=== PATIENT | female | born 1935 | race Caucasian/White ===

== ENCOUNTER 2025-01-25 14:18 | Emergency (ER) | payer MEDICARE, SELFPAY ==
--- NOTE | 2025-01-25 14:21 | XRR_ITS ---
PROCEDURE INFORMATION: Exam: XR Chest Exam date and time: 01/25/2025 2:54 PM Age: 89 years old Clinical indication: Dyspnea; Additional info: Weakness TECHNIQUE: Imaging protocol: Radiologic exam of the chest. Views: 1 view. COMPARISON: No relevant prior studies available. FINDINGS: Lungs: No focal consolidation. Streaky opacities in the lower lungs, likely atelectasis. Mildly elevated left hemidiaphragm. Pleural spaces: No pleural effusion. No pneumothorax. Heart/Mediastinum: Mild cardiomegaly. Severe atherosclerotic calcification of the aortic arch. Mediastinal clips, compatible with post CABG changes. Bones/joints: Median sternotomy wires. XR/XR chest 1V portable [id number] IMPRESSION: No focal consolidation. Streaky opacities in the lower lungs, likely atelectasis. Mild superimposed pneumonia is possible.
--- NOTE | 2025-01-25 14:21 | CTR_ITS ---
PROCEDURE INFORMATION: Exam: CT Head Without Contrast Exam date and time: 01/25/2025 2:40 PM Age: 89 years old Clinical indication: Dizziness; Additional info: Dizzy TECHNIQUE: Imaging protocol: Computed tomography of the head without contrast. Radiation optimization: All CT scans at this facility use at least one of these dose optimization techniques: automated exposure control; mA and/or kV adjustment per patient size (includes targeted exams where dose is matched to clinical indication); or iterative reconstruction. COMPARISON: No relevant prior studies available. RADIATION DOSE METRICS: Total DLP (mGy-cm): 1016.68 FINDINGS: Brain: No hemorrhage. Patchy areas of hypoattenuation within the periventricular white matter are nonspecific but likely reflect a background of microvascular ischemic changes. No mass effect. Cerebral ventricles: The ventricles and sulci are proportionately enlarged, compatible with parenchymal atrophy. Paranasal sinuses: Visualized sinuses are predominantly clear. No fluid levels. Mastoid air cells: Visualized mastoid air cells are well aerated. Bones: Unremarkable. No acute fracture. Soft tissues: Unremarkable. CT/CT head wo con* [id number] IMPRESSION: No acute intracranial finding.
--- OUTSIDE RECORDS SUMMARY | 2025-01-25 14:24 | XMS_ITS | Encounter Summary ---
Author Organization [facility] Address [address] [place] [address] Care Team Providers Care Warble Saw Operator Name Role Phone Liam Houston MD Primary Care Provider [phone] Reason for Referral * Radiology - Closed Specialty Diagnoses / Procedures Referred By Contac t Referred To Contact Radiology Diagnoses Thoracic compression fracture, closed, initial encounter case#: [id number] Procedures CT T Spine w/o Con [id number] Lupe Saravia APRN [facility] Radiology CT Clinical [place] [id number] Phone: tel: fax: Referral ID Status Reason Start Date Expiration Date Visits Re quested Visits Authorized [id number] Closed 11/02/2015 11/01/2016 1 1 * Radiology - Closed Specialty Diagnoses / Procedures Referred By Contac t Referred To Contact Radiology Diagnoses Compression fracture of lumbar spine, non-traumatic, sequela case#: [id number] Procedures CT L Spine w/o Con [id number] Lupe Saravia APRN [facility] Radiology CT Clinical [address] [address] Phone: tel: fax: Referral ID Status Reason Start Date Expiration Date Visits Re quested Visits Authorized [id number] Closed 11/02/2015 11/01/2016 1 1 Encounter Details Date Type Department Care Team (Late Contact Info) Description 11/02/2015 Orders Only [facility] Neurosurgery - [place] [address], [place] [address] [place] [address] Lupe Saravia APRN Thoracic compression fracture, closed, initial encounter; Compression fracture of lumbar spine, non-traumatic, sequela Social History Tobacco Use Types Packs/Day Years Used Date Smoking Tobacco: Never Smokeless Tobacco: Never Alcohol Use Standard Drinks/Week Comments No 0 (1 standard drink = 0.6 oz pur e alcohol) Comments No Sex and Gender Information Value Date Recorded Sex Assigned at Not on file Legal Sex Female 8:25 PM EST Gender Identity Not on file Sexual Orientation Not on file documented as of this encounter Plan of Treatment Upcoming Encounters Date Type Department Care Team (Late st Contact Info) Description 02/18/2025 3:30 PM EDT Office Visit [facility] [address], [facility] [address] [place] [address] 03/13/2025 12:30 PM EDT Office Visit [facility] Family Medicine [facility] [id number] [place] [address] Liam Houston MD [address] [place] [address] [address] [place] [address] Scheduled Procedures Name Priority Associated Diagnoses Date/Ti me WATCHMAN INSERTION Atrial fibrillation, unspecified type documented as of this encounter Results * CT L Spine w/o Con (11/29/2015 10:41 AM EDT) Anatomical Region Laterality Modality L-spine Computed Tomogra phy 11/30/2015 11:0 9 AM EDT Narrative 11/30/2015 11:39 AM EDT Clinical indication: Thoracic compression fracture, closed, initial encounter CT T SPINE W/O CON, CT L SPINE W/O CON Comparison.MRI thoracic and lumbar spine dated October 27, 2015. 3-mm axial images of the thoracic spine were obtained without contrastwith multiplanar reconstructions Findings. There is diffuse osteopenia with accentuation of the vertical trabecula related to diffuse osteoporosis. There is vertebral plana at T10 with retropulsion of bone fragment into the spinal canal configuration and position of fracture vertebral body remains unchanged. There is severe spinal canal stenosis with cord compression and AP diameter of the spinal canal measuring approximately 5.6 mm. Additional compression fracture of L3 incompletely visualized which remain grossly unchanged from previous examination.. There is no disk herniations noted. Impression. Stable CT findings from previous examination.. Persistent vertebral plana at T10 with retropulsion of bone fragment into the spinal canal and severe canal compromise with associated cord compression and edema better seen on prior MRI examination. CT lumbar spine without contrast. Comparison.October 29, 2015 3-mm axial images of the lumbar spine were obtained without contrastwith multiplanar reconstructions Findings. Again noted a transitional lumbosacral junction with a lumbarized sacrum and intervertebral disc at S1-S2. There is diffuse osteopenia. Again noted near collapse of L3 vertebral body with retropulsed superior posterior corner with 30% narrowing of the spinal canal. There is superimposed ligamentum flavum redundancy and facet arthropathy narrowing the dorsal spinal canal by approximately 20%. The AP diameter of the spinal canal is approximately 7.4 mm. There is no large disk herniations noted. Symmetric disc bulges are seen at L3-4, L4-5 and L5-S1 which along with ligamentum flavum redundancy and facet arthropathy result in mild concentric spinal canal narrowing. The SI joints are normal. There is no abnormal enhancement present. There is a stable cysts in the right kidney with linear calcification. There is atherosclerotic disease in the abdominal aorta and iliac vessels. Postsurgical changes related to previous hysterectomy seen. The left adnexa remains normal in appearance.. Impression. Transitional lumbosacral junction as above. Stable appearing of compression deformity at L3 with retropulsed fragment with superimposed ligamentum flavum redundancy and facet arthropathy causing moderate to severe concentric spinal canal narrowing. Please see above. Diffuse osteopenia. Read By Jas Swift M.D. Electronically Verified By Jas Swift M.D. Released Date Time - 11/30/2015 11:39 AM Resident - Procedure Note Katiuska Dotson MD - 11/30/2015 Clinical indication: Thoracic compression fracture, closed, initialencounter CT T SPINE W/O CON, CT L SPINE W/O CON Comparison.MRI thoracic and lumbar spine dated October 27, 2015. 3-mm axial images of the thoracic spine were obtained withoutcontrastwith multiplanar reconstructions Findings. There is diffuse osteopenia with accentuation of the verticaltrabecula related to diffuse osteoporosis. There is vertebral plana at T10 with retropulsion ofbone fragment into the spinal canal configuration and position of fracture vertebral bodyremains unchanged. There is severe spinal canal stenosis with cord compression and AP diameter ofthe spinal canal measuring approximately 5.6 mm. Additional compression fracture of [id number] visualized which remain grossly unchanged from previous examination.. There is nodisk herniations noted. Impression. Stable CT findings from previous examination.. Persistent vertebralplana at T10 with retropulsion of bone fragment into the spinal canal and severe canalcompromise with associated cord compression and edema better seen on prior MRI examination. CT lumbar spine without contrast. Comparison.October 29, 2015 3-mm axial images of the lumbar spine were obtained without contrastwithmultiplanar reconstructions Findings. Again noted a transitional lumbosacral junction with alumbarized sacrum and intervertebral disc at S1-S2. There is diffuse osteopenia. Again notednear collapse of L3 vertebral body with retropulsed superior posterior corner with 30%narrowing of the spinal canal. There is superimposed ligamentum flavum redundancy and facetarthropathy narrowing the dorsal spinal canal by approximately 20%. The AP diameter of the spinalcanal is approximately 7.4 mm. There is no large disk herniations noted. Symmetric disc bulgesare seen at L3-4, L4-5 and L5-S1 which along with ligamentum flavum redundancy and facetarthropathy result in mild concentric spinal canal narrowing. The SI joints are normal. There is noabnormal enhancement present. There is a stable cysts in the right kidney with linearcalcification. There is atherosclerotic disease in the abdominal aorta and iliac vessels.Postsurgical changes related to previous hysterectomy seen. The left adnexa remains normal inappearance.. Impression. Transitional lumbosacral junction as above. Stable appearing ofcompression deformity at L3 with retropulsed fragment with superimposed ligamentum flavum redundancyand facet arthropathy causing moderate to severe concentric spinal canal narrowing. Please seeabove. Diffuse osteopenia. Read By - Katiuska Swift M.D. Electronically Verified By - Katiuska Swift M.D. Released Date Time - 11/30/2015 11:39 AM Resident - us Lupe Saravia RADIO REPAIR TEACHER RAD JX CT ORDERABLES Final Result * CT T Spine w/o Con (11/29/2015 10:40 AM EDT) Anatomical Region Laterality Modality T-spine Computed Tomogra phy 11/30/2015 11:0 9 AM EDT Narrative 11/30/2015 11:39 AM EDT Clinical indication: Thoracic compression fracture, closed, initial encounter CT T SPINE W/O CON, CT L SPINE W/O CON Comparison.MRI thoracic and lumbar spine dated October 27, 2015. 3-mm axial images of the thoracic spine were obtained without contrastwith multiplanar reconstructions Findings. There is diffuse osteopenia with accentuation of the vertical trabecula related to diffuse osteoporosis. There is vertebral plana at T10 with retropulsion of bone fragment into the spinal canal configuration and position of fracture vertebral body remains unchanged. There is severe spinal canal stenosis with cord compression and AP diameter of the spinal canal measuring approximately 5.6 mm. Additional compression fracture of L3 incompletely visualized which remain grossly unchanged from previous examination.. There is no disk herniations noted. Impression. Stable CT findings from previous examination.. Persistent vertebral plana at T10 with retropulsion of bone fragment into the spinal canal and severe canal compromise with associated cord compression and edema better seen on prior MRI examination. CT lumbar spine without contrast. Comparison.October 29, 2015 3-mm axial images of the lumbar spine were obtained without contrastwith multiplanar reconstructions Findings. Again noted a transitional lumbosacral junction with a lumbarized sacrum and intervertebral disc at S1-S2. There is diffuse osteopenia. Again noted near collapse of L3 vertebral body with retropulsed superior posterior corner with 30% narrowing of the spinal canal. There is superimposed ligamentum flavum redundancy and facet arthropathy narrowing the dorsal spinal canal by approximately 20%. The AP diameter of the spinal canal is approximately 7.4 mm. There is no large disk herniations noted. Symmetric disc bulges are seen at L3-4, L4-5 and L5-S1 which along with ligamentum flavum redundancy and facet arthropathy result in mild concentric spinal canal narrowing. The SI joints are normal. There is no abnormal enhancement present. There is a stable cysts in the right kidney with linear calcification. There is atherosclerotic disease in the abdominal aorta and iliac vessels. Postsurgical changes related to previous hysterectomy seen. The left adnexa remains normal in appearance.. Impression. Transitional lumbosacral junction as above. Stable appearing of compression deformity at L3 with retropulsed fragment with superimposed ligamentum flavum redundancy and facet arthropathy causing moderate to severe concentric spinal canal narrowing. Please see above. Diffuse osteopenia. Read By - Katiuska Swift M.D. Electronically Verified By - Katiuska Swift M.D. Released Date Time - 11/30/2015 11:39 AM Resident - Procedure Note Katiuska Dotson MD - 11/30/2015 Clinical indication: Thoracic compression fracture, closed, initialencounter CT T SPINE W/O CON, CT L SPINE W/O CON Comparison.MRI thoracic and lumbar spine dated October 27, 2015. 3-mm axial images of the thoracic spine were obtained withoutcontrastwith multiplanar reconstructions Findings. There is diffuse osteopenia with accentuation of the verticaltrabecula related to diffuse osteoporosis. There is vertebral plana at T10 with retropulsion ofbone fragment into the spinal canal configuration and position of fracture vertebral bodyremains unchanged. There is severe spinal canal stenosis with cord compression and AP diameter ofthe spinal canal measuring approximately 5.6 mm. Additional compression fracture of [id number] visualized which remain grossly unchanged from previous examination.. There is nodisk herniations noted. Impression. Stable CT findings from previous examination.. Persistent vertebralplana at T10 with retropulsion of bone fragment into the spinal canal and severe canalcompromise with associated cord compression and edema better seen on prior MRI examination. CT lumbar spine without contrast. Comparison.October 29, 2015 3-mm axial images of the lumbar spine were obtained without contrastwithmultiplanar reconstructions Findings. Again noted a transitional lumbosacral junction with alumbarized sacrum and intervertebral disc at S1-S2. There is diffuse osteopenia. Again notednear collapse of L3 vertebral body with retropulsed superior posterior corner with 30%narrowing of the spinal canal. There is superimposed ligamentum flavum redundancy and facetarthropathy narrowing the dorsal spinal canal by approximately 20%. The AP diameter of the spinalcanal is approximately 7.4 mm. There is no large disk herniations noted. Symmetric disc bulgesare seen at L3-4, L4-5 and L5-S1 which along with ligamentum flavum redundancy and facetarthropathy result in mild concentric spinal canal narrowing. The SI joints are normal. There is noabnormal enhancement present. There is a stable cysts in the right kidney with linearcalcification. There is atherosclerotic disease in the abdominal aorta and iliac vessels.Postsurgical changes related to previous hysterectomy seen. The left adnexa remains normal inappearance.. Impression. Transitional lumbosacral junction as above. Stable appearing ofcompression deformity at L3 with retropulsed fragment with superimposed ligamentum flavum redundancyand facet arthropathy causing moderate to severe concentric spinal canal narrowing. Please seeabove. Diffuse osteopenia. Read By - Katiuska Swift M.D. Electronically Verified By Jas Swift M.D. Released Date Time - 11/30/2015 11:39 AM Resident - Lupe Saravia RADIO REPAIR TEACHER RAD JX CT ORDERABLES Final Result documented in this encounter Visit Diagnoses Diagnosis Thoracic compression fracture, closed, initial encounter Compression fracture of lumbar spine, non-traumatic, sequela Compression fracture of lumbar spine, non-traumatic, sequela Thoracic compression fracture, closed, initial encounter documented in this encounter Additional Health Concerns Infection Onset Date Last Indicated Resolved Time COVID-19 Rule-Out 11/24/2020 11/24/2020 11/24/2020 10:21 PM EDT COVID-19 (Confirmed) 11/24/2020 12/10/2020 0805/ 021 3:03 AM EDT COVID-19 Rule-Out 11/24/2020 11/25/2020 11/25/2020 5:14 AM EDT documented as of this encounter Care Teams Warble Saw Operator Relationship Specialty Start Date End Date Liam Houston MD [id number] [place] [address] [address] [place] [address] PCP - General Family Medicine 12/14/22 documented as of this encounter
--- OUTSIDE RECORDS SUMMARY | 2025-01-25 14:24 | XMS_ITS | Encounter Summary ---
Author Organization [facility] Address [address] [place] [address] Care Team Providers Care Motor Vehicles Supervisor Name Role Phone Liam Houston MD Primary Care Provider Encounter Details Date Type Department Care Team (Late st Contact Info) Description 01/03/2011 Documentation Encounter SANJEE[facility]TS CONV Conversion, [employer] Social History Tobacco Use Types Packs/Day Years Used Date Smoking Tobacco: Never Assessed Comments Unknown Sex and Gender Information Value Date Recorded Sex Assigned at Not on file Legal Sex Female 8:25 PM EST Gender Identity Not on file Sexual Orientation Not on file documented as of this encounter Procedure Notes * Katy Cuiricarly - 12/03/2013 3:01 AM EDTAssociated Order(s): SCANNED LAB REPORT documented in this encounter Plan of Treatment Upcoming Encounters Date Type Department Care Team (Late st Contact Info) Description 02/18/2025 3:30 PM EDT Office Visit [facility] [place] [address] [place] [address] 03/13/2025 12:30 PM EDT Office Visit [facility] - [address] [place] [address] Liam Houston MD [id number] [place] [address] [address] [place] [address] Scheduled Procedures Name Priority Associated Diagnoses Date/Ti me WATCHMAN INSERTION Atrial fibrillation, unspecified type documented as of this encounter Procedures Procedure Name Priority Date/Time Associated Diagnosis Comments SCANNED LAB REPORT 12/03/2013 3: 01 AM EDT documented in this encounter Results * SCANNED LAB REPORT (12/03/2013 3:01 AM EDT) Narrative 12/03/2013 3:01 AM EDT Ordered by an unspecified provider. Transcriptions Conversion, [employer] - 12/03/2013 3:01 AM EDT us [employer] Conversion Final Resu lt documented in this encounter Visit Diagnoses Not on filedocumented in this encounter Additional Health Concerns Infection Onset Date Last Indicated Resolved Time None 10/20/2011 10/20/2011 07/15/2012 12:4 0 AM EST COVID-19 Rule-Out 11/24/2020 11/24/2020 11/24/2020 10:21 PM EDT COVID-19 (Confirmed) 11/24/2020 12/10/2020 08 021 3:03 AM EDT COVID-19 Rule-Out 11/24/2020 11/25/2020 11/25/2020 5:14 AM EDT documented as of this encounter Care Teams Motor Vehicles Supervisor Relationship Specialty Start Date End Date Liam Houston MD [id number] [place] [address] [place] [address] PCP - General Family Medicine 04/26/22 documented as of this encounter
--- OUTSIDE RECORDS SUMMARY | 2025-01-25 14:24 | XMS_ITS | Encounter Summary ---
Author Organization [facility] Address [address] [place] [address] Care Team Providers Care Trust Mail Clerk Name Role Phone Liam Houston MD Primary Care Provider [phone] Encounter Details Date Type Department Care Team (Late st Contact Info) Description 03/10/2011 Documentation Encounter SANJEEV V ALLSCRIPTS CONV Conversion, [employer] Social History Tobacco Use Types Packs/Day Years Used Date Smoking Tobacco: Never Assessed Comments Unknown Sex and Gender Information Value Date Recorded Sex Assigned at Not on file Legal Sex Female 8:25 PM EST Gender Identity Not on file Sexual Orientation Not on file documented as of this encounter Procedure Notes * Agustina Cui - 12/01/2013 5:19 AM EDTAssociated Order(s): SCANNED LAB REPORT documented in this encounter Plan of Treatment Upcoming Encounters Date Type Department Care Team (Late st Contact Info) Description 02/18/2025 3:30 PM EDT Office Visit [facility] [place] [address] [address] [place] [address] 03/13/2025 12:30 PM EDT Office Visit [facility] - [address] [place] [address] Liam Houston MD [id number] [place] [address] [address] [place] [address] Scheduled Procedures Name Priority Associated Diagnoses Date/Ti me WATCHMAN INSERTION Atrial fibrillation, unspecified type documented as of this encounter Procedures Procedure Name Priority Date/Time Associated Diagnosis Comments SCANNED LAB REPORT 12/01/2013 5: 19 AM EDT documented in this encounter Results * SCANNED LAB REPORT (12/01/2013 5:19 AM EDT) Narrative 12/01/2013 5:19 AM EDT Ordered by an unspecified provider. Transcriptions Conversion, Allscripts - 12/01/2013 5:19 AM EDT us [employer] Conversion Final Resu lt documented in this encounter Visit Diagnoses Not on filedocumented in this encounter Additional Health Concerns Infection Onset Date Last Indicated Resolved Time None 10/20/2011 10/20/2011 07/15/2012 12:4 0 AM EST COVID-19 Rule-Out 11/24/2020 11/24/2020 11/24/2020 10:21 PM EDT COVID-19 (Confirmed) 11/24/2020 12/10/2020 021 3:03 AM EDT COVID-19 Rule-Out 11/24/2020 11/25/2020 11/25/2020 5:14 AM EDT documented as of this encounter Care Teams Trust Mail Clerk Relationship Specialty Start Date End Date Liam Houston MD [address] [place] [address] [place] [address] PCP - General Family Medicine 04/26/22 documented as of this encounter
--- OUTSIDE RECORDS SUMMARY | 2025-01-25 14:24 | XMS_ITS | Encounter Summary ---
Author Organization [facility] Address [address] [place] [address] Care Team Providers Care Siphon Operator Name Role Phone Liam Houston MD Primary Care Provider [phone] Encounter Details Date Type Department Care Team (Late st Contact Info) Description 01/19/2011 Documentation Encounter SANJEEV V ALLSCRIPTS CONV Conversion, [employer] Social History Tobacco Use Types Packs/Day Years Used Date Smoking Tobacco: Never Assessed Comments Unknown Sex and Gender Information Value Date Recorded Sex Assigned at Not on file Legal Sex Female 8:25 PM EST Gender Identity Not on file Sexual Orientation Not on file documented as of this encounter Procedure Notes * Agustina Cui - 12/02/2013 9:18 AM EDTAssociated Order(s): SCANNED LAB REPORT documented in this encounter Plan of Treatment Upcoming Encounters Date Type Department Care Team (Late st Contact Info) Description 02/18/2025 3:30 PM EDT Office Visit [facility] [place] [address] [address] [place] [address] 03/13/2025 12:30 PM EDT Office Visit [facility] - [address] [place] [address] Liam Houston MD [id number] [place] [address] [address] [place] [address] Scheduled Procedures Name Priority Associated Diagnoses Date/Ti me WATCHMAN INSERTION Atrial fibrillation, unspecified type documented as of this encounter Procedures Procedure Name Priority Date/Time Associated Diagnosis Comments SCANNED LAB REPORT 12/02/2013 9: 18 AM EDT documented in this encounter Results * SCANNED LAB REPORT (12/02/2013 9:18 AM EDT) Narrative 12/02/2013 9:18 AM EDT Ordered by an unspecified provider. Transcriptions Conversion, Allscripts - 12/02/2013 9:18 AM EDT us Allscripts Conversion Final Resu [...] documented as of this encounter Care Teams Siphon Operator Relationship Specialty Start Date End Date Liam Houston MD [address] [place] [address] [place] [address] PCP - General Family Medicine 04/26/22 documented as of this encounter
--- OUTSIDE RECORDS SUMMARY | 2025-01-25 14:24 | XMS_ITS | Encounter Summary ---
Author Organization [facility] Address [address] [place] [address] Care Team Providers Care Grease Maker Name Role Phone Liam Houston MD Primary Care Provider [phone] Encounter Details Date Type Department Care Team (Late st Contact Info) Description 12/07/2009 Documentation Encounter SANJEEV V ALLSCRIPTS CONV Conversion, Allscripts Social History Tobacco Use Types Packs/Day Years Used Date Smoking Tobacco: Never Assessed Comments Unknown Sex and Gender Information Value Date Recorded Sex Assigned at Not on file Legal Sex Female 8:25 PM EST Gender Identity Not on file Sexual Orientation Not on file documented as of this encounter Last Filed Vital Signs Vital Sign Reading Time Taken Comments Blood Pressure 131/89 12/07/2009 9:17 AM EDT Pulse 73 12/07/2009 9:17 AM EDT Temperature 36.1 C (97 F) 12/07/2009 9:17 AM EDT Respiratory Rate 16 12/07/2009 9:17 AM EDT Oxygen Saturation - - Inhaled Oxygen Concentration - - Weight 64 kg (141 lb) 12/07/2009 9:17 AM EDT Height 160 cm (5' 3 ) 12/07/2009 9:17 AM EDT Body Mass Index 24.98 12/07/2009 9:17 AM EDT documented in this encounter Miscellaneous Notes * Scanned Document - Conversion, Allscripts - 12/06/2013 11:07 PM EDT documented in this encounter Plan of Treatment Upcoming Encounters Date Type Department Care Team (Late st Contact Info) Description 02/18/2025 3:30 PM EDT Office Visit [place] [id number], [address] [place] [address] 03/13/2025 12:30 PM EDT Office Visit [place] 9[address] [place] [address] [address] Liam Houston MD [id number] [place] [address] Scheduled Procedures Name Priority Associated Diagnoses Date/Ti me WATCHMAN INSERTION Atrial fibrillation, unspecified type documented as of this encounter Visit Diagnoses Not on filedocumented in this encounter Additional Health Concerns Infection Onset Date Last Indicated Resolved Time None 10/20/2011 10/20/2011 07/15/2012 12:4 0 AM EST COVID-19 Rule-Out 11/24/2020 11/24/2020 11/24/2020 10:21 PM EDT COVID-19 (Confirmed) 11/24/2020 12/10/2020 08 021 3:03 AM EDT COVID-19 Rule-Out 11/24/2020 11/25/2020 11/25/2020 5:14 AM EDT documented as of this encounter Care Teams Grease Maker Relationship Specialty Start Date End Date Liam Houston MD [address] [place] [address] [address] [place] [address] PCP - General Family Medicine 04/26/22 documented as of this encounter
--- OUTSIDE RECORDS SUMMARY | 2025-01-25 14:24 | XMS_ITS | Encounter Summary ---
Author Organization [facility] Address [address] [place] [address] Care Team Providers Care General Lot Attendant Name Role Phone Liam Houston MD Primary Care Provider [phone] Encounter Details Date Type Department Care Team (Late st Contact Info) Description 05/16/2011 Documentation Encounter SANJEEV V ALLSCRIPTS CONV Conversion, [...] Sign Reading Time Taken Comments Blood Pressure 119/75 05/16/2011 1:39 PM EST Pulse 73 05/16/2011 1:39 PM EST Temperature 36.1 C (97 F) 05/16/2011 1:39 PM EST Respiratory Rate 20 05/16/2011 1:39 PM EST Oxygen Saturation - - Inhaled Oxygen Concentration - - Weight 63 kg (139 lb) 05/16/2011 1:39 PM EST Height 160 cm (5' 3 ) 05/16/2011 1:39 PM EST Body Mass Index 24.62 05/16/2011 1:39 PM EST documented in this encounter Miscellaneous Notes * Scanned Document - Conversion, Allscripts - 11/30/2013 6:25 AM EDT documented in this encounter Plan of Treatment Upcoming Encounters Date Type Department Care Team (Late st Contact Info) Description 02/18/2025 3:30 PM EDT Office Visit [place] [address] [address], [address] [place] [address] 03/13/2025 12:30 PM EDT Office Visit [address] [address] Liam Houston MD [id number] [place] [address] Scheduled Procedures Name Priority Associated Diagnoses [...] documented as of this encounter Care Teams General Lot Attendant Relationship Specialty Start Date End Date Liam Houston MD [address] [place] [address] [id number] PCP - General Family Medicine 04/26/22 documented as of this encounter
--- OUTSIDE RECORDS SUMMARY | 2025-01-25 14:24 | XMS_ITS | Encounter Summary ---
Author Organization [facility] Address [address] [place] [address] Care Team Providers Care Dairy Technician Name Role Phone Liam Houston MD Primary Care Provider [phone] Reason for Referral * Radiology - Closed Specialty Diagnoses / Procedures Referred By Contac t Referred To Contact Radiology Diagnoses Closed fracture of thoracic vertebra, unspecified fracture morphology, initial encounter Closed fracture of lumbar vertebra, unspecified fracture morphology, initial encounter Procedures XR Spine Thoracolumbar 2 Views Lupe Avila PA-C Phone: tel: fax: [facility] [place] [address] [place] [address] Phone: tel: fax: Referral ID Status Reason Start Date Expiration Date Visits Re quested Visits Authorized [id number] Closed 10/30/2015 10/29/2016 1 1 Encounter Details Date Type Department Care Team (Late st Contact Info) Description 10/30/2015 Orders Only [facility] Neurosurgery - [place] [address], [place] [address] [place] [phone] Lupe Avila PA-C [address] [address] Closed fracture of thoracic vertebra, unspecified fracture morphology, initial encounter; Closed fracture of lumbar vertebra, unspecified fracture morphology, initial encounter Social History Tobacco Use Types Packs/Day Years [...] Description 02/18/2025 3:30 PM EDT Office Visit [facility] Cardi[facility] [address], [place] [address] [place] [address] 03/13/2025 12:30 PM EDT Office Visit [facility] Family Medicine [place] [address] [place] [address] [place] [phone] Liam Houston MD [id number] [place] [address] [place] [address] [phone] Scheduled Orders Name Type Priority Associated Diagnoses Orde r Schedule XR Spine Thoracolumbar 2 Views Imaging Routine Closed fracture of thoracic vertebra, unspecified fracture morphology, initial encounter Closed fracture of lumbar vertebra, unspecified fracture morphology, initial encounter Expected: 10/30/2015, Expires: 10/29/2016 Scheduled Procedures Name Priority Associated Diagnoses Date/Ti me WATCHMAN INSERTION Atrial fibrillation, unspecified type documented as of this encounter Visit Diagnoses Diagnosis Closed fracture of thoracic vertebra, unspecified fracture morphology, initial encounter Closed fracture of lumbar vertebra, unspecified fracture morphology, initial encounter documented in this encounter Additional Health Concerns Infection Onset Date Last Indicated Resolved Time COVID-19 Rule-Out 11/24/2020 11/24/2020 11/24/2020 10:21 PM EDT COVID-19 (Confirmed) 11/24/2020 12/10/202012/16/2 021 3:03 AM EDT COVID-19 Rule-Out 11/24/2020 11/25/2020 11/25/2020 5:14 AM EDT documented as of this encounter Care Teams Dairy Technician Relationship Specialty Start Date End Date Liam Houston MD 6[address]171 [place] [address] [address] [place] [address] PCP - General Family Medicine 04/26/22 documented as of this encounter
--- OUTSIDE RECORDS SUMMARY | 2025-01-25 14:24 | XMS_ITS | Encounter Summary ---
Author Organization [facility] Address [address] [place] [address] Care Team Providers Care Hogshead Salvage Name Role Phone Liam Houston MD Primary Care Provider [phone] Encounter Details Date Type Department Care Team (Late st Contact Info) Description 12/07/2009 Documentation Encounter SANJEEV V ALLSCRIPTS CONV Husam Lugo MD Social History Tobacco Use Types Packs/Day Years Used Date Smoking Tobacco: Never Assessed Comments Unknown Sex and Gender Information Value Date Recorded Sex Assigned at Not on file Legal Sex Female 8:25 PM EST Gender Identity Not on file Sexual Orientation Not on file documented as of this encounter Progress Notes * Husam Lugo MD - 12/07/2009 9:30 AM EDT Referring Provider Referring Physician: Dr. Clark . Chief Complaint 73 year old female presents to the ENT clinic with complaint of Fluid L Ear / Serous OM Vital Signs Adult Female Recorded by on November 09:17 AM BP: 131/89 mm Hg HR: 73 b/min ; Resp: 16 r/min ; Temp: 97 F Height: 63 in, Weight: 141 lb, BMI: 24.98 , BSA: 1.67 . 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 PSH Hysterectomy (V45.77). Allergies No Known Drug Allergy. Current Meds Aspirin 81 MG Oral Tablet;TAKE 1 TABLET DAILY.; RPT Fiber Therapy TABS;TAKE 2 TABLET TWICE DAILY; RPT Hydrochlorothiazide 12.5 MG Oral Tablet;TAKE TABLET DAILY; Rx Hydrochlorothiazide 12.5 MG Oral Capsule;TAKE 1 CAPSULE EVERY DAY; Rx Alendronate Sodium 10 MG Oral Tablet;TAKE 1 TABLET EVERY DAY; Rx Nasonex 50 MCG/ACT Nasal Suspension;USE 2 SPRAYS IN EACH NOSTRIL ONCE DAILY; Rx. Personal Hx Denied Alcohol Use Denied Tobacco Use. Family Hx Family history of Coronary Artery Disease Family history of Ischemic Stroke. Signature Electronically signed by : Husam Lugo M.D.; 12/16/2009 10:22 AM EST. * Husam Lugo MD - 12/07/2009 9:30 AM EDT NAME: RAMY ALAS DATE OF : 1935 DATE OF SERVICE: 12/07/2009 ATTENDING: HUSAM LUGO MD The patient was treated conservatively for left serous otitis. She states her hearing has now improved, and on examination, there is no evidence of fluid within the left middle ear space. She is to return p.r.n. HUSAM LUGO MD D: [id number] MT: [id number] Dictator: [id number] Confirmation Number: [id number] ([id number]) Electronically signed by:Husam Lugo M.D. Dec 16 2009 10:22AM EST documented in this encounter Plan of Treatment Upcoming Encounters Date Type Department Care Team (Late st Contact Info) Description 02/18/2025 3:30 PM EDT Office Visit [facility] [address], [facility] [address] [place] [address] 03/13/2025 12:30 PM EDT Office Visit [facility] [id number] [place] [phone] Liam Houston MD [id number] [place] [address] [phone] Scheduled Procedures Name Priority Associated Diagnoses Date/Ti [...] documented as of this encounter Care Teams Hogshead Salvage Relationship Specialty Start Date End Date Liam Houston MD [address] [place] [address] [address] [place], [place] [phone] PCP - General Family Medicine 04/26/22 documented as of this encounter
--- OUTSIDE RECORDS SUMMARY | 2025-01-25 14:24 | XMS_ITS | Encounter Summary ---
Author Organization [facility] Address [address] [place] [address] Care Team Providers Care Skip Pitman Name Role Phone Liam Houston MD Primary Care Provider [phone] Encounter Details Date Type Department Care Team (Latest Contact Info) Description 10/29/2015 Prep For Surgery [facility] Neurosurgery - [address], [place] [address] [place] [address] Velia Britton APRN [address], [place] [address], [address] [place] [address] Other closed fracture of tenth thoracic vertebra; Weakness of right leg Social History Tobacco Use Types Packs/Day Years [...] Description 02/18/2025 3:30 PM EDT Office Visit [facility] Cardiovascular [place] [address] [address], [facility] [address] [place] [address] 03/13/2025 12:30 PM EDT Office Visit [facility] Medicine - [place] [address] [place] [address] [place] [phone] Liam Houston MD [id number] [place] [address] [phone] Scheduled Procedures Name Priority Associated Diagnoses Date/Ti me WATCHMAN INSERTION Atrial fibrillation, unspecified type documented as of this encounter Visit Diagnoses Diagnosis Other closed fracture of tenth thoracic vertebra Weakness of right leg Other musculoskeletal symptoms referable to limbs documented in this encounter Additional Health Concerns Infection Onset Date Last Indicated Resolved Time COVID-19 Rule-Out 11/24/2020 11/24/2020 11/24/2020 10:21 PM EDT COVID-19 (Confirmed) 11/24/2020 12/10/2020 021 3:03 AM EDT COVID-19 Rule-Out 11/24/2020 11/25/2020 11/25/2020 5:14 AM EDT documented as of this encounter Care Teams Skip Pitman Relationship Specialty Start Date End Date Liam Houston MD [id number] [phone] PCP - General Family Medicine 04/26/22 documented as of this encounter
--- OUTSIDE RECORDS SUMMARY | 2025-01-25 14:24 | XMS_ITS | Encounter Summary ---
Author Organization [facility] Address [address] [place] [address] Care Team Providers Care Cartridge Belt Puncher Name Role Phone Liam Houston MD Primary Care Provider [phone] Encounter Details Date Type Department Care Team (Late st Contact Info) Description 06/21/2010 Documentation Encounter SANJEEV V ALLSCRIPTS CONV Stephen Collier MD Social History Tobacco Use Types Packs/Day Years Used Date Smoking Tobacco: Never Assessed Comments Unknown Sex and Gender Information Value Date Recorded Sex Assigned at Not on file Legal Sex Female 8:25 PM EST Gender Identity Not on file Sexual Orientation Not on file documented as of this encounter Progress Notes * Stephen Collier MD - 06/21/2010 3:15 PM EST Chief Complaint Follow-up for chronic medical conditions listed below under PMH and Active Problems. hosp f/u Subjective 74 year old, female here for followup after being seen in the emergency department for abdominal pain. It came on abruptly when she stood in [place] turned lower back or pelvis. No vomiting no fever or chills no change in bowel habits. She was evaluated in the emergency department CT scan was performed and is reviewed showing small renal and adnexal cyst and she was discharged on pain medications.Resolved and has not returned. She feels fine All other ROS otherwise neg. Allergies No Known Drug Allergy. Current Meds Aspirin 81 MG Oral Tablet;TAKE 1 TABLET DAILY.; RPT Fiber Therapy TABS;TAKE 2 TABLET TWICE DAILY; RPT Hydrochlorothiazide 12.5 MG Oral Tablet;TAKE TABLET DAILY; Rx Nasonex 50 MCG/ACT Nasal Suspension;USE 2 SPRAYS IN EACH NOSTRIL ONCE DAILY; Rx Hydrochlorothiazide 12.5 MG Oral Capsule;1QD - TAKE ONE CAPSULE BY MOUTH EVERY DAY; Rx Simvastatin 40 MG Oral Tablet;1QD - TAKE ONE TABLET BY MOUTH EVERY DAY; Rx Alendronate Sodium 10 MG Oral Tablet;TAKE 1 TABLET EVERY DAY; Rx. 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 PSH Hysterectomy (V45.77). Family Hx Family history of Coronary Artery Disease Family history of Ischemic Stroke. Personal Hx Denied Alcohol Use Denied Alcohol Use Denied Current Smoker Denied Tobacco Use. Vital Signs Adult Female Recorded by Selina Hayes on June 03:30 PM BP: 138/78 mm Hg HR: 76 b/min ; Resp: 18 r/min ; Temp: 98.4 F Height: 63 in, Weight: 139 lb, BMI: 24.62 , BSA: 1.66 . Objective NAD: VSS. CHEST: CTA. CV: RRR without M/R/G. Abdominal exam is unremarkable no tenderness no CVA tenderness. Assessment Benign essential hypertension (401.1) Muscle spasm (728.85) Health Mgmt Plan Pap smear, breast exam and Hemoccult done 02/2005 Colonoscopy 12.08 Mammogram done 12/2004 Colon exam done 2003 Advance directive given Flu shot done 04/13/06. Plan Assessment found on CT are likely incidental findings however will ultrasound in about 6 weeks and patient should report any return of the symptoms. Referral Patient: RE ALAS : 1935 Priority: Standard Referral to Specialist: Transfer Care for Problem To:/ Dx Radiology: 6 week follow up - Ultrasound renal and pelvis for adnexal cysts and renal cysts Amended : Morena Berg ; 08/02/2010 8:28 AM EST. Signature Electronically signed by : Stephen Collier M.D.; 06/21/2010 4:55 PM EST. Electronically signed by : Stephen Collier M.D.; 08/02/2010 9:37 AM EST. documented in this encounter Plan of Treatment Upcoming Encounters Date Type Department Care Team (Late st Contact Info) Description 02/18/2025 3:30 PM EDT Office Visit [facility] Cardiovascular [address], [facility] [address] [place] [address] 03/13/2025 12:30 PM EDT Office Visit [facility] Family Medicine [address] [address] Liam Houston [place] [id number] [place] [address] [phone] Scheduled Procedures Name Priority Associated Diagnoses Date/Ti me WATCHMAN INSERTION Atrial fibrillation, unspecified type documented as of this encounter Visit Diagnoses Not on filedocumented in this encounter Additional Health Concerns Infection Onset Date Last Indicated Resolved Time None 10/20/2011 10/20/2011 07/15/2012 12:4 0 AM EST COVID-19 Rule-Out 11/24/2020 11/24/2020 11/24/2020 10:21 PM EDT COVID-19 (Confirmed) 11/24/2020 12/10/20202 021 3:03 AM EDT COVID-19 Rule-Out 11/24/2020 11/25/2020 11/25/2020 5:14 AM EDT documented as of this encounter Care Teams Cartridge Belt Puncher Relationship Specialty Start Date End Date Liam Houston MD [address] [place] [address] [phone] PCP - General Family Medicine 04/26/22 documented as of this encounter
--- OUTSIDE RECORDS SUMMARY | 2025-01-25 14:24 | XMS_ITS | Encounter Summary ---
Author Organization [facility] Address [address] [place] [address] Care Team Providers Care Process Consultant Name Role Phone Liam Houston MD Primary Care Provider [phone] Encounter Details Date Type Department Care Team (Late st Contact Info) Description 12/27/2010 Documentation Encounter SANJEEV V ALLSCRIPTS CONV Conversion, Allscripts Social History Tobacco Use Types Packs/Day Years Used Date Smoking Tobacco: Never Assessed Comments Unknown Sex and Gender Information Value Date Recorded Sex Assigned at Not on file Legal Sex Female 8:25 PM EST Gender Identity Not on file Sexual Orientation Not on file documented as of this encounter Procedure Notes * Agustina Cui - 12/04/2013 8:43 AM EDTAssociated Order(s): CARDIOLOGY TESTING documented in this encounter Plan of Treatment Upcoming Encounters Date Type Department Care Team (Late st Contact Info) Description 02/18/2025 3:30 PM EDT Office Visit [facility] Cardiovascular Center [place] [address] [address], [address] [place] [address] 03/13/2025 12:30 PM EDT Office Visit [facility] Family Medicine - [address] [place] [address] Liam Houston [place] 066744 [place] [address] [address] [place] [address] Scheduled Procedures Name Priority Associated Diagnoses Date/Ti me WATCHMAN INSERTION Atrial fibrillation, unspecified type documented as of this encounter Procedures Procedure Name Priority Date/Time Associated Diagnosis Comments CARDIOLOGY TESTING 12/04/2013 8: 43 AM EDT documented in this encounter Results * CARDIOLOGY TESTING (12/04/2013 8:43 AM EDT) Narrative 12/04/2013 8:43 AM EDT Ordered by an unspecified provider. Transcriptions Conversion, Allscripts - 12/04/2013 8:43 AM EDT us Allscripts Conversion SCANNED ORDERS Final Resu lt documented in this encounter [...] documented as of this encounter Care Teams Process Consultant Relationship Specialty Start Date End Date Liam Houston MD 184833 [place] [address] [place] [address] PCP - General Family Medicine 04/26/22 documented as of this encounter
--- OUTSIDE RECORDS SUMMARY | 2025-01-25 14:24 | XMS_ITS | Encounter Summary ---
Author Organization [facility] Address [address] [place] [address] Care Team Providers Care Casket Liner Name Role Phone Liam Houston MD Primary Care Provider [phone] Encounter Details Date Type Department Care Team (Late st Contact Info) Description 02/27/2011 Documentation Encounter SANJEEV V ALLSCRIPTS CONV Conversion, Allscripts Social History Tobacco Use Types Packs/Day Years Used Date Smoking Tobacco: Never Assessed Comments Unknown Sex and Gender Information Value Date Recorded Sex Assigned at Not on file Legal Sex Female 8:25 PM EST Gender Identity Not on file Sexual Orientation Not on file documented as of this encounter Procedure Notes * Conversion, Allscripts - 12/01/2013 1:35 PM EDTAssociated Order(s): SCANNED RADIOLOGY - OUTSIDE AND OTHER * Conversion, Allscripts - 12/01/2013 1:35 PM EDTAssociated Order(s): SCANNED RADIOLOGY - MAMMOGRAM * Conversion, Allscripts - 12/01/2013 1:35 PM EDTAssociated Order(s): SCANNED RADIOLOGY - OUTSIDE AND OTHER * Conversion, Allscripts - 12/01/2013 1:35 PM EDTAssociated Order(s): SCANNED RADIOLOGY - MAMMOGRAM documented in this encounter Plan of Treatment Upcoming Encounters Date Type Department Care Team (Late st Contact Info) Description 02/18/2025 3:30 PM EDT Office Visit [facility] [address], [place] [address] [place] [address] 03/13/2025 12:30 PM EDT Office Visit [facility] [address] [place] [address] Liam Houston MD [id number] [place] [address] [address] [place] [address] Scheduled Procedures Name Priority Associated Diagnoses Date/Ti me WATCHMAN INSERTION Atrial fibrillation, unspecified type documented as of this encounter Procedures Procedure Name Priority Date/Time Associated Diagnosis Comments SCANNED RADIOLOGY - OUTSIDE AND OTHER 12/01/2013 1:35 PM EDT SCANNED RADIOLOGY - OUTSIDE AND OTHER 12/01/2013 1:35 PM EDT SCANNED RADIOLOGY - MAMMOGRAM 12/01/2013 1:35 PM EDT SCANNED RADIOLOGY - MAMMOGRAM 12/01/2013 1:35 PM EDT documented in this encounter Results * SCANNED RADIOLOGY - OUTSIDE AND OTHER (12/01/2013 1:35 PM EDT) Anatomical Region Laterality Modality Other Narrative 12/01/2013 1:35 PM EDT Ordered by an unspecified provider. Transcriptions Conversion, Allscripts - 12/01/2013 1:35 PM EDT us Allscripts Conversion Final Resu lt * SCANNED RADIOLOGY - MAMMOGRAM (12/01/2013 1:35 PM EDT) Anatomical Region Laterality Modality Other Narrative 12/01/2013 1:35 PM EDT Ordered by an unspecified provider. Transcriptions Conversion, Allscripts - 12/01/2013 1:35 PM EDT us Allscripts Conversion Final Resu lt * SCANNED RADIOLOGY - OUTSIDE AND OTHER (12/01/2013 1:35 PM EDT) Anatomical Region Laterality Modality Other Narrative 12/01/2013 1:35 PM EDT Ordered by an unspecified provider. Transcriptions Conversion, Allscripts - 12/01/2013 1:35 PM EDT us Allscripts Conversion Final Resu lt * SCANNED RADIOLOGY - MAMMOGRAM (12/01/2013 1:35 PM EDT) Anatomical Region Laterality Modality Other Narrative 12/01/2013 1:35 PM EDT Ordered by an unspecified provider. Transcriptions Conversion, Allscripts - 12/01/2013 1:35 PM EDT us Allscripts Conversion Final Resu lt documented in this encounter Visit Diagnoses Not on filedocumented in this encounter Additional Health Concerns Infection Onset Date Last Indicated Resolved Time None 10/20/2011 10/20/2011 07/15/2012 12:4 0 AM EST COVID-19 Rule-Out 11/24/2020 11/24/2020 11/24/2020 10:21 PM EDT COVID-19 (Confirmed) 11/24/2020 12/10/2020 [address]8052 021 3:03 AM EDT COVID-19 Rule-Out 11/24/2020 11/25/2020 11/25/2020 5:14 AM EDT documented as of this encounter Care Teams Casket Liner Relationship Specialty Start Date End Date Liam Houston MD [id number] [address] [place] [address] PCP - General Family Medicine 04/26/22 documented as of this encounter
--- OUTSIDE RECORDS SUMMARY | 2025-01-25 14:24 | XMS_ITS | Encounter Summary ---
Author Organization [facility] Address [address] [place] [address] Care Team Providers Care Mosquito Sprayer Name Role Phone Liam Houston MD Primary Care Provider [phone] Encounter Details Date Type Department Care Team (Late st Contact Info) Description 08/30/2010 Documentation Encounter SANJEEV V ALLSCRIPTS CONV Aspen Licona MD Social History Tobacco Use Types Packs/Day Years Used Date Smoking Tobacco: Never Assessed Comments Unknown Sex and Gender Information Value Date Recorded Sex Assigned at Not on file Legal Sex Female 8:25 PM EST Gender Identity Not on file Sexual Orientation Not on file documented as of this encounter Progress Notes * Aspen Licona MD - 08/30/2010 9:34 AM EDT Test Conclus. RADIOLOGY/IMAGING [facility] REPORT [place] [address] Patient Name: RE TORRES : [birth year] Age: 74Y Ordering Physician: ASPEN LICONA LED: 08/30/10 Sex: F Attending Physician: ASPEN LICONA Service: RADIOLOGY Check-in #: [id number] Room #/Area: EXR Unit No.: [id number] [id number] Reason: 401.9-HYPERTENSION NOS Date Ordered: Admit Dx: HYPERTENSION/UNSPECI Date/Time Done: 08/30/10 1228 Priority: +ROUTINE INS: HMO-Medicare Initial Service: EXR Comments: EXAM 2934 EUL-RETROPERITONEUM COMPLETE 93428 Final Ord Dia.9-HYPERTENSION NOS Procedure: EUL-RETROPERITONEUM COMPLETE Ordering History: 401.9: HYPERTENSION NOS Additional History: 74 year old female with hypertension Comparison: CT abdomen and pelvis 06/15/10 Findings: Right kidney: 9.8 x 5.0 centimeters. There is a large simple appearing right superior pole cystic lesion which measures 3.4 x 4.1 cm Left kidney: 9.3 x 4 cm. Negative. Urinary Bladder: Negative Proximal aorta: 1.6 x 1.5 x 1.5 cm Mid aorta: 1.3 by 1.3 x 1.4 cm Distal aorta: 1.1 by 1.0 x 1.0 cm Right common iliac artery: 0.8 x 0.7 by 0.9 cm Left common iliac artery: 0.8 by 0.9 x 0.8 cm Proximal IVC: Negative. There are atherosclerotic changes of the aorta. Impression: Atherosclerotic changes without evidence of abdominal aortic aneurysm. Right superior renal pole 4-cm simple appearing cyst. Consider follow-up as clinically indicated. Geriatric Case Manager- Automated Read By- NOLBERTO SALINAS Electronically Verified By- NOLBERTO SALINAS Released Date Time- 08/30/10 5928 Final Page 1. Results Plan Contact patient and notify results are Normal. Except for her simple cyst less than 1 inch noted on left side, followup if still having discomfortthank you. 08/31/2010 Called and spoke with pt informing per result plan; pt voiced understanding. Response Completed by: Rosa Isela Fernandez Amended : Rosa Isela Fernandez MA; 08/31/2010 4:25 PM EST. Signature Electronically signed by : Aspen Licona M.D.; 08/31/2010 10:39 AM EST. Electronically signed by : Aspen Licona M.D.; 08/31/2010 4:33 PM EST. * Aspen Licona MD - 08/30/2010 9:31 AM EDT Test Conclus. RADIOLOGY/IMAGING [facility] [place] [address] Patient Name: RE TORRES : [birth year] Age: 74Y Ordering Physician: ASPEN LICONA LED: 08/30/10 Sex: F Attending Physician: ASPEN LICONA Service: RADIOLOGY Check-in #: [id number] Room #/Area: EXR Unit No.: [id number] Reason: 789.30-ABDMNAL MASS UNSPCF SITE Date Ordered: Admit Dx: HYPERTENSION/UNSPECI Date/Time Done: 08/30/10 1228 Priority: +ROUTINE INS: HMO-Medicare Initial Service: EXR Comments: EXAM 2941 EUL-PELVIC ECHO COMPL (NON OB)45780 Final Ord Dia.30-ABDMNAL MASS UNSPCF SIT EXAM 2940 EUL-PELVIC ECHO TRANSVAGINAL 12668 Final Ord Dia.30-ABDMNAL MASS UNSPCF SIT Procedure: EUL-PELVIC ECHO COMPL (NON OB), EUL-PELVIC ECHO TRANSVAGINAL Ordering History: 789.30: ABDMNAL MASS UNSPCF SITE Additional History: 74 year old female Comparison: CT abdomen pelvis 06/15/10 Technique: Transabdominal pelvic ultrasound was initially performed with limited visualization of the endometrium and/or adnexal structures. Therefore, transvaginal pelvic ultrasound was performed. Findings: The uterus is surgically absent. The ovaries are not well visualized. There is a simple appearing cystic lesion in the left adnexa which measures 1.5 cm x 1.5 cm x 1.5 cm. There is posterior acoustic enhancement. There is no associated vascularity on color Doppler Impression: Surgically absent uterus with nonvisualization of bilateral ovaries. However a left adnexal 1.5-cm cystic lesion has a simple appearance. Clinical correlation is recommended. Geriatric Case Manager- Automated Read By- NOLBERTO SALINAS Electronically Verified By- NOLBERTO SALINAS Released Date Time- 08/30/10 1422 Final Page 1. Signature Electronically signed by : Aspen Licona M.D.; 08/31/2010 10:39 AM EST. documented in this encounter Plan of Treatment Upcoming Encounters Date Type Department Care Team (Late st Contact Info) Description 02/18/2025 3:30 PM EDT Office Visit [facility] Cardiovascular [address], [facility] [address] [place] [address] 03/13/2025 12:30 PM EDT Office Visit [facility] Family Medicine [facility] [address] [facility] [address] [place] [address] Liam Houston [place] [id number] [place] [address] [address] [place] [address] Scheduled Procedures Name Priority Associated [...] documented as of this encounter Care Teams Mosquito Sprayer Relationship Specialty Start Date End Date Liam Houston [place] [id number] [address] [place] [address] PCP - General Family Medicine 04/26/22 documented as of this encounter
--- OUTSIDE RECORDS SUMMARY | 2025-01-25 14:25 | XMS_ITS | Encounter Summary ---
Author Organization [facility] Address [address] [place] [address] Care Team Providers Care Cell Room Supervisor Name Role Phone Liam Houston MD Primary Care Provider [phone] Encounter Details Date Type Department Care Team (Late st Contact Info) Description 04/17/2013 Documentation Encounter SANJEEV V ALLSCRIPTS CONV Conversion, Allscripts Social History Tobacco Use Types Packs/Day Years Used Date Smoking Tobacco: Never Assessed Alcohol Use Standard Drinks/Week Comments No 0 [...] Sign Reading Time Taken Comments Blood Pressure 116/64 04/17/2013 11:48 AM EST Pulse 72 04/17/2013 11:48 AM EST Temperature 36.4 C (97.6 F) 04/17/2013 11:48 AM EST Respiratory Rate 18 04/17/2013 11:48 AM EST Oxygen Saturation - - Inhaled Oxygen Concentration - - Weight 62.6 kg (138 lb) 04/17/2013 11:48 AM EST Height 162.6 cm (5' 4 ) 04/17/2013 11:48 AM EST Body Mass Index 23.69 04/17/2013 11:48 AM EST documented in this encounter Plan of Treatment Upcoming Encounters Date Type Department Care Team (Late st Contact Info) Description 02/18/2025 3:30 PM EDT Office Visit [facility] Cardiovascular [facility] [address], [address] [place] [address] 03/13/2025 12:30 PM EDT Office Visit [facility] [address] [place] [address] [address] Liam Houston MD [address] [place] [address] Scheduled Procedures Name Priority Associated Diagnoses Date/Ti me WATCHMAN INSERTION Atrial fibrillation, unspecified type documented as of this encounter Visit Diagnoses Not on filedocumented in this encounter Additional Health Concerns Infection Onset Date Last Indicated Resolved Time COVID-19 Rule-Out 11/24/2020 11/24/2020 11/24/2020 10:21 PM EDT COVID-19 (Confirmed) 11/24/2020 12/10/2020 0805/2 021 3:03 AM EDT COVID-19 Rule-Out 11/24/2020 11/25/2020 11/25/2020 5:14 AM EDT documented as of this encounter Care Teams Cell Room Supervisor Relationship Specialty Start Date End Date Liam Houston MD [address] [place] [id number] PCP - General Family Medicine 04/26/22 documented as of this encounter
--- OUTSIDE RECORDS SUMMARY | 2025-01-25 14:25 | XMS_ITS | Encounter Summary ---
Author Organization [facility] Address [address] [place] [address] Care Team Providers Care Barrel Plater Name Role Phone Liam Houston MD Primary Care Provider [phone] Encounter Details Date Type Department Care Team (Late st Contact Info) Description 10/04/2011 Documentation Encounter SANJEEV V ALLSCRIPTS CONV Conversion, Allscripts Social History Tobacco Use Types Packs/Day Years Used Date Smoking Tobacco: Never Assessed Comments Unknown Sex and Gender Information Value Date Recorded Sex Assigned at Not on file Legal Sex Female 8:25 PM EST Gender Identity Not on file Sexual Orientation Not on file documented as of this encounter Miscellaneous Notes * Letter - Conversion, Allscripts - 10/04/2011 10:32 AM EDT . RE ALAS [address] [place] [address] October 04, 2011 Dear Ms. ALAS: You were recently in our office and Dr Collier referred you to a operations staff specialist security and to have an Ultrasound preformed. If you have not heard from either facility below within 7-10 business days, Please contact the specialist for an appointment: Specialist's Name: [facility] Loop Tacker's Phone #: [phone] and Specialist's Name: [facility] Specialist's Phone #: [phone] If you have any further questions please give our office a call at [phone]. [facility]. Signature Electronically signed by : Morena Berg ; 10/04/2011 10:34 AM EST. documented in this encounter Plan of Treatment Upcoming Encounters Date Type Department Care Team (Late st Contact Info) Description 02/18/2025 3:30 PM EDT Office Visit [place] [address], [address] [place] [address] 03/13/2025 12:30 PM EDT Office Visit [facility] [address] [place] [address] [place] [address] Liam Houston MD [address] [place] [address] [place] [id number] Scheduled Procedures Name Priority Associated Diagnoses Date/Ti me WATCHMAN INSERTION Atrial fibrillation, unspecified type documented as of this encounter Visit Diagnoses Not on filedocumented in this encounter Additional Health Concerns Infection Onset Date Last Indicated Resolved Time None 10/20/2011 10/20/2011 07/15/2012 12:4 0 AM EST COVID-19 Rule-Out 11/24/2020 11/24/2020 11/24/2020 10:21 PM EDT COVID-19 (Confirmed) 11/24/2020 12/10/2020 082 021 3:03 AM EDT COVID-19 Rule-Out 11/24/2020 11/25/2020 11/25/2020 5:14 AM EDT documented as of this encounter Care Teams Barrel Plater Relationship Specialty Start Date End Date Liam Houston MD [address] [place] [address] [address] [place], [place] [id number] PCP - General Family Medicine 04/26/22 documented as of this encounter
--- OUTSIDE RECORDS SUMMARY | 2025-01-25 14:25 | XMS_ITS | Encounter Summary ---
Author Organization [facility] Address [address] [place] [address] Care Team Providers Care Weaving Supervisor Name Role Phone Liam Houston MD Primary Care Provider [phone] Encounter Details Date Type Department Care Team (Late st Contact Info) Description 10/24/2012 Documentation Encounter SANJEEV V ALLSCRIPTS CONV Conversion, Allscripts Social History Tobacco Use Types Packs/Day Years Used Date Smoking Tobacco: Never Assessed Alcohol Use Standard Drinks/Week Comments No 0 (1 standard drink = 0.6 oz pur e alcohol) Comments Unknown Sex and Gender Information Value Date Recorded Sex Assigned at Not on file Legal Sex Female 8:25 PM EST Gender Identity Not on file Sexual Orientation Not on file documented as of this encounter Last Filed Vital Signs Vital Sign Reading Time Taken Comments Blood Pressure 121/71 10/24/2012 9:17 AM EDT Pulse 74 10/24/2012 9:17 AM EDT Temperature 36.4 C (97.6 F) 10/24/2012 9:17 AM EDT Respiratory Rate 16 10/24/2012 9:17 AM EDT Oxygen Saturation - - Inhaled Oxygen Concentration - - Weight 62.6 kg (138 lb) 10/24/2012 9:17 AM EDT Height 160 cm (5' 3 ) 10/24/2012 9:17 AM EDT Body Mass Index 24.45 10/24/2012 9:17 AM EDT documented in this encounter Miscellaneous Notes * Scanned Document - Conversion, Allscripts - 11/06/2013 12:16 AM EDT documented in this encounter Plan of Treatment Upcoming Encounters Date Type Department Care Team (Late st Contact Info) Description 02/18/2025 3:30 PM EDT Office Visit [facility] [place] [address], [address] [place] [address] 03/13/2025 12:30 PM EDT Office Visit [facility] [place] [address] [place] [address] [place] [address] Liam Houston [place] [address]40 [place] [address] [place], [place] [phone] Scheduled Procedures Name Priority Associated Diagnoses Date/Ti me WATCHMAN INSERTION Atrial fibrillation, unspecified type documented as of this encounter Procedures Procedure Name Priority Date/Time Associated Diagnosis Comments SURGICAL PATHOLOGY TISSUE Routine 10/24/2012 12:00 AM EDT TISSUE, SPECIMEN A Routine 10/24/2012 12 :00 AM EDT documented in this encounter Results * TISSUE, SPECIMEN A (10/24/2012 12:00 AM EDT) A DIAGNOSIS - SEBORRHEIC KERATOSIS, HYPERKERATOTIC. EXTERNAL LAB A SOURCE SKIN, RIGHT BREAST EXTERNAL LAB A PROCEDURE SHAVE BIOPSY EXTERNAL LAB A GROSS DESCRIPTION Two patricia-brown tissue pieces received in formalin measuring 0.3 x 0.3 x 0.1 cm and 0.4 x 0.4 x 0.2 cm, inked blue; 3 piece(s) entirely submitted in 1 cassette(s). Gross exam(s) performed at: [facility] [address] [facility] [address] Library Acquisitions Technician: BRIAN VELAZCO MD EXTERNAL LAB A MICRO DESCRIPTION THERE IS MARKED PAPILLOMATOSIS WITH MARKED HYPERKERATOSIS. EXTERNAL LAB 10/24/2012 us Stephen Collier MD PATHOLOGY/CYTOLOGY ORD ERABLES Final Result EXTERNAL LAB * SURGICAL PATHOLOGY TISSUE-[place] (10/24/2012 12:00 AM EDT) PATHOLOGIST LISANDRA HINTON M.D., BOARD CERTIFIED DERMATOPATHOLOG IST, (ELECTRONIC SIGNATURE) EXTERNAL LAB CLINICAL INFORMATION No information provided. EXTERNAL LAB 10/24/2012 us Stephen Collier MD PATHOLOGY/CYTOLOGY ORD ERABLES Final Result EXTERNAL LAB documented in this encounter Visit Diagnoses Not on filedocumented in this encounter Additional Health Concerns Infection Onset Date Last Indicated Resolved Time COVID-19 Rule-Out 11/24/2020 11/24/2020 11/24/2020 10:21 PM EDT COVID-19 (Confirmed) 11/24/2020 12/10/2020 08 021 3:03 AM EDT COVID-19 Rule-Out 11/24/2020 11/25/2020 11/25/2020 5:14 AM EDT documented as of this encounter Care Teams Weaving Supervisor Relationship Specialty Start Date End Date Liam Houston [place] [id number] [place] [address] [address] [place] [address] PCP - General Family Medicine 04/26/22 documented as of this encounter
--- OUTSIDE RECORDS SUMMARY | 2025-01-25 14:25 | XMS_ITS | Encounter Summary ---
Author Organization [facility] Address [address] [place] [address] Care Team Providers Care Cloth Classer Name Role Phone Liam Houston MD Primary Care Provider [phone] Encounter Details Date Type Department Care Team (Late st Contact Info) Description 07/16/2013 Documentation Encounter SANJEEV V ALLSCRIPTS CONV Conversion, [...] Sign Reading Time Taken Comments Blood Pressure 141/82 07/16/2013 9:34 AM EST Pulse 61 07/16/2013 9:34 AM EST Temperature 36.1 C (97 F) 07/16/2013 9:34 AM EST Respiratory Rate 16 07/16/2013 9:34 AM EST Oxygen Saturation - - Inhaled Oxygen Concentration - - Weight 62.6 kg (138 lb) 07/16/2013 9:34 AM EST Height 162.6 cm (5' 4 ) 07/16/2013 9:34 AM EST Body Mass Index 23.69 07/16/2013 9:34 AM EST documented in this encounter Miscellaneous Notes * Scanned Document - Conversion, Allscripts - 10/31/2013 11:41 AM EDT * Scanned Document - See, [place] - 10/31/2013 10:20 AM EDT documented in this encounter Plan of Treatment Upcoming Encounters Date Type Department Care Team (Late st Contact Info) Description 02/18/2025 3:30 PM EDT Office Visit [facility] Cardiovascular [place] [address], [facility] [address] [place] [address] 03/13/2025 12:30 PM EDT Office Visit [address] [place] [address] Liam Houston MD [address] [place] [address] [place], [place] [phone] Scheduled Procedures Name Priority Associated Diagnoses Date/Ti [...] documented as of this encounter Care Teams Cloth Classer Relationship Specialty Start Date End Date Liam Houston MD [address] [place] [address] [address] [place], [place] [phone] PCP - General Family Medicine 04/26/22 documented as of this encounter
--- OUTSIDE RECORDS SUMMARY | 2025-01-25 14:25 | XMS_ITS | Encounter Summary ---
Author Organization [facility] Address [address] [place] [address] Care Team Providers Care Spring Fitter Helper Name Role Phone Liam Houston MD Primary Care Provider Encounter Details Date Type Department Care Team (Late st Contact Info) Description 09/23/2008 Documentation Encounter SANJEEV V ALLSCRIPTS CONV Conversion, [...] Sign Reading Time Taken Comments Blood Pressure 126/81 09/23/2008 9:39 AM EDT Pulse 75 09/23/2008 9:39 AM EDT Temperature 36.2 C (97.2 F) 09/23/2008 9:39 AM EDT Respiratory Rate - - Oxygen Saturation - - Inhaled Oxygen Concentration - - Weight 57.6 kg (127 lb) 09/23/2008 9:39 AM EDT Height 162.6 cm (5' 4 ) 09/23/2008 9:39 AM EDT Body Mass Index 21.97 10/07/2008 11:53 AM EDT documented in this encounter Procedure Notes * Conversion, Allscripts - 12/08/2013 9:03 PM EDTAssociated Order(s): SCANNED LAB REPORT documented in this encounter Plan of Treatment Upcoming Encounters Date Type Department Care Team (Late st Contact Info) Description 02/18/2025 3:30 PM EDT Office Visit [facility] Cardiovascular [place] [address] [place] [address] 03/13/2025 12:30 PM EDT Office Visit [facility] [address] [place] [address] [place] [address] Liam Houston [place] [address]64 [place] [address] [place] [address] Scheduled Procedures Name Priority Associated Diagnoses Date/Ti me WATCHMAN INSERTION Atrial fibrillation, unspecified type documented as of this encounter Procedures Procedure Name Priority Date/Time Associated Diagnosis Comments SCANNED LAB REPORT 12/08/2013 9: 03 PM EDT documented in this encounter Results * SCANNED LAB REPORT (12/08/2013 9:03 PM EDT) Narrative 12/08/2013 9:03 PM EDT Ordered by an unspecified provider. Transcriptions Agustina Cui - 12/08/2013 9:03 PM EDT Allscripts Conversion Final Resu lt documented in [...] documented as of this encounter Care Teams Spring Fitter Helper Relationship Specialty Start Date End Date Liam Houston [place] [address] [place] [address] [address] [place] [address] PCP - General Family Medicine 04/26/22 documented as of this encounter
--- OUTSIDE RECORDS SUMMARY | 2025-01-25 14:25 | XMS_ITS | Encounter Summary ---
Author Organization [facility] Address [address] [place] [address] Care Team Providers Care Construction Superintendent Name Role Phone Liam Houston MD Primary Care Provider [phone] Encounter Details Date Type Department Care Team (Late st Contact Info) Description 12/18/2007 Documentation Encounter SANJEEV V ALLSCRIPTS CONV Stephen [...] Progress Notes * Stephen Collier MD - 12/18/2007 8:00 AM EDT Chief Complaint f/u on BP Subjective 71 year old,, female, here today for follow-up of the below listed medical problems and is currently using the medications listed as below. Today patient has new complaint of overactive bladder. She occasionally urges and cannot get in the bathroom. She is fasting blood work. otherwise all other ROS negative. . Allergies No Known Drug Allergy. Current Meds Fosamax 10 MG Tablet;TAKE 1 TABLET DAILY.; Rx Simvastatin 40 MG Tablet;TAKE 1 TABLET BEDTIME; Rx Tizanidine HCl 2 MG Tablet;1 TABS PO bid; Rx. 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 PMH Conjunctivitis Resolved (372.30) Hyperlipidemia (272.4) Osteoporosis (733.00). PSH Hysterectomy (V45.77). Family Hx Family history of Coronary Artery Disease Family history of Ischemic Stroke. Personal Hx No Alcohol Use No Tobacco Use (V15.82). Vital Signs Recorded by cristiane on 18 Dec 2007 08:06 AM BP:140/78, HR: 84 b/min, Temp: 97.0 F, Oral, Weight: 136 lb. Objective VITAL SIGNS: Noted. 148/90 E: PERRL/EOMI conjunctivae clear. HNT: OP clear, no lymphadenopathy, tympanic membranes clear B/L. RESPIRATORY: Lungs CTA bilaterally no wheezes, rales, or rhonchi, NL respiratory effort. CARDIOVASCULAR: RRR no rubs or murmurs, no carotid bruits. ABDOMEN: Soft, nontender, BS present. MS: Full range of motion, no deformities noted. NEUROLOGIC: CN II-XII grossly intact, NL gate. SKIN: Warm and dry. EXTREMITIES: Well perfused, no edema. . 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 Orders Renew Alendronate Sodium 10 MG Tablet;TAKE 1 TABLET DAILY; Qty90; R3; Rx. Renew Simvastatin 40 MG Tablet;TAKE 1 TABLET BEDTIME; Qty90; R3; Rx. Renew Tizanidine HCl 2 MG Tablet;1 TABS PO bid; [id number]; R11; Rx. Plan Skin tag on the left side of neck is anesthetized with ethyl chloride and removed patient is given a trial of vesicare 5 milligrams she may take up to 10 discussed blood pressure and patient's home blood pressure runs 130 over the upper 60s. Would like to recheck in a month and she is to bring her monitor. She's never had a colonoscopy and barium enema in 2003. She is referred for colonoscopy and will dofor Labs today Amended By: Stephen Collier ; 01/20/2008 8:09 AM EST. Signature Signed By: Stephen Collier M.D.; 12/18/2007 12:49 PM EST. Signed By: Stephen Collier M.D.; 01/20/2008 12:09 PM EST. documented in this encounter Plan of Treatment Upcoming Encounters Date Type Department Care Team (Late st Contact Info) Description 02/18/2025 3:30 PM EDT Office Visit [facility] Cardiovascular [place] [id number] [place] [address] 03/13/2025 12:30 PM EDT Office Visit [facility] [address] [place] [address] [place] [address] Liam Houston MD [address] [place] [address] Scheduled Procedures Name Priority Associated Diagnoses [...] documented as of this encounter Care Teams Construction Superintendent Relationship Specialty Start Date End Date Liam Houston MD [address] [place] [address] [address] [place], [place] [phone] PCP - General Family Medicine 04/26/22 documented as of this encounter
--- OUTSIDE RECORDS SUMMARY | 2025-01-25 14:25 | XMS_ITS | Encounter Summary ---
Author Organization [facility] Address [address] [place] [address] Care Team Providers Care Auto Parts Handler Name Role Phone Liam Houston MD Primary Care Provider [phone] Encounter Details Date Type Department Care Team (Late st Contact Info) Description 12/18/2007 Documentation Encounter SANJEEV V ALLSCRIPTS CONV Conversion, [...] Sign Reading Time Taken Comments Blood Pressure 140/78 12/18/2007 8:06 AM EDT Pulse 84 12/18/2007 8:06 AM EDT Temperature 36.1 C (97 F) 12/18/2007 8:06 AM EDT Respiratory Rate - - Oxygen Saturation - - Inhaled Oxygen Concentration - - Weight 61.7 kg (136 lb) 12/18/2007 8:06 AM EDT Height - - Body Mass Index 23.34 08/27/2007 8:19 AM EDT documented in this encounter Plan of Treatment Upcoming Encounters Date Type Department Care Team (Late st Contact Info) Description 02/18/2025 3:30 PM EDT Office Visit [facility] Cardiovascular Center [place] [address] [address], [address] [place] [address] 03/13/2025 12:30 PM EDT Office Visit [facility] Family Medicine [facility] [id number] [place] [phone] [place] [id number] [address] Scheduled Procedures Name Priority Associated Diagnoses Date/Ti [...] documented as of this encounter Care Teams Auto Parts Handler Relationship Specialty Start Date End Date Liam Houston MD [id number] [place] [address] PCP - General Family Medicine 04/26/22 documented as of this encounter
--- OUTSIDE RECORDS SUMMARY | 2025-01-25 14:25 | XMS_ITS | Encounter Summary ---
Author Organization [facility] Address [address] [place] [address] Care Team Providers Care Appraisal Analyst Name Role Phone Liam Houston MD Primary Care Provider [phone] Encounter Details Date Type Department Care Team (Late st Contact Info) Description 04/14/2008 Documentation Encounter SANJEEV V ALLSCRIPTS CONV Ric Domínguez MD Social History Tobacco Use Types Packs/Day Years Used Date Smoking Tobacco: Never Assessed Comments Unknown Sex and Gender Information Value Date Recorded Sex Assigned at Not on file Legal Sex Female 8:25 PM EST Gender Identity Not on file Sexual Orientation Not on file documented as of this encounter Progress Notes * Ric Domínguez MD - 04/14/2008 8:45 AM EST Chief Complaint Referred By Dr Stephen Collier Patient is here for screening colonoscopy Allergies No Known Drug Allergy. Current Meds Alendronate Sodium 10 MG Oral Tablet;TAKE 1 TABLET DAILY.; Rx Tizanidine HCl 2 MG Oral Tablet;1 TABS PO bid; Rx Aspirin 81 MG Oral Tablet;TAKE 1 TABLET DAILY.; RPT Fiber Therapy TABS;TAKE 2 TABLET TWICE DAILY; RPT VESIcare 5 MG Oral Tablet;TAKE 1 DAILY; Rx Hydrochlorothiazide 12.5 MG Oral Tablet;TAKE TABLET DAILY; Rx Silver Sulfadiazine 1 % External Cream;APPLY TO AFFECTED AREA(S) ONCE DAILY DIRECTED.; Rx Simvastatin 40 MG Oral Tablet;TAKE 1 TABLET AT BEDTIME; Rx. 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 PMH A Fall Resolved (E888.9) Conjunctivitis Resolved (372.30) Hyperlipidemia (272.4) Osteoporosis (733.00). HTN. PSH Hysterectomy (V45.77). Thyroid surgey for overacting thyroid. Family Hx Family history of Coronary Artery Disease Family history of Ischemic Stroke No colon canacer. Personal Hx Denied Alcohol Use Denied Tobacco Use. Non smoker no alcohol abuse. Vital Signs Recorded by Kathia Jamil on 14 Apr 2008 08:54 AM BP:131/83, HR: 77 b/min, Resp: 16 r/min, Temp: 98.0 F, Height: 64 in, Weight: 133 lb, BMI: 22.8 kg/m2, BSA Calculated: 1.64 , BMI Calculated: 22.83. Physical Exam VITALS: As listed above. HEAD AND NECK: Pupils equal and reactive. No icterus, pallor, congestion of nasal passages, lymphadenopathy. sxcar of thyroid surgery CARDIOVASCULAR: Heart sounds heard normally. No murmurs. LUNGS: Breath sounds heard normally bilaterally. ABDOMEN: Soft, nontender. No organomegaly. Normal bowel sounds.Non-distended. NEUROLOGICAL: Alert and oriented x 3. No obvious deficits. EXTREMITIES: Peripheral pulses present. No edema. Assessment CRC screening. Plan Colonoscopy. Coun/Edu Colonoscopy: The risks, benefits and alternatives were explained in detail to the patient. Risks including but not limited to bleeding, perforation, adverse reaction to medications, cardiopulmonary compromise and their attendant sequalae explained. Sequelae including but not limited to need for surgery, colostomy, prolonged hospital stay, placement of drainage tubes, blood transfusions, disability, deformity, morbidity and mortality was explained. She indicates understanding and wishes to proceed. Airway Assessment Scheduled Procedure: [ ] Previous Complication with Sedation [ no x] ASA CLASSIFICATION: [ II Mild systemic disease x] Mallampati Airway Classification: Class I: uvula, faucial pillars, soft palate visiblex Good neck flexion: Mouth opening > 4cm Thyromental distance > 7cm Good candidate for moderate sedation x cc Dr Stephen Colleir. Signature Signed By: Santy Domínguez M.D.; 04/14/2008 9:12 AM EST; Author. documented in this encounter Plan of Treatment Upcoming Encounters Date Type Department Care Team (Late st Contact Info) Description 02/18/2025 3:30 PM EDT Office Visit [facility] Cardiovascular [facility] [address] [address], [address] [place] [address] 03/13/2025 12:30 PM EDT Office Visit [place] [address] [place] [address] [place] [phone] Liam Houston MD [address] [place] [address] Scheduled Procedures Name Priority Associated Diagnoses [...] documented as of this encounter Care Teams Appraisal Analyst Relationship Specialty Start Date End Date Liam Houston MD [address] [place] [address] [address] [place] [address] PCP - General Family Medicine 04/26/22 documented as of this encounter
--- OUTSIDE RECORDS SUMMARY | 2025-01-25 14:25 | XMS_ITS | Encounter Summary ---
Author Organization [facility] Address [address] [place] [address] Care Team Providers Care Assembler Lay Ups Name Role Phone Liam Houston MD Primary Care Provider [phone] Encounter Details Date Type Department Care Team (Late st Contact Info) Description 10/20/2011 Documentation Encounter SANJEEV V ALLSCRIPTS CONV Conversion, [employer] Social History Tobacco Use Types Packs/Day Years Used Date Smoking Tobacco: Never Assessed Comments Unknown Sex and Gender Information Value Date Recorded Sex Assigned at Not on file Legal Sex Female 8:25 PM EST Gender Identity Not on file Sexual Orientation Not on file documented as of this encounter Procedure Notes * Agustina Cui - 11/06/2013 4:22 PM EDTAssociated Order(s): CARDIOLOGY TESTING documented in this encounter Plan of Treatment Upcoming Encounters Date Type Department Care Team (Late st Contact Info) Description 02/18/2025 3:30 PM EDT Office Visit [facility] Cardiovascular Center [place] [address] [address], [address] [place] [address] 03/13/2025 12:30 PM EDT Office Visit [facility] Family Medicine - [address] [place] [address] Liam Houston [place] [id number] [place] [address] [address] [place] [address] Scheduled Procedures Name Priority Associated Diagnoses Date/Ti me WATCHMAN INSERTION Atrial fibrillation, unspecified type documented as of this encounter Procedures Procedure Name Priority Date/Time Associated Diagnosis Comments CARDIOLOGY TESTING 11/06/2013 5: 20 PM EDT documented in this encounter Results * CARDIOLOGY TESTING (11/06/2013 5:20 PM EDT) Narrative 11/06/2013 5:20 PM EDT Ordered by an unspecified provider. Transcriptions Conversion, Allscripts - 11/06/2013 4:22 PM EDT us Allscripts Conversion SCANNED ORDERS Final [...] documented as of this encounter Care Teams Assembler Lay Ups Relationship Specialty Start Date End Date Liam Houston MD [address] [place] [address] [place] [address] PCP - General Family Medicine 04/26/22 documented as of this encounter
--- OUTSIDE RECORDS SUMMARY | 2025-01-25 14:25 | XMS_ITS | Encounter Summary ---
Author Organization [facility] Address [address] [place] [address] Care Team Providers Care Editor Map Name Role Phone Liam Houston MD Primary Care Provider Encounter Details Date Type Department Care Team (Late st Contact Info) Description 06/15/2011 Documentation Encounter SANJEEV V ALLSCRIPTS CONV Conversion, [...] Sign Reading Time Taken Comments Blood Pressure 128/79 06/15/2011 9:20 AM EST Pulse 70 06/15/2011 9:20 AM EST Temperature 36.1 C (97 F) 06/15/2011 9:20 AM EST Respiratory Rate 18 06/15/2011 9:20 AM EST Oxygen Saturation - - Inhaled Oxygen Concentration - - Weight 62.6 kg (138 lb) 06/15/2011 9:20 AM EST Height 160 cm (5' 3 ) 06/15/2011 9:20 AM EST Body Mass Index 24.45 06/15/2011 9:20 AM EST documented in this encounter Plan of Treatment Upcoming Encounters Date Type Department Care Team (Late st Contact Info) Description 02/18/2025 3:30 PM EDT Office Visit [facility] [address], [address] [place] [address] 03/13/2025 12:30 PM EDT Office Visit [facility] [address] [place] [address] Liam Houston MD 59[address]89 [place] [address] [place] [address] Scheduled Procedures Name Priority Associated Diagnoses Date/Ti me WATCHMAN INSERTION Atrial fibrillation, unspecified type documented as of this encounter Procedures Procedure Name Priority Date/Time Associated Diagnosis Comments TSH Routine 06/15/2011 12:00 AM EST LIPID PANEL Routine 06/15/2011 12:00 AM EST COMPREHENSIVE METABOLIC PANEL Routine 06/15/2011 12:00 AM EST documented in this encounter Results * (ABNORMAL) Comprehensive Metabolic Panel (06/15/2011 12:00 AM EST) Sodium 141 135 - 146 [facility] ALBUMIN 4.3 3.6 - 5.1 [facility] CARBON DIOXIDE 19(L) 21 - 33 [facility] EGFR Non 72 > OR = 60 [facility] UREA NITROGEN (BUN) 10 7 - 25 [facility] Protein Total 6.9 6.2 - 8.3 [facility] BUN/Creatinine Ratio NOT APPLICABLE 6 - 22 [facility] BILIRUBIN, TOTAL 0.6 0.2 - 1.2 [facility] AST 16 10 - 35 [facility] Glom Filt Rate, Est 84 > OR = 60 [facility] ALKALINE PHOSPHATASE 59 33 - 130 [facility] GLUCOSE 92 65 - 99 [facility] Comment: For patients >49 years of age, the reference limit for Creatinine is approximately 13% higher for people identified as -Kazakh. Globulin 2.6 2.2 - 3.9 [facility] ALT (SGPT) 13 6 - 40 [facility] POTASSIUM 4.2 3.5 - 5.3 [facility] CHLORIDE 103 98 - 110 [facility] CALCIUM 9.5 8.6 - 10.4 [facility] ALBUMIN/GLOBULIN RATIO 1.7 1.0 - 2.1 [facility] CREATININE 0.81 0.60 - 0.93 [facility] 06/15/2011 us Stephen Collier MD BLOOD ORDERABLES Final Result Performing Organization Address City/[facility] Co de Phone Number [facility] * Lipid Panel (06/15/2011 12:00 AM EST) Cholesterol Total 185 125 - 200 [facility] Chol/HDL Ratio 3.4 < OR = 5.0 [facility] Triglycerides 115 <150 [facility] HDL Cholesterol 54 > OR = 46 [facility] LDL Cholesterol 108 <130 [facility] Comment: Desirable range <100 mg/dL for patients with CHD or diabetes and <70 mg/dL for diabetic patients with known heart disease. 06/15/2011 Stephen Collier MD BLOOD ORDERABLES Final Result Performing Organization Address [facility] de Phone Number [facility] * (ABNORMAL) TSH (06/15/2011 12:00 AM EST) TSH, 3RD GENERATION 0.10(L) 0.40 - 4.50 [facility] 06/15/2011 Stephen Collier MD BLOOD ORDERABLES Final Result Performing Organization Address [facility] de Phone Number [facility] documented in this encounter Visit Diagnoses Not on filedocumented in this encounter Additional Health Concerns Infection Onset Date Last Indicated Resolved Time None 10/20/2011 10/20/2011 07/15/2012 12:4 0 AM EST COVID-19 Rule-Out 11/24/2020 11/24/2020 11/24/2020 10:21 PM EDT COVID-19 (Confirmed) 11/24/2020 12/10/2020 021 3:03 AM EDT COVID-19 Rule-Out 11/24/2020 11/25/2020 11/25/2020 5:14 AM EDT documented as of this encounter Care Teams Editor Map Relationship Specialty Start Date End Date Liam Houston MD [id number] [address] [place] [address] PCP - General Family Medicine 04/26/22 documented as of this encounter
--- OUTSIDE RECORDS SUMMARY | 2025-01-25 14:25 | XMS_ITS | Encounter Summary ---
Author Organization [facility] Address [address] [place] [address] Care Team Providers Care Cow Washer Name Role Phone Liam Houston MD Primary Care Provider [phone] Encounter Details Date Type Department Care Team (Late st Contact Info) Description 03/20/2008 Documentation Encounter SANJEEV V ALLSCRIPTS CONV Conversion, [...] Sign Reading Time Taken Comments Blood Pressure 120/74 03/20/2008 1:39 PM EST Pulse 73 03/20/2008 1:39 PM EST Temperature 36.6 C (97.8 F) 03/20/2008 1:39 PM EST Respiratory Rate 16 03/20/2008 1:39 PM EST Oxygen Saturation - - Inhaled Oxygen Concentration - - Weight 61.2 kg (135 lb) 03/20/2008 1:39 PM EST Height - - Body Mass Index 23.17 01/17/2008 1:13 PM EDT documented in this encounter Plan of Treatment Upcoming Encounters Date Type Department Care Team (Late st Contact Info) Description 02/18/2025 3:30 PM EDT Office Visit [facility] Cardiovascular [place] [address] [address], [address] [place] [address] 03/13/2025 12:30 PM EDT Office Visit [facility] Family Medicine - [address] [place] [phone] Liam Houston MD [id number] [place] [address] [id number] Scheduled Procedures Name Priority Associated Diagnoses Date/Ti [...] documented as of this encounter Care Teams Cow Washer Relationship Specialty Start Date End Date Liam Houston MD [address] [place] [address] [id number] PCP - General Family Medicine 04/26/22 documented as of this encounter
--- OUTSIDE RECORDS SUMMARY | 2025-01-25 14:25 | XMS_ITS | Encounter Summary ---
Author Organization [facility] Address [address] [place] [address] Care Team Providers Care Transitional Kindergarten Teacher Name Role Phone Liam Houston MD Primary Care Provider [phone] Encounter Details Date Type Department Care Team (Late st Contact Info) Description 03/20/2008 Documentation Encounter SANJEEV V ALLSCRIPTS CONV Stephen [...] Progress Notes * Stephen Collier MD - 03/20/2008 1:40 PM EST Chief Complaint Follow-up/Flu shot Subjective 72 year old,, female, here today for follow-up of the below listed medical problems and is currently using the medications listed as below. Today patient has been doing well. brief episode of epistaxis while on her cruise otherwise unremarkable. She has seen ophthalmology and does have cataracts however they will not be operated in the near future. otherwise all other ROS negative. . Allergies No Known Drug Allergy. Current Meds Alendronate Sodium 10 MG Tablet;TAKE 1 TABLET DAILY.; Rx Simvastatin 40 MG Tablet;TAKE 1 TABLET BEDTIME; Rx Tizanidine HCl 2 MG Tablet;1 TABS PO bid; Rx VESIcare 5 MG Tablet;TAKE 1 DAILY; Rx Hydrochlorothiazide 12.5 MG Tablet;TAKE TABLET DAILY; Rx Silver Sulfadiazine 1 % Cream;APPLY TO AFFECTED AREA(S) ONCE DAILY DIRECTED.; Rx PEG 3350/Electrolytes 240 GM Solution Reconstituted;TAKE 8 OZ DIRECTED by mouth; Rx Aspirin 81 MG Tablet;TAKE 1 TABLET DAILY.; RPT Fiber Therapy TABS;TAKE 2 TABLET TWICE DAILY; RPT. 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 PMH Conjunctivitis Resolved (372.30) Hyperlipidemia (272.4) Osteoporosis (733.00). PSH Hysterectomy (V45.77). Family Hx Family history of Coronary Artery Disease Family history of Ischemic Stroke. Personal Hx No Alcohol Use No Tobacco Use (V15.82). Vital Signs Recorded by dagmar on 20 Mar 2008 01:39 PM BP:120/74, HR: 73 b/min, Resp: 16 r/min, Temp: 97.8 F, Weight: 135 lb, Pain Scale: 0. Objective VITAL SIGNS: Noted. E: PERRL/EOMI conjunctivae clear. HNT: OP clear, [...] EXTREMITIES: Well perfused, no edema. . Assessment Benign essential hypertension (401.1) Urge and stress incontinence (788.33) Hyperlipidemia (272.4) Osteoporosis (733.00) Muscle spasm (728.85) Health Mgmt Plan Pap smear, breast exam and Hemoccult done 02/2005 Mammogram done 12/2004 Colon exam done 2003 Advance directive given Flu shot done 04/13/06. Plan Pt advised to various Tx options and agreed to the following: Continuation of current medications listed above,the importance of follow up visits. Risk verses benefits of medication and treatments were discussed. Patient voiced understanding. flu shot . Signature Signed By: Stephen Collier M.D.; 03/20/2008 3:47 PM EST. documented in this encounter Plan of Treatment Upcoming Encounters Date Type Department Care Team (Late st Contact Info) Description 02/18/2025 3:30 PM EDT Office Visit [facility] Cardiovascular [address] [facility] [address] [place] [address] 03/13/2025 12:30 PM EDT Office Visit [facility] [address] [place] [address] [place] [address] Liam Houston MD [address] [place] [address] [address] [place], [place] [phone] Scheduled Procedures Name Priority Associated Diagnoses Date/Ti [...] documented as of this encounter Care Teams Transitional Kindergarten Teacher Relationship Specialty Start Date End Date Liam Houston MD [address] [place] [address] [address] [place], [place] [phone] PCP - General Family Medicine 04/26/22 documented as of this encounter
--- OUTSIDE RECORDS SUMMARY | 2025-01-25 14:25 | XMS_ITS | Encounter Summary ---
Author Organization [facility] Address [address] [place] [address] Care Team Providers Care Marine Tower Operator Name Role Phone Liam Houston MD Primary Care Provider [phone] Encounter Details Date Type Department Care Team (Late st Contact Info) Description 05/22/2017 Orders Only [facility] Endocrinology - [place] [address] [facility], [address] [place] [address] Soren Santamaria MD Social History Tobacco Use Types Packs/Day Years Used Date Smoking Tobacco: Never Smokeless Tobacco: Never Alcohol Use Standard Drinks/Week Comments Yes 0 (1 standard drink = 0.6 oz pur e alcohol) once a year Comments No Sex and Gender Information Value Date Recorded Sex Assigned at Not on file Legal Sex Female 8:25 PM EST Gender Identity Not on file Sexual Orientation Not on file documented as of this encounter Plan of Treatment Upcoming Encounters Date Type Department Care Team (Late Contact Info) Description 02/18/2025 3:30 PM EDT Office Visit [facility] Cardiovascular Center [address] [place], [facility] [address] [place] [phone] 03/13/2025 12:30 PM EDT Office Visit [facility] Family Medicine - [place] [address] [place] [address] [place] [phone] Liam Houston MD [address] [place] [address] [address] [place] [address] Scheduled Procedures Name Priority Associated Diagnoses Date/Ti [...] documented as of this encounter Care Teams Marine Tower Operator Relationship Specialty Start Date End Date Liam Houston MD 55[address]45 [place] [address] [address] [place] [address] PCP - General Family Medicine 04/26/22 documented as of this encounter
--- OUTSIDE RECORDS SUMMARY | 2025-01-25 14:25 | XMS_ITS | Encounter Summary ---
Author Organization [facility] Address [address] [place] [address] Care Team Providers Care Payment Processor Name Role Phone Liam Houston MD Primary Care Provider [phone] Encounter Details Date Type Department Care Team (Late st Contact Info) Description 05/30/2013 Documentation Encounter SANJEEV V ALLSCRIPTS CONV Stephen [...] Progress Notes * Stephen Collier MD - 05/30/2013 8:17 AM EST Message Labs fine and will go over at visit 3-5 ,print. Results TSH 29 May 2013 12:00 AM - TSH, 3RD GENERATION: 2.96 Reference Range: 0.40-4.50 Flag: N. CBC With Differential/Platelet 29 May 2013 12:00 AM - WHITE BLOOD CELL COUNT: 5.9 Reference Range: 3.8-10.8 Flag: N - RED BLOOD CELL COUNT: 4.16 Reference Range: 3.80-5.10 Flag: N - HEMOGLOBIN: 12.7 Reference Range: 11.7-15.5 Flag: N - HEMATOCRIT: 38.0 Reference Range: 35.0-45.0 Flag: N - MCV: 91.4 Reference Range: 80.0-100.0 Flag: N - MCH: 30.6 Reference Range: 27.0-33.0 Flag: N - MCHC: 33.5 Reference Range: 32.0-36.0 Flag: N - RDW: 14.1 Reference Range: 11.0-15.0 Flag: N - PLATELET COUNT: 237 Reference Range: 140-400 Flag: N - ABSOLUTE NEUTROPHILS: 4030 Reference Range: 4562-8684 Flag: N - ABSOLUTE LYMPHOCYTES: 1198 Reference Range: 850-3900 Flag: N - ABSOLUTE MONOCYTES: 578 Reference Range: 200-950 Flag: N - ABSOLUTE EOSINOPHILS: 83 Reference Range: 15-500 Flag: N - ABSOLUTE BASOPHILS: 12 Reference Range: 0-200 Flag: N - NEUTROPHILS: 68.3 Flag: N - LYMPHOCYTES: 20.3 Flag: N - MONOCYTES: 9.8 Flag: N - EOSINOPHILS: 1.4 Flag: N - BASOPHILS: 0.2 Flag: N. Basic Metabolic Panel (8) 29 May 2013 12:00 AM - GLUCOSE: 96 Reference Range: 65-99 Flag: N - UREA NITROGEN (BUN): 17 Reference Range: 7-25 Flag: N - CREATININE: 0.78 Reference Range: 0.60-0.93 Flag: N - eGFR NON-AFR. GUAMANIAN: 74 Reference Range: > OR = 60 Flag: N - eGFR : 86 Reference Range: > OR = 60 Flag: N - BUN/CREATININE RATIO: NOT APPLICABLE Reference Range: 6-22 - SODIUM: 145 Reference Range: 135-146 Flag: N - POTASSIUM: 4.4 Reference Range: 3.5-5.3 Flag: N - CHLORIDE: 107 Reference Range: 98-110 Flag: N - CARBON DIOXIDE: 22 Reference Range: 19-30 Flag: N - CALCIUM: 10.0 Reference Range: 8.6-10.4 Flag: N. LIPID PANEL WITH REFLEX TO DIRECT LDL 29 May 2013 12:00 AM - CHOLESTEROL, TOTAL: 157 Reference Range: 125-200 Flag: N - TRIGLYCERIDES: 84 Reference Range: <150 Flag: N - LDL-CHOLESTEROL: 89 Reference Range: <130 Flag: N - CHOL/HDLC RATIO: 3.1 Reference Range: < OR = 5.0 Flag: N - HDL CHOLESTEROL: 51 Reference Range: > OR = 46 Flag: N - NON-HDL CHOLESTEROL: 106 Flag: N. Signature Electronically signed by : Stephen Collier M.D.; 05/30/2013 12:28 PM EST. documented in this encounter Plan of Treatment Upcoming Encounters Date Type Department Care Team (Late st Contact Info) Description 02/18/2025 3:30 PM EDT Office Visit [facility] [address] [address] [place] [address] 03/13/2025 12:30 PM EDT Office Visit [address] [address] Liam Houston MD [address] [place] [address] Scheduled Procedures Name Priority Associated Diagnoses [...] documented as of this encounter Care Teams Payment Processor Relationship Specialty Start Date End Date Liam Houston MD [address] [place] [address] PCP - General Family Medicine 04/26/22 documented as of this encounter
--- OUTSIDE RECORDS SUMMARY | 2025-01-25 14:25 | XMS_ITS | Encounter Summary ---
Author Organization [facility] Address [address] [place] [address] Care Team Providers Care Quality Assistant Name Role Phone Liam Houston MD Primary Care Provider [phone] Encounter Details Date Type Department Care Team (Late st Contact Info) Description 10/28/2009 Documentation Encounter SANJEEV V ALLSCRIPTS CONV Stephen [...] Progress Notes * Stephen Collier MD - 10/28/2009 1:30 PM EDT Chief Complaint Follow-up for chronic medical conditions listed below under PMH and Active Problems. f/u from ent Subjective 73 year old, female here for followup eustachian tube dysfunction. Dr. Lugo's note is reviewed and patient agrees that she is improving. All other ROS otherwise neg. Allergies No [...] SPRAYS IN EACH NOSTRIL ONCE DAILY; Rx. 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 PSH Hysterectomy (V45.77). Family Hx Family history of Coronary Artery Disease Family history of Ischemic Stroke. Personal Hx Denied Alcohol Use Denied Tobacco Use. Vital Signs Adult Female Recorded by Selina Hayes on October 01:46 PM BP: 120/76 mm Hg HR: 72 b/min ; Resp: 14 r/min ; Temp: 98.3 F Height: 64 in, Weight: 138 lb, BMI: 23.69 , BSA: 1.67 . Objective VITAL SIGNS: Noted. E: PERRL/EOMI conjunctivae clear. HNT: OP clear, no lymphadenopathy, tympanic membranes clear B/L. RESPIRATORY: Lungs CTA. Assessment Eustachian tube dysfunction (381.81) Health Mgmt Plan Pap smear, breast exam and Hemoccult done 02/2005 Colonoscopy 12.08 Mammogram done 12/2004 Colon exam done 2003 Advance directive given Flu shot done 04/13/06. Plan Continue nasal steroid Followup in one week if not precipitously improved. Signature Electronically signed by : Stephen Collier M.D.; 10/28/2009 3:30 PM EST. documented in this encounter Plan of Treatment Upcoming Encounters Date Type Department Care Team (Late st Contact Info) Description 02/18/2025 3:30 PM EDT Office Visit [facility] [place] [address] [address], [address] [place] [address] 03/13/2025 12:30 PM EDT Office Visit [facility] [place] [address] [address] Liam Houston [place] [address] [address] Scheduled Procedures Name Priority Associated Diagnoses Date/Ti [...] documented as of this encounter Care Teams Quality Assistant Relationship Specialty Start Date End Date Liam Houston MD [id number] [address] [id number] PCP - General Family Medicine 04/26/22 documented as of this encounter
--- OUTSIDE RECORDS SUMMARY | 2025-01-25 14:25 | XMS_ITS | Encounter Summary ---
Author Organization [facility] Address [address] [place] [address] Care Team Providers Care Deep Well Contractor Name Role Phone Liam Houston MD Primary Care Provider [phone] Encounter Details Date Type Department Care Team (Late st Contact Info) Description 01/27/2013 Documentation Encounter SANJEEV V ALLSCRIPTS CONV Conversion, [...] encounter Procedure Notes * Conversion, Allscripts - 11/04/2013 12:06 PM EDTAssociated Order(s): SCANNED RADIOLOGY - MAMMOGRAM documented in this encounter Plan of Treatment Upcoming Encounters Date Type Department Care Team (Late st Contact Info) Description 02/18/2025 3:30 PM EDT Office Visit [facility] [address] [address], [address] [place] [address] 03/13/2025 12:30 PM EDT Office Visit [facility] [address] [place] [address] [place] [phone] Liam Houston MD [address] [place] [address] Scheduled Procedures Name Priority Associated Diagnoses Date/Ti me WATCHMAN INSERTION Atrial fibrillation, unspecified type documented as of this encounter Procedures Procedure Name Priority Date/Time Associated Diagnosis Comments SCANNED RADIOLOGY - MAMMOGRAM 11/04/2013 1:00 PM EDT documented in this encounter Results * SCANNED RADIOLOGY - MAMMOGRAM (11/04/2013 1:00 PM EDT) Anatomical Region Laterality Modality Other Narrative 11/04/2013 1:00 PM EDT Ordered by an unspecified provider. Transcriptions Conversion, Allscripts - 11/04/2013 12:06 PM EDT us Allscripts Conversion Final Resu lt documented in this encounter Visit Diagnoses Not on filedocumented in this encounter Additional Health Concerns Infection Onset Date Last Indicated Resolved Time COVID-19 Rule-Out 11/24/2020 11/24/2020 11/24/2020 10:21 PM EDT COVID-19 (Confirmed) 11/24/2020 12/10/2020 0805/2 021 3:03 AM EDT COVID-19 Rule-Out 11/24/2020 11/25/2020 11/25/2020 5:14 AM EDT documented as of this encounter Care Teams Deep Well Contractor Relationship Specialty Start Date End Date Liam Houston [place] [id number] [place] [address] [place] [address] PCP - General Family Medicine 04/26/22 documented as of this encounter
--- OUTSIDE RECORDS SUMMARY | 2025-01-25 14:25 | XMS_ITS | Encounter Summary ---
Author Organization [facility] Address [address] [place] [address] Care Team Providers Care Section Plotter Operator Name Role Phone Liam Houston MD Primary Care Provider [phone] Encounter Details Date Type Department Care Team (Late st Contact Info) Description 10/26/2009 Documentation Encounter SANJEEV V ALLSCRIPTS CONV Husam [...] Progress Notes * Husam Lugo MD - 10/26/2009 10:15 AM EDT NAME: RE ALAS DATE OF : 1935 DATE OF SERVICE: 10/26/2009 ATTENDING: HUSAM LUGO MD The patient has had hurting in her left ear, and also decreased hearing. It seems that the hurting is gone, but the ear feels stopped up, and she feels her hearing is down. PHYSICAL EXAMINATION: GENERAL: Reveals a well-developed, well-nourished female, in no acute distress. EARS: No abnormalities of the external ears or auditory canals. The right tympanic membrane is normal. However, on the left it is discolored, has a yellowish discoloration indicative of serous fluid within the middle ear space. NOSE: Examination of the nose reveals no purulent drainage. Normal mucosa. No obstruction. ORAL: Oral cavity exam reveals no mucosal lesions. The nasopharynx could not be visualized with themirror. Therefore, a fiberoptic examination was performed. There are no abnormalities of the nasopharynx. The scope was advanced and the hypopharynx and larynx were also examined, and there are no abnormalities of the supraglottic larynx, vocal cords, base of the tongue, or piriform sinuses. This young lady was politzerized after spraying her nose with decongestant, with some relief. She was recommended to take the nasal steroids, as well as AFRIN and self politzerize her nose. She was asked toreturn to the clinic next week if symptoms persist. HUSAM LUGO MD D: [id number] MT: [id number] Dictator: [id number] Confirmation Number: [id number] ([id number]) Electronically signed by:Husam Lugo M.D. Oct 28 2009 10:06AM EST documented in this encounter Plan of Treatment Upcoming Encounters Date Type Department Care Team (Late st Contact Info) Description 02/18/2025 3:30 PM EDT Office Visit [facility] [address], [facility] [address] [place] [address] 03/13/2025 12:30 PM EDT Office Visit [facility] 0[address] [place] [address] [place] [phone] Liam Houston MD [id number] [place] [address] [address] [place] [address] Scheduled Procedures Name Priority Associated Diagnoses [...] documented as of this encounter Care Teams Section Plotter Operator Relationship Specialty Start Date End Date Liam Houston [place] 218608 [place] [address] [address] [place] [address] PCP - General Family Medicine 04/26/22 documented as of this encounter
--- OUTSIDE RECORDS SUMMARY | 2025-01-25 14:25 | XMS_ITS | Encounter Summary ---
Author Organization [facility] Address [address] [place] [address] Care Team Providers Care Aba Tutor Name Role Phone Liam Houston MD Primary Care Provider [phone] Encounter Details Date Type Department Care Team (Late st Contact Info) Description 03/25/2013 Documentation Encounter SANJEEV V ALLSCRIPTS CONV Conversion, [...] Sign Reading Time Taken Comments Blood Pressure 118/76 03/25/2013 9:13 AM EST Pulse - - Temperature 36.1 C (97 F) 03/25/2013 9:13 AM EST Respiratory Rate 16 03/25/2013 9:13 AM EST Oxygen Saturation - - Inhaled Oxygen Concentration - - Weight 61.9 kg (136 lb 8 oz) 03/25/2013 9:13 AM EST Height 162.6 cm (5' 4 ) 03/25/2013 9:13 AM EST Body Mass Index 23.43 03/25/2013 9:13 AM EST documented in this encounter Plan of Treatment Upcoming Encounters Date Type Department Care Team (Late st Contact Info) Description 02/18/2025 3:30 PM EDT Office Visit [facility] - [place] [address], [address] [place] [address] 03/13/2025 12:30 PM EDT Office Visit [facility] Family Medicine - [place] [id number] [place] [address] [place] [phone] Liam Houston MD [address] [place] [address] Scheduled Procedures Name Priority Associated Diagnoses [...] documented as of this encounter Care Teams Aba Tutor Relationship Specialty Start Date End Date Liam Houston MD [address] [place] [address] [id number] PCP - General Family Medicine 04/26/22 documented as of this encounter
--- OUTSIDE RECORDS SUMMARY | 2025-01-25 14:25 | XMS_ITS | Encounter Summary ---
Author Organization [facility] Address [address] [place] [address] Care Team Providers Care Bull Chain Operator Name Role Phone Liam Houston MD Primary Care Provider [phone] Encounter Details Date Type Department Care Team (Late st Contact Info) Description 05/29/2013 Documentation Encounter SANJEEV V ALLSCRIPTS CONV Stephen [...] Progress Notes * Stephen Collier MD - 05/29/2013 8:30 AM EST Chief Complaint Pt. is here for fasting blood work Allergies No Known Drug Allergy. Current Meds Aspirin 81 MG Oral Tablet;TAKE 1 TABLET DAILY.; RPT Biotin 10 MG Oral Tablet;TAKE 1 TABLET DAILY.; RPT Potassium Gluconate 595 MG Oral Tablet;TAKE 1 TABLET TWICE DAILY; RPT Centrum Silver Ultra Womens Oral Tablet;TAKE 1 TABLET DAILY.; RPT Atorvastatin Calcium 80 MG Oral Tablet;TAKE 1 TABLET DAILY AT BEDTIME; Rx Levothyroxine Sodium 75 MCG Oral Tablet;take one tablet by mouth every day; Rx Metoprolol Succinate ER 25 MG Oral Tablet Extended Release 24 Hour;TAKE 1 TABLET DAILY.; Rx Alendronate Sodium 10 MG Oral Tablet;TAKE 1 TABLET EVERY DAY; Rx. 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 PSH Coronary Artery Bypass Graft (CABG) (V45.81) Hysterectomy (V45.77). Family Hx Family history of CORONARY ARTERY DISEASE Family history of STROKE - ISCHEMIC. Personal Hx Denied alcohol use Denied Alcohol Use Denied Current Smoker Never A Smoker Denied tobacco use. Labs CBC BMP Lipid Panel TSH Venipuncture: Reason: Physician ordered labs Amount: 3 Tubes red, lav, gold Type: butterfly Site: vein right arm Reaction: None Draw perfomed by: Rohini Obando 05/29/2013 9:17AM. Signature Electronically signed by : Stephen Collier M.D.; 05/29/2013 11:45 AM EST. documented in this encounter Plan of Treatment Upcoming Encounters Date Type Department Care Team (Late st Contact Info) Description 02/18/2025 3:30 PM EDT Office Visit [facility] [address] [address], [facility] [address] [place] [address] 03/13/2025 12:30 PM EDT Office Visit [facility] - [place] [address] [place] [address] [address] [place] [address] Liam Houston MD 787645 [place] [address] [place] [address] [id number] Scheduled Procedures Name Priority Associated Diagnoses Date/Ti [...] documented as of this encounter Care Teams Bull Chain Operator Relationship Specialty Start Date End Date Liam Houston MD 902486 [place] [address] [place], [place] [phone] PCP - General Family Medicine 04/26/22 documented as of this encounter
--- OUTSIDE RECORDS SUMMARY | 2025-01-25 14:25 | XMS_ITS | Encounter Summary ---
Author Organization [facility] Address [address] [place] [address] Care Team Providers Care Helpdesk Technician Name Role Phone Liam Houston MD Primary Care Provider [phone] Encounter Details Date Type Department Care Team (Late st Contact Info) Description 09/09/2009 Documentation Encounter SANJEEV V ALLSCRIPTS CONV Stephen [...] Progress Notes * Stephen Collier MD - 09/09/2009 8:30 AM EDT Chief Complaint Follow-up for chronic medical conditions listed below under PMH and Active Problems. fasting lab work Subjective 73 year old, female here for FU and fasting labs All other ROS otherwise neg. Allergies No Known Drug Allergy. Current Meds Aspirin 81 MG Oral Tablet;TAKE 1 TABLET DAILY.; RPT Fiber Therapy TABS;TAKE 2 TABLET TWICE DAILY; RPT Hydrochlorothiazide 12.5 MG Oral Tablet;TAKE TABLET DAILY; Rx Hydrochlorothiazide 12.5 MG Oral Capsule;TAKE 1 CAPSULE EVERY DAY; Rx Alendronate Sodium 10 MG Oral Tablet;TAKE 1 TABLET EVERY DAY; Rx. Active Problems Benign Essential Hypertension (401.1) Hyperlipidemia (272.4) Muscle Spasm (728.85) Normal Examination [...] Adult Female Recorded by Selina Hayes on August 08:39 AM BP: 122/80 mm Hg HR: 68 b/min ; Resp: 14 r/min ; Temp: 98 F Height: 64 in, Weight: 135 lb, BMI: 23.17 , BSA: 1.66 . Objective NAD: VSS. CHEST: CTA. CV: RRR without M/R/G. Assessment Benign essential hypertension (401.1) Hyperlipidemia (272.4) Osteoporosis (733.00) Health Mgmt Plan Pap smear, breast exam and Hemoccult done 02/2005 Colonoscopy 12.08 Mammogram done 12/2004 Colon exam done 2003 Advance directive given Flu shot done 04/13/06. Plan Mammogram colon done 2008? due 10 years labs Patient advised to various Tx options and agreed to the following: Continuation of current medications listed above,the importance of follow up visits. Risk verses benefits of medication and treatments were discussed. Patient voiced understanding. Return to office in. Labs Venipuncture: Reason: Physician ordered labs Amount: 3 Tubes Type: vaccutainer Site: vein right arm Reaction: None Draw perfomed by: Selina Hayes 09/09/2009 8:40AM. Signature Electronically signed by : Stephen Collier M.D.; 09/09/2009 11:17 AM EST. documented in this encounter Plan of Treatment Upcoming Encounters Date Type Department Care Team (Late st Contact Info) Description 02/18/2025 3:30 PM EDT Office Visit [address] [place], [address] [place] [address] 03/13/2025 12:30 PM EDT Office Visit [facility] [address] [place] [address] [place] [phone] Liam Houston MD [id number] [place] [address] [address] Scheduled Procedures Name Priority Associated Diagnoses Date/Ti [...] documented as of this encounter Care Teams Helpdesk Technician Relationship Specialty Start Date End Date Liam Houston MD [id number] [place] [address] [id number] PCP - General Family Medicine 04/26/22 documented as of this encounter
--- OUTSIDE RECORDS SUMMARY | 2025-01-25 14:25 | XMS_ITS | Encounter Summary ---
Author Organization [facility] Address [address] [place] [address] Care Team Providers Care Scientific Investigator Name Role Phone Liam Houston MD Primary Care Provider [phone] Encounter Details Date Type Department Care Team (Late st Contact Info) Description 02/24/2010 Documentation Encounter SANJEEV V ALLSCRIPTS CONV Aspen [...] Progress Notes * Aspen Licona MD - 02/24/2010 4:11 PM EDT Test Conclus. RADIOLOGY/IMAGING [facility] REPORT [address] [place] [address] Patient Name: RE ALAS : [birth year] Age: 74Y Ordering Physician: ASPEN LICONA LED: 02/24/10 Sex: F Attending Physician: ASPEN LICONA Service: RADIOLOGY Check-in #: [id number] Room #/Area: [facility] Unit No.: [id number] Reason: V76.12-SCREEN MAMMOGRAM NEC Date Ordered: 02/24/10 1321 Admit Dx: [id number] Date/Time Done: 02/24/10 1321 Priority: *[facility] [place] INS: HMO-Medicare Initial Service: CBC Comments: EXAM [id number] BR-MAMMOGRAM SCREEN BILAT [id number] Final Ord Diag: V76.12-SCREEN MAMMOGRAM NEC Bilateral Digital Screening Mammogram Comparison: 12/23/08 History: No complaints. The patient has breast implants Routine digital cranial caudal and MLO views were obtained. Implant displaced views were also obtained Findings: Scattered fibroglandular densities are seen. No masses are identified. There are no clustered microcalcifications. The implants appear to be intact. A lymph node is again noted in the outer left breast. CAD was also utilized. Impression: BIRADS:2, benign findings. Annual mammography is recommended. NOTE: An x-ray report which is negative for cancer should not delay biopsy if a dominant or clinically suspicious mass is present. 4 to 8% of cancers are not are not identified by x-ray. A negative report may reinforce clinical impression. Adenosis or fibrocystic disease ( mammary dysplasia )may obscure an underlying neoplasm. False positive reports average 6 to 10%. Written notification of the findings and follow-up recommendations were Final CONTINUED Page 1 RADIOLOGY/IMAGING [facility] REPORT [address] [place] [address] Patient Name: RE ALAS : [birth year] Age: 74Y Ordering Physician: ASPEN LICONA LED: 02/24/10 Sex: F Attending Physician: ASPEN LICONA Service: RADIOLOGY Check-in #: [id number] Room #/Area: [facility] Unit No.: [id number] Reason: V76.12-SCREEN MAMMOGRAM NEC Date Ordered: 02/24/10 1321 Admit Dx: [id number] Date/Time Done: 02/24/10 1321 Priority: *[facility] INS: HMO-Medicare Initial Service: CBC Comments: Checkin-Exam Code Summary [id number] mailed to the patient. Exploration Geologist- Automated Read By- SAVI LAWSON M.D. Released By- SAVI LAWSON M.D. Released Date Time- 02/24/10 1428 Final Page 2. Signature Electronically signed by : Aspen Licona M.D.; 02/24/2010 4:44 PM EST. documented in this encounter Plan of Treatment Upcoming Encounters Date Type Department Care Team (Late st Contact Info) Description 02/18/2025 3:30 PM EDT Office Visit [address], [facility] [address] [phone] 03/13/2025 12:30 PM EDT Office Visit [facility] [address] [place] [address] [place] [phone] Liam Houston MD [id number] [place] [address] Scheduled Procedures Name Priority Associated Diagnoses [...] documented as of this encounter Care Teams Scientific Investigator Relationship Specialty Start Date End Date Liam Houston MD 964445 [place] [address] [address] [place] [address] PCP - General Family Medicine 04/26/22 documented as of this encounter
--- OUTSIDE RECORDS SUMMARY | 2025-01-25 14:25 | XMS_ITS | Encounter Summary ---
Author Organization [facility] Address [address] [place] [address] Care Team Providers Care Chick Room Supervisor Name Role Phone Liam Houston MD Primary Care Provider [phone] Encounter Details Date Type Department Care Team (Late st Contact Info) Description 10/27/2011 Documentation Encounter SANJEEV V ALLSCRIPTS CONV Conversion, [...] Notes * Letter - Conversion, Allscripts - 10/27/2011 9:50 AM EDT . RE ALAS [address] [place] [address] Oct 27, 2011 Dear Ms. 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 PLAN OF ACTION: Keep regular appointment with our office and/or as needed. Sincerely, [facility]. Signature Electronically signed by : Elfego Vickers MA; 10/27/2011 9:52 AM EST; Validation. documented in this encounter Plan of Treatment Upcoming Encounters Date Type Department Care Team (Late st Contact Info) Description 02/18/2025 3:30 PM EDT Office Visit [facility] Cardiovascular [place] [address] [address], [address] [place] [address] 03/13/2025 12:30 PM EDT Office Visit [facility] [address] [place] [address] [place] [address] Liam Houston MD [id number] [place] [address] [address] [place], [place] [phone] Scheduled Procedures Name Priority Associated Diagnoses Date/Ti [...] documented as of this encounter Care Teams Chick Room Supervisor Relationship Specialty Start Date End Date Liam Houston MD [address] [place] [address] [address] [place], [place] [phone] PCP - General Family Medicine 04/26/22 documented as of this encounter
--- OUTSIDE RECORDS SUMMARY | 2025-01-25 14:25 | XMS_ITS | Encounter Summary ---
Author Organization [facility] Address [address] [place] [address] Care Team Providers Care Surveying Teacher Name Role Phone Liam Houston MD Primary Care Provider [phone] Encounter Details Date Type Department Care Team (Late st Contact Info) Description 10/19/2009 Documentation Encounter SANJEEV V ALLSCRIPTS CONV Conversion, [...] Sign Reading Time Taken Comments Blood Pressure 108/60 10/19/2009 10:41 AM EDT Pulse 76 10/19/2009 10:41 AM EDT Temperature 36.4 C (97.6 F) 10/19/2009 10:41 AM EDT Respiratory Rate 18 10/19/2009 10:41 AM EDT Oxygen Saturation - - Inhaled Oxygen Concentration - - Weight 62.6 kg (138 lb) 10/19/2009 10:41 AM EDT Height 162.6 cm (5' 4 ) 10/19/2009 10:41 AM EDT Body Mass Index 24.03 11/02/2009 9:40 AM EDT documented in this encounter Plan of Treatment Upcoming Encounters Date Type Department Care Team (Late st Contact Info) Description 02/18/2025 3:30 PM EDT Office Visit [facility] - [place] [address], [address] [place] [address] 03/13/2025 12:30 PM EDT Office Visit [facility] Family Medicine - [place] [address] [place] [address] [place] [address] Liam Houston MD [address] [place] [address] [address] [place], [place] [phone] Scheduled Procedures Name Priority Associated Diagnoses Date/Ti [...] documented as of this encounter Care Teams Surveying Teacher Relationship Specialty Start Date End Date Liam Houston MD [address] [place] [address] [address] [place], [place] [id number] PCP - General Family Medicine 04/26/22 documented as of this encounter
--- OUTSIDE RECORDS SUMMARY | 2025-01-25 14:25 | XMS_ITS | Encounter Summary ---
Author Organization [facility] Address [address] [place] [address] Care Team Providers Care Analyst Business Analysis Name Role Phone Liam Houston MD Primary Care Provider [phone] Encounter Details Date Type Department Care Team (Late st Contact Info) Description 09/09/2009 Documentation Encounter SANJEEV V ALLSCRIPTS CONV Conversion, [...] Sign Reading Time Taken Comments Blood Pressure 122/80 09/09/2009 8:39 AM EDT Pulse 68 09/09/2009 8:39 AM EDT Temperature 36.7 C (98 F) 09/09/2009 8:39 AM EDT Respiratory Rate 14 09/09/2009 8:39 AM EDT Oxygen Saturation - - Inhaled Oxygen Concentration - - Weight 61.2 kg (135 lb) 09/09/2009 8:39 AM EDT Height 162.6 cm (5' 4 ) 09/09/2009 8:39 AM EDT Body Mass Index 23.17 09/09/2009 8:39 AM EDT documented in this encounter Procedure Notes * Conversion, Allscripts - 12/07/2013 4:35 PM EDTAssociated Order(s): SCANNED LAB REPORT documented in this encounter Plan of Treatment Upcoming Encounters Date Type Department Care Team (Late st Contact Info) Description 02/18/2025 3:30 PM EDT Office Visit [facility] Cardiovascular [place] [address], [address] [place] [address] 03/13/2025 12:30 PM EDT Office Visit [facility] [address] [place] [address] Liam Houston MD 99[address]40 [place] [address] [place] [address] Scheduled Procedures Name Priority Associated Diagnoses Date/Ti me WATCHMAN INSERTION Atrial fibrillation, unspecified type documented as of this encounter Procedures Procedure Name Priority Date/Time Associated Diagnosis Comments SCANNED LAB REPORT 12/07/2013 4: 35 PM EDT documented in this encounter Results * SCANNED LAB REPORT (12/07/2013 4:35 PM EDT) Narrative 12/07/2013 4:35 PM EDT Ordered by an unspecified provider. Transcriptions Agustina Cui - 12/07/2013 4:35 PM EDT Allscripts Conversion Final Resu lt [...] documented as of this encounter Care Teams Analyst Business Analysis Relationship Specialty Start Date End Date Liam Houston MD [address] [place] [address] [address] [address] [place] [address] PCP - General Family Medicine 04/26/22 documented as of this encounter
--- OUTSIDE RECORDS SUMMARY | 2025-01-25 14:25 | XMS_ITS | Encounter Summary ---
Author Organization [facility] Address [address] [place] [address] Care Team Providers Care Dehydrogenation Converter Helper Name Role Phone Liam Houston MD Primary Care Provider [phone] Encounter Details Date Type Department Care Team (Late st Contact Info) Description 05/22/2017 Orders Only [facility] Endocrinology - [place] [address], [address] [place] [address] Soren Santamaria MD Social History [...] PM EDT Office Visit [facility] Cardiovascular Center [address] [place], [facility] [address] [place] [phone] 03/13/2025 12:30 PM EDT Office Visit [facility] Family Medicine - [place] [address] [place] [address] [place] [address] Liam Houston MD [id number] [place] [address] [address] [place] [address] Scheduled Procedures Name Priority Associated Diagnoses Date/Ti [...] documented as of this encounter Care Teams Dehydrogenation Converter Helper Relationship Specialty Start Date End Date Liam Houston MD [id number] [place] [address] [address] [address] [place] [address] PCP - General Family Medicine 04/26/22 documented as of this encounter
--- OUTSIDE RECORDS SUMMARY | 2025-01-25 14:25 | XMS_ITS | Encounter Summary ---
Author Organization [facility] Address [address] [place] [address] Care Team Providers Care Crisis Manager Name Role Phone Liam Houston MD Primary Care Provider [phone] Encounter Details Date Type Department Care Team (Late st Contact Info) Description 10/14/2008 Documentation Encounter SANJEEV V ALLSCRIPTS CONV Conversion, [...] Sign Reading Time Taken Comments Blood Pressure 130/77 10/14/2008 8:21 AM EDT Pulse 76 10/14/2008 8:21 AM EDT Temperature 36.3 C (97.4 F) 10/14/2008 8:21 AM EDT Respiratory Rate - - Oxygen Saturation - - Inhaled Oxygen Concentration - - Weight 57.2 kg (126 lb) 10/14/2008 8:21 AM EDT Height 162.6 cm (5' 4 ) 10/14/2008 8:21 AM EDT Body Mass Index 21.63 10/14/2008 8:21 AM EDT documented in this encounter Plan of Treatment Upcoming Encounters Date Type Department Care Team (Late st Contact Info) Description 02/18/2025 3:30 PM EDT Office Visit [facility] Cardiovascular Center [address] [place] [address] 03/13/2025 12:30 PM EDT Office Visit [place] [id number] [place] [address] [place] [address] Liam Houston MD [id number] [place] [address] [address] [place], [place] [phone] Scheduled Procedures Name Priority Associated Diagnoses Date/Ti [...] documented as of this encounter Care Teams Crisis Manager Relationship Specialty Start Date End Date Liam Houston MD [address] [place] [address] [address] [place], [place] [phone] PCP - General Family Medicine 04/26/22 documented as of this encounter
--- OUTSIDE RECORDS SUMMARY | 2025-01-25 14:25 | XMS_ITS | Encounter Summary ---
Author Organization [facility] Address [address] [place] [address] Care Team Providers Care Night Time Babysitter Name Role Phone Liam Houston MD Primary Care Provider [phone] Encounter Details Date Type Department Care Team (Late st Contact Info) Description 10/10/2012 Documentation Encounter SANJEEV V ALLSCRIPTS CONV Conversion, [...] as of this encounter Miscellaneous Notes * Scanned Document - Conversion, Allscripts - 11/06/2013 10:42 AM EDT documented in this encounter Plan of Treatment Upcoming Encounters Date Type Department Care Team (Late st Contact Info) Description 02/18/2025 3:30 PM EDT Office Visit [facility] Cardiovascular Center [place] [address], [address] [place] [address] 03/13/2025 12:30 PM EDT Office Visit [facility] Family [place] [address] [address] [place] [address] Liam Houston MD 327748 [place] [address] [address] [place], [place] [phone] Scheduled Procedures Name Priority Associated Diagnoses Date/Ti [...] documented as of this encounter Care Teams Night Time Babysitter Relationship Specialty Start Date End Date Liam Houston MD [id number] [place] [address] [address] [place] [address] PCP - General Family Medicine 04/26/22 documented as of this encounter
--- OUTSIDE RECORDS SUMMARY | 2025-01-25 14:25 | XMS_ITS | Encounter Summary ---
Author Organization [facility] Address [address] [place] [address] Care Team Providers Care Welcome Wagon Hostess Name Role Phone Liam Houston MD Primary Care Provider [phone] Encounter Details Date Type Department Care Team (Late st Contact Info) Description 01/20/2008 Documentation Encounter SANJEEV V ALLSCRIPTS CONV Stephen [...] Progress Notes * Stephen Collier MD - 01/20/2008 8:00 AM EDT Chief Complaint f/u visit Subjective 72 year old,, female, here today for follow-up of the below listed medical problems and is currently using the medications listed as below. Today patient has new complaint of BP running a bit high, home readingd 140+ daily, +FH HTN Vesicare is working well otherwise all other ROS negative. Amended By: Stephen Collier ; 01/20/2008 8:22 AM EST. Allergies No Known Drug Allergy. Current Meds Alendronate Sodium 10 MG Tablet;TAKE 1 TABLET DAILY.; Rx Simvastatin 40 MG Tablet;TAKE 1 TABLET BEDTIME; Rx Tizanidine HCl 2 MG Tablet;1 TABS PO bid; Rx Aspirin 81 MG Tablet;TAKE 1 TABLET DAILY.; RPT Fiber Therapy TABS;TAKE 2 TABLET TWICE DAILY; RPT PEG 3350/Electrolytes 240 GM Solution Reconstituted;TAKE 8 OZ DIRECTED by mouth; Rx. 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 PMH Conjunctivitis Resolved (372.30) Hyperlipidemia (272.4) Osteoporosis (733.00). PSH Hysterectomy (V45.77). Family Hx Family history of Coronary Artery Disease Family history of Ischemic Stroke. Personal Hx No Alcohol Use No Tobacco Use (V15.82). Vital Signs Recorded by cristiane on 20 Jan 2008 08:03 AM BP:141/74, HR: 69 b/min, Temp: 97.2 F, Oral, Weight: 136 lb Amended By: Ellie Flood ; 01/20/2008 8:04 AM EST. Objective VITAL SIGNS: Noted. E: PERRL/EOMI conjunctivae [...] and dry. EXTREMITIES: Well perfused, no edema. Amended By: Stephen Collier ; 01/20/2008 8:22 AM EST. Assessment Normal examination (V70.0) Amended By: Stephen Collier ; 01/20/2008 8:22 AM EST Urge and stress incontinence (788.33) Amended By: Stephen Collier ; 01/20/2008 8:23 AM EST Hyperlipidemia (272.4) Amended By: Stephen Collier ; 01/20/2008 8:22 AM EST Osteoporosis (733.00) Amended By: Stephen Collier ; 01/20/2008 8:22 AM EST Muscle spasm (728.85) Amended By: Stephen Collier ; 01/20/2008 8:22 AM EST Health Mgmt Plan Pap smear, breast exam and Hemoccult done 02/2005 Mammogram done 12/2004 Colon exam done 2003 Advance directive given Flu shot done 04/13/06. Orders VESIcare 5 MG Tablet;TAKE 1 DAILY; Qty30; R3; Rx Amended By: Stephen Collier ; 01/20/2008 8:24 AM EST. Hydrochlorothiazide 12.5 MG Tablet;TAKE TABLET DAILY; Qty30; R3; Rx Amended By: Stephen Collier ; 01/20/2008 8:24 AM EST. Plan Pt advised to various Tx options and agreed to the following: Continuation of current medications listed above,the importance of follow up visits. Risk verses benefits of medication and treatments were discussed. Patient voiced understanding. Return to office in 6 weeks Amended By: Stephen Collier ; 01/20/2008 8:24 AM EST. Signature Signed By: Stephen Collier M.D.; 01/20/2008 8:00 AM EST. Signed By: Stephen Collier M.D.; 01/20/2008 12:09 PM EST. documented in this encounter Plan of Treatment Upcoming Encounters Date Type Department Care Team (Late st Contact Info) Description 02/18/2025 3:30 PM EDT Office Visit [facility] Cardiovascular [place] [address] [address] [facility] [address] [place] [phone] 03/13/2025 12:30 PM EDT Office Visit [facility] - [address] [phone] Liam Houston MD [address] [place] [address] [phone] Scheduled Procedures Name Priority Associated Diagnoses Date/Ti [...] documented as of this encounter Care Teams Welcome Wagon Hostess Relationship Specialty Start Date End Date Liam Houston MD 223839 [place] [address] [address] [place] [address] PCP - General Family Medicine 04/26/22 documented as of this encounter
--- OUTSIDE RECORDS SUMMARY | 2025-01-25 14:25 | XMS_ITS | Encounter Summary ---
Author Organization [facility] Address [address] [place] [address] Care Team Providers Care Materials Specialist Name Role Phone iLam Houston MD Primary Care Provider [phone] Encounter Details Date Type Department Care Team (Late st Contact Info) Description 10/14/2008 Documentation Encounter SANJEEV V ALLSCRIPTS CONV Stephen [...] Progress Notes * Stephen Collier MD - 10/14/2008 8:30 AM EDT Chief Complaint Follow-up for chronic medical conditions listed below under PMH and Active Problems Subjective 72 year old, female here for still haveing swelling in left wrist and elbo XR wrist OK elbo possible avusion Fx All other ROS otherwise neg. Allergies No Known Drug Allergy. Current Meds Aspirin 81 MG Oral Tablet;TAKE 1 TABLET DAILY.; RPT Fiber Therapy TABS;TAKE 2 TABLET TWICE DAILY; RPT Hydrochlorothiazide 12.5 MG Oral Tablet;TAKE TABLET DAILY; Rx Simvastatin 40 MG Oral Tablet;TAKE 1 TABLET AT BEDTIME; Rx Hydrochlorothiazide 12.5 MG Oral Capsule;TAKE 1 CAPSULE EVERY DAY; Rx VESIcare 10 MG Oral Tablet;TAKE 1 DAILY; Rx. Active Problems Benign Essential Hypertension [...] Use. Vital Signs Adult Female Recorded by Ellie Flood on October 08:21 AM BP: 130/77 mm Hg HR: 76 b/min ; Temp: 97.4 F Height: 64 in, Weight: 126 lb, BMI: 21.63 , BSA: 1.61 . Objective NAD: VSS. CHEST: CTA. CV: RRR without M/R/G. left wrist, FROM non tender, elbo FROM some edema, nion tender. Plan Ortho with films. Signature Signed By: Stephen Collier M.D.; 10/14/2008 12:30 PM EST. documented in this encounter Plan of Treatment Upcoming Encounters Date Type Department Care Team (Late st Contact Info) Description 02/18/2025 3:30 PM EDT Office Visit [facility] Cardiovascular [address] [place], [facility] [address] [place] [address] 03/13/2025 12:30 PM EDT Office Visit [facility] Family Medicine [place] [address] [facility] [address] [place] [address] Liam Houston MD [address] [place] [address] [address] [place] [address] Scheduled Procedures Name Priority Associated [...] documented as of this encounter Care Teams Materials Specialist Relationship Specialty Start Date End Date Liam Houston MD [id number] [address] [place] [address] PCP - General Family Medicine 04/26/22 documented as of this encounter
--- OUTSIDE RECORDS SUMMARY | 2025-01-25 14:25 | XMS_ITS | Encounter Summary ---
Author Organization [facility] Address [address] [place] [address] Care Team Providers Care Textile Engineer Name Role Phone Liam Houston MD Primary Care Provider Encounter Details Date Type Department Care Team (Late st Contact Info) Description 10/26/2009 Documentation Encounter SANJEEV V ALLSCRIPTS CONV Conversion, [...] * Scanned Document - Conversion, Allscripts - 12/07/2013 11:55 AM EDT * Scanned Document - Conversion, Allscripts - 12/07/2013 11:55 AM EDT documented in this encounter Plan of Treatment Upcoming Encounters Date Type Department Care Team (Late st Contact Info) Description 02/18/2025 3:30 PM EDT Office Visit [facility] Cardiovascular [place] [address] [address], [facility] [address] [place] [address] 03/13/2025 12:30 PM EDT Office Visit [facility] Family Medicine - [address] [address] Liam Houston [place] [id number] [address] [address] Scheduled Procedures Name Priority Associated Diagnoses Date/Ti [...] documented as of this encounter Care Teams Textile Engineer Relationship Specialty Start Date End Date Liam Houston MD [address] [place] [address] PCP - General Family Medicine 04/26/22 documented as of this encounter
--- OUTSIDE RECORDS SUMMARY | 2025-01-25 14:25 | XMS_ITS | Encounter Summary ---
Author Organization [facility] Address [address] [place] [address] Care Team Providers Care Wood Grinder Name Role Phone Liam Houston MD Primary Care Provider [phone] Encounter Details Date Type Department Care Team (Late st Contact Info) Description 06/21/2010 Documentation Encounter SANJEEV V ALLSCRIPTS CONV Conversion, [...] Sign Reading Time Taken Comments Blood Pressure 138/78 06/21/2010 3:30 PM EST Pulse 76 06/21/2010 3:30 PM EST Temperature 36.9 C (98.4 F) 06/21/2010 3:30 PM EST Respiratory Rate 18 06/21/2010 3:30 PM EST Oxygen Saturation - - Inhaled Oxygen Concentration - - Weight 63 kg (139 lb) 06/21/2010 3:30 PM EST Height 160 cm (5' 3 ) 06/21/2010 3:30 PM EST Body Mass Index 24.62 06/21/2010 3:30 PM EST documented in this encounter Plan of Treatment Upcoming Encounters Date Type Department Care Team (Late st Contact Info) Description 02/18/2025 3:30 PM EDT Office Visit [facility] Cardiovascular Center [address] [place] [address] 03/13/2025 12:30 PM EDT Office Visit [facility] Family [place] [id number] [place] [address] [place] [address] Liam Houston [place] [id number] [place] [address] [address] [place] [address] Scheduled Procedures Name Priority Associated [...] documented as of this encounter Care Teams Wood Grinder Relationship Specialty Start Date End Date Liam Houston MD [address] [place] [address] [address] [place], [place] [phone] PCP - General Family Medicine 04/26/22 documented as of this encounter
--- OUTSIDE RECORDS SUMMARY | 2025-01-25 14:25 | XMS_ITS | Encounter Summary ---
Author Organization [facility] Address [address] [place] [address] Care Team Providers Care Hand Folder Name Role Phone Liam Houston MD Primary Care Provider [phone] Encounter Details Date Type Department Care Team (Late st Contact Info) Description 10/18/2012 Documentation Encounter SANJEEV V ALLSCRIPTS CONV Conversion, [...] Notes * Letter - Conversion, Allscripts - 10/18/2012 12:20 PM EDT Oct 18, 2012 RE, Flu Season is over until next fall, I wanted to remind you that the Centers for Disease Control andPrevention recommend that all persons 6 months of age and older receive an annual influenza vaccination. This is because the rates of morbidity and mortality associated with influenza are high and vaccination is cost-effective. The fatality rate from influenza begins to rise at age 45 and is highest in persons with multiple chronic medical conditions. As in the past, recommendations target persons at high risk for complications, such as those with cardiac disease, lung disease and diabetes. office would recommend that you make every effort to receive the vaccine in a location of your convenience on an annual basis. are privileged to be part of your healthcare team. Stephen Collier MD Electronically signed by:Jose Sanabria Oct 08 2013 10:18AM EST documented in this encounter Plan of Treatment Upcoming Encounters Date Type Department Care Team (Late st Contact Info) Description 02/18/2025 3:30 PM EDT Office Visit [facility] Cardiovascular [facility] [address] [address] [place] [address] 03/13/2025 12:30 PM EDT Office Visit [facility] - [address] [address] Liam Houston MD [address] [place] [address] Scheduled Procedures Name Priority Associated Diagnoses [...] documented as of this encounter Care Teams Hand Folder Relationship Specialty Start Date End Date Liam Houston MD [address] [place] [address] [address] [place] [address] PCP - General Family Medicine 04/26/22 documented as of this encounter
--- OUTSIDE RECORDS SUMMARY | 2025-01-25 14:25 | XMS_ITS | Encounter Summary ---
Author Organization [facility] Address [address] [place] [address] Care Team Providers Care Washing Machine Assembler Name Role Phone Liam Houston MD Primary Care Provider Encounter Details Date Type Department Care Team (Late st Contact Info) Description 05/19/2010 Documentation Encounter SANJEEV V ALLSCRIPTS CONV Stephen [...] Progress Notes * Stephen Collier MD - 05/19/2010 1:30 PM EST Subjective 74 year old, female here for refill Fosamax and recheck what appeared to be actinic keratosis on the nose. All other ROS otherwise neg. Allergies No [...] Alcohol Use Denied Tobacco Use. Vital Signs Recorded by Aubree Yanes on 19 May 2010 01:27 PM BP:121/81, HR: 70 b/min, Resp: 16 r/min, Temp: 97.8 F, Height: 63 in, Weight: 138 lb, BMI: 24.4 kg/m2, BSA Calculated: 1.65 , BMI Calculated: 24.45. Objective NAD: VSS. CHEST: CTA. CV: RRR without M/R/G. There are 2 lesions that appear to be 1 mm actinic keratosis on the nose no characteristics typicalof cancer. Assessment Benign essential hypertension (401.1) Plan As we have treated the nose lesions with liquid nitrogen and they have not resolved will refer her to dermatology for appropriate treatment/ shave biopsy. Orders Renew Alendronate Sodium 10 MG Oral Tablet;TAKE 1 TABLET EVERY DAY; Qty90; R3; Rx. Referral Patient: RE ALAS : 1935 Priority: Standard Referral to Specialist: Transfer Care for Problem To:/ Dx derm for nose lesion . Signature Electronically signed by : Stephen Collier M.D.; 05/19/2010 3:01 PM EST. * Stephen Collier MD - 05/19/2010 1:30 PM EST Chief Complaint Refills Allergies No Known Drug Allergy. Current Meds Aspirin 81 MG Oral Tablet;TAKE 1 TABLET DAILY.; RPT Fiber Therapy TABS;TAKE 2 TABLET TWICE DAILY; RPT Hydrochlorothiazide 12.5 MG Oral Tablet;TAKE TABLET DAILY; Rx Alendronate Sodium 10 MG Oral Tablet;TAKE 1 TABLET EVERY DAY; Rx Nasonex 50 MCG/ACT Nasal Suspension;USE 2 SPRAYS IN EACH NOSTRIL ONCE DAILY; Rx Hydrochlorothiazide 12.5 MG Oral Capsule;1QD - TAKE ONE CAPSULE BY MOUTH EVERY DAY; Rx Simvastatin 40 MG Oral Tablet;1QD - TAKE ONE TABLET BY MOUTH EVERY DAY; Rx. Active Problems Benign Essential [...] Use. Vital Signs Adult Female Recorded by Aubree Yanes on May 01:27 PM BP: 121/81 mm Hg HR: 70 b/min ; Resp: 16 r/min ; Temp: 97.8 F Height: 63 in, Weight: 138 lb, BMI: 24.45 , BSA: 1.65 . Health Mgmt Plan Pap smear, breast exam and Hemoccult done 02/2005 Colonoscopy 12.08 Mammogram done 12/2004 Colon exam done 2003 Advance directive given Flu shot done 04/13/06. Signature Electronically signed by : Stephen Collier M.D.; 05/19/2010 3:01 PM EST. documented in this encounter Plan of Treatment Upcoming Encounters Date Type Department Care Team (Late st Contact Info) Description 02/18/2025 3:30 PM EDT Office Visit [place] [address] [place] [address] 03/13/2025 12:30 PM EDT Office Visit [place] [phone] [place] [address] [place] [phone] Liam Houston MD [id number] [place] [address] [address] [place] [phone] Scheduled Procedures Name Priority Associated Diagnoses Date/Ti [...] documented as of this encounter Care Teams Washing Machine Assembler Relationship Specialty Start Date End Date Liam Houston MD [address] [place] [address] [address] [place] [id number] PCP - General Family Medicine 04/26/22 documented as of this encounter
--- OUTSIDE RECORDS SUMMARY | 2025-01-25 14:25 | XMS_ITS | Encounter Summary ---
Author Organization [facility] Address [address] [place] [address] Care Team Providers Care Certified Nurses' Aide Name Role Phone Liam Houston MD Primary Care Provider [phone] Encounter Details Date Type Department Care Team (Late st Contact Info) Description 02/24/2010 Documentation Encounter SANJEEV V ALLSCRIPTS CONV Conversion, [...] Notes * Letter - Conversion, Allscripts - 02/24/2010 4:57 PM EDT . RE ALAS [address] [place] [address] Feb 24, 2010 Dear Ms. ALAS: Here are the results from your recent visit: PHYSICAL: Mammogram no abnormality or malignancy. Repeat in 1 year(s) PLAN OF ACTION: Keep regular appointment with our office and/or as needed Sincerely, [facility]. Signature Electronically signed by : Selina Hayes MA; 02/24/2010 4:58 PM EST; Validation. documented in this encounter Plan of Treatment Upcoming Encounters Date Type Department Care Team (Late st Contact Info) Description 02/18/2025 3:30 PM EDT Office Visit [facility] Cardiovascular [place] [address] [address], [address] [place] [address] 03/13/2025 12:30 PM EDT Office Visit [facility] [address] [place] [address] [place] [address] Liam Houston MD [id number] [place] [address] [address] [place], [place] [phone] Scheduled Procedures Name Priority Associated Diagnoses Date/Ti [...] documented as of this encounter Care Teams Certified Nurses' Aide Relationship Specialty Start Date End Date Liam Houston MD [address] [place] [address] [address] [place], [place] [id number] PCP - General Family Medicine 04/26/22 documented as of this encounter
--- OUTSIDE RECORDS SUMMARY | 2025-01-25 14:25 | XMS_ITS | Encounter Summary ---
Author Organization [facility] Address [address] [place] [address] Care Team Providers Care Freight Dispatcher Name Role Phone Liam Houston MD Primary Care Provider [phone] Encounter Details Date Type Department Care Team (Late st Contact Info) Description 03/25/2013 Documentation Encounter SANJEEV V ALLSCRIPTS CONV Kodi Deras MD Social History Tobacco Use Types Packs/Day [...] as of this encounter Progress Notes * Kodi Deras MD - 03/25/2013 9:30 AM EST 03/25/13 Here for f/u, last visit after CABG 09/11/12 and was doing great then, still doing great. NSTMI 12/06/11, CABG on 12/11/11 and left day 5. Had uncomp post op course, discharged 12/17/11 and has been feeling well and doing well at home. Records review shows preserved EF pre-op by echo. Feeling alot of fatigue. No exercise. RANKIN to LAD, SVG to D1 and PDA. Meds: ASA 81 q d Metop 25 daily Lipitor 80 daily Exam: Looks very well, 118/76, 66, 136 lbs. 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 Electronically signed by:Kodi Deras M.D. Mar 25 2013 9:23AM EST documented in this encounter Plan of Treatment Upcoming Encounters Date Type Department Care Team (Late st Contact Info) Description 02/18/2025 3:30 PM EDT Office Visit [facility] Cardiovascular Center [address], [facility] [address] [place] [address] 03/13/2025 12:30 PM EDT Office Visit [facility] Family Medicine [address] [address] Liam Houston MD [address] [place] [address] Scheduled Procedures Name Priority Associated Diagnoses [...] documented as of this encounter Care Teams Freight Dispatcher Relationship Specialty Start Date End Date Liam Houston MD [address] [place] [address] PCP - General Family Medicine 04/26/22 documented as of this encounter
--- OUTSIDE RECORDS SUMMARY | 2025-01-25 14:25 | XMS_ITS | Encounter Summary ---
Author Organization [facility] Address [address] [place] [address] Care Team Providers Care Baggage Porter Name Role Phone Liam Houston MD Primary Care Provider [phone] Encounter Details Date Type Department Care Team (Late st Contact Info) Description 09/01/2004 Documentation Encounter SANJEEV V ALLSCRIPTS CONV Aspen [...] Progress Notes * Aspen Licona MD - 09/01/2004 1:05 PM EDT PATIENT NAME: RE ALAS DATE OF : 1935 DATE OF SERVICE: 09/01/2004 S: Miss Alas is a 68-year-old who, two to three days ago, noticed that her right eye was irritated and bloodshot. She did not injure it. She has had no change in vision. Last eye exam was in 2003. She has used VISINE which has not helped. O: E: Left eye is unremarkable in appearance. Right eye has homogeneous injection of the conjunctivae. It is most prominent on the temporal side. There is no tearing, no discharge. PERRLA. EOMI. Fundoscopy shows a possible lens clouding, possible early cataract. Vessels are poorly visualized. A: Conjunctivitis/allergic conjunctivitis. P: The patient is given POLYTRIM drops to apply one drop in right eye every 3 hours. She is also advised to have a followup appointment with her eye doctor to check her pressures. Should her symptomschange in any way; i.e., nataliia eye pain or any change in vision, she is to consider this an emergency and be seen immediately. ASPEN LICONA MD D: [id number] MT: [id number] Dictator: [id number] Confirmation Number: [id number] ([id number]) Electronically signed by:Cathy Licona M.D. Sep 05 2004 6:07PM EST documented in this encounter Plan of Treatment Upcoming Encounters Date Type Department Care Team (Late st Contact Info) Description 02/18/2025 3:30 PM EDT Office Visit [facility] Cardiovascular [address], [facility] [address] [place] [phone] 03/13/2025 12:30 PM EDT Office Visit [facility] Family Medicine - [place] [address] [place] [address] Liam Houston MD [address] [place], [place] [id number] Scheduled Procedures Name Priority Associated Diagnoses Date/Ti [...] documented as of this encounter Care Teams Baggage Porter Relationship Specialty Start Date End Date Liam Houston [place] [address] [place] [address] [address] [place] [address] PCP - General Family Medicine 04/26/22 documented as of this encounter
--- OUTSIDE RECORDS SUMMARY | 2025-01-25 14:25 | XMS_ITS | Encounter Summary ---
Author Organization [facility] Address [address] [place] [address] Care Team Providers Care Utilization Review Specialist Name Role Phone Liam Houston MD Primary Care Provider [phone] Encounter Details Date Type Department Care Team (Late st Contact Info) Description 02/03/2008 Documentation Encounter SANJEEV V ALLSCRIPTS CONV Stephen [...] Progress Notes * Stephen Collier MD - 02/03/2008 2:35 PM EDT Chief Complaint scrapped ankle Subjective 72 year old, female here for scrapped skin of left ankle. kept scooting along deck and did not notice she had rubbed of skin All other ROS otherwise neg. . Allergies No Known Drug Allergy. Current Meds Alendronate Sodium 10 MG Tablet;TAKE 1 TABLET DAILY.; Rx Simvastatin 40 MG Tablet;TAKE 1 TABLET BEDTIME; Rx Tizanidine HCl 2 MG Tablet;1 TABS PO bid; Rx VESIcare 5 MG Tablet;TAKE 1 DAILY; Rx Hydrochlorothiazide 12.5 MG Tablet;TAKE TABLET DAILY; Rx PEG 3350/Electrolytes 240 GM Solution Reconstituted;TAKE 8 OZ DIRECTED by mouth; Rx Aspirin 81 MG Tablet;TAKE 1 TABLET DAILY.; RPT Fiber Therapy TABS;TAKE 2 TABLET TWICE DAILY; RPT. Active Problems Corns (700) Hyperlipidemia (272.4) Muscle [...] (V15.82). Vital Signs Recorded by cristiane on 03 Feb 2008 02:49 PM BP:125/81, HR: 80 b/min, Weight: 136 lb. Objective NAD: VSS. CHEST: CTA. CV: RRR without M/R/G. 1.5 cm round ulcer lateral maleolus . Assessment Benign essential hypertension (401.1) Health Mgmt Plan Pap smear, breast exam and Hemoccult done 02/2005 Mammogram done 12/2004 Colon exam done 2003 Advance directive given Flu shot done 04/13/06. Orders Silver Sulfadiazine 1 % Cream;APPLY TO AFFECTED AREA(S) ONCE DAILY DIRECTED; Qty30; R0; Rx. Plan Patient is to report any change in symptoms or non-resolution. Worsening of symptoms are to reported immediately. . Signature Signed By: Stephen Collier M.D.; 02/03/2008 4:51 PM EST. documented in this encounter Miscellaneous Notes * Letter - Stephen Collier MD - 02/03/2008 2:35 PM EDT Ms Alas may snorkle on her cruise/trip. Electronically signed by:Stephen Collier M.D. Feb 12 2008 2:03PM EST documented in this encounter Plan of Treatment Upcoming Encounters Date Type Department Care Team (Late st Contact Info) Description 02/18/2025 3:30 PM EDT Office Visit [facility] Cardiovascular Center [place] [address], [address] [place] [address] 03/13/2025 12:30 PM EDT Office Visit [facility] Family Medicine - [place] [address] [place] [address] Liam Houston MD [address] [place] [address] [address] [place], [place] [phone] Scheduled Procedures Name Priority Associated Diagnoses Date/Ti [...] documented as of this encounter Care Teams Utilization Review Specialist Relationship Specialty Start Date End Date Liam Houston MD [address] [place] [address] [address] [place], [place] [phone] PCP - General Family Medicine 04/26/22 documented as of this encounter
--- OUTSIDE RECORDS SUMMARY | 2025-01-25 14:25 | XMS_ITS | Encounter Summary ---
Author Organization [facility] Address [address] [place] [address] Care Team Providers Care Medical Instrument Cable Fabricator Name Role Phone Liam Houston MD Primary Care Provider [phone] Encounter Details Date Type Department Care Team (Late st Contact Info) Description 10/07/2008 Documentation Encounter SANJEEV V ALLSCRIPTS CONV Stephen [...] Progress Notes * Stephen Collier MD - 10/07/2008 11:30 AM EDT Chief Complaint Follow-up for chronic medical conditions listed below under PMH and Active Problems Subjective 72 year old, female here for fall four days ago onto left arm injuring wrist and elbow. It is stillsignificantly swollen and discolored although she has very minimal impairment used. She had an x-ray at urgent care and was advised that there appeared to be no fracture but there was a question about the elbow. All other ROS otherwise neg. Allergies No Known Drug Allergy. Current Meds Aspirin 81 MG Oral Tablet;TAKE 1 TABLET DAILY.; RPT Fiber Therapy TABS;TAKE 2 TABLET TWICE DAILY; RPT Hydrochlorothiazide 12.5 MG Oral Tablet;TAKE TABLET DAILY; Rx Simvastatin 40 MG Oral Tablet;TAKE 1 TABLET AT BEDTIME; Rx Alendronate Sodium 10 MG Oral Tablet;TAKE 1 TABLET EVERY DAY; Rx Hydrochlorothiazide 12.5 MG Oral Capsule;TAKE 1 [...] Adult Female Recorded by Ellie Flood on September 11:53 AM BP: 136/77 mm Hg HR: 80 b/min ; Temp: 97.6 F Height: 64 in, Weight: 128 lb, BMI: 21.97 , BSA: 1.62 . Objective NAD: VSS. CHEST: CTA. CV: RRR without M/R/G. left elbow is edematous and color changes consistent with bruising and hematoma range of motion is normal. Left wrist and palm of hand have significant violaceous discoloration and again on but rangeof motion appears unimpaired. Assessment Normal routine history and physical senior citizen (65-80) (V70.0) Plan Would like to read x-ray left elbow and wrist so that it is read by radiologist otherwise sprained treatments. Orders Discontinue Alendronate Sodium 10 MG Oral Tablet. Discontinue Sulfamethoxazole-TMP DS 800-160 MG Oral Tablet. Discontinue Silver Sulfadiazine 1 % External Cream. Signature Signed By: Stephen Collier M.D.; 10/07/2008 12:59 PM EST. documented in this encounter Plan of Treatment Upcoming Encounters Date Type Department Care Team (Late st Contact Info) Description 02/18/2025 3:30 PM EDT Office Visit [facility] Cardiovascular Center - [place] [address], [address] [place] [address] 03/13/2025 12:30 PM EDT Office Visit [facility] Family Medicine - [place] [address] [place] [address] [place] [address] Liam Houston MD [address] [place] [address] [address] [place], [place] [phone] Scheduled Procedures Name Priority Associated Diagnoses Date/Ti [...] documented as of this encounter Care Teams Medical Instrument Cable Fabricator Relationship Specialty Start Date End Date Liam Houston MD [address] [place] [address] [address] [place] [address] PCP - General Family Medicine 04/26/22 documented as of this encounter
--- OUTSIDE RECORDS SUMMARY | 2025-01-25 14:25 | XMS_ITS | Encounter Summary ---
Author Organization [facility] Address [address] [place] [address] Care Team Providers Care Brush Maker Name Role Phone Liam Houston MD Primary Care Provider [phone] Encounter Details Date Type Department Care Team (Late st Contact Info) Description 09/30/2008 Documentation Encounter SANJEEV V ALLSCRIPTS CONV Conversion, [...] Notes * Letter - Conversion, [employer] - 09/30/2008 9:39 AM EDT . RE ALAS [address] [place] [address] September 30, 2008 Dear Ms. ALAS: Here are the results from your recent visit: Your blood work results were ok/ normal Triglyceride level 41. Best if below 200 Total cholesterol 191. Best if below 200 HDL-good cholesterol 60. Best if above 60 LDL- unhealthy cholesterol 123. Best if below 100 Liver test normal Sincerely, [facility]. Signature Signed By: Ellie Flood ; 09/30/2008 9:40 AM EST. documented in this encounter Plan of Treatment Upcoming Encounters Date Type Department Care Team (Late st Contact Info) Description 02/18/2025 3:30 PM EDT Office Visit [facility] Cardiovascular [place] [id number], [address] [place] [address] 03/13/2025 12:30 PM EDT Office Visit [facility] [place] [address] [place] [address] [place] [address] Liam Houston [place] [id number] [place] [address] [address] [place], [place] [phone] Scheduled Procedures Name Priority Associated Diagnoses Date/Ti [...] documented as of this encounter Care Teams Brush Maker Relationship Specialty Start Date End Date Liam Houston MD [id number] [place] [address] [address] [place], [place] [phone] PCP - General Family Medicine 04/26/22 documented as of this encounter
--- OUTSIDE RECORDS SUMMARY | 2025-01-25 14:25 | XMS_ITS | Encounter Summary ---
Author Organization [facility] Address [address] [place] [address] Care Team Providers Care Java Consultant Name Role Phone Liam Houston MD Primary Care Provider [phone] Encounter Details Date Type Department Care Team (Late st Contact Info) Description 11/02/2009 Documentation Encounter SANJEEV V ALLSCRIPTS CONV Husam [...] Progress Notes * Husam Lugo MD - 11/02/2009 9:30 AM EDT NAME: RE ALAS DATE OF : 1935 DATE OF SERVICE: 11/02/2009 ATTENDING: HUSAM LUGO MD Ms. Alas returns. There has been some improvement in her serous otitis media on the left. There is an air fluid level now. She was sprayed and politzerized with further improvement and further displacement of the fluid. She is to do this about 5 or 6 times the rest of the day, and return to the clinic in 4 weeks. Hopefully this will be completely resolved, if not a myringotomy will be performed. HUSAM LUGO MD D: [id number] MT: [id number] Dictator: [id number] :[id number] Confirmation Number: [id number] ([id number]) Electronically signed by:Husam Lugo M.D. Nov 09 2009 11:24AM EST documented in this encounter Plan of Treatment Upcoming Encounters Date Type Department Care Team (Late st Contact Info) Description 02/18/2025 3:30 PM EDT Office Visit [facility] Cardiovascular [facility] [address], [facility] [address] [place] [address] 03/13/2025 12:30 PM EDT Office Visit [facility] [address] [place] [address] [place] [address] Liam Houston MD [address] [place], [place] [phone] Scheduled Procedures Name Priority Associated Diagnoses Date/Ti [...] documented as of this encounter Care Teams Java Consultant Relationship Specialty Start Date End Date Liam Houston MD [address] [place] [address] [address] [place], [place] [phone] PCP - General Family Medicine 04/26/22 documented as of this encounter
--- OUTSIDE RECORDS SUMMARY | 2025-01-25 14:25 | XMS_ITS | Encounter Summary ---
Author Organization [facility] Address [address] [place] [address] Care Team Providers Care Metal Pattern Maker Name Role Phone Liam Houston MD Primary Care Provider [phone] Encounter Details Date Type Department Care Team (Late st Contact Info) Description 10/11/2012 Documentation Encounter SANJEEV V ALLSCRIPTS CONV Stephen [...] Progress Notes * Stephen Collier MD - 10/11/2012 9:22 AM EDT Message All lab values are fine. Results Hepatic Function Panel (7) 10 Oct 2012 12:00 AM - PROTEIN, TOTAL: 6.8 Reference Range: 6.1-8.1 Flag: N - ALBUMIN: 4.4 Reference Range: 3.6-5.1 Flag: N - GLOBULIN: 2.4 Reference Range: 1.9-3.7 Flag: N - ALBUMIN/GLOBULIN RATIO: 1.8 Reference Range: 1.0-2.5 Flag: N - BILIRUBIN, TOTAL: 0.7 Reference Range: 0.2-1.2 Flag: N - BILIRUBIN, DIRECT: 0.2 Reference Range: < OR = 0.2 Flag: N - BILIRUBIN, INDIRECT: 0.5 Reference Range: 0.2-1.2 Flag: N - ALKALINE PHOSPHATASE: 64 Reference Range: 33-130 Flag: N - AST: 19 Reference Range: 10-35 Flag: N - ALT: 15 Reference Range: 6-40 Flag: N. Signature Electronically signed by : Stephen Collier M.D.; 10/11/2012 12:18 PM EST. documented in this encounter Plan of Treatment Upcoming Encounters Date Type Department Care Team (Late st Contact Info) Description 02/18/2025 3:30 PM EDT Office Visit [facility] Cardiovascular [address], [facility] [address] [place] [address] 03/13/2025 12:30 PM EDT Office Visit [facility] Family Medicine [address] [place] [address] Liam Houston MD [address] [place] [address] Scheduled Procedures Name Priority Associated Diagnoses [...] documented as of this encounter Care Teams Metal Pattern Maker Relationship Specialty Start Date End Date Liam Houston MD [address] [place] [address] [place] [id number] PCP - General Family Medicine 04/26/22 documented as of this encounter
--- OUTSIDE RECORDS SUMMARY | 2025-01-25 14:25 | XMS_ITS | Encounter Summary ---
Author Organization [facility] Address [address] [place] [address] Care Team Providers Care Electric Utility Lineworker Name Role Phone Liam Houston MD Primary Care Provider [phone] Encounter Details Date Type Department Care Team (Late st Contact Info) Description 01/20/2008 Documentation Encounter SANJEEV V ALLSCRIPTS CONV Conversion, [...] Sign Reading Time Taken Comments Blood Pressure 141/74 01/20/2008 8:03 AM EDT Pulse 69 01/20/2008 8:03 AM EDT Temperature 36.2 C (97.2 F) 01/20/2008 8:03 AM EDT Respiratory Rate 16 01/17/2008 1:13 PM EDT Oxygen Saturation - - Inhaled Oxygen Concentration - - Weight 61.7 kg (136 lb) 01/20/2008 8:03 AM EDT Height 162.6 cm (5' 4 ) 01/17/2008 1:13 PM EDT Body Mass Index 23.34 01/17/2008 1:13 PM EDT documented in this encounter Plan of Treatment Upcoming Encounters Date Type Department Care Team (Late st Contact Info) Description 02/18/2025 3:30 PM EDT Office Visit [facility] Cardiovascular Center - [place] [address], [address] [place] [address] 03/13/2025 12:30 PM EDT Office Visit [facility] Family Medicine - [place] [address] [place] [address] [place] [address] Liam Houston MD [address] [place] [address] [address] [place], [place] [phone] Scheduled Procedures Name Priority Associated Diagnoses Date/Ti [...] documented as of this encounter Care Teams Electric Utility Lineworker Relationship Specialty Start Date End Date Liam Houston MD [address] [place] [address] [address] [place], [place] [phone] PCP - General Family Medicine 04/26/22 documented as of this encounter
--- OUTSIDE RECORDS SUMMARY | 2025-01-25 14:25 | XMS_ITS | Encounter Summary ---
Author Organization [facility] Address [address] [place] [address] Care Team Providers Care Software Configuration Engineer Name Role Phone Liam Houston MD Primary Care Provider [phone] Encounter Details Date Type Department Care Team (Late st Contact Info) Description 05/19/2008 Documentation Encounter SANJEEV V ALLSCRIPTS CONV Ric [...] Progress Notes * Ric Domínguez MD - 05/19/2008 8:00 AM EST Chief Complaint Referred By Dr Stephen Collier Allergies No Known Drug Allergy. Current Meds Tizanidine HCl 2 MG Oral Tablet;1 TABS [...] Denied Tobacco Use. Vital Signs Recorded by Staci Sullivan on 19 May 2008 08:05 AM BP:136/85, HR: 80 b/min, Resp: 16 r/min, Temp: 98 F, Height: 64 in, Weight: 131 lb, BMI: 22.5 kg/m2, BSA Calculated: 1.63 , BMI Calculated: 22.49. Assessment Check 5 on Selected Components for Colonoscopy TEST: Colonoscopy Collected Date & Time: 04/22/08 08:30 Result Name Results Units Reference Range Colonoscopy [facility] Patient Name: Gretchen Alas Gender: F Procedure Date: 04/22/2008 08:30:00 AM SSN: [id number] Date of : 1935 Age: 72 Admit Type: Outpatient Room: GI Lab 1 Note Status: Finalized Attending MD: Ric Domínguez MD Procedure: Colonoscopy Indications: Screening for malignant neoplasm in the colon Providers: Ric Domínguez MD Referring MD: Bird Galeano MD Requesting Provider: Medicines: Midazolam 3 mg IV, Fentanyl 75 micrograms IV Complications: No immediate complications Procedure: After obtaining informed consent, the colonoscope was passed under direct vision. Throughout the procedure the patient's blood pressure, pulse, and oxygen saturations were monitored continuously. The Colonscope was introduced through the anus and advanced to the the cecum, identified by appendiceal orifice & ileocecal valve. The attending physician was present for the entire viewing portion of the procedure. The colonoscopy was performed without difficulty. The patient tolerated the procedure well. The quality of the bowel preparation was excellent. Findings: The perianal and digital rectal examinations were normal. Internal non-bleeding, mild hemorrhoids were found during retroflexion. Impression: - Non bleeding, mild, internal hemorrhoids. Recommendation: - Discharge patient to home (ambulatory). - High fiber diet indefinitely. - Return to GI clinic in 3 weeks. CPT Code(s): 35175, Colonoscopy, flexible, proximal to splenic flexure; diagnostic, with or without collection of specimen(s) by brushing or washing, with or without colon decompression (separate procedure) ICD Code(s): V76.51, Special screening for malignant neoplasms, colon 455.0, Internal hemorrhoids without mention of complication CPT 2006 [employer]. All Rights Reserved. No fee schedules, basic units, relative values or related listings are included in CPT. A does not directly or indirectly practice medicine or dispense medical services. A assumes no liability for data contained or not contained herein. CPT is a registered trademark of the [employer]. The codes documented in this report are preliminary and upon load planner review may be revised to meet current compliance requirements. Ric Domínguez MD Signed Date: 04/22/2008 08:55:56 AM Number of Addenda: 0 Note initiated on 04/22/2008 08:31:55 AM Other Clinicians Who Have Viewed This Data . Pt was informed about the colonoscopy report. Plan Advised high fiber diet. No risk factors surveillance colonoscopy x [address] Stephen Collier. Signature Signed By: Santy Domínguez M.D.; 05/19/2008 8:46 AM EST; Author. documented in this encounter Plan of Treatment Upcoming Encounters Date Type Department Care Team (Late st Contact Info) Description 02/18/2025 3:30 PM EDT Office Visit [facility] Cardiovascular Center - [address], [facility] [address] [place] [address] 03/13/2025 12:30 PM EDT Office Visit [facility] Family Medicine - [place] [address] [address] [place] [address] [place] [address] [place] [address] Scheduled Procedures Name Priority Associated [...] documented as of this encounter Care Teams Software Configuration Engineer Relationship Specialty Start [place] [address] [place] [address] [address] [place] [address] PCP - General Family Medicine 04/26/22 documented as of this encounter
--- OUTSIDE RECORDS SUMMARY | 2025-01-25 14:25 | XMS_ITS | Encounter Summary ---
Author Organization [facility] Address [address] [place] [address] Care Team Providers Care Office Messenger Name Role Phone Liam Houston MD Primary Care Provider [phone] Encounter Details Date Type Department Care Team (Late st Contact Info) Description 10/19/2009 Documentation Encounter SANJEEV V ALLSCRIPTS CONV Stephen [...] Progress Notes * Stephen Collier MD - 10/19/2009 10:30 AM EDT Chief Complaint Follow-up for chronic medical conditions listed below under PMH and Active Problems. check left ear Subjective 73 year old, female here for followup on her left ear pain. Patient seen recently for popping soundtreated for eustachian tube dysfunction however now she has nataliia pain in the left ear it occurs worse with chewing. However she has also developed acute hearing loss. No similar symptoms ever. She was using Nasonex for eustachian tube dysfunction All other ROS otherwise neg. Allergies No [...] Female Recorded by Selina Hayes on October 10:41 AM BP: 108/60 mm Hg HR: 76 b/min ; Resp: 18 r/min ; Temp: 97.6 F Height: 64 in, Weight: 138 lb, BMI: 23.69 , BSA: 1.67 . Objective VITAL SIGNS: Noted. E: PERRL/EOMI conjunctivae clear. HNT: OP clear, no lymphadenopathy, tympanic membranes clear B/L. and there is mild dullness in the superior aspect of the left tympanic membranes however overall it essentially appears within normal limits. Jamison's lateralizes to the right. There is tenderness over the left TMJ and tenderness to palpation over the TMJ popping RESPIRATORY: Lungs CTA bilaterally no wheezes, rales, or rhonchi, NL respiratory effort. CARDIOVASCULAR: RRR. Assessment Eustachian tube dysfunction (381.81) Benign essential hypertension (401.1) Hyperlipidemia (272.4) Health Mgmt Plan Pap smear, breast exam and Hemoccult done 02/2005 Colonoscopy 12. Mammogram done 12/2004 Colon exam done 2003 Advance directive given Flu shot done 04/13/06. 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 Will refer her to ENT and will consider imaging to rule out acoustic neuroma. Referral Patient: RE ALAS : 1935 Priority: Standard Referral to Specialist: Transfer Care for Problem To:/ Dx ENT: acute ear pain with hearing loss . Signature Electronically signed by : Stephen Collier M.D.; 10/19/2009 11:59 AM EST. documented in this encounter Plan of Treatment Upcoming Encounters Date Type Department Care Team (Late st Contact Info) Description 02/18/2025 3:30 PM EDT Office Visit [facility] Cardiovascular [facility] [address] [place], [place] [address]y, [facility] [address] [place] [address] 03/13/2025 12:30 PM EDT Office Visit [facility] [address] [place] [address] [place] [address] Liam Houston MD [address] [place] [address] [place] [address] Scheduled Procedures Name Priority Associated Diagnoses [...] documented as of this encounter Care Teams Office Messenger Relationship Specialty Start Date End Date Liam Houston MD [id number] [place] [address] [address] [place], [place] [id number] PCP - General Family Medicine 04/26/22 documented as of this encounter
--- OUTSIDE RECORDS SUMMARY | 2025-01-25 14:25 | XMS_ITS | Encounter Summary ---
Author Organization [facility] Address [address] [place] [address] Care Team Providers Care Water Use Inspector Name Role Phone Liam Houston MD Primary Care Provider [phone] Encounter Details Date Type Department Care Team (Late st Contact Info) Description 04/14/2008 Documentation Encounter SANJEEV V ALLSCRIPTS CONV Conversion, [...] Sign Reading Time Taken Comments Blood Pressure 131/83 04/14/2008 8:54 AM EST Pulse 77 04/14/2008 8:54 AM EST Temperature 36.7 C (98 F) 04/14/2008 8:54 AM EST Respiratory Rate 16 04/14/2008 8:54 AM EST Oxygen Saturation - - Inhaled Oxygen Concentration - - Weight 60.3 kg (133 lb) 04/14/2008 8:54 AM EST Height 162.6 cm (5' 4 ) 04/14/2008 8:54 AM EST Body Mass Index 22.83 04/14/2008 8:54 AM EST documented in this encounter Miscellaneous Notes * Scanned Document - Conversion, Allscripts - 12/08/2013 11:44 PM EDT * Scanned Document - Conversion, Allscripts - 12/08/2013 11:44 PM EDT * Scanned Document - Conversion, Allscripts - 12/08/2013 11:44 PM EDT documented in this encounter Plan of Treatment Upcoming Encounters Date Type Department Care Team (Late st Contact Info) Description 02/18/2025 3:30 PM EDT Office Visit [facility] Cardiovascular [address], [facility] [address] [place] [address] 03/13/2025 12:30 PM EDT Office Visit [facility] Family Medicine [address] [address] Liam Houston MD [address] [place] [address] Scheduled Procedures Name Priority Associated Diagnoses [...] documented as of this encounter Care Teams Water Use Inspector Relationship Specialty Start Date End Date Liam Houston MD [address] [place] [address] [place] [id number] PCP - General Family Medicine 04/26/22 documented as of this encounter
--- OUTSIDE RECORDS SUMMARY | 2025-01-25 14:25 | XMS_ITS | Encounter Summary ---
Author Organization [facility] Address [address] [place] [address] Care Team Providers Care Drop Hammer Operator Helper Name Role Phone Liam Houston MD Primary Care Provider [phone] Encounter Details Date Type Department Care Team (Late st Contact Info) Description 10/28/2012 Documentation Encounter SANJEEV V ALLSCRIPTS CONV Stephen [...] Progress Notes * Stephen Collier MD - 10/28/2012 6:40 PM EDT Message Benign lesion. Results TISSUE, SPECIMEN A 24 Oct 2012 12:00 AM - A SOURCE: SKIN, RIGHT BREAST - A PROCEDURE: SHAVE BIOPSY - A GROSS DESCRIPTION Two patricia-brown tissue pieces received in formalin measuring 0.3 x 0.3 x 0.1 cm and 0.4 x 0.4 x 0.2 cm, inked blue; 3 piece(s) entirely submitted in 1 cassette(s). Gross exam(s) performed at: [facility] [employer] [place] [address] Sunday [facility] [address] Continuous Still Operator: BRIAN VELAZCO MD - A MICRO DESCRIPTION: THERE IS MARKED PAPILLOMATOSIS WITH MARKED HYPERKERATOSIS. - A DIAGNOSIS: - SEBORRHEIC KERATOSIS, HYPERKERATOTIC. TISSUE PATHOLOGY 24 Oct 2012 12:00 AM - CLINICAL INFORMATION: No information provided. - PATHOLOGIST: LISANDRA HINTON M.D., BOARD CERTIFIED DERMATOPATHOLOGIST, (ELECTRONIC SIGNATURE). Signature Electronically signed by : Stephen Collier M.D.; 10/28/2012 7:05 PM EST. documented in this encounter Plan of Treatment Upcoming Encounters Date Type Department Care Team (Late st Contact Info) Description 02/18/2025 3:30 PM EDT Office Visit [address], [facility] [address] [place] [address] 03/13/2025 12:30 PM EDT Office Visit [facility] Family Medicine [address] [address] Liam Houston MD [address] [place] [address] Scheduled Procedures Name Priority Associated Diagnoses [...] documented as of this encounter Care Teams Drop Hammer Operator Helper Relationship Specialty Start Date End Date Liam Houston MD [address] [place] [id number] PCP - General Family Medicine 04/26/22 documented as of this encounter
--- OUTSIDE RECORDS SUMMARY | 2025-01-25 14:25 | XMS_ITS | Encounter Summary ---
Author Organization [facility] Address [address] [place] [address] Care Team Providers Care Radio Program Director Name Role Phone Liam Houston MD Primary Care Provider [phone] Encounter Details Date Type Department Care Team (Late st Contact Info) Description 01/17/2008 Documentation Encounter SANJEEV V ALLSCRIPTS CONV Conversion, [...] * Scanned Document - Conversion, Allscripts - 12/09/2013 12:33 AM EDT * Scanned Document - Conversion, Allscripts - 12/09/2013 12:33 AM EDT * Scanned Document - Conversion, Allscripts - 12/09/2013 12:33 AM EDT documented in this encounter Plan of Treatment Upcoming Encounters Date Type Department Care Team (Late st Contact Info) Description 02/18/2025 3:30 PM EDT Office Visit [facility] Cardiovascular [place] [address] [address], [address] [place] [address] 03/13/2025 12:30 PM EDT Office Visit [facility] [address] [place] [address] [place] [address] Liam Houston MD [id number] [place] [address] 200 [address] [place] [address] Scheduled Procedures Name Priority Associated Diagnoses Date/Ti [...] documented as of this encounter Care Teams Radio Program Director Relationship Specialty Start Date End Date Liam Houston MD [address] [place] [address] [address] [place], [place] [id number] PCP - General Family Medicine 04/26/22 documented as of this encounter
--- OUTSIDE RECORDS SUMMARY | 2025-01-25 14:25 | XMS_ITS | Encounter Summary ---
Author Organization [facility] Address [address] [place] [address] Care Team Providers Care Sales Floor Manager Name Role Phone Liam Houston MD Primary Care Provider [phone] Encounter Details Date Type Department Care Team (Late st Contact Info) Description 09/10/2007 Documentation Encounter SANJEEV V ALLSCRIPTS CONV Macho Parisi III, MD Social History Tobacco Use Types Packs/Day Years Used Date Smoking Tobacco: Never Assessed Comments Unknown Sex and Gender Information Value Date Recorded Sex Assigned at Not on file Legal Sex Female 8:25 PM EST Gender Identity Not on file Sexual Orientation Not on file documented as of this encounter Progress Notes * Macho Parisi III, MD - 09/10/2007 9:15 AM EDT NAME: RE ALAS DATE OF SERVICE: 09/10/2007 ATTENDING: MACHO PARISI MD RESIDENT: JOHN DANG MD(R) REASON FOR VISIT: Hemorrhoids. A 71-year-old white female here for hemorrhoids x1 month. She states she has mild pain per rectum as well as mild itching and mild burning. Otherwise, she states she notes regular bowel movements that are soft, without bright red blood per rectum. She has not tried reducing them. She takes fiber pills and has a balanced diet. PHYSICAL EXAMINATION: Temperature is 97.3, pulse 82, respiratory rate 16, blood pressure 125/73. Physical examination reveals a healthy-looking female. Rectal examination reveals good rectal tone. Outside, there is 1 external hemorrhoid at the 12 o'clock position, very difficult to palpate the plexus; however, it appears to resemble more redundant skin. External hemorrhoid at the 6 o'clock was about 2 cm. No internal hemorrhoids are palpable. Goodschincter tone. ASSESSMENT AND PLAN: A 63-year-old white female with mild external hemorrhoids, minimally symptomatic. We recommend local care with PREPARATION H CREAM and Sitz baths as necessary, along with normalizaiton of bowel habits. We discussed with her using toiletry wipes as dry toilet paper may exacerbate the problem. Also, recommend her to continue her high-fiber diet and stool softeners, and she shoul d follow up p.r.n. DICTATED BY: JOHN DANG MD(R) JOHN DANG MD(R) D: [id number] MT: [id number] Dictator: [id number] Confirmation Number: [id number] ([id number]) Electronically signed by:John Dang MD(R) Sep 16 2007 8:03AM EST Electronically signed by:Macho Parisi M.D. Sep 23 2007 9:19AM EST documented in this encounter Plan of Treatment Upcoming Encounters Date Type Department Care Team (Late st Contact Info) Description 02/18/2025 3:30 PM EDT Office Visit [facility] Cardiovascular [place] [address] [address], [facility] [address] [place] [address] 03/13/2025 12:30 PM EDT Office Visit [facility] Family Medicine [place] [id number] [place] [address] [place] [address] Liam Houston [place] [address] [place] [address] [place] [address] Scheduled Procedures Name Priority Associated [...] documented as of this encounter Care Teams Sales Floor Manager Relationship Specialty Start Date End Date Liam Houston [place] [id number] [place] [address] [address] [place], [place] [id number] PCP - General Family Medicine 04/26/22 documented as of this encounter
--- OUTSIDE RECORDS SUMMARY | 2025-01-25 14:25 | XMS_ITS | Encounter Summary ---
Author Organization [facility] Address [address] [place] [address] Care Team Providers Care Aluminum Siding Installer Name Role Phone Liam Houston MD Primary Care Provider [phone] Encounter Details Date Type Department Care Team (Late st Contact Info) Description 01/17/2008 Documentation Encounter SANJEEV V ALLSCRIPTS CONV Ric [...] Progress Notes * Ric Domínguez MD - 01/17/2008 1:30 PM EDT Chief Complaint Referred By Dr Stephen Collier Patient is here for screening colonoscopy. No GI symptoms Allergies No Known Drug Allergy. Current Meds [...] Hyperlipidemia (272.4) Osteoporosis (733.00). PSH Hysterectomy (V45.77). Partial thyroidectomy. Family Hx Family history of Coronary Artery Disease Family history of Ischemic Stroke No cancer. Personal Hx No Alcohol Use No Tobacco Use (V15.82). Vital Signs Recorded by Kathia Jamil on 17 Jan 2008 01:13 PM BP:120/77, HR: 72 b/min, Resp: 16 r/min, Temp: 98.0 F, Height: 64 in, Weight: 136.5 lb, BMI: 23.4 kg/m2. Physical Exam VITALS: As listed above. HEAD AND NECK: Pupils equal and reactive. No icterus, pallor, congestion of nasal Scar of Thyroid surgery noted passages, lymphadenopathy. CARDIOVASCULAR: Heart sounds heard normally. No murmurs. LUNGS: Breath sounds heard normally bilaterally. ABDOMEN: Soft, nontender. No organomegaly. Normal bowel sounds.Non-distended. NEUROLOGICAL: Alert and oriented x 3. No obvious deficits. EXTREMITIES: Peripheral pulses present. No edema. . Assessment Scrrening for CRC. Plan colonoscopy. Coun/Edu Colonoscopy: The risks, benefits and alternatives [...] She indicates understanding and wishes to proceed. . Airway Assessment Scheduled Procedure: [ ] Previous Complication with Sedation [ no x] ASA CLASSIFICATION: [ I Healthy, no medical problem x] Mallampati Airway Classification: x Good neck flexion: [ yes x] Mouth opening > 4cm [ yes x] Thyromental distance > 7cmx Good candidate for moderate sedation Cc Dr Stephen Collier . Signature Signed By: Santy Domínguez M.D.; 01/17/2008 2:01 PM EST; Author. documented in this encounter Plan of Treatment Upcoming Encounters Date Type Department Care Team (Late st Contact Info) Description 02/18/2025 3:30 PM EDT Office Visit [facility] Cardiovascular Center [place] [address], [address] [place] [address] 03/13/2025 12:30 PM EDT Office Visit [facility] Family Medicine - [place] [address] [place] [address] [place] [address] Liam Houston MD [address] [place] [address] [address] [place], [place] [id number] Scheduled Procedures Name Priority Associated Diagnoses Date/Ti [...] documented as of this encounter Care Teams Aluminum Siding Installer Relationship Specialty Start Date End Date Liam Houston MD [address] [place] [address] [address] [place], [place] [id number] PCP - General Family Medicine 04/26/22 documented as of this encounter
--- OUTSIDE RECORDS SUMMARY | 2025-01-25 14:25 | XMS_ITS | Encounter Summary ---
Author Organization [facility] Address [address] [place] [address] Care Team Providers Care Material Analyst Name Role Phone Liam Houston MD Primary Care Provider [phone] Encounter Details Date Type Department Care Team (Late st Contact Info) Description 09/23/2008 Documentation Encounter SANJEEV V ALLSCRIPTS CONV Stephen [...] Progress Notes * Stephen Collier MD - 09/23/2008 9:30 AM EDT Chief Complaint Follow-up for chronic medical conditions listed below under PMH and Active Problems Subjective 72 year old,, female, here today for follow-up of the below listed medical problems and is currently using the medications listed as below. Today patient has new complaint of rough spot on the nose she wish check. She is fasting for her cholesterol. It is time for her annual mammogram. She would like the Vesicare but in a stronger dose. otherwise all other ROS negative. Allergies No Known Drug Allergy. Current Meds [...] MG Oral Capsule;TAKE 1 CAPSULE EVERY DAY; Rx. Active Problems Benign Essential [...] Use. Vital Signs Adult Female Recorded by Elile Flood on September 09:39 AM BP: 126/81 mm Hg HR: 75 b/min ; Temp: 97.2 F Height: 64 in, Weight: 127 lb, BMI: 21.80 , BSA: 1.61 . Assessment Normal examination (V70.0) Benign essential hypertension (401.1) Urge and stress [...] and treatments were discussed. Patient voiced understanding. ]actinic keratosis on nasal bridge treated with liquid nitrogen patient is to advise if this does not resolve completely. Increase vesicare to 10 mg fasting labs. Orders Renew VESIcare 10 MG Oral Tablet;TAKE 1 DAILY; Qty90; R3; Rx. Discontinue Tizanidine HCl 2 MG Oral Tablet. Signature Signed By: Stephen Collier M.D.; 09/23/2008 12:48 PM EST. documented in this encounter Plan of Treatment Upcoming Encounters Date Type Department Care Team (Late st Contact Info) Description 02/18/2025 3:30 PM EDT Office Visit [facility] Cardiovascular [address], [facility] [address] [place] [address] 03/13/2025 12:30 PM EDT Office Visit [facility] [address] [place] [address] [place] [address] Liam Houston MD [id number] [place] [address] [id number] Scheduled Procedures Name Priority Associated Diagnoses Date/Ti me WATCHMAN INSERTION Atrial fibrillation, unspecified type documented as of this encounter Visit Diagnoses Not on filedocumented in this encounter Additional Health Concerns Infection Onset Date Last Indicated Resolved Time None 10/20/2011 10/20/2011 07/15/2012 12:4 0 AM EST COVID-19 Rule-Out 11/24/2020 11/24/2020 11/24/2020 10:21 PM EDT COVID-19 (Confirmed) 11/24/2020 12/10/2020 08/ 021 3:03 AM EDT COVID-19 Rule-Out 11/24/2020 11/25/2020 11/25/2020 5:14 AM EDT documented as of this encounter Care Teams Material Analyst Relationship Specialty Start Date End Date Liam Houston MD [id number] [place] [address] [address] [place] [address] PCP - General Family Medicine 04/26/22 documented as of this encounter
--- OUTSIDE RECORDS SUMMARY | 2025-01-25 14:25 | XMS_ITS | Encounter Summary ---
Author Organization [facility] Address [address] [place] [address] Care Team Providers Care Universal Grinder Operator Name Role Phone Liam Houston MD Primary Care Provider [phone] Encounter Details Date Type Department Care Team (Late st Contact Info) Description 05/19/2008 Documentation Encounter SANJEEV V ALLSCRIPTS CONV Conversion, [...] Sign Reading Time Taken Comments Blood Pressure 136/85 05/19/2008 8:05 AM EST Pulse 80 05/19/2008 8:05 AM EST Temperature 36.7 C (98 F) 05/19/2008 8:05 AM EST Respiratory Rate 16 05/19/2008 8:05 AM EST Oxygen Saturation - - Inhaled Oxygen Concentration - - Weight 59.4 kg (131 lb) 05/19/2008 8:05 AM EST Height 162.6 cm (5' 4 ) 05/19/2008 8:05 AM EST Body Mass Index 22.49 05/19/2008 8:05 AM EST documented in this encounter Plan of Treatment Upcoming Encounters Date Type Department Care Team (Late st Contact Info) Description 02/18/2025 3:30 PM EDT Office Visit [facility] [address], [address] [place] [address] 03/13/2025 12:30 PM EDT Office Visit [place] [id number] [place] [address] [place] [address] Liam Houston MD [id number] [place] [address] [id number] Scheduled Procedures Name Priority Associated Diagnoses Date/Ti [...] documented as of this encounter Care Teams Universal Grinder Operator Relationship Specialty Start Date End Date Liam Houston MD [address] [place] [address] [address] [place], [place] [id number] PCP - General Family Medicine 04/26/22 documented as of this encounter
--- OUTSIDE RECORDS SUMMARY | 2025-01-25 14:25 | XMS_ITS | Encounter Summary ---
Author Organization [facility] Address [address] [place] [address] Care Team Providers Care Supervisor Kennel Name Role Phone Liam Houston MD Primary Care Provider [phone] Encounter Details Date Type Department Care Team (Late st Contact Info) Description 10/06/2009 Documentation Encounter SANJEEV V ALLSCRIPTS CONV Conversion, [...] Reading Time Taken Comments Blood Pressure 122/80 10/06/2009 3:40 PM EDT Pulse 72 10/06/2009 3:40 PM EDT Temperature 36.7 C (98 F) 10/06/2009 3:40 PM EDT Respiratory Rate 16 10/06/2009 3:40 PM EDT Oxygen Saturation - - Inhaled Oxygen Concentration - - Weight 61 kg (134 lb 8 oz) 10/06/2009 3:40 PM ED T Height 162.6 cm (5' 4 ) 10/06/2009 3:40 PM EDT Body Mass Index 23.09 10/06/2009 3:40 PM EDT documented in this encounter Plan of Treatment Upcoming Encounters Date Type Department Care Team (Late st Contact Info) Description 02/18/2025 3:30 PM EDT Office Visit [facility] Cardiovascular Center - [place] [id number], [address] [place] [address] 03/13/2025 12:30 PM EDT Office Visit [facility] Family Medicine - [place] [address] [place] [address] Liam Houston MD [address] [place] [address] [address] [place], [place] [id number] Scheduled Procedures Name Priority Associated Diagnoses Date/Ti [...] documented as of this encounter Care Teams Supervisor Kennel Relationship Specialty Start Date End Date Liam Houston MD [address] [place] [address] [address] [place], [place] [id number] PCP - General Family Medicine 04/26/22 documented as of this encounter
--- OUTSIDE RECORDS SUMMARY | 2025-01-25 14:25 | XMS_ITS | Encounter Summary ---
Author Organization [facility] Address [address] [place] [address] Care Team Providers Care Production Packager Name Role Phone Liam Houston MD Primary Care Provider [phone] Encounter Details Date Type Department Care Team (Late st Contact Info) Description 02/04/2013 Documentation Encounter SANJEEV V ALLSCRIPTS CONV Conversion, [...] Notes * Letter - Conversion, Allscripts - 02/04/2013 9:15 AM EDT . RE ALAS [address] [place] [address] Feb 04, 2013 Dear Ms. ALAS: Here are the results from your recent visit: Mammogram no abnormality or malignancy. PLAN OF ACTION: Keep regular appointment with our office and/or as needed Mrs Mohan would like for you to make an appointment to come in for your mammogram examination. According to our records, your last exam was done 01/27/2013. When scheduling your appointment, please make sure it is one day after your last exam for insurance coverage. Since we are concerned about our patients and attempt to provide you with proper medical care, we would appreciate you contacting our office at your earliest convenience. Sincerely, [facility]. Signature Electronically signed by : Graciela Maloney MA; 02/04/2013 10:13 AM EST; Author. documented in this encounter Plan of Treatment Upcoming Encounters Date Type Department Care Team (Late st Contact Info) Description 02/18/2025 3:30 PM EDT Office Visit [facility] Cardiovascular [address] [place] [address] 03/13/2025 12:30 PM EDT Office Visit [address] [address] Liam Houston MD [address] [place] [address] Scheduled Procedures Name Priority Associated Diagnoses Date/Ti me WATCHMAN INSERTION Atrial fibrillation, unspecified type documented as of this encounter Visit Diagnoses Not on filedocumented in this encounter Additional Health Concerns Infection Onset Date Last Indicated Resolved Time COVID-19 Rule-Out 11/24/2020 11/24/2020 11/24/2020 10:21 PM EDT COVID-19 (Confirmed) 11/24/2020 12/10/2020 0805 021 3:03 AM EDT COVID-19 Rule-Out 11/24/2020 11/25/2020 11/25/2020 5:14 AM EDT documented as of this encounter Care Teams Production Packager Relationship Specialty Start Date End Date Liam Houston MD [address] [place] [address] PCP - General Family Medicine 04/26/22 documented as of this encounter
--- OUTSIDE RECORDS SUMMARY | 2025-01-25 14:25 | XMS_ITS | Encounter Summary ---
Author Organization [facility] Address [address] [place] [address] Care Team Providers Care Director Of Alumni Relations Name Role Phone Liam Houston MD Primary Care Provider [phone] Encounter Details Date Type Department Care Team (Late st Contact Info) Description 06/16/2011 Documentation Encounter SANJEEV V ALLSCRIPTS CONV Stephen [...] Progress Notes * Stephen Collier MD - 06/16/2011 8:32 AM EST Message Tried to call NA. All OK except thyroid dose appers too high, does she see endo for this, we can provide copy of lab, or adjust. Results TSH 15 Jun 2011 12:00 AM - TSH, 3RD GENERATION: 0.10 Reference Range: 0.40-4.50 Flag: L. Lipid Panel 15 Jun 2011 12:00 AM - TRIGLYCERIDES: 115 Reference Range: <150 Flag: N - CHOLESTEROL, TOTAL: 185 Reference Range: 125-200 Flag: N - HDL CHOLESTEROL: 54 Reference Range: > OR = 46 Flag: N - LDL-CHOLESTEROL: 108 Reference Range: <130 Flag: N - CHOL/HDLC RATIO: 3.4 Reference Range: < OR = 5.0 Flag: N. Comp. Metabolic Panel (14) 15 Jun 2011 12:00 AM - GLUCOSE: 92 Reference Range: 65-99 Flag: N - UREA NITROGEN (BUN): 10 Reference Range: 7-25 Flag: N - CREATININE: 0.81 Reference Range: 0.60-0.93 Flag: N - eGFR NON-AFR. IRAQI: 72 Reference Range: > OR = 60 Flag: N - eGFR : 84 Reference Range: > OR = 60 Flag: N - BUN/CREATININE RATIO: NOT APPLICABLE Reference Range: 6-22 - SODIUM: 141 Reference Range: 135-146 Flag: N - POTASSIUM: 4.2 Reference Range: 3.5-5.3 Flag: N - CHLORIDE: 103 Reference Range: 98-110 Flag: N - CARBON DIOXIDE: 19 Reference Range: 21-33 Flag: L - CALCIUM: 9.5 Reference Range: 8.6-10.4 Flag: N - PROTEIN, TOTAL: 6.9 Reference Range: 6.2-8.3 Flag: N - ALBUMIN: 4.3 Reference Range: 3.6-5.1 Flag: N - GLOBULIN: 2.6 Reference Range: 2.2-3.9 Flag: N - ALBUMIN/GLOBULIN RATIO: 1.7 Reference Range: 1.0-2.1 Flag: N - BILIRUBIN, TOTAL: 0.6 Reference Range: 0.2-1.2 Flag: N - ALKALINE PHOSPHATASE: 59 Reference Range: 33-130 Flag: N - AST: 16 Reference Range: 10-35 Flag: N - ALT: 13 Reference Range: 6-40 Flag: N. Results Plan 06/16/2011 Called and spoke with pt advising of results; pt states that she does not see specialist and would like PCP to adjust dosage. Response Completed by: Rosa Isela Fernandez. Signature Electronically signed by : Stephen Collier M.D.; 06/16/2011 10:14 AM EST. Electronically signed by : Stephen Collier M.D.; 06/16/2011 1:03 PM EST. documented in this encounter Plan of Treatment Upcoming Encounters Date Type Department Care Team (Late st Contact Info) Description 02/18/2025 3:30 PM EDT Office Visit [facility] - [place] [address], [address] [place] [address] 03/13/2025 12:30 PM EDT Office Visit [facility] Family Medicine - [place] [address] [place] [address] [place] [address] Liam Houston MD [address] [place] [address] [address] [place] [address] Scheduled Procedures Name Priority Associated [...] documented as of this encounter Care Teams Director Of Alumni Relations Relationship Specialty Start Date End Date Liam Houston MD [address] [place] [address] [address] [place] [address] PCP - General Family Medicine 04/26/22 documented as of this encounter
--- OUTSIDE RECORDS SUMMARY | 2025-01-25 14:25 | XMS_ITS | Encounter Summary ---
Author Organization [facility] Address [address] [place] [address] Care Team Providers Care Pc Analyst Name Role Phone Liam Houston MD Primary Care Provider [phone] Encounter Details Date Type Department Care Team (Late st Contact Info) Description 08/27/2007 Documentation Encounter SANJEEV V ALLSCRIPTS CONV Stephen [...] Progress Notes * Stephen Collier MD - 08/27/2007 8:15 AM EDT Chief Complaint Bloodwork Referral Pneumovax Shot Subjective 71 year old,, female, here today for follow-up of the below listed medical problems and is currently using the medications listed as below. recheck blood pressure. She is checked occasionally and states that it varies. She's also has a blister on her left buttocks which she got sliding on and off her gardening stool over the weekend. She has been putting her 's triamcinolone on it. Will provide Pneumovax which was intended for last visit however clinic was out of stock otherwise all other ROS negative. . Patient would also like to see a surgeon regarding her hemorrhoids they are protruding but otherwise not terribly bothersome or painful. Allergies No Known Drug Allergy. Current Meds [...] Tobacco Use (V15.82). Vital Signs Recorded by alcooper on 27 Aug 2007 08:19 AM BP:128/80, HR: 84 b/min, Resp: 14 r/min, Temp: 97.8 F, Height: 64 in, Weight: 138 lb, BMI: 23.7 kg/m2. Objective VITAL SIGNS: Noted. E: PERRL/EOMI conjunctivae clear. HNT: OP clear, no lymphadenopathy, tympanic membranes clear B/L. RESPIRATORY: Lungs CTA bilaterally no wheezes, rales, or rhonchi, NL respiratory effort. CARDIOVASCULAR: RRR no rubs or murmurs, no carotid bruits. ABDOMEN: Soft, nontender, BS present. MS: Full range of motion, no deformities noted. NEUROLOGIC: CN II-XII grossly intact, NL gate. SKIN: left buttock gluteal fold 2 x 3 cm abraded area consistent with a blister area is red blisterhas sloughed no evidence of infection. Assessment Hyperlipidemia (272.4) Osteoporosis (733.00) Health Mgmt Plan Pap smear, breast exam and Hemoccult done 02/2005 Mammogram done 12/2004 Colon exam done 2003 Advance directive given Flu shot done 04/13/06. Plan Blood pressure within normal limits today we will continue to follow discontinue steroid cream on blister and patient is given samples of triple antibiotic ointment to use Patient is to report any change in symptoms or non-resolution. Worsening of symptoms are to reported immediately. patient is referred for allergy clinic for evaluation of hemorrhoids. Signature Signed By: Stephen Collier M.D.; 08/27/2007 12:31 PM EST. documented in this encounter Plan of Treatment Upcoming Encounters Date Type Department Care Team (Late st Contact Info) Description 02/18/2025 3:30 PM EDT Office Visit [facility] Cardiovascular [address] [place] [address] 03/13/2025 12:30 PM EDT Office Visit [facility] [place] [address] [address] [place] [address] Liam Houston MD [address] [place] [address] Scheduled Procedures Name Priority Associated Diagnoses [...] documented as of this encounter Care Teams Pc Analyst Relationship Specialty Start Date End Date Liam Houston MD [address] [place] [address] PCP - General Family Medicine 04/26/22 documented as of this encounter
--- OUTSIDE RECORDS SUMMARY | 2025-01-25 14:25 | XMS_ITS | Encounter Summary ---
Author Organization [facility] Address [address] [place] [address] Care Team Providers Care Foreclosure Paralegal Name Role Phone Liam Houston MD Primary Care Provider [phone] Encounter Details Date Type Department Care Team (Late st Contact Info) Description 03/03/2010 Documentation Encounter SANJEEV V ALLSCRIPTS CONV Stephen [...] Progress Notes * Stephen Collier MD - 03/03/2010 2:30 PM EDT Chief Complaint Follow-up for chronic medical conditions listed below under PMH and Active Problems. flu shot Subjective 74 year old, female here for a flu shot and for small scabs that are recurrent on her nose. All other ROS otherwise neg. Allergies [...] Adult Female Recorded by Selina Hayes on February 02:20 PM BP: 110/70 mm Hg HR: 64 b/min ; Resp: 14 r/min ; Height: 63 in, Weight: 136 lb, BMI: 24.09 , BSA: 1.64 . Objective VITAL SIGNS: Noted. E: Conjunctivae clear. HNT: OP clear, no lymphadenopathy RESPIRATORY: Lungs CTA bilaterally no wheezes, rales, or rhonchi, NL respiratory effort. CARDIOVASCULAR: RRR no rubs or murmurs, no carotid bruits. ABDOMEN: Soft, nontender, BS present. MS: Full range of motion, no deformities noted. NEUROLOGIC: CN II-XII grossly intact, NL gate. SKIN: Warm and dry. Crusty and rough but flat patch ~1-2mm in size on right side of the nose, suspected AK EXTREMITIES: Well perfused, no edema. Health Mgmt Plan Pap smear, breast exam and Hemoccult done 02/2005 Colonoscopy 04.20 Mammogram done 12/2004 Colon exam done 2003 Advance directive given Flu shot done 04/13/06. Plan 1. Flu shot today 2. Liq nitrogen applied to small suspected AKs on nose, will f/u if do not improve or return. Signature Electronically signed by : Stephen Collier M.D.; 03/03/2010 3:16 PM EST. documented in this encounter Plan of Treatment Upcoming Encounters Date Type Department Care Team (Late st Contact Info) Description 02/18/2025 3:30 PM EDT Office Visit [facility] Cardiovascular Center - [place] [address], [facility] [address] [place] [address] 03/13/2025 12:30 PM EDT Office Visit [facility] Family Medicine - [place] [address] [place] [address] [place] [address] Liam Houston MD [address] [place] [address] [address] [place], [place] [id number] Scheduled Procedures Name Priority Associated Diagnoses Date/Ti [...] documented as of this encounter Care Teams Foreclosure Paralegal Relationship Specialty Start Date End Date Liam Houston MD [address] [place] [address] [address] [place], [place] [phone] PCP - General Family Medicine 04/26/22 documented as of this encounter
--- OUTSIDE RECORDS SUMMARY | 2025-01-25 14:25 | XMS_ITS | Encounter Summary ---
Author Organization [facility] Address [address] [place] [address] Care Team Providers Care Plant And Machinery Valuer Name Role Phone Liam Houston MD Primary Care Provider [phone] Encounter Details Date Type Department Care Team (Late st Contact Info) Description 08/17/2011 Documentation Encounter SANJEEV V ALLSCRIPTS CONV Stephen [...] Progress Notes * Stephen Collier MD - 08/17/2011 8:58 AM EDT Message Thyroid fine, no change, advise recheck in the fall/ feb. Results TSH 16 Aug 2011 12:00 AM - TSH, 3RD GENERATION: 0.71 Reference Range: 0.40-4.50 Flag: N. Results Plan 08/17/2011 Notification letter drafted and mailed to pt. Response Completed by: Rosa Isela Fernandez Amended : Rosa Isela Fernandez MA; 08/17/2011 2:24 PM EST. Signature Electronically signed by : Stephen Collier M.D.; 08/17/2011 11:02 AM EST. Electronically signed by : Stephen Collier M.D.; 08/17/2011 3:29 PM EST. documented in this encounter Miscellaneous Notes * Letter - Stephen Collier MD - 08/17/2011 2:24 PM EDT . RE ALAS [address] [place] [address] Aug 17, 2011 Dear Ms. ALAS: Here are the results from your recent visit: THYROID: Thyroid level was normal. PLAN OF ACTION: Thyroid levels fine; no change in current medication dosage. Advise recheck in February. Keep regular appointment with our office as needed. Sincerely, [facility]. Signature Electronically signed by : Rosa Isela Fernandez MA; 08/17/2011 2:25 PM EST; Administrative. documented in this encounter Plan of Treatment Upcoming Encounters Date Type Department Care Team (Late st Contact Info) Description 02/18/2025 3:30 PM EDT Office Visit [facility] Cardiovascular [address], [facility] [address] [place] [address] 03/13/2025 12:30 PM EDT Office Visit [facility] [place] [address] [place] [address] [place] [address] Liam Houston MD [address] [place], [place] [id number] Scheduled Procedures Name Priority Associated Diagnoses Date/Ti [...] documented as of this encounter Care Teams Plant And Machinery Valuer Relationship Specialty Start Date End Date Liam Houston MD [address] [place] [address] [address] [place] [address] PCP - General Family Medicine 04/26/22 documented as of this encounter
--- OUTSIDE RECORDS SUMMARY | 2025-01-25 14:25 | XMS_ITS | Encounter Summary ---
Author Organization [facility] Address [address] [place] [address] Care Team Providers Care Director Of Medical Services Name Role Phone Liam Houston MD Primary Care Provider [phone] Encounter Details Date Type Department Care Team (Late st Contact Info) Description 05/19/2010 Documentation Encounter SANJEEV V ALLSCRIPTS CONV Conversion, [...] Sign Reading Time Taken Comments Blood Pressure 121/81 05/19/2010 1:27 PM EST Pulse 70 05/19/2010 1:27 PM EST Temperature 36.6 C (97.8 F) 05/19/2010 1:27 PM EST Respiratory Rate 16 05/19/2010 1:27 PM EST Oxygen Saturation - - Inhaled Oxygen Concentration - - Weight 62.6 kg (138 lb) 05/19/2010 1:27 PM EST Height 160 cm (5' 3 ) 05/19/2010 1:27 PM EST Body Mass Index 24.45 05/19/2010 1:27 PM EST documented in this encounter Plan of Treatment Upcoming Encounters Date Type Department Care Team (Late st Contact Info) Description 02/18/2025 3:30 PM EDT Office Visit [facility] [address] [place] [address] 03/13/2025 12:30 PM EDT Office Visit [place] [id number] [place] [address] [place] [address] Liam Houston MD [id number] [place] [address] [id number] Scheduled Procedures Name Priority Associated Diagnoses Date/Ti [...] of this encounter Care Teams Director Of Medical Services Relationship Specialty Start Date End Date Liam Houston MD [address] [place] [address] [address] [place], [place] [phone] PCP - General Family Medicine 04/26/22 documented as of this encounter
--- OUTSIDE RECORDS SUMMARY | 2025-01-25 14:25 | XMS_ITS | Encounter Summary ---
Author Organization [facility] Address [address] [place] [address] Care Team Providers Care Welder Oxyhydrogen Name Role Phone Liam Houston MD Primary Care Provider [phone] Encounter Details Date Type Department Care Team (Late st Contact Info) Description 11/02/2009 Documentation Encounter SANJEEV V ALLSCRIPTS CONV Conversion, [...] Scanned Document - Conversion, Allscripts - 12/07/2013 8:48 AM EDT documented in this encounter Plan of Treatment Upcoming Encounters Date Type Department Care Team (Late st Contact Info) Description 02/18/2025 3:30 PM EDT Office Visit [facility] Cardiovascular Center [place] [address], [facility] [address] [place] [address] 03/13/2025 12:30 PM EDT Office Visit [facility] [place] [address] [place] [address] [place] [address] Liam Houston [place] [address] [place] [address] [address] [place], [place] [phone] Scheduled Procedures Name Priority Associated Diagnoses Date/Ti [...] documented as of this encounter Care Teams Welder Oxyhydrogen Relationship Specialty Start Date End Date Liam Houston MD [address] [place] [address] [place] [address] PCP - General Family Medicine 04/26/22 documented as of this encounter
--- OUTSIDE RECORDS SUMMARY | 2025-01-25 14:25 | XMS_ITS | Encounter Summary ---
Author Organization [facility] Address [address] [place] [address] Care Team Providers Care Media Coordinator Name Role Phone Liam Houston MD Primary Care Provider Encounter Details Date Type Department Care Team (Late st Contact Info) Description 03/03/2010 Documentation Encounter SANJEEV V ALLSCRIPTS CONV Conversion, [...] Sign Reading Time Taken Comments Blood Pressure 110/70 03/03/2010 2:20 PM EDT Pulse 64 03/03/2010 2:20 PM EDT Temperature - - Respiratory Rate 14 03/03/2010 2:20 PM EDT Oxygen Saturation - - Inhaled Oxygen Concentration - - Weight 61.7 kg (136 lb) 03/03/2010 2:20 PM EDT Height 160 cm (5' 3 ) 03/03/2010 2:20 PM EDT Body Mass Index 24.09 03/03/2010 2:20 PM EDT documented in this encounter Miscellaneous Notes * Scanned Document - See, Allsigridpts - 12/08/2013 1:52 AM EDT documented in this encounter Plan of Treatment Upcoming Encounters Date Type Department Care Team (Late st Contact Info) Description 02/18/2025 3:30 PM EDT Office Visit [facility] Cardiovascular [place] [id number] [place] [address] 03/13/2025 12:30 PM EDT Office Visit [facility] Medicine - [place] [address] [place] [address] [place] [address] Liam Houston MD [id number] [place] [address] [id number] Scheduled Procedures Name Priority Associated Diagnoses Date/Ti [...] documented as of this encounter Care Teams Media Coordinator Relationship Specialty Start Date End Date Liam Houston MD [address] [place] [address] [place] [id number] PCP - General Family Medicine 04/26/22 documented as of this encounter
--- OUTSIDE RECORDS SUMMARY | 2025-01-25 14:25 | XMS_ITS | Encounter Summary ---
Author Organization [facility] Address [address] [place] [address] Care Team Providers Care Forging Press Setter Up Name Role Phone Liam Houston MD Primary Care Provider [phone] Encounter Details Date Type Department Care Team (Late st Contact Info) Description 04/14/2010 Documentation Encounter SANJEEV V ALLSCRIPTS CONV Stephen [...] Progress Notes * Stephen Collier MD - 04/14/2010 12:16 PM EST Allergies No Known Drug Allergy. Current Meds [...] Hx Denied Alcohol Use Denied Tobacco Use. Orders Renew Simvastatin 40 MG Oral Tablet;1QD - TAKE ONE TABLET BY MOUTH EVERY DAY; Qty90; R3; Rx. Signature Electronically signed by : Stephen Collier M.D.; 04/14/2010 4:38 PM EST. documented in this encounter Plan of Treatment Upcoming Encounters Date Type Department Care Team (Late st Contact Info) Description 02/18/2025 3:30 PM EDT Office Visit [facility] Cardiovascular [address], [facility] [address] [phone] 03/13/2025 12:30 PM EDT Office Visit [facility] - [place] [address] [place] [address] [place] [phone] Liam Houston MD [address] [place] [address] [place] [address] Scheduled Procedures Name Priority Associated Diagnoses Date/Ti me WATCHMAN INSERTION Atrial fibrillation, unspecified type documented as of this encounter Visit Diagnoses Not on filedocumented in this encounter Additional Health Concerns Infection Onset Date Last Indicated Resolved Time None 10/20/2011 10/20/2011 07/15/2012 12:4 0 AM EST COVID-19 Rule-Out 11/24/2020 11/24/2020 11/24/2020 10:21 PM EDT COVID-19 (Confirmed) 11/24/2020 12/10/202005/ 021 3:03 AM EDT COVID-19 Rule-Out 11/24/2020 11/25/2020 11/25/2020 5:14 AM EDT documented as of this encounter Care Teams Forging Press Setter Up Relationship Specialty Start Date End Date Liam Houston [place] [address] [place] [address] [address] [place] [address] PCP - General Family Medicine 04/26/22 documented as of this encounter
--- OUTSIDE RECORDS SUMMARY | 2025-01-25 14:25 | XMS_ITS | Encounter Summary ---
Author Organization [facility] Address [address] [place] [address] Care Team Providers Care Supervisor Water Softener Service Name Role Phone Liam Houston MD Primary Care Provider [phone] Encounter Details Date Type Department Care Team (Late st Contact Info) Description 02/27/2013 Documentation Encounter SANJEEV V ALLSCRIPTS CONV Bird Galeano MD [address] [id number] Social History Tobacco Use Types Packs/Day Years [...] as of this encounter Progress Notes * Bird Galeano MD - 02/27/2013 2:45 PM EDT Chief Complaint Pt. is here for a flu shot only Allergies No Known Drug Allergy. Current Meds Aspirin 81 MG Oral Tablet;TAKE 1 TABLET DAILY.; RPT Metoprolol Succinate ER 25 MG Oral Tablet Extended Release 24 Hour;TAKE 1 TABLET DAILY.; Rx Alendronate Sodium 10 MG Oral Tablet;TAKE 1 TABLET EVERY DAY; Rx Levothyroxine Sodium 75 MCG Oral Tablet;take one tablet by mouth every day; Rx Atorvastatin Calcium 80 MG Oral Tablet;TAKE 1 TABLET DAILY AT BEDTIME; Rx Potassium Gluconate 595 MG Oral Tablet;TAKE 2 TABLET DAILY; RPT Biotin 10 MG Oral Tablet;TAKE 1 TABLET DAILY.; RPT. Active Problems 2-vessel Coronary Artery Stenosis (414.01) Abnormal Glucose (790.29) Actinic Keratosis (702.0) Denied History of Alcohol Use Benign Essential Hypertension (401.1) Coronary Artery Bypass Graft (CABG) (V45.81) Denied History of Current Smoker Eustachian Tube Dysfunction (381.81) Hyperlipidemia (272.4) Hypothyroidism (244.9) Muscle Spasm (728.85) Non-Q-wave Myocardial Infarction - Subsequent Care Recent HI (8 Wks) (410.72) Normal Examination (V70.0) Osteoporosis [...] Smoker Never A Smoker Denied tobacco use. Immun/Injections Administered Fluzone a total volume of 0.5 ml given Intramuscular to the site left deltoid Clean Room Assembler: [employer] P[employer]ur Lot #: [id number] Exp Date: 11/10/2013 [facility] #[id number] Vaccine Information Statement Date: 11/13/2011 Added vaccine to [place] Shots: no Administered by: Rohini Obando. Signature Electronically signed by : Bird Galeano M.D.; 02/28/2013 5:18 PM EST. documented in this encounter Plan of Treatment Upcoming Encounters Date Type Department Care Team (Late st Contact Info) Description 02/18/2025 3:30 PM EDT Office Visit [address] Meka Horvath, [facility] [address] [place] [address] 03/13/2025 12:30 PM EDT Office Visit [facility] Family Medicine - [place] [address] [place] [address] [place] [address] Liam Houston [place] [address] [address] Scheduled Procedures Name Priority Associated Diagnoses Date/Ti [...] as of this encounter Care Teams Supervisor Water Softener Service Relationship Specialty Start Date End Date Liam Houston [place] [address] [id number] PCP - General Family Medicine 04/26/22 documented as of this encounter
--- OUTSIDE RECORDS SUMMARY | 2025-01-25 14:25 | XMS_ITS | Encounter Summary ---
Author Organization [facility] Address [address] [place] [address] Care Team Providers Care Director Of Radio Services Name Role Phone Liam Houston MD Primary Care Provider [phone] Encounter Details Date Type Department Care Team (Late st Contact Info) Description 10/25/2011 Documentation Encounter SANJEEV V ALLSCRIPTS CONV Aspen [...] Progress Notes * Aspen Licona MD - 10/25/2011 8:38 AM EDT Test Conclus. RADIOLOGY/IMAGING [facility] REPORT [address] [place] [address] Patient Name: RE TORRES : [birth year] Age: 75Y Ordering Physician: ASPEN LICONA LED: 10/25/11 Sex: F Attending Physician: ASPEN LICONA Service: RADIOLOGY Check-in #: [id number] Room #/Area: [facility] Unit No.: [id number] Reason: 433.10-OCL CRTD ART WO INFRCT Date Ordered: 10/25/11 1324 Admit Dx: [id number] Date/Time Done: 10/25/11 1324 Priority: +ROUTINE INS: HMO-Medicare Initial Service: PPR Comments: ?->No EXAM 9249 SO-CAROTID VALERIA COMPLETE 03219 Final Ord Dia.10-OCL CRTD ART WO INFRCT Procedure: SO-CAROTID VALERIA COMPLETE Ordering History: 433.10: OCL CRTD ART WO INFRCT Additional History: Family history of vascular disease Comparison: None Findings: Real-time mcleod scale images of both carotid systems were obtained in transverse and longitudinal planes. Flow velocities were acquired using pulsed Doppler techniques. Measurement of carotid stenosis is based on velocity parameters that correlate the residual internal carotid diameter with [place] symptomatically carotid endarterectomy trial (NASCET) based stenosis levels. The following data were obtained: VELOCITIES are RIGHT CAROTID (cm/sec) CCA Peak Systolic: 76 Proximal ICA Peak Systolic: 44 Proximal ICA End Diastolic: 15 Mid ICA Peak Systolic: 54 Mid ICA End Diastolic: 16 Distal ICA Peak Systolic: 58 Distal ICA End Diastolic: 17 ECA Peak Systolic: 56 VERTEBRAL ARTERY RIGHT: ANTEGRADE ICA/CCA (Normal <2.0): 0.8 LEFT CAROTID (cm/sec) CCA Peak Systolic: 78 Proximal ICA Peak Systolic: 53 Proximal ICA End Diastolic: 21 Final CONTINUED Page 1 RADIOLOGY/IMAGING [facility] REPORT [address] [place] [address] Patient Name: RE TORRES : [birth year] Age: 75Y Ordering Physician: ASPEN LICONA LED: 10/25/11 Sex: F Attending Physician: ASPEN LICONA Service: RADIOLOGY Check-in #: [id number] Room #/Area: [facility] Unit No.: [id number] Reason: 433.10-OCL CRTD ART WO INFRCT Date Ordered: 10/25/111323 Admit Dx: [id number] Date/Time Done: 10/25/111323 Priority: +ROUTINE INS: HMO-Medicare Initial Service: PPR Comments: ?->No Checkin-Exam Code Summary [id number] Mid ICA Peak Systolic: 67 Mid ICA End Diastolic: 25 Distal ICA Peak Systolic: 62 Distal ICA End Diastolic: 25 ECA Peak Systolic: 85 VERTEBRAL ARTERY LEFT: : ANTEGRADE ICA/CCA (Normal <2.0): 0.9 COMMENTS: Mild plaque bilateral bulb regions IMPRESSION: No significant flow limiting stenosis by velocity criteria is seen. Journalism Internship- Automated Read By- HERIBERTO HEBERT M.D. Electronically Verified By- HERIBERTO HEBERT M.D. Released Date Time- 10/25/11 1081 Final Page 2. Results Plan Notify patient mild plaque in carotids but no blockage 10/27/11 letter sent by mail Response Completed by: Elfego Vickers Amended : Elfego Vickers MA; 10/27/2011 9:55 AM EST. Mild plaque but no blood flow limitations Amended : Aspen Licona M.D.; 10/29/2011 3:37 PM EST. Signature Electronically signed by : Jacqueline MARMOLEJO; 10/27/2011 8:53 AM EST. Electronically signed by : Aspen Licona M.D.; 10/29/2011 3:37 PM EST. documented in this encounter Plan of Treatment Upcoming Encounters Date Type Department Care Team (Late st Contact Info) Description 02/18/2025 3:30 PM EDT Office Visit [facility] - [place] [address], [address] [place] [address] 03/13/2025 12:30 PM EDT Office Visit [facility] Family Medicine - [place] [address] [place] [address] Liam Houston MD [address] [place] [address] [address] [place], [place] [phone] Scheduled Procedures Name Priority Associated Diagnoses Date/Ti [...] of this encounter Care Teams Director Of Radio Services Relationship Specialty Start Date End Date Liam Houston MD [address] [place] [address] [address] [place], [place] [phone] PCP - General Family Medicine 04/26/22 documented as of this encounter
--- OUTSIDE RECORDS SUMMARY | 2025-01-25 14:25 | XMS_ITS | Encounter Summary ---
Author Organization [facility] Address [address] [place] [address] Care Team Providers Care Class C Driver Name Role Phone Liam Houston MD Primary Care Provider [phone] Encounter Details Date Type Department Care Team (Late st Contact Info) Description 11/16/2011 Documentation Encounter SANJEEV V ALLSCRIPTS CONV Conversion, [...] Sign Reading Time Taken Comments Blood Pressure 132/79 11/16/2011 8:34 AM EDT Pulse 83 11/16/2011 8:34 AM EDT Temperature 36.7 C (98.1 F) 11/16/2011 8:34 AM EDT Respiratory Rate 16 11/16/2011 8:34 AM EDT Oxygen Saturation - - Inhaled Oxygen Concentration - - Weight 64 kg (141 lb) 11/16/2011 8:34 AM EDT Height 160 cm (5' 3 ) 11/16/2011 8:34 AM EDT Body Mass Index 24.98 11/16/2011 8:34 AM EDT documented in this encounter Plan of Treatment Upcoming Encounters Date Type Department Care Team (Late st Contact Info) Description 02/18/2025 3:30 PM EDT Office Visit [facility] [place] [address], [address] [place] [address] 03/13/2025 12:30 PM EDT Office Visit [facility] [place] [address] [place] [address] Liam Houston MD [id number] [place] [address] [address] [place], [place] [phone] Scheduled Procedures Name Priority Associated Diagnoses Date/Ti [...] documented as of this encounter Care Teams Class C Driver Relationship Specialty Start Date End Date iLam Houston MD [address] [place] [address] [address] [place], [place] [phone] PCP - General Family Medicine 04/26/22 documented as of this encounter
--- OUTSIDE RECORDS SUMMARY | 2025-01-25 14:25 | XMS_ITS | Encounter Summary ---
Author Organization [facility] Address [address] [place] [address] Care Team Providers Care Health Support Specialist Name Role Phone Liam Houston MD Primary Care Provider [phone] Encounter Details Date Type Department Care Team (Late st Contact Info) Description 08/16/2011 Documentation Encounter SANJEEV V ALLSCRIPTS CONV Conversion, [...] Sign Reading Time Taken Comments Blood Pressure 128/77 08/16/2011 8:33 AM EDT Pulse 77 08/16/2011 8:33 AM EDT Temperature 36.1 C (97 F) 08/16/2011 8:33 AM EDT Respiratory Rate 18 08/16/2011 8:33 AM EDT Oxygen Saturation - - Inhaled Oxygen Concentration - - Weight 61.2 kg (135 lb) 08/16/2011 8:33 AM EDT Height 160 cm (5' 3 ) 08/16/2011 8:33 AM EDT Body Mass Index 23.91 08/16/2011 8:33 AM EDT documented in this encounter Miscellaneous Notes * Scanned Document - Conversion, Allscripts - 11/27/2013 10:08 AM EDT documented in this encounter Plan of Treatment Upcoming Encounters Date Type Department Care Team (Late st Contact Info) Description 02/18/2025 3:30 PM EDT Office Visit [facility] Cardiovascular [place] [address], [address] [place] [address] 03/13/2025 12:30 PM EDT Office Visit [facility] [address] [place] [address] Liam Houston MD 8[address]37 [address] [place] [address] Scheduled Procedures Name Priority Associated Diagnoses Date/Ti me WATCHMAN INSERTION Atrial fibrillation, unspecified type documented as of this encounter Procedures Procedure Name Priority Date/Time Associated Diagnosis Comments TSH Routine 08/16/2011 12:00 AM EDT documented in this encounter Results * TSH (08/16/2011 12:00 AM EDT) TSH, 3RD GENERATION 0.71 0.40 - 4.50 [facility] 08/16/2011 us Stephen Collier MD BLOOD ORDERABLES Final Result [facility] documented in this encounter Visit Diagnoses Not on filedocumented in this encounter Additional Health Concerns Infection Onset Date Last Indicated Resolved Time None 10/20/2011 10/20/2011 07/15/2012 12:4 0 AM EST COVID-19 Rule-Out 11/24/2020 11/24/2020 11/24/2020 10:21 PM EDT COVID-19 (Confirmed) 11/24/2020 12/10/2020 0805/2 021 3:03 AM EDT COVID-19 Rule-Out 11/24/2020 11/25/2020 11/25/2020 5:14 AM EDT documented as of this encounter Care Teams Health Support Specialist Relationship Specialty Start Date End Date Liam Houston [place] [address] [place] [address] [address] [place] [address] PCP - General Family Medicine 04/26/22 documented as of this encounter
--- OUTSIDE RECORDS SUMMARY | 2025-01-25 14:25 | XMS_ITS | Encounter Summary ---
Author Organization [facility] Address [address] [place] [address] Care Team Providers Care Overedge Sewer Name Role Phone Liam Houston MD Primary Care Provider [phone] Encounter Details Date Type Department Care Team (Late st Contact Info) Description 10/03/2011 Documentation Encounter SANJEEV V ALLSCRIPTS CONV Conversion, [...] Sign Reading Time Taken Comments Blood Pressure 108/75 10/03/2011 11:34 AM EDT Pulse 79 10/03/2011 11:34 AM EDT Temperature 36.3 C (97.4 F) 10/03/2011 11:34 AM EDT Respiratory Rate 17 10/03/2011 11:34 AM EDT Oxygen Saturation - - Inhaled Oxygen Concentration - - Weight 62.6 kg (138 lb) 10/03/2011 11:34 AM EDT Height 160 cm (5' 3 ) 10/03/2011 11:34 AM EDT Body Mass Index 24.45 10/03/2011 11:34 AM EDT documented in this encounter Plan of Treatment Upcoming Encounters Date Type Department Care Team (Late st Contact Info) Description 02/18/2025 3:30 PM EDT Office Visit [facility] - [place] [id number], [address] [place] [address] 03/13/2025 12:30 PM EDT Office Visit [facility] - [place] [address] [place] [address] Liam Houston MD [address] [place] [address] [address] [place], [place] [phone] Scheduled Procedures Name Priority Associated Diagnoses Date/Ti [...] documented as of this encounter Care Teams Overedge Sewer Relationship Specialty Start Date End Date Liam Houston MD [address] [place] [address] [address] [place], [place] [phone] PCP - General Family Medicine 04/26/22 documented as of this encounter
--- OUTSIDE RECORDS SUMMARY | 2025-01-25 14:25 | XMS_ITS | Encounter Summary ---
Author Organization [facility] Address [address] [place] [address] Care Team Providers Care Roll Over Press Operator Name Role Phone Liam Houston MD Primary Care Provider [phone] Encounter Details Date Type Department Care Team (Late st Contact Info) Description 02/27/2013 Documentation Encounter SANJEEV V ALLSCRIPTS CONV Conversion, [...] * Scanned Document - Conversion, Allscripts - 11/04/2013 12:31 AM EDT documented in this encounter Plan of Treatment Upcoming Encounters Date Type Department Care Team (Late st Contact Info) Description 02/18/2025 3:30 PM EDT Office Visit [facility] Center [place] [address] [address], [address] [place] [address] 03/13/2025 12:30 PM EDT Office Visit [facility] Family [place] [address] [place] [address] Liam Houston MD [address]33 [place] [address] [address] [address] [place], [place] [phone] Scheduled Procedures Name Priority Associated Diagnoses Date/Ti [...] documented as of this encounter Care Teams Roll Over Press Operator Relationship Specialty Start Date End Date Liam Houston MD [id number] [place] [address] [address] [place] [address] PCP - General Family Medicine 04/26/22 documented as of this encounter
--- OUTSIDE RECORDS SUMMARY | 2025-01-25 14:25 | XMS_ITS | Encounter Summary ---
Author Organization [facility] Address [address] [place] [address] Care Team Providers Care Lens Hardener Name Role Phone Liam Houston MD Primary Care Provider [phone] Encounter Details Date Type Department Care Team (Late st Contact Info) Description 10/11/2011 Documentation Encounter SANJEEV V ALLSCRIPTS CONV Conversion, [...] Notes * Letter - Conversion, Allscripts - 10/11/2011 7:22 AM EDT . RE ALAS [address] [place] [address] October 11, 2011 Dear Ms. ALAS: You have been scheduled an appointment on Date: 10-25-2011 Time: 1:30 pm with Specialist's Name: Dez Ring Conductor's Phone #: [phone] If you have any questions regarding directions, please contact the specialist's phone number listed. [facility]. Signature Electronically signed by : Morena Berg ; 10/11/2011 7:23 AM EST. documented in this encounter Plan of Treatment Upcoming Encounters Date Type Department Care Team (Late st Contact Info) Description 02/18/2025 3:30 PM EDT Office Visit [facility] Cardiovascular [facility] [address], [address] [place] [address] 03/13/2025 12:30 PM EDT Office Visit [facility] [address] [place] [address] [place] [address] Liam Houston MD [id number] [place] [address] [place] [address] Scheduled Procedures Name Priority Associated Diagnoses Date/Ti [...] documented as of this encounter Care Teams Lens Hardener Relationship Specialty Start Date End Date Liam Houston MD [address] [place] [address] [address] [place] [address] PCP - General Family Medicine 04/26/22 documented as of this encounter
--- OUTSIDE RECORDS SUMMARY | 2025-01-25 14:26 | XMS_ITS | Encounter Summary ---
Author Organization [facility] Address [address] [place] [address] Care Team Providers Care Patient Transition Specialist Name Role Phone Liam Houston MD Primary Care Provider [phone] Encounter Details Date Type Department Care Team (Late st Contact Info) Description 09/10/2013 Documentation Encounter SANJEEV V ALLSCRIPTS CONV Kodi [...] Progress Notes * Kodi Deras MD - 09/10/2013 10:30 AM EDT 09/10/13 Here for f/u, last visit after CABG 09/11/12 and was doing great then, still doing great. NSTMI 12/06/11, CABG on 12/11/11 and left day 5. Had uncomp post op course, discharged 12/17/11 and has been feeling well and doing well at home. Records review shows preserved EF pre-op by echo. Feeling alot of fatigue. No exercise. Since last visit 03/25/13, no problems. Wants clearance to go skydiving with her , white water rafting and ziplining in [place]. RANKIN to LAD, SVG to D1 and PDA. Meds: ASA 81 q d Metop 25 daily Lipitor 80 daily Exam: Looks very well, 132/60, 66, 140lbs. EOM intact, neck supple, carotids normal without bruits PMI not displaced, RRR without m Sternal wound well healed Abd non tender and no ascites Ext without edema, pulses 2/2 bilat Lipids 08/23/12: LDL 112, HDL 59, chol 188 TG 86 A/P: CAD s/p NSTMI with preserved EF and CABG 12/11/11 with above anatomy Exercise program walking RTC 12 months No skydiving, ok for rafting and ziplining. Electronically signed by:Kodi Deras M.D. Sep 10 2013 10:19AM EST documented in this encounter Plan of Treatment Upcoming Encounters Date Type Department Care Team (Late st Contact Info) Description 02/18/2025 3:30 PM EDT Office Visit [facility] Cardi[facility] Center [address] [facility] [address] [place] [address] 03/13/2025 12:30 PM EDT Office Visit [facility] Family Medicine [facility] [address] [place] [address] Liam Houston MD [address] [place] [address] Scheduled Procedures Name Priority Associated [...] documented as of this encounter Care Teams Patient Transition Specialist Relationship Specialty Start Date End Date Liam Houston MD [address] [place] [address] [address] [place] [address] PCP - General Family Medicine 04/26/22 documented as of this encounter
--- OUTSIDE RECORDS SUMMARY | 2025-01-25 14:26 | XMS_ITS | Encounter Summary ---
Author Organization [facility] Address [address] [place] [address] Care Team Providers Care Water Quality Assistant Name Role Phone Liam Houston MD Primary Care Provider [phone] Encounter Details Date Type Department Care Team (Late st Contact Info) Description 08/24/2006 Documentation Encounter SANJEEV V ALLSCRIPTS CONV Conversion, [...] Sign Reading Time Taken Comments Blood Pressure 129/83 08/24/2006 8:03 AM EDT Pulse 76 08/24/2006 8:03 AM EDT Temperature 36.2 C (97.2 F) 08/24/2006 8:03 AM EDT Respiratory Rate 16 08/24/2006 8:03 AM EDT Oxygen Saturation - - Inhaled Oxygen Concentration - - Weight 63 kg (139 lb) 08/24/2006 8:03 AM EDT Height 162.6 cm (5' 4 ) 08/24/2006 8:03 AM EDT Body Mass Index 23.86 08/24/2006 8:03 AM EDT documented in this encounter Plan of Treatment Upcoming Encounters Date Type Department Care Team (Late st Contact Info) Description 02/18/2025 3:30 PM EDT Office Visit [facility] Cardiovascular Center - [place] [id number], [address] [place] [address] 03/13/2025 12:30 PM EDT Office Visit [facility] Family Medicine - [place] [address] [place] [address] [place] [address] Liam Houston MD [address] [place] [address] [address] [place], [place] [address] Scheduled Procedures Name Priority Associated Diagnoses Date/Ti [...] as of this encounter Care Teams Water Quality Assistant Relationship Specialty Start Date End Date Liam Houston MD [address] [place] [address] [address] [place], [place] [phone] PCP - General Family Medicine 04/26/22 documented as of this encounter
--- OUTSIDE RECORDS SUMMARY | 2025-01-25 14:26 | XMS_ITS | Encounter Summary ---
Author Organization [facility] Address [address] [place] [address] Care Team Providers Care [place] Name Role Phone Liam Houston MD Primary Care Provider [phone] Encounter Details Date Type Department Care Team (Late st Contact Info) Description 12/19/2011 Documentation Encounter SANJEEV V ALLSCRIPTS CONV Stephen [...] Progress Notes * Stephen Collier MD - 12/19/2011 10:38 AM EDT Allergies No Known Drug Allergy. Current Meds Aspirin 81 MG Oral Tablet;TAKE 1 TABLET DAILY.; RPT Hydrochlorothiazide 12.5 MG Oral Capsule;1QD - TAKE ONE CAPSULE BY MOUTH EVERY DAY; Rx Alendronate Sodium 10 MG Oral Tablet;TAKE 1 TABLET EVERY DAY; Rx Lovastatin 40 MG Oral Tablet;1QD - TAKE ONE TABLET BY MOUTH EVERY DAY; Rx Vitamin B-12 1000 MCG Oral Tablet;TAKE 1 TABLET TWICE DAILY, 1 IN THE MORNING AND 1 AT NIGHT; RPT Levothroid 75 MCG Oral Tablet;TAKE 1 TABLET DAILY.; Rx Levothyroxine Sodium 75 MCG Oral Tablet;take one tablet by mouth every day; Rx. 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 Orders Renew Levothroid 75 MCG Oral Tablet;TAKE 1 TABLET DAILY; Qty90; R1; Rx. Signature Electronically signed by : Stephen Collier M.D.; 12/19/2011 5:32 PM EST. documented in this encounter Plan of Treatment Upcoming Encounters Date Type Department Care Team (Late st Contact Info) Description 02/18/2025 3:30 PM EDT Office Visit [address], [facility] [address] [place] [address] 03/13/2025 12:30 PM EDT Office Visit [facility] Family Medicine [address] [place] [address] Liam Houston [place] [id number] [place] [address] [address] [place] [address] Scheduled Procedures Name Priority Associated [...] documented as of this encounter Care Teams [place] Relationship Specialty Start Date End Date Liam Houston [place] [address] [place] [address] PCP - General Family Medicine 04/26/22 documented as of this encounter
--- OUTSIDE RECORDS SUMMARY | 2025-01-25 14:26 | XMS_ITS | Encounter Summary ---
Author Organization [facility] Address [address] [place] [address] Care Team Providers Care Graffiti Cleaner Name Role Phone Liam Houston MD Primary Care Provider [phone] Encounter Details Date Type Department Care Team (Late st Contact Info) Description 08/16/2012 Documentation Encounter SANJEEV V ALLSCRIPTS CONV Conversion, [...] Notes * Letter - Conversion, Allscripts - 08/16/2012 11:53 AM EDT Aug 16, 2012 RE, Flu Season is almost over until this fall, I wanted to remind you that the Centers for Disease Control and Prevention recommend that all persons 6 months of age and older receive an annual influenza vaccination. This is because the rates of morbidity and mortality associated with influenza are highand vaccination is cost-effective. The fatality rate from influenza begins to rise at age 45 and ishighest in persons with multiple chronic medical conditions. As in the past, recommendations targetpersons at high risk for complications, such as those with cardiac disease, lung disease and diabetes. office would recommend that you make every effort to receive the vaccine in a location of your convenience on an annual basis. are privileged to be part of your healthcare team. MD [place] Electronically signed by:Delmy Monteiro Aug 19 2012 2:10PM EST documented in this encounter Plan of Treatment Upcoming Encounters Date Type Department Care Team (Late st Contact Info) Description 02/18/2025 3:30 PM EDT Office Visit [facility] Cardiovascular [facility] [address], [address] [place] [address] 03/13/2025 12:30 PM EDT Office Visit [facility] - [address] [address] Liam Houston MD [address] [place] [address] Scheduled Procedures Name Priority Associated Diagnoses [...] documented as of this encounter Care Teams Graffiti Cleaner Relationship Specialty Start Date End Date Liam Houston MD [address] [place] [address] [address] PCP - General Family Medicine 04/26/22 documented as of this encounter
--- OUTSIDE RECORDS SUMMARY | 2025-01-25 14:26 | XMS_ITS | Encounter Summary ---
Author Organization [facility] Address [address] [place] [address] Care Team Providers Care Medical Safety Director Name Role Phone Liam Houston MD Primary Care Provider [phone] Encounter Details Date Type Department Care Team (Late st Contact Info) Description 01/11/2012 Documentation Encounter SANJEEV V ALLSCRIPTS CONV Radha Mohan PA-C Social History Tobacco Use Types Packs/Day Years [...] as of this encounter Progress Notes * Radha Mohan PA - 01/11/2012 8:20 AM EDT Chief Complaint The pt is here for fasting lab work Allergies No Known Drug Allergy. Current Meds Aspirin 81 MG Oral Tablet;TAKE 1 TABLET DAILY.; RPT Alendronate Sodium 10 MG Oral Tablet;TAKE 1 TABLET EVERY DAY; Rx Lovastatin 40 MG Oral Tablet;1QD - TAKE ONE TABLET BY MOUTH EVERY DAY; Rx Levothyroxine Sodium 75 MCG Oral Tablet;take one tablet by mouth every day; Rx Metoprolol Succinate 25 MG Oral Tablet Extended Release 24 Hour;TAKE 1/2 TABLET DAILY.; RPT Oxycodone-Acetaminophen 5-325 MG Oral Tablet;TAKE 1 TABLET EVERY 4 TO 6 HOURS NEEDED FOR PAIN.; RPT Furosemide 20 MG Oral Tablet;TAKE 1 TABLET TWICE DAILY; Rx; Status: TEMPORARY DEFERRAL Klor-Con M20 20 MEQ Oral Tablet Extended Release;TAKE 1 TABLET TWICE DAILY.; Rx; Status: TEMPORARY DEFERRAL Biotin 10 MG Oral Tablet;; RPT Centrum Silver Oral Tablet;TAKE 1 TABLET DAILY.; RPT. 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 Labs CBC CMP Lipid Panel TSH dx: code 244.9 272.4 401.1 Venipuncture: Reason: Physician ordered labs Amount: 2 Tubes Type: vaccutainer Site: vein right arm Reaction: None Draw perfomed by: Argentina Castillo 01/11/2012 8:20AM. Signature Electronically signed by : Radha Mohan PA-C; 01/11/2012 4:48 PM EST. documented in this encounter Plan of Treatment Upcoming Encounters Date Type Department Care Team (Late st Contact Info) Description 02/18/2025 3:30 PM EDT Office Visit [place] [address], [address] [place] [address] 03/13/2025 12:30 PM EDT Office Visit [facility] [place] [facility] [address] [place] [address] [place] [address] [facility] [address] [place] [address] Scheduled Procedures Name Priority Associated Diagnoses Date/Ti me WATCHMAN INSERTION Atrial fibrillation, unspecified type documented as of this encounter Procedures Procedure Name Priority Date/Time Associated Diagnosis Comments LIPID PANEL WITH TOTAL CHOLESTEROL:HDL RATIO Routine 01/11/2012 12:00 AM EDT CBC (INCLUDES DIFF/PLT) WITH PATHOLOGIST REVIEW Routine 01/11/2012 12:00 AM EDT TSH Routine 01/11/2012 12:00 AM EDT COMPREHENSIVE METABOLIC PANEL Routine 01/11/2012 12:00 AM EDT documented in this encounter Results * (ABNORMAL) Comprehensive Metabolic Panel (01/11/2012 12:00 AM EDT) BILIRUBIN, TOTAL 0.6 0.2 - 1.2 [facility] Globulin 2.9 2.2 - 3.9 [facility] CHLORIDE 105 98 - 110 [facility] Glom Filt Rate, Est 90 > OR = 60 [facility] Protein Total 7.2 6.2 - 8.3 [facility] POTASSIUM 5.1 3.5 - 5.3 [facility] GLUCOSE 109(H) 65 - 99 [facility] Comment: For patients >49 years of age, the reference limit for Creatinine is approximately 13% higher for people identified as -[place]. BUN/Creatinine Ratio NOT APPLICABLE 6 - 22 [facility] ALT (SGPT) 10 6 - 40 [facility] UREA NITROGEN (BUN) 12 7 - 25 [facility] CARBON DIOXIDE 23 21 - 33 [facility] AST 18 10 - 35 [facility] EGFR Non 77 > OR = 60 [facility] ALKALINE PHOSPHATASE 89 33 - 130 [facility] ALBUMIN 4.3 3.6 - 5.1 [facility] CREATININE 0.76 0.60 - 0.93 [facility] Sodium 142 135 - 146 [facility] CALCIUM 10.0 8.6 - 10.4 [facility] ALBUMIN/GLOBULIN RATIO 1.5 1.0 - 2.1 [facility] 01/11/2012 Radha Mohan PA-C BLOOD ORDERABLES Final Result Performing Organization Address [facility]/ZIP Co de Phone Number [facility] * (ABNORMAL) Lipid Panel with total cholesterol:HDL r (01/11/2012 12:00 AM EDT) Cholesterol Total 203(H) 125 - 200 [facility] LDL Cholesterol 134(H) <130 [facility] Comment: Target for non-HDL cholesterol is 30 mg/dL higher than LDL cholesterol target. HDL Cholesterol 48 > OR = 46 [facility] Chol/HDL Ratio 4.2 < OR = 5.0 [facility] Triglycerides 104 <150 [facility] NON-HDL Cholesterol 155 [facility] 01/11/2012 Radha Mohan PA-C BLOOD ORDERABLES Final Result Performing Organization Address [facility] de Phone Number [facility] * (ABNORMAL) TSH (01/11/2012 12:00 AM EDT) TSH, 3RD GENERATION 4.57(H) 0.40 - 4.50 [facility] 01/11/2012 Radha Mohan PA-C BLOOD ORDERABLES Final Result Performing Organization Address [facility] de Phone Number [facility] * (ABNORMAL) CBC (INCLUDES DIFF/PLT) WITH PATHOLOGIST REVIEW (01/11/2012 12:00 AM EDT) Basophils % 0.2 [facility] WBC 6.1 3.8 - 10.8 [facility] RDW 15.9(H) 11.0 - 15.0 [facility] HEMOGLOBIN 11.7 11.7 - 15.5 [facility] Platelet Count 339 140 - 400 [facility] HEMATOCRIT 35.8 35.0 - 45.0 [facility] Monocytes Absolute 604 200 - 950 [facility] Lymphocytes % 17.2 [facility] MCH 29.5 27.0 - 33.0 [facility] MCV 90.0 80.0 - 100.0 [facility] Neutrophils % 67.6 [facility] Monocytes % 9.9 [facility] RBC 3.98 3.80 - 5.10 [facility] ABSOLUTE LYMPHOCYTES 1,049 850 - 3,900 [facility] Eosinophils % 5.1 [facility] Absolute Eosinophil 311 15 - 500 [facility] COMMENT (S) Complete Blood Count (CBC) shows Red Blood Cell (RBC) count, hemoglobin (HGB), hematocrit (HCT), peripheral blood smear (PBS) cytomorphological evaluation, and all other red blood cell (RBC) parameters to be essentially within normal range. Peripheral blood smear (PBS) evaluation of the white blood cell (WBC) estimated count, differential and cytomorphological evaluation are essentially within normal range. Platelets (PLT) estimated count and cytomorphological evaluation are essentially within normal range. No clumping or satellitism is noted. REVIEWED BY: MELINA SHORT MD [facility] Neutrophils Absolute 4,124 1,500 - 7,800 [facility] MCHC 32.7 32.0 - 36.0 [facility] Basophils Absolute 12 0 - 200 [facility] 01/11/2012 us Radha Mohan PA-C BLOOD ORDERABLES Final Result [facility] documented in [...] as of this encounter Care Teams Medical Safety Director Relationship Specialty Start [place] [address] [place] [address] PCP - General Family Medicine 04/26/22 documented as of this encounter
--- OUTSIDE RECORDS SUMMARY | 2025-01-25 14:26 | XMS_ITS | Encounter Summary ---
Author Organization [facility] Address [address] [place] [address] Care Team Providers Care Hand Cloth Folder Name Role Phone Liam Houston MD Primary Care Provider [phone] Encounter Details Date Type Department Care Team (Late st Contact Info) Description 04/30/2009 Documentation Encounter SANJEEV V ALLSCRIPTS CONV Conversion, [...] Sign Reading Time Taken Comments Blood Pressure 111/70 04/30/2009 1:43 PM EST Pulse 68 04/30/2009 1:43 PM EST Temperature 36.7 C (98.1 F) 04/30/2009 1:43 PM EST Respiratory Rate 16 04/30/2009 1:43 PM EST Oxygen Saturation - - Inhaled Oxygen Concentration - - Weight 60.3 kg (133 lb) 04/30/2009 1:43 PM EST Height 162.6 cm (5' 4 ) 04/30/2009 1:43 PM EST Body Mass Index 22.83 04/30/2009 1:43 PM EST documented in this encounter Plan of Treatment Upcoming Encounters Date Type Department Care Team (Late st Contact Info) Description 02/18/2025 3:30 PM EDT Office Visit [facility] - [place] [address], [address] [place] [address] 03/13/2025 12:30 PM EDT Office Visit [place] [id number] [address] [place] [phone] Liam Houston MD [id number] [place] [id number] Scheduled Procedures Name Priority Associated Diagnoses Date/Ti [...] as of this encounter Care Teams Hand Cloth Folder Relationship Specialty Start Date End Date Liam Houston MD [address] [place] [address] [id number] PCP - General Family Medicine 04/26/22 documented as of this encounter
--- OUTSIDE RECORDS SUMMARY | 2025-01-25 14:26 | XMS_ITS | Encounter Summary ---
Author Organization [facility] Address [address] [place] [address] Care Team Providers Care Call Center Assistant Name Role Phone Liam Houston MD Primary Care Provider [phone] Encounter Details Date Type Department Care Team (Late st Contact Info) Description 05/24/2012 Documentation Encounter SANJEEV V ALLSCRIPTS CONV Stephen [...] Progress Notes * Stephen Collier MD - 05/24/2012 8:26 AM EST Message Blood glucose was just over normal. Cholesterol is still a bit too high as taking two lovastatin per day, may take at same time, to ask refills for a correct amount. Results TSH 23 May 2012 12:00 AM - TSH, 3RD GENERATION: 2.27 Reference Range: 0.40-4.50 Flag: N. Lipid Panel 23 May 2012 12:00 AM - TRIGLYCERIDES: 99 Reference Range: <150 Flag: N - CHOLESTEROL, TOTAL: 211 Reference Range: 125-200 Flag: H - HDL CHOLESTEROL: 66 Reference Range: > OR = 46 Flag: N - LDL-CHOLESTEROL: 125 Reference Range: <130 Flag: N - CHOL/HDLC RATIO: 3.2 Reference Range: < OR = 5.0 Flag: N - NON-HDL CHOLESTEROL: 145 Flag: N. Hemoglobin A1c 23 May 2012 12:00 AM - HEMOGLOBIN A1c: 5.6 Reference Range: <5.7 Flag: N. Comp. Metabolic Panel (14) 23 May 2012 12:00 AM - GLUCOSE: 101 Reference Range: 65-99 Flag: H - UREA NITROGEN (BUN): 13 Reference Range: 7-25 Flag: N - CREATININE: 0.87 Reference Range: 0.60-0.93 Flag: N - eGFR NON-AFR. PALAUAN: 66 Reference Range: > OR = 60 Flag: N - eGFR : 76 Reference Range: > OR = 60 Flag: N - BUN/CREATININE RATIO: NOT APPLICABLE Reference Range: 6-22 - SODIUM: 142 Reference Range: 135-146 Flag: N - POTASSIUM: 4.9 Reference Range: 3.5-5.3 Flag: N - CHLORIDE: 103 Reference Range: 98-110 Flag: N - CARBON DIOXIDE: 24 Reference Range: 21-33 Flag: N - CALCIUM: 9.7 Reference Range: 8.6-10.4 Flag: N - PROTEIN, TOTAL: 7.2 Reference Range: 6.1-8.1 Flag: N - ALBUMIN: 4.6 Reference Range: 3.6-5.1 Flag: N - GLOBULIN: 2.6 Reference Range: 1.9-3.7 Flag: N - ALBUMIN/GLOBULIN RATIO: 1.8 Reference Range: 1.0-2.5 Flag: N - BILIRUBIN, TOTAL: 0.8 Reference Range: 0.2-1.2 Flag: N - ALKALINE PHOSPHATASE: 66 Reference Range: 33-130 Flag: N - AST: 21 Reference Range: 10-35 Flag: N - ALT: 11 Reference Range: 6-40 Flag: N. Orders Renew Lovastatin 40 MG Oral Tablet;TAKE 2 TABLET BEDTIME; [id number]; R1; Rx Amended By: Mirian Francis 05/24/2012 12:15:40 PM EST. Signature Electronically signed by : Stephen Collier M.D.; 05/24/2012 8:31 AM EST. Electronically signed by : Stephen Collier M.D.; 05/24/2012 12:22 PM EST. * Stephen Collier MD - 05/24/2012 8:26 AM EST Allergies No Known Drug Allergy. Current Meds Aspirin 81 MG Oral Tablet;TAKE 1 TABLET DAILY.; RPT Levothyroxine Sodium 75 MCG Oral Tablet;take one tablet by mouth every day; Rx Biotin 10 MG Oral Tablet;; RPT Centrum Silver Oral Tablet;TAKE 1 TABLET DAILY.; RPT Metoprolol Succinate ER 25 MG Oral Tablet Extended Release 24 Hour;TAKE 1 TABLET DAILY.; Rx Potassium Gluconate 595 MG Oral Tablet;TAKE 1 TABLET DAILY.; RPT Alendronate Sodium 10 MG Oral Tablet;TAKE 1 TABLET EVERY DAY; Rx Lovastatin 40 MG Oral Tablet;TAKE 2 TABLET BEDTIME; Rx. Active Problems 2-vessel Coronary Artery Stenosis (414.01) Abnormal Glucose (790.29) Actinic Keratosis (702.0) Denied History of Alcohol Use Benign Essential Hypertension (401.1) Coronary Artery Bypass Graft (CABG) (V45.81) Denied History of Current Smoker Eustachian Tube Dysfunction (381.81) Hyperlipidemia (272.4) Hypothyroidism (244.9) Muscle Spasm (728.85) Non-Q-wave Myocardial Infarction - Subsequent Care Recent [place] (8 Wks) (410.72) Normal Examination (V70.0) Osteoporosis [...] A Smoker Denied tobacco use. Orders Renew Lovastatin 40 MG Oral Tablet;TAKE 2 TABLET BEDTIME; [id number]; R1; Rx. Signature Electronically signed by : Stephen Collier M.D.; 05/24/2012 1:09 PM EST. documented in this encounter Plan of Treatment Upcoming Encounters Date Type Department Care Team (Late st Contact Info) Description 02/18/2025 3:30 PM EDT Office Visit [facility] Cardiovascular [place] [address], [place] [place] [address] 03/13/2025 12:30 PM EDT Office Visit [facility] [address] [place] [address] [address] Liam Houston [place] [id number] [place] [address] Scheduled Procedures Name Priority Associated Diagnoses [...] documented as of this encounter Care Teams Call Center Assistant Relationship Specialty Start Date End Date Liam Houston MD [address] [place] [address] [id number] PCP - General Family Medicine 04/26/22 documented as of this encounter
--- OUTSIDE RECORDS SUMMARY | 2025-01-25 14:26 | XMS_ITS | Encounter Summary ---
Author Organization [facility] Address [address] [place] [address] Care Team Providers Care Advertising Consultant Name Role Phone Liam Houston MD Primary Care Provider Encounter Details Date Type Department Care Team (Late st Contact Info) Description 09/16/2013 Documentation Encounter SANJEEV V ALLSCRIPTS CONV Conversion, [...] Sign Reading Time Taken Comments Blood Pressure 140/76 09/16/2013 10:03 AM EDT Pulse 72 09/16/2013 10:03 AM EDT Temperature 36.2 C (97.1 F) 09/16/2013 10:03 AM EDT Respiratory Rate 16 09/16/2013 10:03 AM EDT Oxygen Saturation - - Inhaled Oxygen Concentration - - Weight 63.5 kg (140 lb) 09/16/2013 10:03 AM EDT Height 162.6 cm (5' 4 ) 09/16/2013 10:03 AM EDT Body Mass Index 24.03 09/16/2013 10:03 AM EDT documented in this encounter Miscellaneous Notes * Scanned Document - Conversion, Allscripts - 11/07/2013 3:02 PM EDT documented in this encounter Plan of Treatment Upcoming Encounters Date Type Department Care Team (Late st Contact Info) Description 02/18/2025 3:30 PM EDT Office Visit [facility] Cardi[facility] [place] [facility] [place] [address], [address] [place] [address] 03/13/2025 12:30 PM EDT Office Visit [facility] [id number] [place] [address] [address] [place] [address] Liam Houston MD [id number] [place] [address] Scheduled Procedures Name Priority Associated Diagnoses Date/Ti [...] documented as of this encounter Care Teams Advertising Consultant Relationship Specialty Start Date End Date Liam Houston MD [id number] [place] [address] [address] [place] [address] PCP - General Family Medicine 04/26/22 documented as of this encounter
--- OUTSIDE RECORDS SUMMARY | 2025-01-25 14:26 | XMS_ITS | Encounter Summary ---
Author Organization [facility] Address [address] [place] [address] Care Team Providers Care Director Phone Name Role Phone Liam Houston MD Primary Care Provider [phone] Encounter Details Date Type Department Care Team (Late st Contact Info) Description 08/24/2006 Documentation Encounter SANJEEV V ALLSCRIPTS CONV Stephen [...] Progress Notes * Stephen Collier MD - 08/24/2006 8:15 AM EDT Chief Complaint 1month f/u Subjective 70 year old, female here for follow coin lesion on the right spiritism which was treated with liquid nitrogen again on her corn which he is treating with kdyh-[id number] salicylate medication. She states that the lesion on the right spiritism which was of some concern eventually resolved. All other ROS otherwise neg. . Allergies No Known Drug Allergy. Current Meds Fosamax 10 MG Tablet;TAKE 1 TABLET DAILY.; Rx Simvastatin 40 MG Tablet;TAKE 1 TABLET BEDTIME; Rx. 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 PMH Conjunctivitis Resolved (372.30) Hyperlipidemia (272.4) Osteoporosis (733.00). PSH Hysterectomy (V45.77). Family Hx Family history of Coronary Artery Disease Family history of Ischemic Stroke. Personal Hx No Alcohol Use No Tobacco Use (V15.82). Vital Signs Recorded by alcooper on 24 Aug 2006 08:03 AM BP:129/83, HR: 76 b/min, Resp: 16 r/min, Temp: 97.2 F, Height: 64 in, Weight: 139 lb, BMI: 23.9 kg/m2. Objective Vital signs reviewed, Afebrile. Remainder of exam deferred. area treated with liquid nitrogen in right spiritism shows good resolution no plan at this time for excision . Assessment Hyperlipidemia (272.4) Corns (700) Skin neoplasm of uncertain behavior (238.2) Health Mgmt Plan Pap smear, breast exam and Hemoccult done 02/2005 Mammogram done 12/2004 Colon exam done 2003 Advance directive given Flu shot done 04/13/06. Plan Continued treatment on the corn/ clavus which appears to be working well and will see her in three months for follow. Signature Signed By: Stephen Collier M.D.; 08/26/2006 6:02 PM EST. documented in this encounter Plan of Treatment Upcoming Encounters Date Type Department Care Team (Late st Contact Info) Description 02/18/2025 3:30 PM EDT Office Visit [facility] Cardiovascular [address] [place], [facility] [address] [place] [address] 03/13/2025 12:30 PM EDT Office Visit [facility] Family Medicine - [place] [id number] [place] [address] [place] [address] Liam Houston MD [address] [place] [address] [place] [address] Scheduled Procedures Name Priority Associated Diagnoses [...] as of this encounter Care Teams Director Phone Relationship Specialty Start Date End Date Liam Houston MD [address]95 [place] [address] [address] [place] [address] PCP - General Family Medicine 04/26/22 documented as of this encounter
--- OUTSIDE RECORDS SUMMARY | 2025-01-25 14:26 | XMS_ITS | Encounter Summary ---
Author Organization [facility] Address [address] [place] [address] Care Team Providers Care Emergency Nurse Name Role Phone Liam Houston MD Primary Care Provider Encounter Details Date Type Department Care Team (Late st Contact Info) Description 02/18/2009 Documentation Encounter SANJEEV V ALLSCRIPTS CONV Conversion, [...] Sign Reading Time Taken Comments Blood Pressure 120/70 02/18/2009 1:39 PM EDT Pulse 66 02/18/2009 1:39 PM EDT Temperature 36.9 C (98.5 F) 02/18/2009 1:39 PM EDT Respiratory Rate 16 02/18/2009 1:39 PM EDT Oxygen Saturation - - Inhaled Oxygen Concentration - - Weight 58.1 kg (128 lb) 02/18/2009 1:39 PM EDT Height 162.6 cm (5' 4 ) 02/18/2009 1:39 PM EDT Body Mass Index 21.97 02/18/2009 1:39 PM EDT documented in this encounter Plan of Treatment Upcoming Encounters Date Type Department Care Team (Late st Contact Info) Description 02/18/2025 3:30 PM EDT Office Visit [facility] Cardiovascular Center - [place] [address], [address] [place] [address] 03/13/2025 12:30 PM EDT Office Visit [facility] Family Medicine - [place] [address] [place] [address] [place] [address] Liam Houston MD [address] [place] [address] [address] [place], [place] [phone] Scheduled Procedures Name Priority Associated Diagnoses Date/Ti [...] documented as of this encounter Care Teams Emergency Nurse Relationship Specialty Start Date End Date Liam Houston MD [address] [place] [address] [address] [place], [place] [id number] PCP - General Family Medicine 04/26/22 documented as of this encounter
--- OUTSIDE RECORDS SUMMARY | 2025-01-25 14:26 | XMS_ITS | Encounter Summary ---
Author Organization [facility] Address [address] [place] [address] Care Team Providers Care Pipelines Manager Name Role Phone Liam Houston MD Primary Care Provider [phone] Encounter Details Date Type Department Care Team (Late st Contact Info) Description 07/24/2006 Documentation Encounter SANJEEV V ALLSCRIPTS CONV Conversion, [...] Sign Reading Time Taken Comments Blood Pressure 132/80 07/24/2006 10:35 AM EDT Pulse 74 07/24/2006 10:35 AM EDT Temperature 36.4 C (97.5 F) 07/24/2006 10:35 AM EDT Respiratory Rate 16 07/24/2006 10:35 AM EDT Oxygen Saturation - - Inhaled Oxygen Concentration - - Weight 63.5 kg (140 lb) 07/24/2006 10:35 AM EDT Height 162.6 cm (5' 4 ) 07/24/2006 10:35 AM EDT Body Mass Index 24.03 07/24/2006 10:35 AM EDT documented in this encounter Plan of Treatment Upcoming Encounters Date Type Department Care Team (Late st Contact Info) Description 02/18/2025 3:30 PM EDT Office Visit [facility] Cardiovascular Center - [place] [address] [place] [address] 03/13/2025 12:30 PM EDT Office Visit [facility] Family Medicine - [place] [address] [place] [address] [place] [address] Liam Houston MD [address] [place] [address] [address] [place], [place] [phone] Scheduled Procedures Name Priority Associated Diagnoses Date/Ti [...] documented as of this encounter Care Teams Pipelines Manager Relationship Specialty Start Date End Date Liam Houston MD [address] [place] [address] [address] [place], [place] [phone] PCP - General Family Medicine 04/26/22 documented as of this encounter
--- OUTSIDE RECORDS SUMMARY | 2025-01-25 14:26 | XMS_ITS | Encounter Summary ---
Author Organization [facility] Address [address] [place] [address] Care Team Providers Care Parts Finisher Name Role Phone Liam Houston MD Primary Care Provider [phone] Encounter Details Date Type Department Care Team (Late st Contact Info) Description 10/22/2008 Documentation Encounter SANJEEV V ALLSCRIPTS CONV Nicanor Oliva MD [address] [place] [address] Social History Tobacco Use Types Packs/Day Years Used Date Smoking Tobacco: Never Assessed Comments Unknown Sex and Gender Information Value Date Recorded Sex Assigned at Not on file Legal Sex Female 8:25 PM EST Gender Identity Not on file Sexual Orientation Not on file documented as of this encounter Progress Notes * Nicanor Oliva MD - 10/22/2008 11:30 AM EDT NAME: RE ALAS DATE OF : 1935 DATE OF SERVICE: 10/22/2008 ATTENDING: NICANOR OLIVA MD CHIEF COMPLAINT: Left elbow injury. HISTORY OF PRESENT ILLNESS: This patient is a 72-year-old white female referred by her family physician for evaluation of an injury to her left elbow. Three weeks ago while retrieving her grandson from his daycare, she slipped and fell onto the her outstretched arms. She had pain in the left elbow,but declined the offer of medical attention. Over the ensuing 72 hours, she had increasing pain andswelling in the elbow accompanied by ecchymosis from the posterior aspect of the elbow radiating down to the arm. She was evaluated at a [facility] and was then returned to the care of her family physician when an abnormality was found on the x-ray. A new x-ray was obtained, and the patient was then referred here. She has had resolution of the ecchymosis of the arm but still is troubled by some swelling over the point of the elbow. This is tender to palpation, however, less tender than at the time of her injury. She has not had any complaints with range of motion in the elbow or with strength. She is right hand dominant. She did say that she had some numbness and tingling in all of the hand, however, this has resolved. Her past medical history is well documented in the family practice note of 10/14/2008. She does nottoday have any chest pain, shortness of breath, or blood in the urine. PHYSICAL EXAMINATION: Shows a pleasant middle-aged white female in no distress. She is 5 feet, 4 inches tall, weighs 120 pounds. Her blood pressure is 120/74, pulse is 74. On examination of her upper extremities, her reflexes are +2 and symmetrical. There is swelling of the left olecranon bursa that is firm to the touch and somewhat tender to deep palpation. The bursa measures approximately 3 cm in diameter. Range of motion in the elbow shows full extension and flexion to approximately 110 degrees at which time she experiences some posterior pain. Her flexion and extension of the biceps and triceps strength is 5/5. There is no palpable rent in the triceps tendon nor is there is a palpable mass in this area. Distally her pulses are +2. Sensation is intact to light touch. Assembling Fabricator strength is 5/5. X-rays taken at [facility] within the last week show an avulsion fracture of the left olecranon with approximately a centimeter of displacement. This is in the nature of a very small fragment with retraction. The articular surfaces were well maintained. IMPRESSION: Avulsion fracture of the left olecranon. DISCUSSION: The patient and her were shown the films and told that she has indeed knocked the point of her left elbow off. Fortunately, this is a very small piece and does not appear to involve a large part of the triceps tendon based on her clinical examination. The swelling and ecchymosisare resolving nicely, and she has done a good job in maintaining her motion. For the present time, she should continue to do gentle range of motion exercises and avoid applying pressure to the injured area. There is no reason to attempt to aspirate any of the remaining fluid in the olecranon bursa in that this is probably most likely organized hematoma by this time. It is likely that she will resolve more of it but may continue to have some thickening in the overlying bursa. The patient was told that she may expect several more weeks of discomfort but should in the end achieve a full painlessrange of motion. In the future should she have any discomfort or symptoms related to the retained fragment, a surgical procedure could be performed to remove this. There is no reason now to reattach this fragment, which would be difficult in any event, since it is likely to be very small. A return appointment has not been made for her. If she has continuing problems, she will recontact our office. NICANOR OLIVA MD D: [id number] MT: [id number] Dictator: [id number] Confirmation Number: [id number] ([id number]) Electronically signed by:Nicanor Oliva M.D. Oct 27 2008 9:35AM EST documented in this encounter Plan of Treatment Upcoming Encounters Date Type Department Care Team (Late st Contact Info) Description 02/18/2025 3:30 PM EDT Office Visit [facility] [place] [address], [address] [place] [address] 03/13/2025 12:30 PM EDT Office Visit [facility] [place] [address] [place] [address] Liam Houston MD [address] [place] [address] [address] [place] [address] Scheduled Procedures Name Priority Associated Diagnoses Date/Ti [...] documented as of this encounter Care Teams Parts Finisher Relationship Specialty Start Date End Date Liam Houston MD [address] [place] [address] PCP - General Family Medicine 04/26/22 documented as of this encounter
--- OUTSIDE RECORDS SUMMARY | 2025-01-25 14:26 | XMS_ITS | Encounter Summary ---
Author Organization [facility] Address [address] [place] [address] Care Team Providers Care Supervisor Marble Name Role Phone Liam Houston MD Primary Care Provider [phone] Encounter Details Date Type Department Care Team (Late Contact Info) Description 03/20/2012 Documentation Encounter SANJEEV V ALLSCRIPTS CONV Conversion, [...] Sign Reading Time Taken Comments Blood Pressure 147/89 03/20/2012 9:10 AM EST Pulse 80 03/20/2012 9:10 AM EST Temperature 36.3 C (97.3 F) 03/20/2012 9:10 AM EST Respiratory Rate 16 03/20/2012 9:10 AM EST Oxygen Saturation - - Inhaled Oxygen Concentration - - Weight 61.7 kg (136 lb) 03/20/2012 9:10 AM EST Height 160 cm (5' 3 ) 03/20/2012 9:10 AM EST Body Mass Index 23.74 04/12/2012 9:14 AM EST documented in this encounter Plan of Treatment Upcoming Encounters Date Type Department Care Team (Late Contact Info) Description 02/18/2025 3:30 PM EDT Office Visit [facility] [place] [id number], [address] [place] [address] 03/13/2025 12:30 PM EDT Office Visit [facility] - [place] [address] [place] [address] [place] [address] Liam Houston MD [address] [place] [address] [address] [place], [place] [id number] Scheduled Procedures Name Priority Associated Diagnoses Date/Ti [...] as of this encounter Care Teams Supervisor Marble Relationship Specialty Start Date End Date Liam Houston MD [id number] [place] [address] [address] [place], [place] [id number] PCP - General Family Medicine 04/26/22 documented as of this encounter
--- OUTSIDE RECORDS SUMMARY | 2025-01-25 14:26 | XMS_ITS | Encounter Summary ---
Author Organization [facility] Address [address] [place] [address] Care Team Providers Care Plugger Worker Name Role Phone Liam Houston MD Primary Care Provider [phone] Encounter Details Date Type Department Care Team (Late st Contact Info) Description 02/18/2009 Documentation Encounter SANJEEV V ALLSCRIPTS CONV Stephen [...] Progress Notes * Stephen Collier MD - 02/18/2009 1:30 PM EDT Chief Complaint Follow-up for chronic medical conditions listed below under PMH and Active Problems Subjective 73 year old, female here for follow up hypertension and osteoporosis. Otherwise doing well. She does have a spot on her back it itches she noticed two weeks ago. Also recheck of a lesion on right confucianist All other ROS otherwise neg. Allergies No [...] Adult Female Recorded by Ellie Flood on February 01:39 PM BP: 120/70 mm Hg HR: 66 b/min ; Resp: 16 r/min ; Temp: 98.5 F Height: 64 in, Weight: 128 lb, BMI: 21.97 , BSA: 1.62 . Objective NAD: VSS. CHEST: CTA. CV: RRR without M/R/G. small seborrheic keratosis right confucianist also seborrheic keratosis mid back under her bra strap. Assessment Benign essential hypertension (401.1) Osteoporosis (733.00) Plan Lesions treated with liquid nitrogen one right confucianist one middle back refills flu vaccine. Orders Renew Simvastatin 40 MG Oral Tablet;TAKE 1 TABLET DAILY; Qty90; R3; Rx. Renew Hydrochlorothiazide 12.5 MG Oral Capsule;TAKE 1 TABLET DAILY; Qty90; R3; Rx. Alendronate Sodium 10 MG Oral Tablet;TAKE 1 TABLET DAILY; Qty90; R3; Rx. Signature Electronically signed by : Stephen Collier M.D.; 02/18/2009 5:02 PM EST. documented in this encounter Plan of Treatment Upcoming Encounters Date Type Department Care Team (Late st Contact Info) Description 02/18/2025 3:30 PM EDT Office Visit [facility] [address], [facility] [address] [place] [address] 03/13/2025 12:30 PM EDT Office Visit [facility] [id number] [place] [address] Liam Houston [place] [id number] [place] [address] [id number] Scheduled Procedures Name Priority Associated Diagnoses Date/Ti [...] documented as of this encounter Care Teams Plugger Worker Relationship Specialty Start Date End Date Liam Houston MD [address] [place] [address] [address] [place], [place] [id number] PCP - General Family Medicine 04/26/22 documented as of this encounter
--- OUTSIDE RECORDS SUMMARY | 2025-01-25 14:26 | XMS_ITS | Encounter Summary ---
Author Organization [facility] Address [address] [place] [address] Care Team Providers Care Digital Marketing Intern Name Role Phone Liam Houston MD Primary Care Provider [phone] Reason for Referral * Evaluate and Treat (Routine) - Closed Specialty Diagnoses / Procedures Referred By Contac t Referred To Contact Endocrinology Diabetes & Metabolism / Endocrinology Diagnoses Osteoporosis, unspecified osteoporosis type, unspecified pathological fracture presence Osteoporosis, unspecified osteoporosis type, unspecified pathological fracture presence Procedures Eval and treat Bird Galeano MD Phone: tel: fax: Soren Santamaria MD Referral ID Status Reason Start Date Expiration Date Visits Re quested Visits Authorized [id number] Closed 11/30/2016 11/30/2017 6 6 Encounter Details Date Type Department Care Team (Late st Contact Info) Description 11/29/2016 Orders Only [facility] Family Medicine - [address] [address] Bird Galeano MD [address] [place] [address] Osteoporosis, senile; Osteoporosis, unspecified osteoporosis type, unspecified pathological fracture presence Social History Tobacco Use Types Packs/Day Years [...] 3:30 PM EDT Office Visit [facility] Cardiovascular [address], [address] [place] [address] 03/13/2025 12:30 PM EDT Office Visit [facility] Family Medicine [place] [address] [place] [phone] Liam Houston MD [address] [place] [address] Scheduled Procedures Name Priority Associated Diagnoses Date/Ti me WATCHMAN INSERTION Atrial fibrillation, unspecified type Scheduled Referrals Name Type Priority Associated Diagnoses Orde r Schedule Refer to Endocrinology Outpatient Referral Routine Osteoporosis, unspecified osteoporosis type, unspecified pathological fracture presence Expected: 11/30/2016, Expires: 11/29/2017 documented as of this encounter Visit Diagnoses Diagnosis Osteoporosis, senile Senile osteoporosis Osteoporosis, unspecified osteoporosis type, unspecified pathological fracture presence documented in this encounter Additional Health Concerns Infection Onset Date Last Indicated Resolved Time COVID-19 Rule-Out 11/24/2020 11/24/2020 11/24/2020 10:21 PM EDT COVID-19 (Confirmed) 11/24/2020 12/10/2020 0805/2 021 3:03 AM EDT COVID-19 Rule-Out 11/24/2020 11/25/2020 11/25/2020 5:14 AM EDT documented as of this encounter Care Teams Digital Marketing Intern Relationship Specialty Start Date End Date Liam Houston MD [address] [place] [address] [address] [place] [address] PCP - General Family Medicine 04/26/22 documented as of this encounter
--- OUTSIDE RECORDS SUMMARY | 2025-01-25 14:26 | XMS_ITS | Encounter Summary ---
Author Organization [facility] Address [address] [place] [address] Care Team Providers Care Upward Bound Director Name Role Phone Liam Houston MD Primary Care Provider Encounter Details Date Type Department Care Team (Late st Contact Info) Description 12/23/2008 Documentation Encounter SANJEEV V ALLSCRIPTS CONV Stephen [...] Progress Notes * Stephen Collier MD - 12/23/2008 9:30 AM EDT Chief Complaint Follow-up for chronic medical conditions listed below under PMH and Active Problems Subjective 72 year old, female here for follow up hypertension and lesion on nose which appeared to be actinickeratosis we did treat it with liquid nitrogen at one time. She states that there is just a little roughness to the scan no bleeding of tenderness no ulceration All other ROS otherwise neg. Allergies No Known Drug Allergy. Current Meds Aspirin 81 MG Oral Tablet;TAKE 1 TABLET DAILY.; RPT Fiber Therapy TABS;TAKE 2 TABLET TWICE DAILY; RPT Hydrochlorothiazide 12.5 MG Oral Tablet;TAKE TABLET DAILY; Rx Simvastatin 40 MG Oral Tablet;TAKE 1 TABLET AT BEDTIME; Rx VESIcare 10 MG Oral Tablet;TAKE 1 DAILY; Rx Hydrochlorothiazide 12.5 MG Oral Capsule;TAKE [...] Adult Female Recorded by Ellie Flood on December 09:46 AM BP: 122/70 mm Hg HR: 68 b/min ; Resp: 16 r/min ; Temp: 97.8 F Height: 64 in, Weight: 126 lb, BMI: 21.63 , BSA: 1.61 . Objective NAD: VSSHNT: 3mm area of redness w/mild scale on nose bridge CHEST: CTA. CV: RRR without M/R/G. Assessment Benign essential hypertension (401.1) Urge and stress incontinence (788.33) Hyperlipidemia (272.4) Osteoporosis (733.00) Muscle spasm (728.85) Plan Discussed lesion on nose which appears to be actinic keratosis and definitive treatment which wouldbe surgical removal at this time will treat with liquid nitrogen and patient's report any nonresolution bleeding or change in the lesion in any way. No change in blood pressure medication follow-up February for flu vaccine. Signature Electronically signed by : Stephen Collier M.D.; 12/23/2008 12:42 PM EST. documented in this encounter Plan of Treatment Upcoming Encounters Date Type Department Care Team (Late st Contact Info) Description 02/18/2025 3:30 PM EDT Office Visit [facility] [address], [facility] [address] [place] [address] 03/13/2025 12:30 PM EDT Office Visit [facility] [place] [address] [place] [address] [place] [address] [place] Houston MD [id number] [place] [address] [address] Scheduled Procedures Name Priority Associated Diagnoses Date/Ti [...] documented as of this encounter Care Teams Upward Bound Director Relationship Specialty Start Date End Date Liam Houston MD 405434 [place] [address] [id number] PCP - General Family Medicine 04/26/22 documented as of this encounter
--- OUTSIDE RECORDS SUMMARY | 2025-01-25 14:26 | XMS_ITS | Encounter Summary ---
Author Organization [facility] Address [address] [place] [address] Care Team Providers Care Credit Collections Analyst Name Role Phone Liam Houston MD Primary Care Provider [phone] Encounter Details Date Type Department Care Team (Late st Contact Info) Description 03/01/2007 Documentation Encounter SANJEEV V ALLSCRIPTS CONV Conversion, [...] Sign Reading Time Taken Comments Blood Pressure 123/78 03/01/2007 8:10 AM EDT Pulse 76 03/01/2007 8:10 AM EDT Temperature 36.6 C (97.8 F) 03/01/2007 8:10 AM EDT Respiratory Rate 16 03/01/2007 8:10 AM EDT Oxygen Saturation - - Inhaled Oxygen Concentration - - Weight 63 kg (139 lb) 03/01/2007 8:10 AM EDT Height 162.6 cm (5' 4 ) 03/01/2007 8:10 AM EDT Body Mass Index 23.86 03/01/2007 8:10 AM EDT documented in this encounter Plan of Treatment Upcoming Encounters Date Type Department Care Team (Late st Contact Info) Description 02/18/2025 3:30 PM EDT Office Visit [facility] - [place] [id number], [address] [place] [address] 03/13/2025 12:30 PM EDT Office Visit [facility] Family Medicine - [place] [address] [place] [address] [place] [address] Liam Houston MD [address] [place] [address] [address] [place], [place] [phone] Scheduled Procedures Name Priority Associated Diagnoses Date/Ti [...] documented as of this encounter Care Teams Credit Collections Analyst Relationship Specialty Start Date End Date Liam Houston MD [address] [place] [address] [address] [place], [place] [id number] PCP - General Family Medicine 04/26/22 documented as of this encounter
--- OUTSIDE RECORDS SUMMARY | 2025-01-25 14:26 | XMS_ITS | Encounter Summary ---
Author Organization [facility] Address [address] [place] [address] Care Team Providers Care Delivery Person Name Role Phone Liam Houston MD Primary Care Provider [phone] Encounter Details Date Type Department Care Team (Late st Contact Info) Description 08/23/2012 Documentation Encounter SANJEEV V ALLSCRIPTS CONV Stephen [...] Progress Notes * Stephen Collier MD - 08/23/2012 9:30 AM EDT Chief Complaint labs only Allergies No Known Drug Allergy. Current Meds Aspirin 81 MG Oral Tablet;TAKE 1 TABLET DAILY.; RPT Biotin 10 MG Oral Tablet;; RPT Centrum Silver Oral Tablet;TAKE 1 TABLET DAILY.; RPT Metoprolol Succinate ER 25 MG Oral Tablet Extended Release 24 Hour;TAKE 1 TABLET DAILY.; Rx Potassium Gluconate 595 MG Oral Tablet;TAKE 1 TABLET DAILY.; RPT Alendronate Sodium 10 MG Oral Tablet;TAKE 1 TABLET EVERY DAY; Rx Lovastatin 40 MG Oral Tablet;TAKE 2 TABLET BEDTIME; Rx Levothyroxine Sodium 75 MCG Oral Tablet;take one tablet by mouth every day; Rx. 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 Labs Cholesterol panel Venipuncture: Reason: Physician ordered labs Amount:1 Tubes gold Type: vaccutainer Site: vein right arm Reaction: None Draw perfomed by: Rohini Obando 08/23/2012 9:11AM. Signature Electronically signed by : Stephen Collier M.D.; 08/23/2012 9:59 AM EST. documented in this encounter Plan of Treatment Upcoming Encounters Date Type Department Care Team (Late st Contact Info) Description 02/18/2025 3:30 PM EDT Office Visit [facility] [place] [address] [address] [place] [address] 03/13/2025 12:30 PM EDT Office Visit [facility] - [place] [address] [address] [place] [address] Liam Houston MD [address] [place] [address] Scheduled Procedures Name Priority Associated Diagnoses Date/Ti me WATCHMAN INSERTION Atrial fibrillation, unspecified type documented as of this encounter Procedures Procedure Name Priority Date/Time Associated Diagnosis Comments LIPID PANEL Routine 08/23/2012 12:00 AM EDT documented in this encounter Results * Lipid Panel (08/23/2012 12:00 AM EDT) HDL Cholesterol 59 > OR = 46 [facility] Chol/HDL Ratio 3.2 < OR = 5.0 [facility] NON-HDL Cholesterol 129 [facility] Comment: Desirable range <100 mg/dL for patients with CHD or diabetes and <70 mg/dL for diabetic patients with known heart disease. Triglycerides 86 <150 [facility] Cholesterol Total 188 125 - 200 [facility] LDL Cholesterol 112 <130 [facility] 08/23/2012 Stephen Collier MD BLOOD ORDERABLES Final Result [facility] documented in this encounter Visit Diagnoses Not on filedocumented in this encounter Additional Health Concerns Infection Onset Date Last Indicated Resolved Time COVID-19 Rule-Out 11/24/2020 11/24/2020 11/24/2020 10:21 PM EDT COVID-19 (Confirmed) 11/24/2020 12/10/2020 0805/2 021 3:03 AM EDT COVID-19 Rule-Out 11/24/2020 11/25/2020 11/25/2020 5:14 AM EDT documented as of this encounter Care Teams Delivery Person Relationship Specialty Start Date End Date Liam Houston MD [address] [place] [address] PCP - General Family Medicine 04/26/22 documented as of this encounter
--- OUTSIDE RECORDS SUMMARY | 2025-01-25 14:26 | XMS_ITS | Encounter Summary ---
Author Organization [facility] Address [address] [place] [address] Care Team Providers Care Hot Patcher Name Role Phone Liam Houston MD Primary Care Provider [phone] Encounter Details Date Type Department Care Team (Late st Contact Info) Description 05/29/2007 Documentation Encounter SANJEEV V ALLSCRIPTS CONV Stephen [...] Progress Notes * Stephen Collier MD - 05/29/2007 8:00 AM EST Chief Complaint Bloodwork Subjective 71 year old,, female, here today for follow-up of the below listed medical problems and is currently using the medications listed as below. Today patient has new complaint of spot om right judaism,fasting for lipid check otherwise all other ROS negative. . Allergies No Known Drug Allergy. Current Meds Tizanidine HCl 2 MG Tablet;1 TABS PO bid; Rx Fosamax 10 MG Tablet;TAKE 1 TABLET DAILY.; [...] (V15.82). Vital Signs Recorded by alcooper on 29 May 2007 08:09 AM BP:149/80, HR: 78 b/min, Resp: 14 r/min, Temp: 97.2 F, Height: 64 in, Weight: 143 lb, BMI: 24.5 kg/m2. Objective NAD: VSS. 140/89 CHEST: CTA. CV: RRR without M/R/G. . 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 Plan Single SK Tx on right judaism labs Pt has never had HTN, does have + FH, she will check at [facility] and if >140/90 return sooner O/W FY3 months. Signature Signed By: Stephen Collier M.D.; 05/29/2007 12:56 PM EST. documented in this encounter Plan of Treatment Upcoming Encounters Date Type Department Care Team (Late st Contact Info) Description 02/18/2025 3:30 PM EDT Office Visit [facility] [address], [facility] [address] [place] [address] 03/13/2025 12:30 PM EDT Office Visit [facility] Family Medicine - [place] [address] [place] [phone] [place] Houston [place] [address] [place] [address] Scheduled Procedures Name Priority Associated [...] documented as of this encounter Care Teams Hot Patcher Relationship Specialty Start Date End Date Liam Houston [place] [id number] [address] [place] [address] PCP - General Family Medicine 04/26/22 documented as of this encounter
--- OUTSIDE RECORDS SUMMARY | 2025-01-25 14:26 | XMS_ITS | Encounter Summary ---
Author Organization [facility] Address [address] [place] [address] Care Team Providers Care Yarn Tester Name Role Phone Liam Houston MD Primary Care Provider [phone] Encounter Details Date Type Department Care Team (Late st Contact Info) Description 08/26/2012 Documentation Encounter SANJEEV V ALLSCRIPTS CONV Stepehn Collier MD Social History Tobacco Use Types [...] Progress Notes * Stephen Collier MD - 08/26/2012 10:55 AM EDT Message BAS CHOLESTEROL STILL NOT WHERE IT SHOULD BE, ADVISE CHANGING LOVASTATIN TO ATORVASTATIN, 80 MG DAYAND RECHECK 2-3 MONTHS. TASK IF OK. Results Lipid Panel 23 Aug 2012 12:00 AM - TRIGLYCERIDES: 86 Reference Range: <150 Flag: N - CHOLESTEROL, TOTAL: 188 Reference Range: 125-200 Flag: N - HDL CHOLESTEROL: 59 Reference Range: > OR = 46 Flag: N - LDL-CHOLESTEROL: 112 Reference Range: <130 Flag: N - CHOL/HDLC RATIO: 3.2 Reference Range: < OR = 5.0 Flag: N - NON-HDL CHOLESTEROL: 129 Flag: N. Orders Discontinue Lovastatin 40 MG Oral Tablet Amended By: Tanna Coates 08/30/2012 15:51:50 PM EST. Atorvastatin Calcium 80 MG Oral Tablet;TAKE 1 TABLET DAILY AT BEDTIME; Qty90; R3; Rx Amended By: Tanna Coates 08/30/2012 15:53:01 PM EST. Signature Electronically signed by : Stephen Collier M.D.; 08/27/2012 8:29 AM EST. Electronically signed by : Stephen Collier M.D.; 08/30/2012 4:15 PM EST. documented in this encounter Plan of Treatment Upcoming Encounters Date Type Department Care Team (Late st Contact Info) Description 02/18/2025 3:30 PM EDT Office Visit [address], [facility] [address] [place] [address] 03/13/2025 12:30 PM EDT Office Visit [facility] [place] [id number] [address] Liam Houston MD [address] [place] [address] [id number] Scheduled Procedures Name Priority Associated Diagnoses Date/Ti [...] documented as of this encounter Care Teams Yarn Tester Relationship Specialty Start Date End Date Liam Houston MD [address] [place] [address] PCP - General Family Medicine 04/26/22 documented as of this encounter
--- OUTSIDE RECORDS SUMMARY | 2025-01-25 14:26 | XMS_ITS | Encounter Summary ---
Author Organization [facility] Address [address] [place] [address] Care Team Providers Care Box Builder Name Role Phone Liam Houston MD Primary Care Provider [phone] Encounter Details Date Type Department Care Team (Late st Contact Info) Description 01/16/2012 Documentation Encounter SANJEEV V ALLSCRIPTS CONV Stephen [...] as of this encounter Miscellaneous Notes * Miscellaneous - Stephen Collier MD - 01/16/2012 11:40 PM EDT Message Notify patient to make a followup appointment to discuss results with Dr. Collier. Results CBC (INCLUDES DIFF/PLT) WITH PATHOLOGIST REVIEW 11 Jan 2012 12:00 AM - WHITE BLOOD CELL COUNT: 6.1 Reference Range: 3.8-10.8 Flag: N - RED BLOOD CELL COUNT: 3.98 Reference Range: 3.80-5.10 Flag: N - HEMOGLOBIN: 11.7 Reference Range: 11.7-15.5 Flag: N - HEMATOCRIT: 35.8 Reference Range: 35.0-45.0 Flag: N - MCV: 90.0 Reference Range: 80.0-100.0 Flag: N - MCH: 29.5 Reference Range: 27.0-33.0 Flag: N - MCHC: 32.7 Reference Range: 32.0-36.0 Flag: N - RDW: 15.9 Reference Range: 11.0-15.0 Flag: H - PLATELET COUNT: 339 Reference Range: 140-400 Flag: N - ABSOLUTE NEUTROPHILS: 4124 Reference Range: 7827-4865 Flag: N - ABSOLUTE LYMPHOCYTES: 1049 Reference Range: 850-3900 Flag: N - ABSOLUTE MONOCYTES: 604 Reference Range: 200-950 Flag: N - ABSOLUTE EOSINOPHILS: 311 Reference Range: 15-500 Flag: N - ABSOLUTE BASOPHILS: 12 Reference Range: 0-200 Flag: N - NEUTROPHILS: 67.6 Flag: N - LYMPHOCYTES: 17.2 Flag: N - MONOCYTES: 9.9 Flag: N - EOSINOPHILS: 5.1 Flag: N - BASOPHILS: 0.2 Flag: N - COMMENT (S) Complete Blood Count (CBC) shows [...] clumping or satellitism is noted. REVIEWED BY: MLEINA SHORT MD. TSH 11 Jan 2012 12:00 AM - TSH, 3RD GENERATION: 4.57 Reference Range: 0.40-4.50 Flag: H. Lipid Panel With LDL/HDL Ratio 11 Jan 2012 12:00 AM - TRIGLYCERIDES: 104 Reference Range: <150 Flag: N - CHOLESTEROL, TOTAL: 203 Reference Range: 125-200 Flag: H - HDL CHOLESTEROL: 48 Reference Range: > OR = 46 Flag: N - LDL-CHOLESTEROL: 134 Reference Range: <130 Flag: H - CHOL/HDLC RATIO: 4.2 Reference Range: < OR = 5.0 Flag: N - NON-HDL CHOLESTEROL: 155. Comp. Metabolic Panel (14) 11 Jan 2012 12:00 AM - GLUCOSE: 109 Reference Range: 65-99 Flag: H - UREA NITROGEN (BUN): 12 Reference Range: 7-25 Flag: N - CREATININE: 0.76 Reference Range: 0.60-0.93 Flag: N - eGFR NON-AFR. [place] CITIZ[place]: 77 Reference Range: > OR = 60 Flag: N - eGFR : 90 Reference Range: > OR = 60 Flag: N - BUN/CREATININE RATIO: NOT APPLICABLE Reference Range: 6-22 - SODIUM: 142 Reference Range: 135-146 Flag: N - POTASSIUM: 5.1 Reference Range: 3.5-5.3 Flag: N - CHLORIDE: 105 Reference Range: 98-110 Flag: N - CARBON DIOXIDE: 23 Reference Range: 21-33 Flag: N - CALCIUM: 10.0 Reference Range: 8.6-10.4 Flag: N - PROTEIN, TOTAL: 7.2 Reference Range: 6.2-8.3 Flag: N - ALBUMIN: 4.3 Reference Range: 3.6-5.1 Flag: N - GLOBULIN: 2.9 Reference Range: 2.2-3.9 Flag: N - ALBUMIN/GLOBULIN RATIO: 1.5 Reference Range: 1.0-2.1 Flag: N - BILIRUBIN, TOTAL: 0.6 Reference Range: 0.2-1.2 Flag: N - ALKALINE PHOSPHATASE: 89 Reference Range: 33-130 Flag: N - AST: 18 Reference Range: 10-35 Flag: N - ALT: 10 Reference Range: 6-40 Flag: N. Signature Electronically signed by : Radha Mohan PA-C; 01/16/2012 11:42 PM EST. documented in this encounter Plan of Treatment Upcoming Encounters Date Type Department Care Team (Late st Contact Info) Description 02/18/2025 3:30 PM EDT Office Visit [facility] [place] [address] [address] [place] [address] 03/13/2025 12:30 PM EDT Office Visit [facility] [place] [id number] [place] [address] [address] [place] [address] Liam Houston MD [id number] [place] [address] [address] [place] [address] Scheduled Procedures Name Priority Associated Diagnoses Date/Ti [...] documented as of this encounter Care Teams Box Builder Relationship Specialty Start Date End Date Liam Houston MD 395206 [place] [address] [address] [place] [address] PCP - General Family Medicine 04/26/22 documented as of this encounter
--- OUTSIDE RECORDS SUMMARY | 2025-01-25 14:26 | XMS_ITS | Encounter Summary ---
Author Organization [facility] Address [address] [place] [address] Care Team Providers Care Shot Peening Operator Name Role Phone Liam Houston MD Primary Care Provider [phone] Encounter Details Date Type Department Care Team (Late st Contact Info) Description 06/11/2009 Documentation Encounter SANJEEV V ALLSCRIPTS CONV Stephen [...] Progress Notes * Stephen Collier MD - 06/11/2009 1:00 PM EST Chief Complaint Follow-up for chronic medical conditions listed below under PMH and Active Problems. general check up Subjective 73 year old, female here for develop HTN and hyperlipidemia recheck skin lesion on left scientology All other ROS otherwise neg. Allergies No Known Drug Allergy. Current Meds Aspirin 81 MG Oral Tablet;TAKE 1 TABLET DAILY.; RPT Fiber Therapy TABS;TAKE 2 TABLET TWICE DAILY; RPT Hydrochlorothiazide 12.5 MG Oral Tablet;TAKE TABLET DAILY; Rx Hydrochlorothiazide 12.5 MG Oral Capsule;TAKE 1 CAPSULE EVERY DAY; Rx Simvastatin 40 MG Oral Tablet;TAKE 1 TABLET AT BEDTIME; Rx Alendronate Sodium 10 MG Oral Tablet;TAKE 1 TABLET EVERY DAY; Rx Azithromycin 250 MG Oral Tablet;TAKE 2 TABLETS ON DAY 1 THEN TAKE 1 TABLET A DAY FOR 4 DAYS.; Rx. Active Problems Benign Essential Hypertension (401.1) [...] Adult Female Recorded by Selina Hayes on May 01:14 PM BP: 121/80 mm Hg HR: 72 b/min ; Resp: 14 r/min ; Height: 64 in, Weight: 136 lb, BMI: 23.34 , BSA: 1.66 . Objective NAD: VSS. CHEST: CTA. CV: RRR without M/R/G. skin there is a subcentimeter mildly erythematosus area on left scientology there is no scale there is no vascularity no ulceration is close but not on a previous surgical scar. Assessment Benign essential hypertension (401.1) Hyperlipidemia (272.4) Health Mgmt Plan Pap smear, breast exam and Hemoccult done 02/2005 Colonoscopy 12.08 Mammogram done 12/2004 Colon exam done 2003 Advance directive given Flu shot done 04/13/06. Plan Single actinic keratosis on left scientology treated with liquid nitrogen. She is to report any nonresolution or change and I will see her in three months fasting for her cholesterol and blood work. Signature Electronically signed by : Stephen Collier M.D.; 06/11/2009 4:23 PM EST. documented in this encounter Plan of Treatment Upcoming Encounters Date Type Department Care Team (Late st Contact Info) Description 02/18/2025 3:30 PM EDT Office Visit [facility] [address] [facility], [facility] [address] [place] [address] 03/13/2025 12:30 PM EDT Office Visit [facility] [address] [place] [address] [place] [address] [place] Houston [place] [id number] [id number] Scheduled Procedures Name Priority Associated Diagnoses Date/Ti [...] documented as of this encounter Care Teams Shot Peening Operator Relationship Specialty Start Date End Date Liam Houston MD [id number] [place] [address] [id number] PCP - General Family Medicine 04/26/22 documented as of this encounter
--- OUTSIDE RECORDS SUMMARY | 2025-01-25 14:26 | XMS_ITS | Encounter Summary ---
Author Organization [facility] Address [address] [place] [address] Care Team Providers Care Nuclear Logging Engineer Name Role Phone Liam Houston MD Primary Care Provider [phone] Encounter Details Date Type Department Care Team (Late st Contact Info) Description 03/25/2009 Documentation Encounter SANJEEV V ALLSCRIPTS CONV Conversion, [...] Sign Reading Time Taken Comments Blood Pressure 108/74 03/25/2009 11:12 AM EST Pulse 80 03/25/2009 11:12 AM EST Temperature 36.8 C (98.2 F) 03/25/2009 11:12 AM EST Respiratory Rate 16 03/25/2009 11:12 AM EST Oxygen Saturation - - Inhaled Oxygen Concentration - - Weight 59.9 kg (132 lb) 03/25/2009 11:12 AM EST Height - - Body Mass Index 22.66 02/18/2009 1:39 PM EDT documented in this encounter Plan of Treatment Upcoming Encounters Date Type Department Care Team (Late st Contact Info) Description 02/18/2025 3:30 PM EDT Office Visit [facility] Cardiovascular [place] [address] [address], [facility] [address] [place] [address] 03/13/2025 12:30 PM EDT Office Visit [facility] Family Medicine - [address] [place] [address] Liam Houston MD [id number] [place] [address] [id number] Scheduled Procedures Name Priority Associated Diagnoses Date/Ti [...] documented as of this encounter Care Teams Nuclear Logging Engineer Relationship Specialty Start Date End Date Liam Houston MD [address] [place] [address] [id number] PCP - General Family Medicine 04/26/22 documented as of this encounter
--- OUTSIDE RECORDS SUMMARY | 2025-01-25 14:26 | XMS_ITS | Encounter Summary ---
Author Organization [facility] Address [address] [place] [address] Care Team Providers Care Roofing Contractor Name Role Phone Liam Houston MD Primary Care Provider [phone] Encounter Details Date Type Department Care Team (Late st Contact Info) Description 02/16/2012 Documentation Encounter SANJEEV V ALLSCRIPTS CONV Conversion, [...] Sign Reading Time Taken Comments Blood Pressure 140/79 02/16/2012 8:35 AM EDT Pulse 80 02/16/2012 8:35 AM EDT Temperature 36.2 C (97.2 F) 02/16/2012 8:35 AM EDT Respiratory Rate 16 02/16/2012 8:35 AM EDT Oxygen Saturation - - Inhaled Oxygen Concentration - - Weight 60.8 kg (134 lb) 02/16/2012 8:35 AM EDT Height 160 cm (5' 3 ) 02/16/2012 8:35 AM EDT Body Mass Index 23.74 02/16/2012 8:35 AM EDT documented in this encounter Miscellaneous Notes * Scanned Document - Conversion, Allscripts - 11/21/2013 2:55 PM EDT * Letter - Conversion, Kat[employer] - 02/16/2012 1:40 PM EDT . RE ALAS [address] [place] [address] Feb 16, 2012 Dear Ms. REDMANWELL: You were recently in our office and Dr Collier referred you to have a Bone Density performed. If you have not heard from the office below within 7-10 business days Please contact the specialist for an appointment: Specialists Name: [facility] Address: [place] [address] at [facility] Phone #: [phone] If you have any further questions please give our office a call at [phone]. [facility]. Signature Electronically signed by : Morena Berg ; 02/16/2012 1:41 PM EST. documented in this encounter Plan of Treatment Upcoming Encounters Date Type Department Care Team (Late st Contact Info) Description 02/18/2025 3:30 PM EDT Office Visit [address], [facility] [address] [place] [address] 03/13/2025 12:30 PM EDT Office Visit [facility] - [address] [place] [address] Liam Houston MD [id number] [place] [address] [address] [place] [address] Scheduled Procedures Name Priority Associated [...] documented as of this encounter Care Teams Roofing Contractor Relationship Specialty Start Date End Date Liam Houston [place] [address] [place] [address] PCP - General Family Medicine 04/26/22 documented as of this encounter
--- OUTSIDE RECORDS SUMMARY | 2025-01-25 14:26 | XMS_ITS | Encounter Summary ---
Author Organization [facility] Address [address] [place] [address] Care Team Providers Care Passenger Solicitor Name Role Phone Liam Houston MD Primary Care Provider [phone] Encounter Details Date Type Department Care Team ([facility] Contact Info) Description 12/20/2011 Documentation Encounter SANJEEV V ALLSCRIPTS CONV Conversion, [...] Sign Reading Time Taken Comments Blood Pressure 112/68 12/20/2011 10:34 AM EDT Pulse 82 12/20/2011 10:34 AM EDT Temperature 35.9 C (96.6 F) 12/20/2011 10:34 AM EDT Respiratory Rate 16 12/20/2011 10:34 AM EDT Oxygen Saturation - - Inhaled Oxygen Concentration - - Weight 64 kg (141 lb) 12/20/2011 10:34 AM EDT Height 160 cm (5' 3 ) 12/20/2011 10:34 AM EDT Body Mass Index 23.63 01/09/2012 10:28 AM EDT documented in this encounter Plan of Treatment Upcoming Encounters Date Type Department Care Team ([facility] Contact Info) Description 02/18/2025 3:30 PM EDT Office Visit [facility] [place] [address] [address], [facility] [address] [place] [address] 03/13/2025 12:30 PM EDT Office Visit [facility] [place] [address] [place] [address] [place] [address] Liam Houston [place] [address]01 [place] [address] [place], [place] [phone] Scheduled Procedures Name Priority Associated Diagnoses Date/Ti [...] documented as of this encounter Care Teams Passenger Solicitor Relationship Specialty Start Date End Date Liam Houston MD [id number] [place] [address] [address] [place], [place] [phone] PCP - General Family Medicine 04/26/22 documented as of this encounter
--- OUTSIDE RECORDS SUMMARY | 2025-01-25 14:26 | XMS_ITS | Encounter Summary ---
Author Organization [facility] Address [address] [place] [address] Care Team Providers Care Radiology Receptionist Name Role Phone Liam Houston MD Primary Care Provider Encounter Details Date Type Department Care Team (Late st Contact Info) Description 03/25/2009 Documentation Encounter SANJEEV V ALLSCRIPTS CONV Stephen [...] Progress Notes * Stephen Collier MD - 03/25/2009 10:30 AM EST Chief Complaint Pt. c/o spot on face Subjective 73 year old, female here for HTN. Also patient wants some lesions checked one on right roman catholic and also one on for it. The one on right roman catholic had been treated previously no known history of skin cancer All other ROS otherwise neg. Allergies No Known Drug Allergy. Current Meds Aspirin 81 MG Oral Tablet;TAKE 1 TABLET DAILY.; RPT Fiber Therapy TABS;TAKE 2 TABLET TWICE DAILY; RPT Hydrochlorothiazide 12.5 MG Oral Tablet;TAKE TABLET DAILY; Rx Simvastatin 40 MG Oral Tablet;TAKE 1 TABLET DAILY.; Rx Alendronate Sodium 10 MG Oral Tablet;TAKE 1 TABLET DAILY.; Rx Hydrochlorothiazide 12.5 MG Oral Capsule;TAKE 1 [...] Use. Vital Signs Adult Female Recorded by on March 11:12 AM BP: 108/74 mm Hg HR: 80 b/min ; Resp: 16 r/min ; Temp: 98.2 F Weight: 132 lb . Objective NAD: VSS. CHEST: CTA. CV: RRR without M/R/G. small 1 mm seborrheic keratosis type lesion on right roman catholic and a seborrheic keratosis on forhead. Assessment Benign essential hypertension (401.1) Health Mgmt Plan Pap smear, breast exam and Hemoccult done 02/2005 Colonoscopy 04.20 Mammogram done 12/2004 Colon exam done 2003 Advance directive given Flu shot done 04/13/06. Plan Where ray keratosis treated with liquid nitrogen Pt advised to various Tx options and agreed to the following: Continuation of current medications listed above,the importance of follow up visits. Risk verses benefits of medication and treatments were discussed. Patient voiced understanding. Return to office in. Signature Electronically signed by : Stephen Collier M.D.; 03/25/2009 12:02 PM EST. documented in this encounter Plan of Treatment Upcoming Encounters Date Type Department Care Team (Late st Contact Info) Description 02/18/2025 3:30 PM EDT Office Visit [facility] [place] [address] [address], [address] [place] [address] 03/13/2025 12:30 PM EDT Office Visit [place] [address] [address] [place] [address] Liam Houston [place] [id number] [address] Scheduled Procedures Name Priority Associated Diagnoses Date/Ti [...] documented as of this encounter Care Teams Radiology Receptionist Relationship Specialty Start Date End Date Liam Houston MD [id number] [address] [phone] PCP - General Family Medicine 04/26/22 documented as of this encounter
--- OUTSIDE RECORDS SUMMARY | 2025-01-25 14:26 | XMS_ITS | Encounter Summary ---
Author Organization [facility] Address [address] [place] [address] Care Team Providers Care Windows Server Specialist Name Role Phone Liam Houston MD Primary Care Provider [phone] Encounter Details Date Type Department Care Team (Late st Contact Info) Description 10/01/2012 Documentation Encounter SANJEEV V ALLSCRIPTS CONV Stephen [...] Progress Notes * Stephen Collier MD - 10/01/2012 10:15 AM EDT Chief Complaint Discuss paperwork pt received from [employer]; poss. cryo on spots on face Allergies No Known Drug Allergy. Current Meds [...] Non-Q-wave Myocardial Infarction - Subsequent Care Recent ID (8 Wks) (410.72) Normal Examination (V70.0) Osteoporosis [...] Smoker Never A Smoker Denied tobacco use. Vital Signs Adult Female Recorded by Tanna Coates on September 10:36 AM BP: 137/75 mm Hg HR: 69 b/min ; Resp: 18 r/min ; Temp: 97.3 F Height: 63 in, Weight: 138 lb, BMI: 24.45 , BSA: 1.65 . Health Mgmt Plan Pap smear, breast exam and Hemoccult done 02/2005 Colonoscopy 12.08 Mammogram done 12/2004 Colon exam done 2003 Advance directive given Flu shot done 04/13/06, 02/2010, 02/16/12 Lipid screening if high risk (Diabetes, Personal hx of CHD, tobacco use, HTN, obesity (BMI>30), Family hx of cardiovascular disease before age 50 in males and 60 in females) completed q 5 years date: 06/2011. Signature Electronically signed by : Stephen Collier M.D.; 10/01/2012 12:54 PM EST. documented in this encounter Plan of Treatment Upcoming Encounters Date Type Department Care Team (Late st Contact Info) Description 02/18/2025 3:30 PM EDT Office Visit [facility] [place] [address] [address], [address] [place] [address] 03/13/2025 12:30 PM EDT Office Visit [facility] [place] 7[address] [address] Liam Houston MD [id number] [place] [address] Scheduled Procedures Name Priority Associated Diagnoses Date/Ti [...] documented as of this encounter Care Teams Windows Server Specialist Relationship Specialty Start Date End Date Liam Houston MD [address] [place] [address] [id number] PCP - General Family Medicine 04/26/22 documented as of this encounter
--- OUTSIDE RECORDS SUMMARY | 2025-01-25 14:26 | XMS_ITS | Encounter Summary ---
Author Organization [facility] Address [address] [place] [address] Care Team Providers Care Scarfing Machine Operator Name Role Phone Liam Houston MD Primary Care Provider [phone] Encounter Details Date Type Department Care Team (Late st Contact Info) Description 09/10/2013 Documentation Encounter SANJEEV V ALLSCRIPTS CONV Conversion, [...] Sign Reading Time Taken Comments Blood Pressure 132/60 09/10/2013 10:05 AM EDT Pulse 68 09/10/2013 10:05 AM EDT Temperature 36.5 C (97.7 F) 09/10/2013 10:05 AM EDT Respiratory Rate 16 09/10/2013 10:05 AM EDT Oxygen Saturation - - Inhaled Oxygen Concentration - - Weight 63.6 kg (140 lb 2.1 oz) 09/10/2013 10:05 AM EDT Height 162.6 cm (5' 4 ) 09/10/2013 10:05 AM EDT Body Mass Index 24.05 09/10/2013 10:05 AM EDT documented in this encounter Plan of Treatment Upcoming Encounters Date Type Department Care Team (Late st Contact Info) Description 02/18/2025 3:30 PM EDT Office Visit [facility] Cardiovascular [place] [address] [address], [address] [place] [address] 03/13/2025 12:30 PM EDT Office Visit [facility] [id number] [place] [address] Liam Houston MD [address] [place] [address] [phone] Scheduled Procedures Name Priority Associated Diagnoses Date/Ti [...] documented as of this encounter Care Teams Scarfing Machine Operator Relationship Specialty Start Date End Date Liam Houston MD [address] [place] [address] [phone] PCP - General Family Medicine 04/26/22 documented as of this encounter
--- OUTSIDE RECORDS SUMMARY | 2025-01-25 14:26 | XMS_ITS | Encounter Summary ---
Author Organization [facility] Address [address] [place] [address] Care Team Providers Care Language Teacher Name Role Phone Liam Houston MD Primary Care Provider [phone] Encounter Details Date Type Department Care Team (Late st Contact Info) Description 11/23/2006 Documentation Encounter SANJEEV V ALLSCRIPTS CONV Conversion, [...] Sign Reading Time Taken Comments Blood Pressure 138/95 11/23/2006 8:23 AM EDT Pulse 72 11/23/2006 8:23 AM EDT Temperature 36.3 C (97.4 F) 11/23/2006 8:23 AM EDT Respiratory Rate 15 11/23/2006 8:23 AM EDT Oxygen Saturation - - Inhaled Oxygen Concentration - - Weight 63.5 kg (140 lb) 11/23/2006 8:23 AM EDT Height 162.6 cm (5' 4 ) 11/23/2006 8:23 AM EDT Body Mass Index 24.03 11/23/2006 8:23 AM EDT documented in this encounter Plan of Treatment Upcoming Encounters Date Type Department Care Team (Late st Contact Info) Description 02/18/2025 3:30 PM EDT Office Visit [facility] [place] [address] [place] [address] 03/13/2025 12:30 PM EDT Office Visit [facility] - [place] [address] [place] [address] Liam Houston MD [address] [place] [address] [address] [place], [place] [phone] Scheduled Procedures Name Priority Associated Diagnoses Date/Ti [...] documented as of this encounter Care Teams Language Teacher Relationship Specialty Start Date End Date Liam Houston MD [address] [place] [address] [address] [place], [place] [phone] PCP - General Family Medicine 04/26/22 documented as of this encounter
--- OUTSIDE RECORDS SUMMARY | 2025-01-25 14:26 | XMS_ITS | Encounter Summary ---
Author Organization [facility] Address [address] [place] [address] Care Team Providers Care Cath Lab Radiological Technologist Name Role Phone Liam Houston MD Primary Care Provider [phone] Encounter Details Date Type Department Care Team (Late st Contact Info) Description 06/11/2009 Documentation Encounter SANJEEV V ALLSCRIPTS CONV Conversion, [...] Sign Reading Time Taken Comments Blood Pressure 121/80 06/11/2009 1:14 PM EST Pulse 72 06/11/2009 1:14 PM EST Temperature - - Respiratory Rate 14 06/11/2009 1:14 PM EST Oxygen Saturation - - Inhaled Oxygen Concentration - - Weight 61.7 kg (136 lb) 06/11/2009 1:14 PM EST Height 162.6 cm (5' 4 ) 06/11/2009 1:14 PM EST Body Mass Index 23.34 06/11/2009 1:14 PM EST documented in this encounter Plan of Treatment Upcoming Encounters Date Type Department Care Team (Late st Contact Info) Description 02/18/2025 3:30 PM EDT Office Visit [facility] Cardiovascular Center [place] [address] [address], [address] [place] [address] 03/13/2025 12:30 PM EDT Office Visit [facility] - [place] [address] [place] [address] [place] [address] Liam Houston MD [id number] [place] [address] Scheduled Procedures Name Priority Associated Diagnoses Date/Ti [...] documented as of this encounter Care Teams Cath Lab Radiological Technologist Relationship Specialty Start Date End Date Liam Houston MD [address] [place] [address] [address] PCP - General Family Medicine 04/26/22 documented as of this encounter
--- OUTSIDE RECORDS SUMMARY | 2025-01-25 14:26 | XMS_ITS | Encounter Summary ---
Author Organization [facility] Address [address] [place] [address] Care Team Providers Care Sales Marketing Coordinator Name Role Phone Liam Houston MD Primary Care Provider [phone] Encounter Details Date Type Department Care Team (Late st Contact Info) Description 04/12/2012 Documentation Encounter SANJEEV V ALLSCRIPTS CONV Kodi [...] Progress Notes * Kodi Deras MD - 04/12/2012 9:00 AM EST 04/12/12 Here for f/u after CABG. NSTMI 12/06/11, CABG on 12/11/11 and left day 5. Had uncomp post op course, discharged 12/17/11 and has been feeling well and doing well at home. Records review shows preserved EF pre-op by echo. RANKIN to LAD, SVG to D1 and PDA. Meds: ASA 81 q d Metop 25 BID Statin Exam: Looks very well, 139/71, 74, 134 lbs. 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 Electronically signed by:Kodi Deras M.D. Apr 12 2012 9:26AM EST documented in this encounter Plan of Treatment Upcoming Encounters Date Type Department Care Team (Late st Contact Info) Description 02/18/2025 3:30 PM EDT Office Visit [facility] Cardiovascular Center [address], [facility] [address] [place] [address] 03/13/2025 12:30 PM EDT Office Visit [address] [place] [address] Liam Houston MD [address] [place] [address] Scheduled Procedures Name Priority Associated Diagnoses [...] as of this encounter Care Teams Sales Marketing Coordinator Relationship Specialty Start Date End Date Liam Houston MD [address] [place] [address] 200 [address] [place] [address] PCP - General Family Medicine 04/26/22 documented as of this encounter
--- OUTSIDE RECORDS SUMMARY | 2025-01-25 14:26 | XMS_ITS | Encounter Summary ---
Author Organization [facility] Address [address] [place] [address] Care Team Providers Care Packing Floor Worker Name Role Phone Liam Houston MD Primary Care Provider [phone] Encounter Details Date Type Department Care Team (Late st Contact Info) Description 12/23/2008 Documentation Encounter SANJEEV V ALLSCRIPTS CONV Conversion, [...] Sign Reading Time Taken Comments Blood Pressure 122/70 12/23/2008 9:46 AM EDT Pulse 68 12/23/2008 9:46 AM EDT Temperature 36.6 C (97.8 F) 12/23/2008 9:46 AM EDT Respiratory Rate 16 12/23/2008 9:46 AM EDT Oxygen Saturation - - Inhaled Oxygen Concentration - - Weight 57.2 kg (126 lb) 12/23/2008 9:46 AM EDT Height 162.6 cm (5' 4 ) 12/23/2008 9:46 AM EDT Body Mass Index 21.63 12/23/2008 9:46 AM EDT documented in this encounter Procedure Notes * Conversion, Allscripts - 12/08/2013 6:55 PM EDTAssociated Order(s): SCANNED RADIOLOGY - MAMMOGRAM documented in this encounter Plan of Treatment Upcoming Encounters Date Type Department Care Team (Late st Contact Info) Description 02/18/2025 3:30 PM EDT Office Visit [facility] Cardiovascular Center [place] [address], [address] [place] [address] 03/13/2025 12:30 PM EDT Office Visit [facility] [address] [place] [address] [place] [address] [place] Houston [place] [address] [place] [address] [place] [address] Scheduled Procedures Name Priority Associated Diagnoses Date/Ti me WATCHMAN INSERTION Atrial fibrillation, unspecified type documented as of this encounter Procedures Procedure Name Priority Date/Time Associated Diagnosis Comments SCANNED RADIOLOGY - MAMMOGRAM 12/08/2013 6:55 PM EDT documented in this encounter Results * SCANNED RADIOLOGY - MAMMOGRAM (12/08/2013 6:55 PM EDT) Anatomical Region Laterality Modality Other Narrative 12/08/2013 6:55 PM EDT Ordered by an unspecified provider. Transcriptions Agustina Cui - 12/08/2013 6:55 PM EDT us Allscripts Conversion Final Resu [...] documented as of this encounter Care Teams Packing Floor Worker Relationship Specialty Start Date [place] [address] [place] [address] [address] [place] [address] PCP - General Family Medicine 04/26/22 documented as of this encounter
--- OUTSIDE RECORDS SUMMARY | 2025-01-25 14:26 | XMS_ITS | Encounter Summary ---
Author Organization [facility] Address [address] [place] [address] Care Team Providers Care Artificial Stone Setter Name Role Phone Liam Houston MD Primary Care Provider [phone] Encounter Details Date Type Department Care Team (Late st Contact Info) Description 08/27/2007 Documentation Encounter SANJEEV V ALLSCRIPTS CONV Conversion, [...] Sign Reading Time Taken Comments Blood Pressure 128/80 08/27/2007 8:19 AM EDT Pulse 84 08/27/2007 8:19 AM EDT Temperature 36.6 C (97.8 F) 08/27/2007 8:19 AM EDT Respiratory Rate 14 08/27/2007 8:19 AM EDT Oxygen Saturation - - Inhaled Oxygen Concentration - - Weight 62.6 kg (138 lb) 08/27/2007 8:19 AM EDT Height 162.6 cm (5' 4 ) 08/27/2007 8:19 AM EDT Body Mass Index 23.69 08/27/2007 8:19 AM EDT documented in this encounter Plan of Treatment Upcoming Encounters Date Type Department Care Team (Late st Contact Info) Description 02/18/2025 3:30 PM EDT Office Visit [facility] Cardiovascular Center - [place] [address], [address] [place] [address] 03/13/2025 12:30 PM EDT Office Visit [facility] Family Medicine - [place] [address] [place] [address] [place] [address] Liam Houston MD [address] [place] [address] [address] [place], [place] [phone] Scheduled Procedures Name Priority Associated Diagnoses Date/Ti [...] documented as of this encounter Care Teams Artificial Stone Setter Relationship Specialty Start Date End Date Liam Houston MD [address] [place] [address] 200 [address] [place], [place] [phone] PCP - General Family Medicine 04/26/22 documented as of this encounter
--- OUTSIDE RECORDS SUMMARY | 2025-01-25 14:26 | XMS_ITS | Encounter Summary ---
Author Organization [facility] Address [address] [place] [address] Care Team Providers Care Horologist Apprentice Name Role Phone Liam Houston MD Primary Care Provider [phone] Encounter Details Date Type Department Care Team (Late st Contact Info) Description 10/06/2009 Documentation Encounter SANJEEV V ALLSCRIPTS CONV Stephen [...] Progress Notes * Stephen Collier MD - 10/06/2009 3:30 PM EDT Chief Complaint Follow-up for chronic medical conditions listed below under PMH and Active Problems. check left ear Subjective 73 year old, female here for some discomfort in her left ear sometimes it pops when she yawns or swallows. Feels like it may have fluid in it. One week in duration may be better today All other ROS otherwise neg. Allergies No [...] Adult Female Recorded by Selina Hayes on September 03:40 PM BP: 122/80 mm Hg HR: 72 b/min ; Resp: 16 r/min ; Temp: 98 F Height: 64 in, Weight: 134.5 lb, BMI: 23.09 , BSA: 1.65 . Objective VITAL SIGNS: Noted. E: PERRL/EOMI conjunctivae clear. HNT: OP clear, no lymphadenopathy, tympanic membranes clear B/L. RESPIRATORY: Lungs CTA bilaterally. Assessment Eustachian tube dysfunction (381.81) Health Mgmt Plan Pap smear, breast exam and Hemoccult done 02/2005 Colonoscopy . Mammogram done 12/2004 Colon exam done 2003 Advance directive given Flu shot done 04/13/06. Plan Discussed treatment and characteristics of eustachian tube dysfunction will give trial of nasal steroid. Orders Nasonex 50 MCG/ACT Nasal Suspension;USE 2 SPRAYS IN EACH NOSTRIL ONCE DAILY; Qty1; R3; Rx. Signature Electronically signed by : Stephen Collier M.D.; 10/06/2009 4:33 PM EST. documented in this encounter Plan of Treatment Upcoming Encounters Date Type Department Care Team (Late st Contact Info) Description 02/18/2025 3:30 PM EDT Office Visit [facility] Cardiovascular Center [facility] [address] [facility], [facility] [address] [place] [address] 03/13/2025 12:30 PM EDT Office Visit [facility] Family Medicine [facility] [address] [place] [address] [place] [address] Liam Houston MD [id number] [place] [address] [id number] Scheduled Procedures Name Priority Associated Diagnoses Date/Ti [...] documented as of this encounter Care Teams Horologist Apprentice Relationship Specialty Start Date End Date Liam Houston MD [id number] [place] [address] [place] [address] [phone] PCP - General Family Medicine 04/26/22 documented as of this encounter
--- OUTSIDE RECORDS SUMMARY | 2025-01-25 14:26 | XMS_ITS | Encounter Summary ---
Author Organization [facility] Address [address] [place] [address] Care Team Providers Care Outreach Consultant Name Role Phone Liam Houston MD Primary Care Provider [phone] Encounter Details Date Type Department Care Team (Late st Contact Info) Description 12/27/2011 Documentation Encounter SANJEEV V ALLSCRIPTS CONV Conversion, [...] Miscellaneous Notes * Scanned Document - Conversion, Allscmagopts - 11/19/2013 11:39 PM EDT documented in this encounter Plan of Treatment Upcoming Encounters Date Type Department Care Team (Late st Contact Info) Description 02/18/2025 3:30 PM EDT Office Visit [facility] Cardiovascular Center [place] [address] [address], [address] [place] [address] 03/13/2025 12:30 PM EDT Office Visit [facility] Family [place] [address] [address] [place] [address] Liam Houston MD [id number] [place] [address] [phone] Scheduled Procedures Name Priority Associated Diagnoses Date/Ti [...] documented as of this encounter Care Teams Outreach Consultant Relationship Specialty Start Date End Date Liam Houston MD [address] [place] [address] [id number] PCP - General Family Medicine 04/26/22 documented as of this encounter
--- OUTSIDE RECORDS SUMMARY | 2025-01-25 14:26 | XMS_ITS | Encounter Summary ---
Author Organization [facility] Address [address] [place] [address] Care Team Providers Care Crewman Armoured Personnel Carrier M113 Name Role Phone Liam Houston MD Primary Care Provider [phone] Encounter Details Date Type Department Care Team (Late st Contact Info) Description 06/04/2006 Documentation Encounter SANJEEV V ALLSCRIPTS CONV Setphen Collier MD Social History Tobacco Use Types Packs/Day Years Used Date Smoking Tobacco: Never Assessed Comments Unknown Sex and Gender Information Value Date Recorded Sex Assigned at Not on file Legal Sex Female 8:25 PM EST Gender Identity Not on file Sexual Orientation Not on file documented as of this encounter Progress Notes * Stephen Collier MD - 06/04/2006 1:05 PM EST Chief Complaint restless legs Subjective 70 year old,, female, here today for follow-up of the below listed medical problems and is currently using the medications listed as below. Today patient has new complaint of legs cramping at night read she awakes with her kids so returned she does not describe symptoms of restless leg although shedoes state that her says that she moves quite a bit during the night. She does not feel an urge to get up and move about. It affects the calves only and at night only. Reviewed with patient her last cholesterol results. otherwise all other ROS negative. . Allergies No Known Drug Allergy. Current Meds Fosamax 10 MG Tablet;TAKE 1 TABLET DAILY.; Rx. 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 PMH Conjunctivitis (372.30) Hyperlipidemia (272.4) Osteoporosis (733.00). PSH Hysterectomy (V45.77). Family Hx Family history of Coronary Artery Disease Family history of Ischemic Stroke. Personal Hx No Alcohol Use No Tobacco Use (V15.82). Vital Signs Recorded by alcooper on 04 Jun 2006 01:02 PM BP:123/84, HR: 78 b/min, Resp: 15 r/min, Temp: 97.4 F, Weight: 140 lb. Objective NAD: VSS. CHEST: CTA. CV: RRR without M/R/G. . Assessment A fall which is resolved (E888.9) Conjunctivitis which is resolved (372.30) Hyperlipidemia (272.4) Osteoporosis (733.00) Health Mgmt Plan Pap smear, breast exam and Hemoccult done 02/2005 Mammogram done 12/2004 Colon exam done 2003 Advance directive given Flu shot done 04/13/06. Orders Renew Fosamax 10 MG Tablet;TAKE 1 TABLET DAILY; Qty30; R3; Rx. Simvastatin 40 MG Tablet;TAKE 1 TABLET BEDTIME; Qty90; R3; Rx. Plan Patient is given a trial of quinine sulfate for her leg cramps. Medication changes as noted above and will see her two months following the change to Zocor or fasting for recheck. Patient is given an order for her mammogram . Signature Signed By: Stephen Collier M.D.; 06/04/2006 3:41 PM EST. documented in this encounter Plan of Treatment Upcoming Encounters Date Type Department Care Team (Late st Contact Info) Description 02/18/2025 3:30 PM EDT Office Visit [facility] Cardiovascular [place] [address] [address], [address] [place] [address] 03/13/2025 12:30 PM EDT Office Visit [facility] - [place] [address] [address] Liam Houston MD [id number] [place] [address] Scheduled Procedures Name Priority Associated Diagnoses Date/Ti [...] documented as of this encounter Care Teams Crewman Armoured Personnel Carrier M113 Relationship Specialty Start Date End Date Liam Houston MD [id number] [place] [address] PCP - General Family Medicine 04/26/22 documented as of this encounter
--- OUTSIDE RECORDS SUMMARY | 2025-01-25 14:26 | XMS_ITS | Encounter Summary ---
Author Organization [facility] Address [address] [place] [address] Care Team Providers Care Brim Stiffener Name Role Phone Liam Houston MD Primary Care Provider [phone] Encounter Details Date Type Department Care Team (Late st Contact Info) Description 04/30/2009 Documentation Encounter SANJEEV V ALLSCRIPTS CONV Stephen [...] Progress Notes * Stephen Collier MD - 04/30/2009 1:30 PM EST Chief Complaint Follow-up for chronic medical conditions listed below under PMH and Active Problems. cold sx Subjective 73 year old, female here for call congestion for several days. She is a nonsmoker. Also recheck lesion on right amish that we had treated with liquid nitrogen and she is noticed a new one on the left amish. Dermatology had performed a Mohs surgery at the area where the new or lesion is. 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 All other ROS otherwise neg. Allergies No [...] Adult Female Recorded by Selina Hayes on April 01:43 PM BP: 111/70 mm Hg HR: 68 b/min ; Resp: 16 r/min ; Temp: 98.1 F Height: 64 in, Weight: 133 lb, BMI: 22.83 , BSA: 1.64 . Objective NAD: VSS. 1 mm rough area on right amish the left amish shows a one half centimeter reddish lesion which appears to be an a.k.a. however it is approximated by the previous surgical incision which was known basal cell cancer. CHEST: scattered wheezing CV: RRR without M/R/G. Assessment Normal routine history and physical senior citizen (65-80) (V70.0) Health Mgmt Plan Pap smear, breast exam and Hemoccult done 02/2005 Colonoscopy . Mammogram done 12/2004 Colon exam done 2003 Advance directive given Flu shot done 04/13/06. Plan Discussed treatment with patient and will treat with liquid nitrogen however given close proximity to a previous cancer if it does not resolve will biopsy are resected patient is treated for bronchitis. Orders Renew Azithromycin 250 MG Oral Tablet;TAKE 2 TABLETS ON DAY 1 THEN TAKE 1 TABLET A DAY FOR 4 DAYS; Qty6; R0; Rx. Signature Electronically signed by : Stephen Collier M.D.; 04/30/2009 3:01 PM EST. documented in this encounter Plan of Treatment Upcoming Encounters Date Type Department Care Team (Late st Contact Info) Description 02/18/2025 3:30 PM EDT Office Visit [facility] Cardiovascular [facility] [address] [address], [address] [place] [address] 03/13/2025 12:30 PM EDT Office Visit [facility] [address] [address] Liam Houston MD [id number] [place] [address] Scheduled Procedures Name Priority Associated Diagnoses [...] documented as of this encounter Care Teams Brim Stiffener Relationship Specialty Start Date End Date Liam Houston MD [id number] [place] [address] [phone] PCP - General Family Medicine 04/26/22 documented as of this encounter
--- OUTSIDE RECORDS SUMMARY | 2025-01-25 14:26 | XMS_ITS | Encounter Summary ---
Author Organization [facility] Address [address] [place] [address] Care Team Providers Care Speech And Hearing Clinic Director Name Role Phone Liam Houston MD Primary Care Provider [phone] Encounter Details Date Type Department Care Team (Late st Contact Info) Description 09/11/2012 Documentation Encounter SANJEEV V ALLSCRIPTS CONV Conversion, [...] Sign Reading Time Taken Comments Blood Pressure 118/60 09/11/2012 10:24 AM EDT Pulse 74 09/11/2012 10:24 AM EDT Temperature 36.1 C (97 F) 09/11/2012 10:24 AM EDT Respiratory Rate 17 09/11/2012 10:24 AM EDT Oxygen Saturation - - Inhaled Oxygen Concentration - - Weight 61.9 kg (136 lb 6.1 oz) 09/11/2012 10:24 AM EDT Height 160 cm (5' 3 ) 09/11/2012 10:24 AM EDT Body Mass Index 24.27 10/10/2012 10:28 AM EDT documented in this encounter Plan of Treatment Upcoming Encounters Date Type Department Care Team (Late st Contact Info) Description 02/18/2025 3:30 PM EDT Office Visit [facility] Cardiovascular Center - [place] [address] [address], [address] [place] [address] 03/13/2025 12:30 PM EDT Office Visit [facility] Medicine - [place] [phone] [address] Liam Houston MD [address] [place] [address] Scheduled Procedures Name Priority Associated Diagnoses Date/Ti [...] documented as of this encounter Care Teams Speech And Hearing Clinic Director Relationship Specialty Start Date End Date Liam Houston MD [address] [place] [address] [phone] PCP - General Family Medicine 04/26/22 documented as of this encounter
--- OUTSIDE RECORDS SUMMARY | 2025-01-25 14:26 | XMS_ITS | Encounter Summary ---
Author Organization [facility] Address [address] [place] [address] Care Team Providers Care Hand Salter Name Role Phone Liam Houston MD Primary Care Provider [phone] Encounter Details Date Type Department Care Team (Late st Contact Info) Description 08/20/2012 Documentation Encounter SANJEEV V ALLSCRIPTS CONV Conversion, [...] Sign Reading Time Taken Comments Blood Pressure 130/79 08/20/2012 10:32 AM EDT Pulse 70 08/20/2012 10:32 AM EDT Temperature 36.3 C (97.4 F) 08/20/2012 10:32 AM EDT Respiratory Rate 16 08/20/2012 10:32 AM EDT Oxygen Saturation - - Inhaled Oxygen Concentration - - Weight 62.1 kg (137 lb) 08/20/2012 10:32 AM EDT Height 160 cm (5' 3 ) 08/20/2012 10:32 AM EDT Body Mass Index 24.27 08/20/2012 10:32 AM EDT documented in this encounter Miscellaneous Notes * Scanned Document - Conversion, Allscripts - 11/05/2013 1:32 PM EDT documented in this encounter Plan of Treatment Upcoming Encounters Date Type Department Care Team (Late st Contact Info) Description 02/18/2025 3:30 PM EDT Office Visit [facility] Cardiovascular [place] [facility] [place] [address], [address] [place] [address] 03/13/2025 12:30 PM EDT Office Visit [facility] [place] [id number] [place] [address] [phone] Liam Houston MD [id number] [place] [address] Scheduled Procedures Name Priority Associated Diagnoses [...] as of this encounter Care Teams Hand Salter Relationship Specialty Start Date End Date Liam Houston MD [id number] [place] [address] [address] PCP - General Family Medicine 04/26/22 documented as of this encounter
--- OUTSIDE RECORDS SUMMARY | 2025-01-25 14:26 | XMS_ITS | Encounter Summary ---
Author Organization [facility] Address [address] [place] [address] Care Team Providers Care Titrator Name Role Phone Liam Houston MD Primary Care Provider [phone] Encounter Details Date Type Department Care Team (Late st Contact Info) Description 05/29/2007 Documentation Encounter SANJEEV V ALLSCRIPTS CONV Conversion, [...] Sign Reading Time Taken Comments Blood Pressure 149/80 05/29/2007 8:09 AM EST Pulse 78 05/29/2007 8:09 AM EST Temperature 36.2 C (97.2 F) 05/29/2007 8:09 AM EST Respiratory Rate 14 05/29/2007 8:09 AM EST Oxygen Saturation - - Inhaled Oxygen Concentration - - Weight 64.9 kg (143 lb) 05/29/2007 8:09 AM EST Height 162.6 cm (5' 4 ) 05/29/2007 8:09 AM EST Body Mass Index 24.55 05/29/2007 8:09 AM EST documented in this encounter Plan of Treatment Upcoming Encounters Date Type Department Care Team (Late st Contact Info) Description 02/18/2025 3:30 PM EDT Office Visit [facility] Cardiovascular Center - [place] [id number], [address] [place] [address] 03/13/2025 12:30 PM EDT Office Visit [place] [id number] [place] [address] [place] [address] Liam Houston MD [id number] [place] [address] [phone] Scheduled Procedures Name Priority Associated Diagnoses Date/Ti [...] documented as of this encounter Care Teams Titrator Relationship Specialty Start Date End Date Liam Houston MD [address] [place] [address] [phone] PCP - General Family Medicine 04/26/22 documented as of this encounter
--- OUTSIDE RECORDS SUMMARY | 2025-01-25 14:26 | XMS_ITS | Encounter Summary ---
Author Organization [facility] Address [address] [place] [address] Care Team Providers Care Deputy Administrator Name Role Phone Liam [place] MD Primary Care Provider [phone] Encounter Details Date Type Department Care Team (Late st Contact Info) Description 03/06/2012 Documentation Encounter SANJEEV V ALLSCRIPTS CONV Conversion, [...] as of this encounter Procedure Notes * Juan Manuel Cuiscmagopts - 11/19/2013 5:14 PM EDTAssociated Order(s): SCANNED RADIOLOGY - OUTSIDE AND OTHER documented in this encounter Plan of Treatment Upcoming Encounters Date Type Department Care Team (Late st Contact Info) Description 02/18/2025 3:30 PM EDT Office Visit [facility] Cardiovascular Center [facility] [address], [facility] [address] [place] [address] 03/13/2025 12:30 PM EDT Office Visit [facility] [address] [place] [address] [place] [address] [place], [place] [id number] Scheduled Procedures Name Priority Associated Diagnoses Date/Ti me WATCHMAN INSERTION Atrial fibrillation, unspecified type documented as of this encounter Procedures Procedure Name Priority Date/Time Associated Diagnosis Comments SCANNED RADIOLOGY - OUTSIDE AND OTHER 11/19/2013 5:15 PM EDT documented in this encounter Results * SCANNED RADIOLOGY - OUTSIDE AND OTHER (11/19/2013 5:15 PM EDT) Anatomical Region Laterality Modality Other Narrative 11/19/2013 5:15 PM EDT Ordered by an unspecified provider. Transcriptions Conversion, Allscripts - 11/19/2013 5:14 PM EDT us Allscripts Conversion Final Resu [...] documented as of this encounter Care Teams Deputy Administrator Relationship Specialty Start Date End Date Liam [place] MD [id number] [place] [address] [address] [place] [address] PCP - General Family Medicine 04/26/22 documented as of this encounter
--- OUTSIDE RECORDS SUMMARY | 2025-01-25 14:26 | XMS_ITS | Encounter Summary ---
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 NSTMI 12/06/11, [...] Lipitor 80 daily Exam: Looks very well, 118/60, 74, 136 lbs. EOM intact, neck supple, carotids [...] 6 months. Electronically signed by:Kodi Deras M.D. Sep 11 2012 11:10AM EST documented in this encounter Plan of Treatment Upcoming Encounters Date Type Department Care Team (Late st Contact Info) Description 02/18/2025 3:30 PM EDT Office Visit [facility] Cardiovascular Center [address], [address] [place] [address] 03/13/2025 12:30 PM EDT Office Visit [facility] Family Medicine - [place] [address] [address] [place] MD [address] [place] [address] Scheduled Procedures Name Priority Associated Diagnoses [...] documented as of this encounter Care Teams Oil Well Services Dispatcher Relationship Specialty Start Date End Date Liam [place] MD [address] [place] [address] [place] [address] PCP - General Family Medicine 04/26/22 documented as of this encounter
--- OUTSIDE RECORDS SUMMARY | 2025-01-25 14:26 | XMS_ITS | Encounter Summary ---
Author Organization [facility] Address [address] [place] [address] Care Team Providers Care Senior Water Resources Engineer Name Role Phone Liam [place] MD Primary Care Provider [phone] Encounter Details Date Type Department Care Team (Late st Contact Info) Description 11/23/2006 Documentation Encounter SANJEEV V ALLSCRIPTS CONV Stephen [...] Progress Notes * Stephen Collier MD - 11/23/2006 8:00 AM EDT Chief Complaint F/U Refills Subjective 70 year old, female here for follow-up muscle spasms. The quinine has worked well for her however does no longer available. she also has a wrote dark lesion on the back of her right kid. She wishes evaluated. The lesion on the right adventism which we treated with liquid nitrogen as resolved All other ROS otherwise neg. . Allergies [...] (V15.82). Vital Signs Recorded by alcooper on 23 Nov 2006 08:23 AM BP:138/95, HR: 72 b/min, Resp: 15 r/min, Temp: 97.4 F, Height: 64 in, Weight: 140 lb, BMI: 24 kg/m2. Objective NAD: VSS. 128/86 CHEST: CTA. CV: RRR without M/R/G. skin there is a ruff pigmented area on the right calf consistent with seborrheic keratosis . Assessment Hyperlipidemia (272.4) Osteoporosis (733.00) Muscle spasm (728.85) Orders Tizanidine HCl 2 MG Tablet;1 TABS PO bid; Qty60; R1; Rx. Plan One seborrheic keratosis treated with liquid nitrogen given a trial of Zanaflex for her muscle spasms and will see her in February. Signature Signed By: Stephen Collier M.D.; 11/23/2006 1:03 PM EST. documented in this encounter Plan of Treatment Upcoming Encounters Date Type Department Care Team (Late st Contact Info) Description 02/18/2025 3:30 PM EDT Office Visit [address] [place], [facility] [address] [place] [address] 03/13/2025 12:30 PM EDT Office Visit [place] [address] [facility] [address] [place] [address] [place] [address] [facility] [address] [place] [address] Scheduled Procedures Name Priority Associated [...] documented as of this encounter Care Teams Senior Water Resources Engineer Relationship Specialty Start Date End Date Liam [place] [id number] [place] [address] [address] [place] [address] PCP - General Family Medicine 04/26/22 documented as of this encounter
--- OUTSIDE RECORDS SUMMARY | 2025-01-25 14:26 | XMS_ITS | Encounter Summary ---
Author Organization [facility] Address [address] [place] [address] Care Team Providers Care Book Binder Name Role Phone Liam [place] MD Primary Care Provider [phone] Encounter Details Date Type Department Care Team (Late st Contact Info) Description 03/01/2007 Documentation Encounter SANJEEV V ALLSCRIPTS CONV Stephen [...] Progress Notes * Stephen Collier MD - 03/01/2007 8:00 AM EDT Chief Complaint medication refill, flu shot and follow-up Subjective 71 year old, female here for flu shot follow-up on hyperlipidemia. She continues to take Fosamax for her osteoporosis and state she is doing well. She is getting some walking exercise. Zanaflex is working well for her muscle spasms All other ROS otherwise neg. . Allergies [...] Tobacco Use (V15.82). Vital Signs Recorded by gbacolor on 01 Mar 2007 08:10 AM BP:123/78, HR: 76 b/min, Resp: 16 r/min, Temp: 97.8 F, Height: 64 in, Weight: 139 lb, BMI: 23.9 kg/m2. Objective VITAL SIGNS: Noted. E: PERRL/EOMI [...] directive given Flu shot done 04/13/06. Plan Medication refills as above. Flu vaccine provided and we will see her in May for a full physical exam and it will be time for her mammogram. She is asked to come fasting. Will also do a pelvic exam, although patient has had a hysterectomy. Signature Signed By: Stephen Collier M.D.; 03/01/2007 12:34 PM EST. documented in this encounter Plan of Treatment Upcoming Encounters Date Type Department Care Team (Late st Contact Info) Description 02/18/2025 3:30 PM EDT Office Visit [address], [facility] [address] [place] [address] 03/13/2025 12:30 PM EDT Office Visit [facility] Medicine - [place] [id number] [place] [address] [place] [address] [address] Scheduled Procedures Name Priority Associated Diagnoses Date/Ti [...] documented as of this encounter Care Teams Book Binder Relationship Specialty Start Date End Date Liam [place] MD [id number] [place] [address] PCP - General Family Medicine 04/26/22 documented as of this encounter
--- OUTSIDE RECORDS SUMMARY | 2025-01-25 14:26 | XMS_ITS | Encounter Summary ---
Author Organization [facility] Address [address] [place] [address] Care Team Providers Care Reception Clerk Name Role Phone Liam [place] MD Primary Care Provider [phone] Reason for Referral * Radiology - Closed Specialty Diagnoses / Procedures Referred By Contac t Referred To Contact Radiology Diagnoses Bone disease Procedures DX BONE DENSITY HIP PELVIS SPINE Soren Santamaria MD [facility] Radiology [facility] - [address] - [address] [place] [address] Phone: tel: fax: Referral ID Status Reason Start Date Expiration Date Visits Re quested Visits Authorized [id number] Closed 04/12/2018 04/12/2019 1 1 Encounter Details Date Type Department Care Team ([facility] st Contact Info) Description 04/12/2018 Orders Only [facility] Endocrinology - [place] [address] [facility], [address] [place] [address] Soren Santamaria MD Bone disease Social History Tobacco Use Types Packs/Day Years [...] Visit [facility] Cardiovascular [facility] [address], [address] [place] [address] 03/13/2025 12:30 PM EDT Office Visit [facility] [address] [place] [address] [place] [address] [place] [address] Scheduled Procedures Name Priority Associated Diagnoses Date/Ti me WATCHMAN INSERTION Atrial fibrillation, unspecified type documented as of this encounter Procedures Procedure Name Priority Date/Time Associated Diagnosis Comments DEXA BONE DENSITY HIP PELVIS SPINE Routine 04/19/2018 10:10 AM EST Bone disease documented in this encounter Results * DX BONE DENSITY HIP PELVIS SPINE (04/19/2018 10:10 AM EST) Anatomical Region Laterality Modality Region of interest Mammography 04/19/2018 10:4 3 AM EST Impressions 04/19/2018 10:44 AM EST Osteoporosis (severely reduced bone density) of the Lumbar Spine. Osteoporosis (severely reduced bone density) of the Femoral Neck. Osteoporosis (severely reduced bone density) of the Total Hip. Note: *A medical evaluation for secondary causes of low BMD may be appropriate. Consider referral to a specialist versed in the management of metabolic bone disease. *In pre-menopausal females, children, and men younger than 50 years of age, Z- scores, not T-scores, are preferred for diagnostic and treatment decisions. Fracture risk in premenopausal females and in males less than 50 years of age is substantially less than postmenopausal women. *Osteoporosis cannot be diagnosed in men under age 50 on the basis of BMD alone due to lower overall risk of fracture. *WHO diagnostic criteria may be applied to women in the menopausal transition. (ISCD 2007) Read By Jas Yan M.D. Electronically Verified By - Suellen Yan M.D. Released Date Time - 04/19/2018 10:44 AM Resident - Narrative 04/19/2018 10:44 AM EST Referral Report - Bone Density Test History: Postmenopausal Limitations:none AP Spine(L1, 2, 4): BMD 0.730 (g/cm2) ; T-score: -2.8; Z-score: -0.1 Femoral Neck (Left): BMD 0.538 (g/cm2); T-score: -2.8; Z-score: -0.5; Total Hip (Left): BMD 0.582 (g/cm2); T-score: -3.0; Z-score: -0.9; FRAX not reported because:Some T-scores at or below -2.5 FRAX Version 3.05. Fracture probability calculated for an untreated patient. Fracture probability may be lower if the patient has received treatment. This test includes values called the T-score and the Z-score. The T-score compares the current study to bone density of a young healthy population and the Z-score compares the current study to an age and gender matched reference population. The T-score can be evaluated according to the criterion established by the World Health Organization (WHO) as follows: If the T-score is -1 or above the subject may be normal (adequate bone density) If the T-score is between -1 and -2.5 the subject may be osteopenic (reduced bone density) If the T-score is below -2.5 the subject may be osteoporotic (severely reduced bone density) Procedure Note Suellen Yan MD - 04/19/2018 Referral Report - Bone Density Test History: Postmenopausal Limitations:none AP Spine(L1, 2, 4): BMD 0.730 (g/cm2) ; T-score: -2.8; Z-score:-0.1 Femoral Neck (Left): BMD 0.538 (g/cm2); T-score: -2.8; Z-score:-0.5; Total Hip (Left): BMD 0.582 (g/cm2); T-score: -3.0; Z-score: -0.9; FRAX not reported because:Some T-scores at or below -2.5 FRAX Version 3.05. Fracture probability calculated for an untreated patient. Fracture probability may be lower if the patient has received treatment. This test includes values called the T-score and the Z-score. The T- scorecompares the current study to bone density of a young healthy population and the Z-scorecompares the current study to an age and gender matched reference population. The T-score can beevaluated according to the criterion established by the World Health Organization (WHO) asfollows: If the T-score is -1 or above the subject may be normal (adequate bonedensity) If the T-score is between -1 and -2.5 the subject may be osteopenic(reduced bone density) If the T-score is below -2.5 the subject may be osteoporotic (severelyreduced bone density) IMPRESSION: Osteoporosis (severely reduced bone density) of the Lumbar Spine. Osteoporosis (severely reduced bone density) of the Femoral Neck. Osteoporosis (severely reduced bone density) of the Total Hip. Note: *A medical evaluation for secondary causes of low BMD may be appropriate.Consider referral to a specialist versed in the management of metabolic bone disease. *In pre-menopausal females, children, and men younger than 50 years ofage, Z- scores, not T-scores, are preferred for diagnostic and treatment decisions. Fracturerisk in premenopausal females and in males less than 50 years of age is substantially less thanpostmenopausal women. *Osteoporosis cannot be diagnosed in men under age 50 on the basis of BMDalone due to lower overall risk of fracture. *WHO diagnostic criteria may be applied to women in the menopausaltransition. (ISCD 2007) Read By Jas Yan M.D. Electronically Verified By - Suellen Yan M.D. Released Date Time - 04/19/2018 10:44 AM Resident - Soren FIGUEREDO JX GERBER ORDERABLES Final R esult documented in this encounter Visit Diagnoses Diagnosis Bone disease Disorder of bone and cartilage, unspecified documented in this encounter Additional Health Concerns Infection Onset Date Last Indicated Resolved Time COVID-19 Rule-Out 11/24/2020 11/24/2020 11/24/2020 10:21 PM EDT COVID-19 (Confirmed) 11/24/2020 12/10/20202 021 3:03 AM EDT COVID-19 Rule-Out 11/24/2020 11/25/2020 11/25/2020 5:14 AM EDT documented as of this encounter Care Teams Reception Clerk Relationship Specialty Start Date End Date [place] [id number] [place] [address] [address] [place] [address] PCP - General Family Medicine 04/26/22 documented as of this encounter
--- OUTSIDE RECORDS SUMMARY | 2025-01-25 14:26 | XMS_ITS | Encounter Summary ---
Author Organization [facility] Address [address] [place] [address] Care Team Providers Care Custody Assistant Name Role Phone Liam [place] MD Primary Care Provider [phone] Encounter Details Date Type Department Care Team (Late st Contact Info) Description 07/24/2006 Documentation Encounter SANJEEV V ALLSCRIPTS CONV Stephen [...] Progress Notes * Stephen Collier MD - 07/24/2006 10:35 AM EDT Chief Complaint check spot on face and foot Subjective 70 year old, female here for follow-up on hyperlipidemia. In May she was changed from lovastatin to simvastatin as cholesterol was not near ago. She is fasting with the exception of her calcium chews. Patient also has a mole or spot on her right hinduism. 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 Patient also believes she may have a foreign body in her foot she has sore spot which is hard and its painful when she walks All other ROS otherwise neg. . Allergies No Known Drug Allergy. Current Meds Fosamax 10 MG Tablet;TAKE 1 TABLET DAILY.; Rx Simvastatin 40 MG Tablet;TAKE 1 TABLET BEDTIME; Rx. 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 PMH Conjunctivitis Resolved (372.30) Hyperlipidemia (272.4) Osteoporosis (733.00). PSH Hysterectomy (V45.77). Family Hx Family history of Coronary Artery Disease Family history of Ischemic Stroke. Personal Hx No Alcohol Use No Tobacco Use (V15.82). Vital Signs Recorded by gbacolor on 24 Jul 2006 10:35 AM BP:132/80, HR: 74 b/min, Resp: 16 r/min, Temp: 97.5 F, Height: 64 in, Weight: 140 lb, BMI: 24 kg/m2. Objective NAD: VSS. CHEST: CTA. CV: RRR without M/R/G. scan there is a seborrheic keratosis type lesion in it is approximately 2 to 3 mm in diameter and round on the right hinduism. Extremities examination of the sole of the foot reveals a corn in the metatarsal plantar surface. . Assessment Normal examination (V70.0) Hyperlipidemia (272.4) Osteoporosis (733.00) Corns (700) Health Mgmt Plan Pap smear, breast exam and Hemoccult done 02/2005 Mammogram done 12/2004 Colon exam done 2003 Advance directive given Flu shot done 04/13/06. Plan Will recheck cholesterol and LFTs Will see her back in one month. She may try [id number] corn remover but if unsuccessful will tear of the corn on a visit and would like to re-examine the lesion on the right hinduism. Lesion is treated with liquid nitrogen. Signature Signed By: Stephen Collier M.D.; 07/24/2006 12:21 PM EST. documented in this encounter Plan of Treatment Upcoming Encounters Date Type Department Care Team (Late st Contact Info) Description 02/18/2025 3:30 PM EDT Office Visit [facility] Cardiovascular Center [facility] [address] [place] [address] [place], [facility] [address] [place] [address] 03/13/2025 12:30 PM EDT Office Visit [facility] - [place] [address] [place] [address] [place] [address] Liam [place] [id number] [place] [address] [place] [phone] Scheduled Procedures Name Priority Associated Diagnoses Date/Ti [...] documented as of this encounter Care Teams Custody Assistant Relationship Specialty Start Date End Date Liam [place] MD [id number] [place] [id number] PCP - General Family Medicine 04/26/22 documented as of this encounter
--- OUTSIDE RECORDS SUMMARY | 2025-01-25 14:27 | XMS_ITS | Encounter Summary ---
Author Organization [facility] Address [address] [place] [address] Care Team Providers Care Electronics Engineering Professor Name Role Phone Liam [place] MD Primary Care Provider [phone] Encounter Details Date Type Department Care Team (Late st Contact Info) Description 01/26/2006 Documentation Encounter SANJEEV V ALLSCRIPTS CONV Stephen [...] Progress Notes * Stephen Collier MD - 01/26/2006 1:05 PM EDT Chief Complaint follow up Subjective 70 year old, female here for repeated falls. Patient has had three or four falls recently which hasgiven concern to her family. She has no dizziness are any other medical symptoms she describes eachfall one over a curb while visiting [place] storms or great and one off of an ill fitting bicycle she was trying out at the store. None of these events appear to be anything more than tripping. We have done a head CT in full exam which is unremarkable. All other ROS otherwise neg. . Allergies [...] Tobacco Use (V15.82). Vital Signs Recorded by tdunn on 26 Jan 2006 12:49 PM BP:140/80, HR: 92 b/min, Resp: 15 r/min, Temp: 97.6 F, Weight: 140 lb. Objective Walk about the clinic with patient during our visit there is no instability no loss of balance or any neurological deficit appreciated. Assessment A fall (E888.9) Osteoporosis (733.00) Health Mgmt Plan Pap smear, breast exam and Hemoccult done 02/2005 Mammogram done 12/2004 Colon exam done 2003 Advance directive given . Plan Given the negative workup, negatives and, acceptable medications, will defer any further workup however should it recur or continue our occur with any other changes will consider neurological consultand further testing. Patient is asked to return in February for influenza vaccine. Patient is referred to audiology for testing of the right ear. Signature Signed By: Stephen Collier M.D.; 01/26/2006 1:43 PM EST. documented in this encounter Plan of Treatment Upcoming Encounters Date Type Department Care Team (Late st Contact Info) Description 02/18/2025 3:30 PM EDT Office Visit [facility] Cardi[facility] Center [facility] [address] [place] [address] 03/13/2025 12:30 PM EDT Office Visit [facility] Family Medicine - [place] [address] [place] [phone] [place] [address] [place] [address] Scheduled Procedures Name Priority Associated [...] documented as of this encounter Care Teams Electronics Engineering Professor Relationship Specialty Start Date End [place] [address] [place] [address] [address] [place] [address] PCP - General Family Medicine 04/26/22 documented as of this encounter
--- OUTSIDE RECORDS SUMMARY | 2025-01-25 14:27 | XMS_ITS | Encounter Summary ---
Author Organization [facility] Address [address] [place] [address] Care Team Providers Care Media Traffic Manager Name Role Phone Liam [place] MD Primary Care Provider [phone] Encounter Details Date Type Department Care Team (Late st Contact Info) Description 10/19/2005 Documentation Encounter SANJEEV V ALLSCRIPTS CONV Stephen [...] Progress Notes * Stephen Collier MD - 10/19/2005 12:45 PM EDT Chief Complaint procedure Subjective 69 year old, female here for tx of SK on left sabianism and suspicious on right. Discussed shaving right lesion for path. All other ROS otherwise neg. . Allergies No Known Drug Allergy. Current Meds Zocor 40 MG Tablet;TAKE 1 TABLET DAILY.; RPT Premarin 0.625 MG Tablet;TAKE 1 TABLET DAILY.; RPT Polymyxin B-Trimethoprim 03406-5.1 UNIT/ML-% Solution;APPLY TO AFFECTED EYE(S) EVERY 3-4 HOURS.; Rx Fosamax 10 MG Tablet;TAKE 1 TABLET DAILY.; Rx. 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 PMH Conjunctivitis (372.30) Hyperlipidemia (272.4) Osteoporosis (733.00). PSH Hysterectomy (V45.77). Family Hx Family history of Coronary Artery Disease Family history of Ischemic Stroke. Personal Hx No Alcohol Use No Tobacco Use (V15.82). Vital Signs Recorded by tdunn on 19 Oct 2005 12:46 PM BP:150/86, HR: 74 b/min, Resp: 15 r/min, Temp: 97.3 F, Weight: 138.5 lb. 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 benefits of the surgical procedure including pain, injection, bleeding, paresthesia, and scaring. The patient was prepped and draped in sterile fashion and 1/2 1cc 1% lidocaine w/epi injected and shave Bx performed.. Patient was advised to post surgical wound-care and to call back if any signs of infection appear or if she has any other questions. Will refer for Moh's if Ca. 1 SK on right sabianism Tx w/ LN. Signature Signed By: Stephen Collier M.D.; 10/19/2005 2:23 PM EST. documented in this encounter Plan of Treatment Upcoming Encounters Date Type Department Care Team (Late st Contact Info) Description 02/18/2025 3:30 PM EDT Office Visit [facility] Cardiovascular [address] [place], [facility] [address] [place] [phone] 03/13/2025 12:30 PM EDT Office Visit [facility] Family Medicine - [place] [id number] [facility] [address] [place] [address] Liam [place] 3[address] [place] [address] Scheduled Procedures Name Priority Associated [...] as of this encounter Care Teams Media Traffic Manager Relationship Specialty Start Date End Date Liam [place] MD [address] [place] [address] PCP - General Family Medicine 04/26/22 documented as of this encounter
--- OUTSIDE RECORDS SUMMARY | 2025-01-25 14:27 | XMS_ITS | Encounter Summary ---
Author Organization [facility] Address [address] [place] [address] Care Team Providers Care Nurse Ob Name Role Phone Liam [place] MD Primary Care Provider [phone] Encounter Details Date Type Department Care Team (Late st Contact Info) Description 01/05/2005 Documentation Encounter SANJEEV V ALLSCRIPTS CONV Aspen [...] Progress Notes * Aspen Licona MD - 01/05/2005 8:30 AM EDT PATIENT NAME: RE ALAS DATE OF : 1935 DATE OF SERVICE: 01/05/2005 S: Ms. Alas is a 69-year-old who is here for follow-up on hypocholesterolemia. The patient was recently switched from ZOCOR 40 to LOVASTATIN 40 due to coughs considerations. The patient also statesthat she has recently noted that her hearing in her right ear appears to be worse than the left. She cannot determine when this occurred but has only noticed it in recent weeks. She has had no history of infections. She had no pain or discomfort. PHYSICAL EXAMINATION: HEENT: PERRLA, EOMI. OP is clear. NECK: Supple. Tympanic membranes are clear bilaterally, no effusions, no impaction. LUNGS AND CHEST: Clear to auscultation in all acosta. HEART: Regular rate and rhythm. Audiology shows decreased hearing right when compared to left. ASSESSMENT AND PLAN: 1. Hypercholesterolemia. 2. Decreased hearing in right ear. Will obtain LFTs and lipids. The patient is referred for audiology/ENT evaluation. ASPEN LICONA MD D: [id number] MT: [id number] Dictator: [id number] Confirmation Number: [id number] ([id number]) Electronically signed by:Cathy Licona M.D. Jan 05 2005 6:03PM EST documented in this encounter Plan of Treatment Upcoming Encounters Date Type Department Care Team (Late st Contact Info) Description 02/18/2025 3:30 PM EDT Office Visit [facility] Cardiovascular Center [address], [facility] [address] [place] [phone] 03/13/2025 12:30 PM EDT Office Visit [facility] Family Medicine - [address] [place] [address] Liam [place] MD [address] [place] [address] [address] [place] [id number] Scheduled Procedures Name Priority Associated Diagnoses Date/Ti me WATCHMAN INSERTION Atrial fibrillation, unspecified type documented as of this encounter Visit Diagnoses Not on filedocumented in this encounter Additional Health Concerns Infection Onset Date Last Indicated Resolved Time None 10/20/2011 10/20/2011 07/15/2012 12:4 0 AM EST COVID-19 Rule-Out 11/24/2020 11/24/2020 11/24/2020 10:21 PM EDT COVID-19 (Confirmed) 11/24/2020 12/10/2020 08/05/2 021 3:03 AM EDT COVID-19 Rule-Out 11/24/2020 11/25/2020 11/25/2020 5:14 AM EDT documented as of this encounter Care Teams Nurse Ob Relationship Specialty Start Date End Date Liam [place] [address] [place] [address] [address] [place] [id number] PCP - General Family Medicine 04/26/22 documented as of this encounter
--- OUTSIDE RECORDS SUMMARY | 2025-01-25 14:27 | XMS_ITS | Encounter Summary ---
Author Organization [facility] Address [address] [place] [address] Care Team Providers Care Warp Placer Name Role Phone Liam [place] MD Primary Care Provider [phone] Encounter Details Date Type Department Care Team (Late st Contact Info) Description 08/08/2005 Documentation Encounter SANJEEV V ALLSCRIPTS CONV Conversion, [...] Reading Time Taken Comments Blood Pressure 128/77 08/08/2005 1:06 PM EST Pulse 93 08/08/2005 1:06 PM EST Temperature 36.4 C (97.6 F) 08/08/2005 1:06 PM EST Respiratory Rate 15 08/08/2005 1:06 PM EST Oxygen Saturation - - Inhaled Oxygen Concentration - - Weight 63.5 kg (140 lb) 08/08/2005 1:06 PM EST Height - - Body Mass Index - - documented in this encounter Plan of Treatment Upcoming Encounters Date Type Department Care Team (Late st Contact Info) Description 02/18/2025 3:30 PM EDT Office Visit [facility] Cardiovascular [place] [address] [address], [facility] [address] [place] [address] 03/13/2025 12:30 PM EDT Office Visit [facility] [address] [place] [address] [place] [phone] [place] [id number] [phone] Scheduled Procedures Name Priority Associated Diagnoses Date/Ti [...] documented as of this encounter Care Teams Warp Placer Relationship Specialty Start Date End Date Liam [place] [id number] [place] [address] [id number] PCP - General Family Medicine 04/26/22 documented as of this encounter
--- OUTSIDE RECORDS SUMMARY | 2025-01-25 14:27 | XMS_ITS | Encounter Summary ---
Author Organization [facility] Address [address] [place] [address] Care Team Providers Care Financial Health Counselor Name Role Phone Liam [place] MD Primary Care Provider [phone] Encounter Details Date Type Department Care Team (Late Contact Info) Description 04/19/2012 Documentation Encounter SANJEEV V ALLSCRIPTS CONV Conversion, [...] Sign Reading Time Taken Comments Blood Pressure 124/78 04/19/2012 8:49 AM EST Pulse 96 04/19/2012 8:49 AM EST Temperature 36.7 C (98.1 F) 04/19/2012 8:49 AM EST Respiratory Rate 16 04/19/2012 8:49 AM EST Oxygen Saturation - - Inhaled Oxygen Concentration - - Weight 60.8 kg (134 lb) 04/19/2012 8:49 AM EST Height 160 cm (5' 3 ) 04/19/2012 8:49 AM EST Body Mass Index 23.74 04/19/2012 8:49 AM EST documented in this encounter Plan of Treatment Upcoming Encounters Date Type Department Care Team (Late Contact Info) Description 02/18/2025 3:30 PM EDT Office Visit [facility] Cardiovascular Center [place] [id number], [place] [address] [place] [address] 03/13/2025 12:30 PM EDT Office Visit [facility] - [place] [address] [place] [address] [place] [address] Liam [place] MD [address] [place] [address] [address] [place], [place] [phone] Scheduled Procedures Name Priority Associated Diagnoses Date/Ti [...] documented as of this encounter Care Teams Financial Health Counselor Relationship Specialty Start Date End Date Liam [place] MD [id number] [place] [address] [address] [place], [place] [phone] PCP - General Family Medicine 04/26/22 documented as of this encounter
--- OUTSIDE RECORDS SUMMARY | 2025-01-25 14:27 | XMS_ITS | Encounter Summary ---
Author Organization [facility] Address [address] [place] [address] Care Team Providers Care Ruling Machine Operator Name Role Phone Liam [place] MD Primary Care Provider [phone] Encounter Details Date Type Department Care Team (Late st Contact Info) Description 12/01/2005 Documentation Encounter SANJEEV V ALLSCRIPTS CONV Stephen [...] Progress Notes * Stephen Collier MD - 12/01/2005 8:00 AM EDT Chief Complaint referral pt fell hurt left arm right wrist and elbow Subjective 69 year old, female here for wrist pain. Patient fell at the movies five days ago injuring both wrists and her right elbow the right wrist is still quite bruised however she states that the left one is more painful. She has had no impairment of the use of her wrist. The right elbow is mostly scraped. All other ROS otherwise neg. . Allergies No Known Drug Allergy. Current Meds Zocor 40 MG Tablet;TAKE 1 TABLET DAILY.; RPT Premarin 0.625 MG Tablet;TAKE 1 TABLET DAILY.; RPT Polymyxin B-Trimethoprim 60129-6.1 UNIT/ML-% Solution;APPLY TO AFFECTED EYE(S) EVERY 3-4 [...] Tobacco Use (V15.82). Vital Signs Recorded by Adam Pace on 01 Dec 2005 08:09 AM BP:129/81, HR: 76 b/min, Resp: 16 r/min, Temp: 97.7 F, Weight: 132 lb. Objective Examination of both wrists show right wrist bruised and ecchymotic both wrists have full range of motion no point tenderness and neurovascularly intact. Plan Will obtain plainR of both wrist to rule out fracture. Signature Signed By: Stephen Collier M.D.; 12/01/2005 9:21 AM EST. documented in this encounter Plan of Treatment Upcoming Encounters Date Type Department Care Team (Late st Contact Info) Description 02/18/2025 3:30 PM EDT Office Visit [facility] Cardiovascular [address], [facility] [address] [place] [address] 03/13/2025 12:30 PM EDT Office Visit [facility] Family Medicine - [place] [phone] [place] [address] [place] [phone] Liam [place] MD [address] [place] [address] [address] [place] [address] Scheduled Procedures Name Priority Associated Diagnoses [...] documented as of this encounter Care Teams Ruling Machine Operator Relationship Specialty Start Date End Date Liam [place] MD [address] [place] [address] [address] [place] [address] PCP - General Family Medicine 04/26/22 documented as of this encounter
--- OUTSIDE RECORDS SUMMARY | 2025-01-25 14:27 | XMS_ITS | Encounter Summary ---
Author Organization [facility] Address [address] [place] [address] Care Team Providers Care Clinical Care Leader Name Role Phone Liam [place] MD Primary Care Provider [phone] Encounter Details Date Type Department Care Team (Late st Contact Info) Description 04/13/2006 Documentation Encounter SANJEEV V ALLSCRIPTS CONV Stephen [...] Progress Notes * Stephen Collier MD - 04/13/2006 8:30 AM EST Chief Complaint Flu shot Allergies No Known Drug Allergy. Current Meds [...] Tobacco Use (V15.82). Vital Signs Recorded by rai on 13 Apr 2006 10:27 AM Temp: 98.0 F. Immun/Injections Administered Influenza Site: left arm Manufacture: [employer] Lot #[id number] Exp: 11/10/06. Health Mgmt Plan Pap smear, breast exam and Hemoccult done 02/2005 Mammogram done 12/2004 Colon exam done 2003 Advance directive given Flu shot done 04/13/06. Signature Signed By: Stephen Collier M.D.; 04/13/2006 2:06 PM EST. documented in this encounter Plan of Treatment Upcoming Encounters Date Type Department Care Team (Late st Contact Info) Description 02/18/2025 3:30 PM EDT Office Visit [facility] Cardiovascular [address], [facility] [address] [place] [address] 03/13/2025 12:30 PM EDT Office Visit [facility] Family Medicine [address] [phone] Liam [place] MD [address] [place] [address] Scheduled Procedures Name Priority Associated Diagnoses [...] documented as of this encounter Care Teams Clinical Care Leader Relationship Specialty Start Date End Date Liam [place] MD [address] [place] [phone] PCP - General Family Medicine 04/26/22 documented as of this encounter
--- OUTSIDE RECORDS SUMMARY | 2025-01-25 14:27 | XMS_ITS | Encounter Summary ---
Author Organization [facility] Address [address] [place] [address] Care Team Providers Care Turbine Mechanic Name Role Phone Liam [place] MD Primary Care Provider [phone] Encounter Details Date Type Department Care Team (Late st Contact Info) Description 11/22/2005 Documentation Encounter SANJEEV V ALLSCRIPTS CONV Conversion, [...] Sign Reading Time Taken Comments Blood Pressure 146/86 11/22/2005 8:10 AM EDT Pulse 78 11/22/2005 8:10 AM EDT Temperature 36.3 C (97.4 F) 11/22/2005 8:10 AM EDT Respiratory Rate 15 11/22/2005 8:10 AM EDT Oxygen Saturation - - Inhaled Oxygen Concentration - - Weight 63.3 kg (139 lb 8 oz) 11/22/2005 8:10 AM EDT Height - - Body Mass Index - - documented in this encounter Plan of Treatment Upcoming Encounters Date Type Department Care Team (Late st Contact Info) Description 02/18/2025 3:30 PM EDT Office Visit [facility] Cardiovascular Center [place] [address] [address], [place] [address] [place] [address] 03/13/2025 12:30 PM EDT Office Visit [facility] - [place] [id number] [place] [phone] [place] [address] [address] Scheduled Procedures Name Priority Associated Diagnoses Date/Ti [...] documented as of this encounter Care Teams Turbine Mechanic Relationship Specialty Start Date End Date Liam [place] MD [id number] [place] [address] PCP - General Family Medicine 04/26/22 documented as of this encounter
--- OUTSIDE RECORDS SUMMARY | 2025-01-25 14:27 | XMS_ITS | Encounter Summary ---
Author Organization [facility] Address [address] [place] [address] Care Team Providers Care Sales Manager [place] Name Role Phone Liam [place] MD Primary Care Provider Encounter Details Date Type Department Care Team (Late st Contact Info) Description 09/26/2004 Documentation Encounter SANJEEV V ALLSCRIPTS CONV Aspen [...] Progress Notes * Aspen Licona MD - 09/26/2004 11:20 AM EDT PATIENT NAME: RE ALAS DATE OF : 1935 DATE OF SERVICE: 09/26/2004 S: Ms. Alas is a 68-year-old who is here for follow up on conjunctivitis. The patient was previously seen on September 01. She was given POLYTRIM drops. It seemed to clear her eyes. However, she misplaced the drops after one week of treatment and the redness eventually came back. She has seen an truss builder who has checked her for glaucoma and done an exam. He states that her pressure is fine. She has extremely small cataracts which may need attention in several years. The patient does state there is crusting particularly about the right eye when she awakens. She has no known seasonal allergies. O: Physical exam: Eyes: PERRLA. EOMI. There is mild homogeneous injection of the right conjunctiva.No tearing. Funduscopy is unremarkable. There is some clouding of the lens. Left eye is also mild lens clouding. There is some injection, but much less than right. A: Conjunctivitis, possibly allergic. P: The patient is given a trial of PATANOL one drop in each eye b.i.d. Should this not resolve the problem she is to call. ASPEN LICONA MD D: [id number] MT: [id number] Dictator: [id number] Confirmation Number: [id number]) Electronically signed by:Cathy Licona M.D. Sep 28 2004 3:00PM EST documented in this encounter Plan of Treatment Upcoming Encounters Date Type Department Care Team (Late st Contact Info) Description 02/18/2025 3:30 PM EDT [facility] [address] [place] [address] [facility] [address] [place] [phone] 03/13/2025 12:30 PM EDT Office Visit [facility] - [address] [address] Liam [place] [id number] [place] [address] Scheduled Procedures Name Priority Associated Diagnoses [...] as of this encounter Care Teams Sales Manager [place] Relationship Specialty Start Date End Date Liam [place] [id number] [place] [address] [address] [place] [address] PCP - General Family Medicine 04/26/22 documented as of this encounter
--- OUTSIDE RECORDS SUMMARY | 2025-01-25 14:27 | XMS_ITS | Encounter Summary ---
Author Organization [facility] Address [address] [place] [address] Care Team Providers Care Patient Financial Rep Name Role Phone Liam [place] MD Primary Care Provider [phone] Encounter Details Date Type Department Care Team (Late st Contact Info) Description 01/17/2006 Documentation Encounter SANJEEV V ALLSCRIPTS CONV Stephen [...] Progress Notes * Stephen Collier MD - 01/17/2006 8:30 AM EDT Chief Complaint trouble with balance Subjective 70 year old, female here for also balance. Patient states she has fallen three times recently. She does not describe symptoms consistent with vertigo but easily loses balance with even minor obstructions. Review of systems is otherwise negative she did develop some hearing problems over the past year or so. She was referred to, and seen by ear nose and throat. no diagnosis was made except that she recollected being told she had small here canals. ENT consult is requested. All other ROS otherwise neg. . Allergies No Known Drug Allergy. Current Meds Zocor 40 MG Tablet;TAKE 1 TABLET DAILY.; RPT Premarin 0.625 MG Tablet;TAKE 1 TABLET DAILY.; RPT Polymyxin B-Trimethoprim 34442-0.1 UNIT/ML-% Solution;APPLY TO AFFECTED EYE(S) EVERY 3-4 HOURS.; Rx Fosamax 10 MG Tablet;TAKE 1 TABLET DAILY.; Rx. Past Meds Zocor 40 MG Tablet;TAKE 1 TABLET DAILY; Qty0; R0; RPT. Premarin 0.625 MG Tablet;TAKE 1 TABLET DAILY; Qty0; R0; RPT. 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 PMH Conjunctivitis (372.30) Hyperlipidemia (272.4) Osteoporosis (733.00). PSH Hysterectomy (V45.77). Family Hx Family history of Coronary Artery Disease Family history of Ischemic Stroke. Personal Hx No Alcohol Use No Tobacco Use (V15.82). Vital Signs Recorded by tdunn on 17 Jan 2006 08:34 AM BP:150/88, HR: 84 b/min, Resp: 15 r/min, Temp: 98.0 F, Weight: 140 lb. Objective VITAL SIGNS: Noted. E: PERRL/EOMI conjunctivae clear. HNT: OP clear, no lymphadenopathy, tympanic membranes clear B/L. RESPIRATORY: Lungs CTA bilaterally no wheezes, rales, or rhonchi, NL respiratory effort. CARDIOVASCULAR: RRR no rubs or murmurs, no carotid bruits. ABDOMEN: Soft, nontender, BS present. MS: Full range of motion, no deformities noted. NEUROLOGIC: CN II-XII grossly intact, NL gate. negative Romberg. Patient appreciates vibratory sense on both lower extremities . Assessment A fall (E888.9) Hyperlipidemia (272.4) Osteoporosis (733.00) Plan Recheck cholesterol. Patient is referred for CT of the temporal bone. Discussed with her fall precautions and use of an ambulatory aid. Patient does not believe this would be helpful as she normally ambulates fine and when she does fall or lose balance it is spontaneous. Patient is to report any change in symptoms or non-resolution. Worsening of symptoms are to reported immediately. . Signature Signed By: Stephen Collier M.D.; 01/17/2006 11:40 AM EST. documented in this encounter Plan of Treatment Upcoming Encounters Date Type Department Care Team (Late st Contact Info) Description 02/18/2025 3:30 PM EDT Office Visit [facility] Cardiovascular [place] [address] [address], [place] [address] [place] [address] 03/13/2025 12:30 PM EDT Office Visit [facility] [address] [phone] Liam [place] MD [id number] [place] [address] Scheduled Procedures Name Priority Associated Diagnoses [...] as of this encounter Care Teams Patient Financial Rep Relationship Specialty Start Date End Date Liam [place] MD [address] [place] [phone] PCP - General Family Medicine 04/26/22 documented as of this encounter
--- OUTSIDE RECORDS SUMMARY | 2025-01-25 14:27 | XMS_ITS | Referral Summary ---
Author Organization [facility] Address [address] [place] [address] Care Team Providers Care Product Support Manager Name Role Phone Liam Houston MD Primary Care Provider [phone] Encounters Date Type Department Care Team Description 12/04/[address] [place] [phone] Liam Houston MD Medications Refill 12/03/2024 Telephone Formerly [facility] [id number] [place] [address] [phone] Liam Houston MD Medical Question/Inquiry; Urgent 11/25/[address] [place] [phone] Trent Tavarez MD Medications Refill 11/25/[address] [place] [phone] Liam Houston MD Medications Refill 11/18/2024 1:30 PM EDT Office Visit [facility] [place] [address] [address], [facility] [address] [place] [address] DomValencia hernández APRN Atrial fibrillation, unspecified type; Near syncope; Tachy-armida syndrome; History of aortic regurgitation 10/27/2024 Refill Formerly [facility] [id number] [place] [address] [address] [place] [address] Liam Houston MD Medications Refill from Last 3 Months Allergies Active Allergy Reactions Criticality Noted Date Comments Fluorouracil Rash Low 10/15/2024 Medications calcium carbonate-vitamin D 600-400 MG-UNIT PO TabletIndications: Localized osteoporosis, unspecified pathological fracture presence Take 1 tablet by mouth daily. 30 tablet 12 8 Active latanoprost (XALATAN) 0.005 % Ophthalmic Solution INSTILL 1 DROP AT BEDTIME INTO EACH EYE 2 Active Zinc 50 MG Oral Tablet by mouth. Pt takes 50 in am and 50 in pm Active meclizine (ANTIVERT) 25 MG Oral TabletIndications: Dizziness TAKE 1 TABLET BY MOUTH THREE TIMES DAILY NEEDED FOR DIZZINESS 90 tablet 2 4 Active metoprolol succinate (TOPROL-XL) 100 MG Oral Tablet Extended Release 24 HourIndications:Es sential hypertension with goal blood pressure less than 140/90 Take 1 (one) tablet by mouth daily. 90 tablet 1 5 Active levothyroxine 125 MCG Oral TabletIndications: Hypothyroidism due to acquired atrophy of thyroid Take 1 (one) tablet by mouth daily. 90 tablet 1 5 Active fluorouracil (EFUDEX) 5 % External Cream Apply 5 % topically. 5 Active amitriptyline (ELAVIL) 25 MG Oral TabletIndications: Frequent headaches Take 1 (one) tablet by mouth nightly at bedtime. 90 tablet 1 5 Active atorvastatin (LIPITOR) 80 MG Oral TabletIndications: Hyperlipidemia LDL goal <130 TAKE 1 TABLET BY MOUTH NIGHTLY AT BEDTIME 90 tablet 5 Active Eliquis 2.5 MG Oral TabletIndications: Paroxysmal atrial fibrillation Take 1 tablet by mouth twice daily 180 tablet 5 Active acetaminophen-code ine (TYLENOL #4) 300-60 MG Oral TabletIndications: Primary osteoarthritis involving multiple joints Take 1 (one) tablet by mouth 3 times daily as needed for pain. FOR PAIN 75 tablet 5 Active alendronate (FOSAMAX) 70 MG Oral TabletIndications: Osteoporosis, unspecified osteoporosis type, unspecified pathological fracture presence Take 1 (one) tablet by mouth every 7 days. Take in AM with a full glass of water on empty stomach. Do not eat, drink or lie down for next 30 min. 12 tablet 3 5 Active Active Problems Problem Noted Date Diagnosed Date Primary osteoarthritis involving multiple joints 11/01/2020 Controlled substance agreement signed 12/03/2017 S/P CABG (coronary artery bypass graft) 12/19/19 17 CAD in [place] artery 12/18/2016 Closed compression fracture of lumbar vertebra 0 06/21/2016 Closed fracture of tenth thoracic vertebra 11/07 Aortic valve disease 11/08/2015 Left bundle branch block (LBBB) 11/08/2015 Actinic keratosis 05/21/2012 Overview (11/09/2013): Allscripts Description: Actinic Keratosis (Created by Conversion) Acute myocardial infarction, subendocardial infarction, subsequent episode of care 12/27/2011 Overview (11/09/2013): Allscripts Description: Non-Q-wave Myocardial Infarction - Subsequent Care Recent DE (8 Wks) (Created by Conversion) Coronary atherosclerosis of [place] coronary morelia ry 12/20/2011 Overview (11/09/2013): Allscripts Description: 2-vessel Coronary Artery Stenosis (Created by Conversion) Hypothyroidism 05/16/2011 Overview (11/09/2013): Allscripts Description: Hypothyroidism (Created by Conversion) Essential hypertension with goal blood pressure less than 140/90 02/03/2008 Overview (11/09/2013): Allscripts Description: Benign Essential Hypertension (Created by Conversion) Mixed incontinence urge and stress (male)(female ) 01/20/2008 Overview (11/09/2013): Allscripts Description: Urge And Stress Incontinence (Created by Conversion) Spasm of muscle 11/23/2006 Overview (11/09/2013): Allscripts Description: Muscle Spasm (Created by Conversion) Osteoporosis 01/26/2005 Overview (11/09/2013): Allscripts Description: Osteoporosis (Created by Conversion) Hyperlipidemia LDL goal <130 01/26/2005 Overview (11/09/2013): Allscripts Description: Hyperlipidemia (Created by Conversion) Resolved Problems Problem Noted Date Diagnosed Date Resolved Date COVID-19 11/27/2020 01/18/2021 Counseling on injury prevention 03/25/2013 12/17/2013 Overview (11/09/2013): Allscripts Description: Anticipatory Guidance: Preventing Falls (Created by Conversion) Other abnormal glucose 05/23/201204/29 Overview (11/09/2013): Allscripts Description: Abnormal Glucose (Created by Conversion) Follow-up examination, follo wing unspecified surgery 12/27/2011 12/17/2013 Overview (11/09/2013): Allscripts Description: Visit For: Postsurgical Exam (Created by Conversion) CAD (coronary artery disease) 12/11/2011 12/15/2015 Dysfunction of eustachian tube 10/06/2009 02/27/2019 Overview (11/09/2013): Allscripts Description: Eustachian Tube Dysfunction (Created by Conversion) ROUTINE MEDICAL EXAM 03/07/2005 015 Overview (11/09/2013): Allscripts Description: Normal Examination (Created by Conversion) Routine general medical exam ination at a health care facility 04/29/2015 Overview (11/09/2013): Allscripts Description: Normal Routine History And Physical Senior Citizen (65- 80) (Created by Conversion) Immunizations Immunization Administration Dates Next Due ADACEL, BOOSTRIX, Tdap Vacci ne, (7 yo and older), IM (UKR=626) 12/12/2023 FLUZONE HIGH-DOSE (65Y & OLD ER) 0.5 ML IM SYR 04/03/2024 FLUZONE HIGH-DOSE (65Y & OLD ER) 0.7 ML IM SYR 02/14/2023,02/06/2022,02/14/2021,01/12 Flu Vaccine, 65 and older, F LUZONE High Dose, TRIV, Pre-filled syr, IM (EDR=222) 02/25/2019,02/04/2018,01/31/2017,01/13 Flu vaccine (6mo and older) TRIVALENT,LATEX-FREE,w/preserv, Split IM, MDV 01/28/2015,02/13/2014 MODERNA (12Y&Older) 0.5 ML IM 04/12/2023 PCV13 / PREVNAR 13 (6W & OLD ER) 0.5 ML IM SYR 04/29/2015 PFIZER SARSCOV2 (COMIRNATY) Vaccine (30 mcg/0.3 mL) MDV IM (ZWT=777) 09/21/2021,03/21/2021,02/14/2021 PPSV23 (Pneumococcal Polysac charide 23) (CVX=33) 05/17/2016 SHINGRIX, Zoster Vaccine, IM (EAY=541) 04/01/2018,11/28/2017 04/30/2018 ZOSTAVAX, Varicella-Zoster V accine, Subcutaneous (WHZ=091) 02/20/2011,09/11/2009 Social History Tobacco Use Types Packs/Day Years Used Date Smoking Tobacco: Never Smokeless Tobacco: Never Tobacco Cessation:Counseling Given: No Alcohol Use Standard Drinks/Week Comments Never 1 (1 standard drink = 0.6 oz pur e alcohol) once a year [facility] Utilities Answer Date Recorded In the past 12 months has [employer], [employer], oil, or water [employer] threatened to shut off services in your home? No 01/02/2024 Social Connection and Isolation Panel Answer Date Recorded In a typical week, how many times do you talk on the phone with family, friends, or neighbors? More than three times a week 04/26/2022 How often do you get togethe r with friends or relatives? Never 04/26/2022 How often do you attend chur ch or presybeterian services? Never 04/26/2022 Do you belong to any clubs o r organizations such as pentecostalism groups, unions, fraternal or athletic groups, or school groups? No 04/26/2022 How often do you attend meet ings of the clubs or organizations you belong to? Never 04/26/2022 Are you , , di vorced, , never , or living with a partner? 04/26/2022 AUDIT-C Answer Date Recorded Q1: How often do you have a drink containing alcohol? Never 04/26/2022 Q2: How many drinks containi ng alcohol do you have on a typical day when you are drinking? Patient does not drink Q3: How often do you have si x or more drinks on one occasion? Never 04/26/2022 Overall Financial Resource Strain (CARDIA) Answe r Date Recorded How hard is it for you to pa y for the very basics like food, housing, medical care, and heating? Not hard at all 04/26/2022 [facility] - Occupational Stress Questionnaire Answer Date Recorded Do you feel stress - tense, restless, nervous, or anxious, or unable to sleep at night because your mind is troubled all the time - these days? Only a little 04/26/2022 Exercise Vital Sign Answer Date Recorde d On average, how many days pe r week do you engage in moderate to strenuous exercise (like a brisk walk)? 0 days 04/26/2022 On average, how many minutes do you engage in exercise at this level? 0 min 04/26/2022 Hunger Vital Sign Answer Date Recorded Within the past 12 months, y ou worried that your food would run out before you got the money to buy more. Never true 04/26/20 22 Within the past 12 months, t he food you bought just didn't last and you didn't have money to get more. Never true 04/26/2022 PRAPARE - Transportation Answer Date Re corded In the past 12 months, has l ack of transportation kept you from medical appointments or from getting medications? No 04/13 In the past 12 months, has l ack of transportation kept you from meetings, work, or from getting things needed for daily living? No 04/26/2022 Housing Stability Vital Sign Answer Alek e Recorded In the last 12 months, was t here a time when you were not able to pay the mortgage or rent on time? No 04/26/2022 In the last 12 months, how many places have you lived? 1 04/26/2022 In the last 12 months, was t here a time when you did not have a steady place to sleep or slept in a retirement (including now)? No 04/26/2022 PHQ-2 Risk Classification Answer Date R ecorded Patient Health Questionnaire-2 Score 0 09/11/2024 PHQ-9 Risk Classification Answer Date R ecorded Patient Health Questionnaire-9 Score 1 09/11/2024 Comments No Sex and Gender Information Value Date Recorded Sex Assigned at Not on file Legal Sex Female 8:25 PM EST Gender Identity Not on file Sexual Orientation Not on file Last Filed Vital Signs Vital Sign Reading Time Taken Comments Blood Pressure 131/73 11/18/2024 1:38 PM EDT R: 135/78 Pulse 75 11/18/2024 1:38 PM EDT Temperature 36.6 C (97.9 F) 09/11/2024 1:20 PM EDT Respiratory Rate 16 11/18/2024 1:38 PM EDT Oxygen Saturation 98% 11/18/2024 1:38 PM EDT Inhaled Oxygen Concentration - - Weight 50.8 kg (112 lb) 11/18/2024 1:38 PM EDT Height 152.4 cm (5') 11/18/2024 1:38 PM EDT Body Mass Index 21.87 11/18/2024 1:38 PM EDT Plan of Treatment Upcoming Encounters Date Type Department Care Team (Late st Contact Info) Description 02/18/2025 3:30 PM EDT Office Visit [facility] [address] [place] [address] 03/13/2025 12:30 PM EDT Office Visit [place] [id number] [place] [address] [place] [address] [place] [id number] [place] [address] [address] [place] [address] Scheduled Procedures Name Priority Associated Diagnoses Date/Ti me WATCHMAN INSERTION Atrial fibrillation, unspecified type Goals Goal Patient Goal Type Associated Problems Recent Progress Patient-Stated? Author Eat more fruits and vegetables Diet On track( 1:27 PM EDT) No Dorothea Gibson MA Increase water intake Diet On track( 1:27 PM EDT) No Dorothea Gibson MA Exercise 150 minutes per week (moderate activity) Exercise On track( 1:27 PM EDT) No Dorothea Gibson MA Procedures Procedure Name Priority Date/Time Associated Diagnosis Comments COMPREHENSIVE METABOLIC PANEL Routine 08/12/2024 11:17 AM EDT Essential hypertension with goal blood pressure less than 140/90 LIPID PANEL Routine 04/03/2024 9:14 AM EST Hyperlipidemia LDL goal <130 DEXA BONE DENSITY HIP PELVIS SPINE Routine 11/08/2020 2:41 PM EDT Osteoporosis, unspecified osteoporosis type, unspecified pathological fracture presence GERBER SCREENING Routine 01/29/2014 12:51 PM EDT Other screening mammogram from Last 3 Months or Most Recently Relevant to Health Maintenance Results * (ABNORMAL) COMPREHENSIVE METABOLIC PANEL (08/12/2024 11:17 AM EDT) Pathologist [facility] Glucose 101(H) 65 - 99 mg/dL [facility] Comment: Fasting reference interval For someone without known diabetes, a glucose value between 100 and 125 mg/dL is consistent with prediabetes and should be confirmed with a follow-up test. Urea Nitrogen 14 7 - 25 mg/dL [facility] Creatinine 0.82 0.60 - 0.95 mg/dL [facility] eGFR 70 > OR = 60 mL/min/1. 73m2 [facility] BUN/Creatinine Ratio SEE NOTE: 6 - 22 (calc) [facility] Comment: Not Reported: BUN and Creatinine are within reference range. Sodium 140 135 - 146 mmol/L [facility] Potassium 4.5 3.5 - 5.3 mmol/L [facility] Chloride 103 98 - 110 mmol/L [facility] CARBON DIOXIDE 25 20 - 32 mmol/L [facility] Calcium 9.9 8.6 - 10.4 mg/dL [facility] Protein, Total 6.9 6.1 - 8.1 g/dL [facility] ALBUMIN 4.4 3.6 - 5.1 g/dL [facility] Globulin 2.5 1.9 - 3.7 g/dL (calc) [facility] ALBUMIN/GLOBULIN RATIO 1.8 1.0 - 2.5 (calc) [facility] Total Bilirubin 1.0 0.2 - 1.2 mg/dL [facility] Alkaline Phosphatase 83 37 - 153 U/L [facility] AST 29 10 - 35 U/L [facility] ALT 18 6 - 29 U/L [facility] Blood 08/12/2024 11:1 7 AM EDT 08/13/2024 2:08 AM EDT us Liam Houston MD BLOOD ORDERABLES Final Result [facility] * LIPID PANEL (04/03/2024 9:14 AM EST) Cholesterol, Total 143 <200 mg/dL [facility] HDL 53 > OR = 50 mg/dL [facility] Triglycerides 88 <150 mg/dL [facility] LDL Cholesterol 73 mg/dL (calc) [facility] Comment: Reference range: <100 Desirable range <100 mg/dL for primary prevention; <70 mg/dL for patients with CHD or diabetic patients with > or = 2 CHD risk factors. LDL-C is now calculated using the Ralph-Nneka calculation, which is a validated novel method providing better accuracy than the Friedewald equation in the estimation of LDL-C. Ralph PRETTY et al. JENI. 2013;310(19): 9155-3839 (http://education.Vinfolio.Gymbox/faq/YGB923) LDl/HDL Ratio 2.7 <5.0 (calc) [facility] NON-HDL CHOLESTEROL 90 <130 mg/dL (calc) [facility] Comment: For patients with diabetes plus 1 major ASCVD risk factor, treating to a non-HDL-C goal of <100 mg/dL (LDL-C of <70 mg/dL) is considered a therapeutic option. Blood LEFT UPPER ARM STRUCTURE / Unknown 04/03/2024 9:14 AM EST 04/04/2024 2:03 AM EST us Liam Houston MD BLOOD ORDERABLES Final Result [facility] * DX BONE DENSITY HIP PELVIS SPINE (11/08/2020 2:41 PM EDT) Anatomical Region Laterality Modality Region of interest Mammography 11/08/2020 3:22 PM EDT Impressions 11/08/2020 3:23 PM EDT Osteopenia (reduced bone density) of the Lumbar Spine. Osteoporosis [...] menopausal transition. (ISCD 2007) Read By Jas Bartlett Electronically Verified By - Luna Bartlett Released Date Time - 11/08/2020 3:23 PM Resident - Narrative 11/08/2020 3:23 PM EDT Referral Report - Bone Density Test History: Osteoporosis screening. Limitations:none AP Spine(L1 and L2): BMD 0.747 (g/cm2) ; T-score: -2.1; Z-score: 0.5 When compared to the previous exam from April 2018 that has been 9.3% interval increase in the BMD of the spine. This is statistically significant. Femoral Neck (Left): BMD 0.473 (g/cm2); T-score: -3.4; Z-score: -1.0; When compared to the previous exam from April 2018 that has been 12.2% interval decrease in the BMD of the left femoral neck. This is statistically significant. Total Hip (Left): BMD 0.515 (g/cm2); T-score: -3.5; Z-score: -1.3; When compared to the previous exam from April 2018 that has been 7.4% interval decrease in the BMD of the left hip. This is statistically significant. FRAX not reported because:Some T-scores at or [...] osteoporotic (severely reduced bone density) Procedure Note Luna Bartlett MD - 11/08/2020 Referral Report - Bone Density Test History: Osteoporosis screening. Limitations:none AP Spine(L1 and L2): BMD 0.747 (g/cm2) ; T-score: -2.1; Z-score:0.5 When compared to the previous exam from April 2018 that has been 9.3%interval increase in the BMD of the spine. This is statistically significant. Femoral Neck (Left): BMD 0.473 (g/cm2); T-score: -3.4; Z-score:-1.0; When compared to the previous exam from April 2018 that has been 12.2%interval decrease in the BMD of the left femoral neck. This is statistically significant. Total Hip (Left): BMD 0.515 (g/cm2); T-score: -3.5; Z-score: -1.3; When compared to the previous exam from April 2018 that has been 7.4%interval decrease in the BMD of the left hip. This is statistically significant. FRAX not reported because:Some T-scores at or [...] may be osteoporotic (severelyreduced bone density) IMPRESSION: Osteopenia (reduced bone density) of the Lumbar Spine. Osteoporosis [...] in the menopausaltransition. (ISCD 2007) Read By - Luna Bartlett Electronically Verified By - Luna Bartlett Released Date Time - 11/08/2020 3:23 PM Resident - [facility] DO RAD JX GERBER ORDERABLES Final Res ult * GERBER Screening (01/29/2014 12:51 PM EDT) Anatomical Region Laterality Modality Breast N/A Mammography 01/29/2014 2:41 PM EDT Narrative 01/30/2014 8:47 AM EDT History: 78 years-old with no personal or family history of breast cancer. Comparison: Bilateral screening mammogram 01/27/2013, 02/24/2010 Study: Bilateral full field digital mammography was performed in the craniocaudal and mediolateral oblique projections. CC and MLO implant-displaced views were also completed. Findings: Breast density is scattered fibroglandular densities. Bilateral subpectoral silicone implants are again identified. Small implant deformity is identified in the left inferior breast, unchanged. Stable calcifications are noted. No abnormal grouped microcalcifications are seen. Stable nodule is identified within the left upper outer breast. No architectural distortion or skin thickening is apparent. Vascular calcifications are seen. Impression: BI-RADS 2, Benign findings Benign appearing mammographic findings. Recommend annual follow-up mammogram. CAD utilized and correlated. NOTE: An x-ray report which is negative for cancer should not delay biopsy if a dominant or clinically suspicious mass is present. 4 to 8% of cancers are not identified by x-ray. A negative report may reinforce clinical impression. Adenosis or fibrocystic disease (mammary dysplasia) may obscure an underlying neoplasm. False positive reports average 6 to 10%. Written notification of the findings and follow-up recommendations were mailed to the patient. I personally reviewed the images and the residents findings and agree with the above. Read By - Katiuska Swift M.D. Electronically Verified By - Katiuska Swift M.D. Released Date Time - 01/30/2014 8:47 AM Resident - Eunice Roblero Procedure Note Katiuska Swift MD - 01/30/2014 History: 78 years-old with no personal or family history of breastcancer. Comparison: Bilateral screening mammogram 01/27/2013, 02/24/2010 Study: Bilateral full field digital mammography was performed in thecraniocaudal and mediolateral oblique projections. CC and MLO implant-displaced views werealso completed. Findings: Breast density is scattered fibroglandular densities. Bilateralsubpectoral silicone implants are again identified. Small implant deformity is identified in the leftinferior breast, unchanged. Stable calcifications are noted. No abnormal grouped microcalcificationsare seen. Stable nodule is identified within the left upper outer breast. No architecturaldistortion or skin thickening is apparent. Vascular calcifications are seen. Impression: BI-RADS 2, Benign findings Benign appearing mammographic findings. Recommend annual follow-upmammogram. CAD utilized and correlated. NOTE: An x-ray report which is negative for cancer should not delay biopsy if adominant or clinically suspicious mass is present. 4 to 8% of cancers are notidentified by x-ray. A negative report may reinforce clinical impression. Adenosis or fibrocystic disease (mammary dysplasia) may obscure anunderlying neoplasm. False positive reports average 6 to 10%. Written notification of the findings and follow-up recommendations weremailed to the patient. I personally reviewed the images and the residents findings and agree withthe above. Read By - Katiuska Swift M.D. Electronically Verified By Jas Swift M.D. Released Date Time - 01/30/2014 8:47 AM Resident - Eunice Roblero us Stephen Collier MD RAD JX [facility] ORDERABLES Final Result from Last 3 Months or Most Recently Relevant to Health Maintenance Insurance MEDICARE [employer] Advance Directives For more information, please contact: [phone] Documents on File Type Date Recorded Patient Sample Driller Expl anation Advance Directives/Living Will 05/19/2014 1:43 PM * Full Code (Latest Code Status on File) Date Activated Date Inactivated Comments 10/27/2015 9:45 PM 11/03/2015 7:07 PM Care Teams Product Support Manager Relationship Specialty Start Date End Date [place] [id number] [place] [address] [address] [place] [address] PCP - General Family Medicine 04/26/22
--- OUTSIDE RECORDS SUMMARY | 2025-01-25 14:27 | XMS_ITS | Encounter Summary ---
Author Organization [facility] Address [address] [place] [address] Care Team Providers Care Meat Trimmer Name Role Phone Liam Houston MD Primary Care Provider Encounter Details Date Type Department Care Team (Late st Contact Info) Description 08/08/2005 Documentation Encounter SANJEEV V ALLSCRIPTS CONV Stephen [...] Progress Notes * Stephen Collier MD - 08/08/2005 1:40 PM EST Chief Complaint check spot on hinduism Subjective 69 year female here for sore on left hinduism, 2 months, scabs then clears and rescabs. Distant hx onlesion removal from nose with unknown path. All other ROS otherwise neg. . Allergies No Known Drug Allergy. Current Meds Zocor 40 MG Tablet;TAKE 1 TABLET DAILY.; RPT Premarin 0.625 MG Tablet;TAKE 1 TABLET DAILY.; RPT Polymyxin B-Trimethoprim 22404-7.1 UNIT/ML-% Solution;APPLY TO AFFECTED EYE(S) EVERY 3-4 HOURS.; Rx Fosamax 10 MG Tablet;TAKE 1 TABLET DAILY.; Rx. Active Problems Conjunctivitis (627.30) Hyperlipidemia (272.4) Normal Examination (V70.0) Osteoporosis (733.00). PMH Conjunctivitis (372.30) Hyperlipidemia (272.4) Osteoporosis (733.00). PSH Hysterectomy (V45.77). Family Hx Family history of Coronary Artery Disease Family history of Ischemic Stroke. Personal Hx No Alcohol Use No Tobacco Use (V15.82). Vital Signs Recorded by vanda on 08 Aug 2005 01:06 PM BP:128/77, HR: 93 b/min, Resp: 15 r/min, Temp: 97.6 F, Weight: 140 lb. Objective Left hinduism 1 cm oval red lesion, firm w/ ulerative center. 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 Plan Return for surgical removal. Signature Signed By: Stephen Collier M.D.; 08/09/2005 12:08 PM EST. documented in this encounter Plan of Treatment Upcoming Encounters Date Type Department Care Team (Late st Contact Info) Description 02/18/2025 3:30 PM EDT Office Visit [facility] Cardiovascular [address], [facility] [address] [place] [address] 03/13/2025 12:30 PM EDT Office Visit [facility] Family Medicine - [place] [id number] [place] [address] [place] [phone] Liam Houston MD [id number] [place] [address] 200 [address] [place] [address] Scheduled Procedures Name Priority Associated [...] documented as of this encounter Care Teams Meat Trimmer Relationship Specialty Start Date End Date Liam Houston MD [id number] [place] [address] 12 [place] [address] PCP - General Family Medicine 04/26/22 documented as of this encounter
--- OUTSIDE RECORDS SUMMARY | 2025-01-25 14:27 | XMS_ITS | Encounter Summary ---
Author Organization [facility] Address [address] [place] [address] Care Team Providers Care Registered Respiratory Therapist Name Role Phone Liam Houston MD Primary Care Provider [phone] Encounter Details Date Type Department Care Team (Late st Contact Info) Description 03/07/2005 Documentation Encounter SANJEEV V ALLSCRIPTS CONV Conversion, [...] Sign Reading Time Taken Comments Blood Pressure 140/84 03/07/2005 9:40 AM EDT Pulse 85 03/07/2005 9:40 AM EDT Temperature 36.6 C (97.8 F) 03/07/2005 9:40 AM EDT Respiratory Rate 15 03/07/2005 9:40 AM EDT Oxygen Saturation - - Inhaled Oxygen Concentration - - Weight 63.5 kg (140 lb) 03/07/2005 9:40 AM EDT Height - - Body Mass Index - - documented in this encounter Plan of Treatment Upcoming Encounters Date Type Department Care Team (Late st Contact Info) Description 02/18/2025 3:30 PM EDT Office Visit [facility] Cardiovascular Center [place] [address] [address], [facility] [address] [place] [address] 03/13/2025 12:30 PM EDT Office Visit [facility] Family Medicine [facility] [id number] [place] [phone] Liam Houston [place] [address] [address] Scheduled Procedures Name Priority Associated Diagnoses Date/Ti [...] documented as of this encounter Care Teams Registered Respiratory Therapist Relationship Specialty Start Date End Date Liam Houston MD [id number] [place] [address] PCP - General Family Medicine 04/26/22 documented as of this encounter
--- OUTSIDE RECORDS SUMMARY | 2025-01-25 14:27 | XMS_ITS | Encounter Summary ---
Author Organization [facility] Address [address] [place] [address] Care Team Providers Care Airplane Inspector Name Role Phone Liam Houston MD Primary Care Provider [phone] Encounter Details Date Type Department Care Team (Late st Contact Info) Description 04/13/2006 Documentation Encounter SANJEEV V ALLSCRIPTS CONV Conversion, [...] Sign Reading Time Taken Comments Blood Pressure - - Pulse - - Temperature 36.7 C (98 F) 04/13/2006 10:27 AM EST Respiratory Rate - - Oxygen Saturation - - Inhaled Oxygen Concentration - - Weight - - Height - - Body Mass Index - - documented in this encounter Plan of Treatment Upcoming Encounters Date Type Department Care Team (Late st Contact Info) Description 02/18/2025 3:30 PM EDT Office Visit [facility] Cardiovascular Center - [place] [address] [address], [facility] [address] [place] [address] 03/13/2025 12:30 PM EDT Office Visit Pending sale to [facility] - [address] [place] [address] [place] Houston MD [id number] [place] [address] [address] [place] [address] Scheduled Procedures Name Priority Associated [...] documented as of this encounter Care Teams Airplane Inspector Relationship Specialty Start Date End Date Liam Houston MD [address] [place] [address] [address] [place] [address] PCP - General Family Medicine 04/26/22 documented as of this encounter
--- OUTSIDE RECORDS SUMMARY | 2025-01-25 14:27 | XMS_ITS | Encounter Summary ---
Author Organization [facility] Address [address] [place] [address] Care Team Providers Care Molding Plasterer Name Role Phone Liam Houston MD Primary Care Provider [phone] Reason for Referral * Evaluate and Treat - Closed Specialty Diagnoses / Procedures Referred By Contac t Referred To Contact Neurosurgery Diagnoses Vertebral fracture, osteoporotic, initial encounter (CMS-HCC: 401) Procedures Eval & Treat Bailey Cook MD Phone: tel: fax: [facility] Neurosurgery - [place] [address] [place] [address] Phone: tel: fax: Referral ID Status Reason Start Date Expiration Date Visits Re quested Visits Authorized [id number] Closed 11/05/2015 11/04/2016 6 6 * Evaluate and Treat - Closed Specialty Diagnoses / Procedures Referred By Contact Referred To Contact Endocrinology Diabetes & Metabolism / Endocrinology Diagnoses Hypothyroidism, unspecified type Hypothyroidism, unspecified type Procedures Eval and treat Bailey Cook MD Phone: tel:[phone] fax:[phone] [facility] Endocrinology - [address], [address] [place] [address] Phone: tel: fax: Referral ID Status Reason Start Date Expiration Date Visits Re quested Visits Authorized [id number] Closed 11/05/2015 11/04/2016 6 6 * Evaluate and Treat - Closed Specialty Diagnoses / Procedures Referred By Contac t Referred To Contact Cardiology Diagnoses 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 Procedures Eval and treat Bailey Cook MD Phone: tel: fax: [address], [facility] [address] [place] [address] Phone: tel: fax: Referral ID Status Reason Start Date Expiration Date Visits Re quested Visits Authorized [id number] Closed 11/05/2015 11/04/2016 6 6 Encounter Details Date Type Department Care Team ([facility] st Contact Info) Description 11/04/2015 Orders Only [address] [address] Bailey Cook MD [address] [place] [address] 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; Hypothyroidism, unspecified type; Vertebral fracture, osteoporotic, initial encounter Social History Tobacco Use Types [...] PM EDT Office Visit [facility] Cardiovascular Center - [place] [address] [address], [place] [address] [place] [address] 03/13/2025 12:30 PM EDT Office Visit [facility] [address] [place] [address] [place] [address] Liam Houston MD [id number] [place] [address] 12 [place] [address] Scheduled Procedures Name Priority Associated Diagnoses Date/Ti me WATCHMAN INSERTION Atrial fibrillation, unspecified type Scheduled Referrals Name Type Priority Associated Diagnoses Order Schedule Refer to Cardiology Outpatient Referral Routine 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 Expected: 11/05/2015, Expires: 11/03/2016 Refer to Endocrinology Outpatient Referral Routine Hypothyroidism, unspecified type Expected: 11/05/2015, Expires: 11/03/2016 Refer to Neurosurgery Outpatient Referral Routine Vertebral fracture, osteoporotic, initial encounter Expected: 11/05/2015, Expires: 11/03/2016 documented as of this encounter Visit Diagnoses Diagnosis 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 Hypothyroidism, unspecified type Vertebral fracture, osteoporotic, initial encounter ([facility]-HCC: 401) documented in this encounter Additional Health Concerns Infection Onset Date Last Indicated Resolved Time COVID-19 Rule-Out 11/24/2020 11/24/2020 11/24/2020 10:21 PM EDT COVID-19 (Confirmed) 11/24/2020 12/10/2020 08/2 021 3:03 AM EDT COVID-19 Rule-Out 11/24/2020 11/25/2020 11/25/2020 5:14 AM EDT documented as of this encounter Care Teams Molding Plasterer Relationship Specialty Start Date End Date Liam Houston MD 768226 [place] [address] [place], [place] [id number] PCP - General Family Medicine 04/26/22 documented as of this encounter
--- OUTSIDE RECORDS SUMMARY | 2025-01-25 14:27 | XMS_ITS | Encounter Summary ---
Author Organization [facility] Address [address] [place] [address] Care Team Providers Care Graduate Student Name Role Phone Liam Houston MD Primary Care Provider [phone] Encounter Details Date Type Department Care Team (Late st Contact Info) Description 10/14/2004 Documentation Encounter SANJEEV V ALLSCRIPTS CONV Aspen [...] Progress Notes * Aspen Licona MD - 10/14/2004 8:30 AM EDT PATIENT NAME: RE ALAS DATE OF : 1935 DATE OF SERVICE: 10/14/2004 S: Ms. Alas is a 68-year-old, who is here on follow up on hypercholesterolemia, conjunctivitis and HRT. Patient continues to use the PATANOL, but still complains of redness in both eyes. Right greaterthan left. She has been seen by an stave block roller, who has checked her for glaucoma. Ms. Alas also continues to take her ZOCOR 40 mg daily. However, with her insurance change, the cost has become somewhat prohibitive, and she wishes to try a generic if possible. She also continues to take PREMARIN, she has not had any menopausal symptoms or complaints for some time. She is advised of the HER studyand recent indications for continued hormone replacement therapy. O: Vital signs reviewed. Well developed, well nourished, NAD. Alert and oriented. HEENT: TMs clear. Pharynx not injected. PERRLA, EOMI. There is a mild injection on the right conjunctiva. Neck: Supple. No adenopathy in the neck or supraclavicular area. No thyromegaly, no bruits. Heart: RRR with no newmurmurs noted. Lungs: Clear to auscultation. Good respiratory effort. Abdomen: Positive bowel sounds, soft, nontender. No hepatosplenomegaly. Extremities: WNL with no clubbing, cyanosis, or edema. Gait and station normal. Skin: Appears intact and normal to palpation. A: 1. Refractive conjunctivitis. 2. Hypercholesterolemia. 3. Hormone replacement therapy. 4. Chronic drug monitoring. P: We will obtain lipids and LFTs. Patient is referred to ophthalmology for evaluation. We will discontinue ZOCOR. Patient is started on LOVASTATIN 40 mg a day, and prescription is supplied. However, she is advised that with the change, we would like to recheck lipids and especially LFTs in 8 weeks. She will discontinue her PREMARIN, and if she becomes symptomatic, would continue a restart at a lower dose only if necessary. ASPEN LICONA MD D: [id number] MT: [id number] Dictator: [id number] Confirmation Number: [id number] (#[id number]) Electronically signed by:Cathy Licona M.D. Oct 18 2004 8:58AM EST documented in this encounter Plan of Treatment Upcoming Encounters Date Type Department Care Team (Late st Contact Info) Description 02/18/2025 3:30 PM EDT Office Visit [address] [place], [facility] [address] [place] [address] 03/13/2025 12:30 PM EDT Office Visit [facility] [address] [place] [address] [place] [phone] Liam Houston MD [id number] [place] [address] [address] Scheduled Procedures Name Priority Associated Diagnoses Date/Ti [...] documented as of this encounter Care Teams Graduate Student Relationship Specialty Start Date End Date Liam Houston MD [id number] [place] [address] [id number] PCP - General Family Medicine 04/26/22 documented as of this encounter
--- OUTSIDE RECORDS SUMMARY | 2025-01-25 14:27 | XMS_ITS | Encounter Summary ---
Author Organization [facility] Address [address] [place] [address] Care Team Providers Care Clothing Manager Name Role Phone Liam Houston MD Primary Care Provider [phone] Encounter Details Date Type Department Care Team (Late st Contact Info) Description 04/27/2006 Documentation Encounter SANJEEV V ALLSCRIPTS CONV Husam [...] Progress Notes * Husam Lugo MD - 04/27/2006 12:06 PM EST NAME: RE ALAS DATE OF SERVICE: 04/27/2006 ATTENDING: HUSAM LUGO MD Dear Dr. Collier, At your request, Re Alas was seen in the Otolaryngology Clinic of [facility]. As you recall, this 69-year-old lady is referred as she has gradually lost hearing in her right ear. There is only occasional tenderness. There is no history of imbalance. There is no family history of hearing loss. She has recently had a CT of her head which revealed no abnormalities. Past history reveals that she was seen one year ago, again with the right sided hearing loss with excellent discrimination. On examination, the temperature is 98.6, pulse 77, respirations 20, blood pressure 145/87. The tympanic membranes are mcleod and shiny. The nose reveals no obstruction or purulent drainage. Oral cavity exam reveals no mucosal lesions. The pharynx is normal. There is no cervical mass or adenopathy. 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 Tympanograms were type A bilaterally. It appears that Ms. Aals may have otosclerosis, and if she desires would benefit from a hearing aid in her right ear. She also if she desired would be a candidate for exploratory tympanotomy possible stapedectomy. Thank you for allowing [facility] Otolaryngology Service to see your patient in consultation. Sincerely, HUSAM LUGO MD. HUSAM LUGO MD D: [id number] MT: [id number] Dictator: [id number] Confirmation Number: [id number]) Electronically signed by:Husam Lugo M.D. May 01 2006 3:13PM EST documented in this encounter Plan of Treatment Upcoming Encounters Date Type Department Care Team (Late st Contact Info) Description 02/18/2025 3:30 PM EDT Office Visit [address], [facility] [address] [place] [phone] 03/13/2025 12:30 PM EDT Office Visit [facility] - [address] [place] [phone] Liam Houston MD [address] [place] [address] [address] [place] [address] Scheduled Procedures Name Priority Associated Diagnoses [...] documented as of this encounter Care Teams Clothing Manager Relationship Specialty Start Date End Date Liam Houston MD 013986 [place] [address] [address] [place] [address] PCP - General Family Medicine 04/26/22 documented as of this encounter
--- OUTSIDE RECORDS SUMMARY | 2025-01-25 14:27 | XMS_ITS | Encounter Summary ---
Author Organization [facility] Address [address] [place] [address] Care Team Providers Care Bus Company Manager Name Role Phone Liam Houston MD Primary Care Provider [phone] Encounter Details Date Type Department Care Team (Late st Contact Info) Description 04/26/2006 Documentation Encounter SANJEEV V ALLSCRIPTS CONV Conversion, [...] Scanned Document - Conversion, Allscripts - 12/09/2013 4:47 AM EDT documented in this encounter Plan of Treatment Upcoming Encounters Date Type Department Care Team (Late st Contact Info) Description 02/18/2025 3:30 PM EDT Office Visit [facility] Cardiovascular Center [place] [address] [address], [facility] [address] [place] [address] 03/13/2025 12:30 PM EDT Office Visit [facility] [place] [address] [place] [address] [place] [phone] Liam Houston MD [id number] [place] [address] [address] [place], [place] [phone] Scheduled Procedures Name Priority Associated Diagnoses Date/Ti [...] documented as of this encounter Care Teams Bus Company Manager Relationship Specialty Start Date End Date Liam Houston MD 415485 [place] [address] [place] [address] PCP - General Family Medicine 04/26/22 documented as of this encounter
--- OUTSIDE RECORDS SUMMARY | 2025-01-25 14:27 | XMS_ITS | Encounter Summary ---
Author Organization [facility] Address [address] [place] [address] Care Team Providers Care Chief Dispatcher Name Role Phone Liam Houston MD Primary Care Provider [phone] Encounter Details Date Type Department Care Team (Late st Contact Info) Description 10/19/2005 Documentation Encounter SANJEEV V ALLSCRIPTS CONV Conversion, [...] Sign Reading Time Taken Comments Blood Pressure 150/86 10/19/2005 12:46 PM EDT Pulse 74 10/19/2005 12:46 PM EDT Temperature 36.3 C (97.3 F) 10/19/2005 12:46 PM EDT Respiratory Rate 15 10/19/2005 12:46 PM EDT Oxygen Saturation - - Inhaled Oxygen Concentration - - Weight 62.8 kg (138 lb 8 oz) 10/19/2005 12:46 PM EDT Height - - Body Mass Index - - documented in this encounter Plan of Treatment Upcoming Encounters Date Type Department Care Team (Late st Contact Info) Description 02/18/2025 3:30 PM EDT Office Visit [facility] Cardiovascular Center [place] [address] [address], [place] [address] [place] [address] 03/13/2025 12:30 PM EDT Office Visit [facility] - [place] [id number] [place] [phone] Liam Houston [place] [id number] [address] Scheduled Procedures Name Priority Associated Diagnoses Date/Ti [...] documented as of this encounter Care Teams Chief Dispatcher Relationship Specialty Start Date End Date Liam Houston MD [id number] [place] [address] PCP - General Family Medicine 04/26/22 documented as of this encounter
--- OUTSIDE RECORDS SUMMARY | 2025-01-25 14:27 | XMS_ITS | Encounter Summary ---
Author Organization [facility] Address [address] [place] [address] Care Team Providers Care Power Press Tender Name Role Phone Liam Houston MD Primary Care Provider Encounter Details Date Type Department Care Team (Late st Contact Info) Description 05/21/2012 Documentation Encounter SANJEEV V ALLSCRIPTS CONV Conversion, [...] Sign Reading Time Taken Comments Blood Pressure 126/72 05/21/2012 10:52 AM EST Pulse 71 05/21/2012 10:52 AM EST Temperature 36.1 C (97 F) 05/21/2012 10:52 AM EST Respiratory Rate 16 05/21/2012 10:52 AM EST Oxygen Saturation - - Inhaled Oxygen Concentration - - Weight 61.7 kg (136 lb) 05/21/2012 10:52 AM EST Height 160 cm (5' 3 ) 05/21/2012 10:52 AM EST Body Mass Index 24.09 05/21/2012 10:52 AM EST documented in this encounter Miscellaneous Notes * Scanned Document - Conversion, Allscripts - 11/08/2013 5:20 AM EDT documented in this encounter Plan of Treatment Upcoming Encounters Date Type Department Care Team (Late st Contact Info) Description 02/18/2025 3:30 PM EDT Office Visit [facility] Cardiovascular [place] [address], [place] [address] [place] [address] 03/13/2025 12:30 PM EDT Office Visit [facility] [address] [place] [address] [place] [phone] Liam Houston MD [id number] [place] [address] Scheduled Procedures Name Priority Associated Diagnoses [...] documented as of this encounter Care Teams Power Press Tender Relationship Specialty Start Date End Date Liam Houston MD [id number] [place] [address] [place] [address] PCP - General Family Medicine 04/26/22 documented as of this encounter
--- OUTSIDE RECORDS SUMMARY | 2025-01-25 14:27 | XMS_ITS | Encounter Summary ---
Author Organization [facility] Address [address] [place] [address] Care Team Providers Care Semiconductor Wafers Etch Operator Name Role Phone Liam Houston MD Primary Care Provider [phone] Encounter Details Date Type Department Care Team (Late st Contact Info) Description 06/04/2006 Documentation Encounter SANJEEV V ALLSCRIPTS CONV Conversion, [...] Sign Reading Time Taken Comments Blood Pressure 123/84 06/04/2006 1:02 PM EST Pulse 78 06/04/2006 1:02 PM EST Temperature 36.3 C (97.4 F) 06/04/2006 1:02 PM EST Respiratory Rate 15 06/04/2006 1:02 PM EST Oxygen Saturation - - Inhaled Oxygen Concentration - - Weight 63.5 kg (140 lb) 06/04/2006 1:02 PM EST Height - - Body Mass Index - - documented in this encounter Plan of Treatment Upcoming Encounters Date Type Department Care Team (Late st Contact Info) Description 02/18/2025 3:30 PM EDT Office Visit [facility] Cardiovascular [place] [address] [address], [facility] [address] [place] [address] 03/13/2025 12:30 PM EDT Office Visit [facility] [address] [place] [address] [place] [phone] Liam Houston [place] [address] [phone] Scheduled Procedures Name Priority Associated Diagnoses Date/Ti [...] documented as of this encounter Care Teams Semiconductor Wafers Etch Operator Relationship Specialty Start Date End Date Liam Houston [place] [id number] [place] [address] [id number] PCP - General Family Medicine 04/26/22 documented as of this encounter
--- OUTSIDE RECORDS SUMMARY | 2025-01-25 14:27 | XMS_ITS | Encounter Summary ---
Author Organization [facility] Address [address] [place] [address] Care Team Providers Care Development Consultant Name Role Phone Liam Houston MD Primary Care Provider [phone] Encounter Details Date Type Department Care Team (Late st Contact Info) Description 11/22/2005 Documentation Encounter SANJEEV V ALLSCRIPTS CONV Stephen [...] Progress Notes * Stephen Collier MD - 11/22/2005 8:30 AM EDT Chief Complaint suture removal Subjective Patient is here for suture removal after Moh's surgery by Dr. Mejia for BCC on left shinto. Running stitch removed from 4 cm well healing wound. Allergies No Known Drug Allergy. Current Meds Zocor 40 MG Tablet;TAKE 1 TABLET DAILY.; RPT Premarin 0.625 MG Tablet;TAKE 1 TABLET DAILY.; RPT Polymyxin B-Trimethoprim 33335-7.1 UNIT/ML-% Solution;APPLY TO AFFECTED EYE(S) EVERY 3-4 [...] (V15.82). Vital Signs Recorded by tdunn on 22 Nov 2005 08:10 AM BP:146/86, HR: 78 b/min, Resp: 15 r/min, Temp: 97.4 F, Weight: 139.5 lb. Signature Signed By: Stephen Collier M.D.; 11/22/2005 1:12 PM EST. documented in this encounter Plan of Treatment Upcoming Encounters Date Type Department Care Team (Late st Contact Info) Description 02/18/2025 3:30 PM EDT Office Visit [facility] Cardiovascular [address] [facility] [address] [place] [phone] 03/13/2025 12:30 PM EDT Office Visit [facility] Medicine [place] [id number] [place] [address] Liam Houston MD [id number] [place] [address] [place] [id number] Scheduled Procedures Name Priority Associated Diagnoses Date/Ti [...] documented as of this encounter Care Teams Development Consultant Relationship Specialty Start Date End Date Liam Houston MD [id number] [place] [address] [address] [place] [address] PCP - General Family Medicine 04/26/22 documented as of this encounter
--- OUTSIDE RECORDS SUMMARY | 2025-01-25 14:27 | XMS_ITS | Encounter Summary ---
Author Organization [facility] Address [address] [place] [address] Care Team Providers Care Vibration Analyst Name Role Phone Liam Houston MD Primary Care Provider [phone] Encounter Details Date Type Department Care Team (Late st Contact Info) Description 03/07/2005 Documentation Encounter SANJEEV V ALLSCRIPTS CONV Stephen [...] Progress Notes * Stephen Collier MD - 03/07/2005 9:25 AM EDT Chief Complaint Pap smear, physical flu shot Subjective 69 year white female here for annual PE. Mammogram 09/15 reviewed. Hysterectomy was for sterilizaton. All other ROS otherwise neg. Allergies No Known Drug Allergy. Current Meds Zocor 40 MG Tablet;TAKE 1 TABLET DAILY.; RPT Premarin 0.625 MG Tablet;TAKE 1 TABLET DAILY.; RPT Fosamax 10 MG Tablet;TAKE 1 TABLET DAILY.; RPT Polymyxin B-Trimethoprim 12319-7.1 UNIT/ML-% Solution;APPLY TO AFFECTED EYE(S) EVERY 3-4 HOURS.; Rx. Active Problems CONJUNCTIVITIS (372.30) HYPERLIPIDEMIA (272.4) OSTEOPOROSIS (733.00). PMH CONJUNCTIVITIS (372.30) HYPERLIPIDEMIA (272.4) OSTEOPOROSIS (733.00). PSH Hysterectomy (V45.77). Family Hx Family history of CORONARY ARTERY DISEASE Family history of STROKE - ISCHEMIC. Personal Hx No alcohol use No tobacco use (V15.82). Vital Signs Recorded by tdunn on 07 Mar 2005 09:40 AM BP:140/84, HR: 85 b/min, Resp: 15 r/min, Temp: 97.8 F, Weight: 140 lb. Objective VITAL SIGNS: [...] and dry. EXTREMITIES: Well perfused, no edema. Breasts appear normal and symmetric w/o palpable masses, skin changes, or nipple inversion. No discharge, rash, or skin retraction by inspection. No axillary or supraclavicular lymphadenopathy. Pelvic exam shows no masses, no dicharge. Normal vulva and introitus w/o masses, lesions, rashes, or swelling. Rectal exam shows no lesions, masses, or hemorrhoids. Normal sphincter tone. Guiac negative. Assessment Normal examination (V70.0) Hyperlipidemia (272.4) Osteoporosis (733.00) Health Mgmt Plan Pap smear, breast exam and Hemoccult done 02/2005 mammogram done 05/2003 flu vaccine done 02/2005. Plan Flu shotPt advised to various Tx options and agreed to the following: Continuation of current medications listed above,the importance of follow up visits. Risk verses benefits of medication and treatments were discussed. Patient voiced understanding. Return to office in 3 month(s). Signature Signed By: Cathy Collier M.D.; 03/07/2005 4:45 PM EST. documented in this encounter Plan of Treatment Upcoming Encounters Date Type Department Care Team (Late st Contact Info) Description 02/18/2025 3:30 PM EDT Office Visit [facility] Cardiovascular Center - [place] [address], [address] [place] [address] 03/13/2025 12:30 PM EDT Office Visit [facility] Medicine - [place] [address] [place] [address] Liam Houston MD [address] [place] [address] [address] [place] [address] Scheduled Procedures Name Priority Associated Diagnoses Date/Ti [...] documented as of this encounter Care Teams Vibration Analyst Relationship Specialty Start Date End Date Liam Houston MD [address] [place] [address] [address] [place], [place] [phone] PCP - General Family Medicine 04/26/22 documented as of this encounter
--- OUTSIDE RECORDS SUMMARY | 2025-01-25 14:27 | XMS_ITS | Clinical Summary ---
Author Organization [facility] Address [address] [place] [address] Care Team Providers Care Presser And Shaper Knitted Goods Name Role Phone Liam Houston MD Primary Care Provider [phone] Allergies Active Allergy Reactions Criticality Noted Date [...] artery bypass graft) 12/19/19 17 CAD in [place] artery 12/18/2016 Closed compression fracture of lumbar vertebra 0 06/21/2016 Closed fracture of tenth thoracic vertebra 11/07 Aortic valve disease 11/08/2015 Left bundle branch block (LBBB) 11/08/2015 Actinic keratosis 05/21/2012 Overview (11/09/2013): Allscripts Description: Actinic Keratosis (Created by Conversion) Acute myocardial infarction, subendocardial infarction, subsequent episode of care 12/27/2011 Overview (11/09/2013): Allscripts Description: Non-Q-wave Myocardial Infarction - Subsequent Care Recent HI (8 Wks) (Created by Conversion) Coronary atherosclerosis of [place] coronary morelia ry 12/20/2011 Overview (11/09/2013): Allscripts [...] Senior Citizen (65- 80) (Created by Conversion) Encounters Date Type Department Care Team Description 12/04/[address] [place] [phone] Liam Houston MD Medications Refill 12/03/[address] [place], [place] [phone] Liam Houston MD Medical Question/Inquiry; Urgent 11/25/[address] [place] [phone] Trent Tavarez MD Medications Refill 11/25/[address] [place] [address] Liam Houston MD Medications Refill 11/18/2024 1:30 PM EDT Office Visit [facility] Cardiovascular Center [address], [address] [place] [address] Valencia Bowden, AEROSOL LINE OPERATOR Atrial fibrillation, unspecified type; Near syncope; Tachy-armida syndrome; History of aortic regurgitation 10/27/[address] [place] [phone] Liam Houston MD Medications Refill from Last 3 Months Immunizations Immunization Administration Dates Next Due ADACEL, BOOSTRIX, Tdap Vacci ne, (7 yo and older), IM (TSY=259) 12/12/2023 FLUZONE HIGH-DOSE (65Y & OLD ER) 0.5 ML IM SYR 04/03/2024 FLUZONE HIGH-DOSE (65Y & OLD ER) 0.7 ML IM SYR 02/14/2023,02/06/2022,02/14/2021,01/12 Flu Vaccine, 65 and older, F LUZONE High Dose, TRIV, Pre-filled syr, IM (IWH=539) 02/25/2019,02/04/2018,01/31/2017,01/13 Flu vaccine (6mo and older) TRIVALENT,LATEX-FREE,w/preserv, Split IM, MDV 01/28/2015,02/13/2014 MODERNA (12Y&Older) 0.5 ML IM 04/12/2023 PCV13 / PREVNAR 13 (6W & OLD ER) 0.5 ML IM SYR 04/29/2015 PFIZER SARSCOV2 (COMIRNATY) Vaccine (30 mcg/0.3 mL) MDV IM (UPK=149) 09/21/2021,03/21/2021,02/14/2021 PPSV23 (Pneumococcal Polysac charide 23) (CVX=33) 05/17/2016 SHINGRIX, Zoster Vaccine, IM (BWI=847) 04/01/2018,11/28/2017 04/30/2018 ZOSTAVAX, Varicella-Zoster V accine, Subcutaneous (BRY=222) 02/20/2011,09/11/2009 Family History Medical History Relation Comments Hypertension Mother Hypertension Sister Breast Cancer Neg Hx Relation Status Comments Father Mother Sister Social History Tobacco Use Types Packs/Day Years Used Date Smoking Tobacco: Never Smokeless Tobacco: Never Tobacco Cessation:Counseling Given: No Alcohol Use Standard Drinks/Week Comments Never 1 (1 standard drink = 0.6 oz pur e alcohol) once a year [facility] Utilities Answer Date Recorded In the past 12 months has [employer], gas, oil, or water [employer] threatened to shut off services in your [...] often do you attend chur ch or taoism services? Never 04/26/2022 Do you belong to any clubs o r organizations such as congregation groups, unions, fraternal or athletic groups, or [...] and heating? Not hard at all 04/26/2022 [facility] - Occupational Stress [...] place to sleep or slept in a jail (including now)? No 04/26/2022 PHQ-2 Risk Classification [...] [facility] [address], [address] [place] [address] 03/13/2025 12:30 PM EDT Office Visit [address] [place] [phone] Liam Houston MD [address] [place] [address] [place] [address] Scheduled Procedures Name Priority Associated Diagnoses Date/Ti me WATCHMAN INSERTION Atrial fibrillation, unspecified type Health Maintenance Due Date Last Done Comments RSV Vaccine (1 - 1-dose 75+ series) 2012 Influenza Vaccine (#1) 2025 , 02/14/2023, 02/06/2022, Additional history exists SARS-CoV-2 (COVID-19) ( season) 2025 04/12/2023, 09/21/2021, 03/21/2021, Additional history exists Lipid Profile 04/03/2025 04/03/2024, 08/12, 02/19/2023, Additional history exists Basic Metabolic Panel 08/12/2025 08/12/2024 , 04/03/2024, 08/28/2023, Additional history exists Medicare Subsequent AWV G0439 09/12/2025 09/11/2024, 09/11/2024, 08/28/2023, Additional history exists Dexa 11/08/2030 11/08/2020, 11/2017, 03/08/2017, Additional history exists Breast Cancer Screening (Mammogram) Discontinued 01/29/2014, 01/27/2013 Pneumococcal Vaccine (0-5 yrs & At-Risk 6-49 yrs) Discontinued 05/17/2016, 04/29/2015 Pneumococcal Vaccine (50+ yrs) Completed 05/17/2016, 04/29/2015 Medicare Initial AWV G0438 Completed 07/23/2017, Zoster Vaccine Completed 04/01/2018, 11/11, 02/20/2011, Additional history exists DTaP,Tdap,and Td Vaccines Discontinued 12/12/2023 HIB Vaccine Aged Out No longer eligi ble based on patient's age to complete this topic HPV Vaccine Aged Out No longer eligi ble based on patient's age to complete this topic Hepatitis A Vaccine Aged Out No longe r eligible based on patient's age to complete this topic Hepatitis B Vaccine Aged Out No longe r eligible based on patient's age to complete this topic Meningococcal ACWY Aged Out No longer eligible based on patient's age to complete this topic Meningococcal B Aged Out No longer el igible based on patient's age to complete this topic Polio Vaccine Aged Out No longer elig ible based on patient's age to complete this topic Rotavirus Vaccine Aged Out No longer eligible based on patient's age to complete this topic Goals Goal Patient Goal Type Associated Problems [...] COMPREHENSIVE METABOLIC PANEL (08/12/2024 11:17 AM EDT) [facility] Glucose 101(H) 65 - 99 [...] [facility]ST BUN/Creatinine Ratio SEE NOTE: 6 - (calc) QUEST Comment: Not Reported: BUN and [...] equation in the estimation of LDL-C. Ralph SS et al. JENI. 2013;310(19): 0579-4639 (http://education.[employer].TestSoup/faq/UTM423) LDl/HDL Ratio 2.7 <5.0 (calc) QUEST NON-HDL [...] the menopausal transition. (ISCD 2007) Read By - Luna Bartlett [...] applied to women in the menopausaltransition. (ISCD 2006) Read By - Luna Bartlett Electronically Verified By - Luna Bartlett Released Date Time - 11/08/2020 3:23 PM Resident - [facility] DO RAD JX GERBER ORDERABLES Final Res [...] 01/30/2014 8:47 AM Resident - Eunice Roblero Stephen Collier MD RAD JX GERBER ORDERABLES Final Result from Last 3 Months or Most Recently Relevant to Health Maintenance Insurance MEDICARE AETNA Advance Directives For more information, please contact: [phone] Documents on File Type Date Recorded Patient Resident Care Associate Expl anation Advance Directives/Living Will 05/19/2014 1:43 PM * Full Code (Latest Code Status on File) Date Activated Date Inactivated Comments 10/27/2015 9:45 PM 11/03/2015 7:07 PM Care Teams Presser And Shaper Knitted Goods Relationship Specialty Start Date End Date Liam Houston [place] [id number] [place] [address] PCP - General Family Medicine 04/26/22
--- OUTSIDE RECORDS SUMMARY | 2025-01-25 14:27 | XMS_ITS | Encounter Summary ---
Author Organization [facility] Address [address] [place] [address] Care Team Providers Care Marketing Content Specialist Name Role Phone Liam Houston MD Primary Care Provider [phone] Encounter Details Date Type Department Care Team (Late st Contact Info) Description 02/02/2005 Documentation Encounter SANJEEV V ALLSCRIPTS CONV Conversion, [...] * Scanned Document - Conversion, Allscripts - 12/05/2013 5:09 AM EDT documented in this encounter Plan of Treatment Upcoming Encounters Date Type Department Care Team (Late st Contact Info) Description 02/18/2025 3:30 PM EDT Office Visit [facility] Cardiovascular Center [place] [address] [address], [facility] [address] [place] [address] 03/13/2025 12:30 PM EDT Office Visit [facility] Medicine - [place] [address] [place] [phone] Liam Houston [place] [id number] [place] [address] [address] [place], [place] [phone] Scheduled Procedures Name Priority Associated Diagnoses Date/Ti [...] documented as of this encounter Care Teams Marketing Content Specialist Relationship Specialty Start Date End Date Liam Houston MD [id number] [address] [place] [address] PCP - General Family Medicine 04/26/22 documented as of this encounter
--- OUTSIDE RECORDS SUMMARY | 2025-01-25 14:27 | XMS_ITS | Encounter Summary ---
Author Organization [facility] Address [address] [place] [address] Care Team Providers Care Salt Plant Operator Name Role Phone Liam Houston MD Primary Care Provider [phone] Encounter Details Date Type Department Care Team (Late st Contact Info) Description 01/17/2006 Documentation Encounter SANJEEV V ALLSCRIPTS CONV Conversion, [...] Sign Reading Time Taken Comments Blood Pressure 150/88 01/17/2006 8:34 AM EDT Pulse 84 01/17/2006 8:34 AM EDT Temperature 36.7 C (98 F) 01/17/2006 8:34 AM EDT Respiratory Rate 15 01/17/2006 8:34 AM EDT Oxygen Saturation - - Inhaled Oxygen Concentration - - Weight 63.5 kg (140 lb) 01/17/2006 8:34 AM EDT Height - - Body Mass Index - - documented in this encounter Plan of Treatment Upcoming Encounters Date Type Department Care Team (Late st Contact Info) Description 02/18/2025 3:30 PM EDT Office Visit [facility] Cardiovascular Center [place] [address], [address] [place] [address] 03/13/2025 12:30 PM EDT Office Visit [facility] [address] [address] Liam Houston MD [address] [address] Scheduled Procedures Name Priority Associated Diagnoses Date/Ti [...] documented as of this encounter Care Teams Salt Plant Operator Relationship Specialty Start Date End Date Liam Houston MD [id number] [place] [id number] PCP - General Family Medicine 04/26/22 documented as of this encounter
[2025-01-25 14:28] VITALS: BP 146/81; PULSE 81; RESP 16; TEMP 36.4; O2SAT 100; BMI 21.2
--- NOTE | 2025-01-25 14:31 | ECG_ITS ---
[employer] Test Date: 2025-01-25 Pat Name: Gretchen Alas Department: Room: Gender: Female Rejogger: : 1935 Requested By: Leia Ahuja Order Number: [id number] Torre MD: Juma Cuellar M.D. Measurements Intervals Holder Rate: 66 P: -63 CA: 154 QRS: -47 QRSD: 157 T: 124 QT: 449 QTc: 470 Interpretive Statements ECTOPIC ATRIAL RHYTHM LEFT AXIS DEVIATION [QRS AXIS < -30] LEFT BUNDLE BRANCH BLOCK [120+ ms QRS DURATION, 80+ ms Q/S IN V1/V2, 85+ ms R IN I/aVL/V5/V6] No previous ECG available for comparison Electronically Signed On 01-25-2025 20:13:46 CDT by Juma Cuellar M.D. [email or web address]
--- NOTE | 2025-01-25 14:43 | ED_ITS ---
HPI - Dizziness 2 General: Chief Complaint: Dizziness Stated Complaint: fall/dizzy need a ct Time Seen by Provider: 01/25/25 14:20 Source: patient Mode of arrival: ambulatory Limitations: no limitations History of Present Illness: HPI Narrative: 89-year-old female states she had had a fall 1 week ago and hit her head. States she did not have any loss consciousness states started Sunday she started having some dizziness. States that she has felt unsteady on her feet and having a hard time walking. States dizziness is worse with standing and with movement she has had a history of vertigo in the past that improved with rest she denies any headache Associated symptoms: Denies chest pain, chills, headache(s), nausea or vomiting Related Data Home Medications ?Medication ?Instructions ?Recorded ?Confirmed acetaminophen 300 mg-codeine 60 mg tab PO 01/25/25 tablet alendronate 70 mg tablet mg PO 01/25/25 01/25/25 amitriptyline 25 mg tablet mg PO 01/25/25 01/25/25 apixaban 2.5 mg tablet (Eliquis) mg PO 01/25/25 atorvastatin 80 mg tablet mg PO 01/25/25 01/25/25 levothyroxine 125 mcg tablet mcg PO 01/25/25 01/25/25 meclizine 25 mg tablet mg PO 01/25/25 01/25/25 metoprolol succinate 100 mg mg PO 01/25/25 01/25/25 tablet,extended release 24 hr potassium citrate 99 mg capsule mg PO 01/25/25 5 zinc acetate 50 mg (zinc) capsule 50 mg PO DAILY 01/2501/25/25 Allergies Allergy/AdvReac Type Severity Reaction Status Date / Time cold temp Allergy ALGY-Bliste Uncoded 01/25/25 13:55 r Review of Systems 2 Const: Denies: fever(s), chills, body aches or change in appetite Eyes: Denies: blurry vision ENMT: Denies: throat pain or dental pain Card: Denies: chest pain Resp: Denies: dyspnea GI: Denies: abdominal pain, nausea, vomiting or diarrhea Musc: Denies: neck pain or back pain Skin/Breast: Denies: rash Neuro: Reports: dizziness; Denies: headache(s) [facility] ED 2 PFSH: Social History Smoking and tobacco/nicotine status: never used tobacco/nicotine Physical Exam 2 Const: COMMON NORMALS: no acute distress, patient oriented x3 and healthy appearing HENMT: COMMON NORMALS: normocephalic and atraumatic HEAD & SCALP: n ormocephalic and atraumatic Eye: OTHER: Nystagmus noted when looking to the right Neck/C-Spine: COMMON NORMALS: full ROM and supple Chest: COMMONS NORMALS: normal inspection of the chest and normal palpation of entire chest wall Resp: COMMON NORMALS: normal respiratory effort, No retractions, No use of accessory muscles and clear to auscultation bilaterally AUSCULTATION: clear to auscultation bilaterally Cardio: COMMON NORMALS: regular rate, regular rhythm and No murmurs present (Cardio) RATE: regular rate RHYTHM: regular rhythm GI: COMMON NORMALS: Normal to inspection, nondistended, normoactive bowel sounds present, Soft to palpation, non-tender and no masses PALPATION: Yes Soft to palpation Extremity: COMMON NORMALS: normal to inspection and full ROM Neuro: COMMON NORMALS: patient oriented x3, moves all extremities and no focal motor deficits Psych: COMMON NORMALS: mental status grossly normal, Normal thought process present and cooperative THOUGHT PROCESS: Normal thought process present Skin: COMMON NORMALS: no rashes or lesions noted and no wounds GENERAL SKIN EXAM: no rashes or lesions noted Course 2 Vital Signs: Vital signs: Vital Signs Temperature 97.6 F 01/25/25 14:28 Pulse Rate 81 01/25/25 14:28 Respiratory Rate 16 01/25/25 14:28 Blood Pressure 146/81 01/25/25 14:28 Pulse Oximetry 100 01/25/25 14:28 Oxygen Delivery Me thod Room Air 01/25/25 14:28 MDM - Dizziness Medical Decision Making Patient presents here with head injury she is having vertigo as well. Likely peripheral vertigo she has no signs of stroke her symptoms resolved after meclizine she is able to ambulate without any difficulties she stable for discharge follow-up PCP return if worsening. Medical Records I reviewed the patient's medical records. Lab Data I reviewed the patient's lab results. 01/25/25 14:35 01/25/25 14:35 Radiology Impressions Chest X-Ray 01/25/25 14:21 IMPRESSION: No focal consolidation. Streaky opacities in the lower lungs, likely atelectasis. Mild superimposed pneumonia is possible. Head CT 01/25/25 14:21 IMPRESSION: No acute intracranial finding. Laboratory Results WBC 7.89 10^3/uL (3.29-11.43) 01/25/25 14:35 RBC 4.02 10^6/uL (3.85-5.65) 01/25/25 14:35 Hgb 12.10 g/dL (11.27-16.99) 01/25/25 14:35 Hct 38.4 % (36-47) 01/25/25 14:35 MCV 95.5 fl (85-98) 01/25/25 14:35 MCH 30.1 pg (27-33) 01/25/25 14:35 MCHC 31.5 g/dL (30-55) 01/25/25 14:35 RDW 13.2 % (12.1-15.1) 01/25/25 14:35 Plt Count 204 10^3/cmm (157-399) 01/25/25 14:35 MPV 8.9 fL (7.4-10.4) 01/25/25 14:35 Neut % (Auto) 61.8 % 01/25/25 14:35 Lymph % (Auto) 23.3 % 01/25/25 14:35 Piatt % (Auto) 12.5 % 01/25/25 14:35 Eos % (Auto) 1.4 % 01/25/25 14:35 Baso % (Auto) 0.6 % 01/25/25 14:35 Neut # (Auto) 4.87 10^3/uL (1.8-7.7) 01/25/25 14:35 Lymph # (Auto) 1.8 10^3/uL (0.8-4.8) 01/25/25 14:35 Piatt # (Auto) 1.0 10^3/uL (0.2-0.9) H 01/25/25 14:35 Eos # (Auto) 0.1 10^3/uL (0.0-0.8) 01/25/25 14:35 Baso # (Auto) 0.1 10^3/uL (0.0-0.1) 01/25/25 14:35 Nucleated RBC % (auto) 0 % 01/25/25 14:35 Nucleated RBCs # 0.0 /100WBC 01/25/25 14:35 PT 14.60 SECONDS (12.1-14.9) 01/25/25 14:35 INR 1.07 (0.8-1.2) 01/25/25 14:35 Sodium 136 mmol/L (136-145) 01/25/25 14:35 Potassium 4.2 mmol/L (3.5-5.1) 01/25/25 14:35 Chloride 100 mmol/L (98-107) 01/25/25 14:35 Carbon Dioxide 25 mmol/L (22-29) 01/25/25 14:35 Anion Gap 15.2 (5-19) 01/25/25 14:35 BUN 13 mg/dL (8-23) 01/25/25 14:35 Creatinine 0.9 mg/dL (0.5-0.9) 01/25/25 14:35 GFR Calculation Not Reportable 01/25/25 14:35 Glucose 97 mg/dL (65-115) 01/25/25 14:35 Calculated Osmolality 282 mOsm/kg (285-295) L 01/25/25 14:35 Calcium 9.5 mg/dL (8.5-10.5) 01/25/25 14:35 Total Bilirubin 0.9 mg/dL (0.15-1.2) 01/25/25 14:35 AST 24 U/L (0-32) 01/25/25 14:35 ALT 15 U/L (0-33) 01/25/25 14:35 Alkaline Phosphatase 93 U/L (35-105) 01/25/25 14:35 Total Protein 7.2 g/dL (6.6-8.7) 01/25/25 14:35 Albumin 4.2 g/dL (3.5-5.2) 01/25/25 14:35 Globulin 3.0 g/dL (1.3-4.6) 01/25/25 14:35 All radiology interpretation(s) finalized by discharge EKG Data EKG 1: I personally reviewed and interpreted this EKG as follows: EKG interpretation date: 01/25/25 EKG interpretation time: 14:31 Interpretation: hr [address] elevation qrs 157 qtc 462 Discharge Plan Discharge Patient Disposition: Home Clinical Impression: Dizziness, Closed head injury Condition: Stable Prescriptions: No Action atorvastatin 80 mg tablet PO zinc acetate 50 mg (zinc) capsule 50 mg PO DAILY alendronate 70 mg tablet PO metoprolol succinate 100 mg tablet extended release 24 hr PO amitriptyline 25 mg tablet PO meclizine 25 mg tablet PO levothyroxine 125 mcg tablet PO acetaminophen-codeine 300-60 mg tablet PO Eliquis 2.5 mg tablet PO potassium citrate 99 mg capsule PO Discharge Orders: Discharge ED (Routine); Ordered 01/25/25 Ordered By: Leia Ahuja Discharge Diet: Advance as tolerated Discharge Activity: Resume usual activity Patient Instructions: Vertigo (ED), Head Injury (ED) Print Language: Sao Tomean Coding Level of Care Code ED Field Artillery Operations Specialist for Eliana [place]brook
[2025-01-25 14:55] LABS: Hematocrit 38.4 % (36-47); Hemoglobin 12.10 g/dL (11.27-16.99); Mean Corpuscular HGB Conc 31.5 g/dL (30-55); Mean Corpuscular Hemoglobin 30.1 pg (27-33); Mean Corpuscular Volume 95.5 fl (85-98); Nucleated Red Blood Cells % 0 %; Platelet Count 204 10^3/cmm (157-399); Red Blood Count 4.02 10^6/uL (3.85-5.65); White Blood Count 7.89 10^3/uL (3.29-11.43)
[2025-01-25 15:00] VITALS: BP 151/89; PULSE 64; O2SAT 99
[2025-01-25 15:02] LABS: INR 1.07 (0.8-1.2); Prothrombin Time 14.60 SECONDS (12.1-14.9)
[2025-01-25 15:09] LABS: Alanine Aminotransferase 15 U/L (0-33); Albumin Level 4.2 g/dL (3.5-5.2); Alkaline Phosphatase 93 U/L (35-105); Anion Gap 15.2 (5-19); Aspartate Amino Transferase 24 U/L (0-32); Blood Urea Nitrogen 13 mg/dL (8-23); Calcium 9.5 mg/dL (8.5-10.5); Carbon Dioxide 25 mmol/L (22-29); Chloride 100 mmol/L (98-107); Creatinine Clr Calc Pharmacy 32.7285; Globulin 3.0 g/dL (1.3-4.6); Glucose 97 mg/dL (65-115); Osmolality Calculated 282 mOsm/kg (285-295); Potassium 4.2 mmol/L (3.5-5.1); Sodium 136 mmol/L (136-145); Total Protein 7.2 g/dL (6.6-8.7)
[2025-01-25 16:00] VITALS: BP 143/77; PULSE 64; O2SAT 99
[2025-01-25 17:00] VITALS: BP 158/70; PULSE 68; O2SAT 97
[2025-01-25 17:00] LABS: Glucose Urine UA Negative (Normal); Nitrate Urine Negative (Negative); Specific Gravity, Urine 1.004 (1.005-1.030)
[2025-01-25 17:06] LABS: Add Urine Microscopic? YES
== END 2025-01-25 17:00 | disposition home or self-care (01) ==
PROVIDERS: Emergency Provider Emergency Medicine
DX: R42 Dizziness and giddiness (principal); S09.8XXA Other specified injuries of head, initial encounter; Z79.01 Long term (current) use of anticoagulants; W19.XXXA Unspecified fall, initial encounter
CPT/HCPCS: 36415; 70450; 71045; 80053; 81001; 85025; 85610; 87086; 93005; 99285; J8597

== ENCOUNTER 2025-02-24 16:52 | Emergency (ER) | payer MEDICARE, SELFPAY ==
--- NOTE | 2025-02-24 16:59 | XRR_ITS ---
PROCEDURE INFORMATION: Exam: XR Bilateral Hips Exam date and time: 02/24/2025 6:37 PM Age: 89 years old Clinical indication: Injury or trauma; Fall; Blunt trauma (contusions or hematomas); Bilateral; Hip and pelvic region; Additional info: Fall, left hip pain. With pelvis TECHNIQUE: Imaging protocol: Radiologic exam of the bilateral hips. Views: 2 views of hips with pelvis when performed. COMPARISON: CR XR lumbar spine 2-3V* [id number] 01/22/2023 3:27 PM FINDINGS: Bones/joints: No acute fracture or dislocation. Mild symmetrical joint space narrowing. 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 Soft tissues: Unremarkable. Vasculature: The aorta demonstrates severe atherosclerotic calcification. XR/XR hip BI m 5V wo/w pel* [id number] IMPRESSION: 1. No acute findings. 2. Mild bilateral hip arthrosis.
--- OUTSIDE RECORDS SUMMARY | 2025-02-24 17:00 | XMS_ITS | Encounter Summary ---
Author Organization [facility] Address [address] [place] [address] Care Team Providers Care Steward/Stewardess Club Car Name Role Phone Liam Houston MD Primary Care Provider [phone] Encounter Details Date Type Department Care Team [...] Upcoming Encounters Date Type Department Care Team (Latest Contact Info) Description 03/09/2025 1:00 PM EDT Ancillary Procedure [facility] IMAGING SERVICES - [place] [address] [facility] [place] [address] Aristeo Schwartz MD [address] [place] [address] 03/13/2025 12:30 PM EDT Office Visit [facility] [place] [address] [facility] [address] [place] [address] Liam Houston [place] [address] [facility] [address] [place] [address] 03/19/2025 8:00 AM EST Hospital [facility] [address] [place] [address] Aristeo Schwartz MD [address] [place] [address] 03/19/2025 8:00 AM EST - 03/19/2025 11:11 AM EST Surgery [facility] [address] [place] [address] Aristeo Schwartz MD [address] [place] [address] WATCHMAN INSERTION 03/26/2025 1:00 PM EST Office Visit [address] [phone] Ellie Alcaraz, MANAGEMENT CONSULTANT [address] [address] 05/20/2025 3:00 PM EST Office Visit [facility] [address] [place] [address] 08/05/2025 11:00 AM EDT Office Visit [place] [address] Ju[address] Horvath, Peter [address] [place] [address] Scheduled Procedures Name Priority Associated Diagnoses Date/Ti me WATCHMAN INSERTION Atrial fibrillation, unspecified type 03/19/2025 8:00 AM EST documented as of this encounter Visit Diagnoses Not on filedocumented in this encounter Additional Health Concerns Infection Onset Date Last Indicated Resolved Time None 10/20/2011 10/20/2011 07/15/2012 12:4 0 AM EST COVID-19 Rule-Out 11/24/2020 11/24/2020 11/24/2020 10:21 PM EDT COVID-19 (Confirmed) 11/24/2020 12/10/2020 021 3:03 AM EDT COVID-19 Rule-Out 11/24/2020 11/25/2020 11/25/2020 5:14 AM EDT documented as of this encounter Care Teams Steward/Stewardess Club Car Relationship Specialty Start Date [place] Date Liam Houston [place] 7[address] [place] [address] [address] [place] [address] PCP - General Family Medicine 04/26/22 documented as of this encounter
--- OUTSIDE RECORDS SUMMARY | 2025-02-24 17:00 | XMS_ITS | Encounter Summary ---
Author Organization [facility] Address [address] [place] [address] Care Team Providers Care Luster Repairer Name Role Phone Liam Houston MD Primary Care Provider [phone] Encounter Details Date Type Department Care Team [...] as of this encounter Procedure Notes * See Allscripts - 12/02/2013 9:18 AM EDTAssociated Order(s): SCANNED LAB REPORT documented in this encounter Plan of Treatment Upcoming Encounters Date Type Department Care Team (Latest Contact Info) Description 03/09/2025 1:00 PM EDT Ancillary Procedure [facility] IMAGING SERVICES - [place] [address] [place] [address] Aristeo Schwartz MD [address] [place] [address] - 5th [place] [address] 03/13/2025 12:30 PM EDT Office Visit [facility] [address] [place] [address] [place] [address] Liam Houston MD 278775 [place] [address] [place] [address] 03/19/2025 8:00 AM EST Hospital [facility] [address] [place] [address] Aristeo Schwartz MD [address] [place] [address] 03/19/2025 8:00 AM EST - 03/19/2025 11:11 AM EST Surgery [facility] [address] [place] [address] Aristeo Schwartz MD [address] [place] [address] WATCHMAN INSERTION 03/26/2025 1:00 PM EST Office Visit [facility] [address] [place] [phone] Ellie Alcaraz, TILE CLASSIFIER [address] [address] 05/20/2025 3:00 PM EST Office Visit [facility] [address] [phone] 08/05/2025 11:00 AM EDT Office Visit [facility] [address] [address]vath, Peter [address] [place] [address] Scheduled Procedures Name Priority Associated Diagnoses Date/Ti me WATCHMAN INSERTION Atrial fibrillation, unspecified type 03/19/2025 8:00 AM EST documented as of this encounter Procedures Procedure [...] documented as of this encounter Care Teams Luster Repairer Relationship Specialty Start Date [place] 17[address] [place] [address] [address] [place] [address] PCP - General Family Medicine 04/26/22 documented as of this encounter
--- OUTSIDE RECORDS SUMMARY | 2025-02-24 17:00 | XMS_ITS | Encounter Summary ---
Author Organization [facility] Address [address] [place] [address] Care Team Providers Care Bench Scientist Name Role Phone Liam Houston MD Primary Care Provider [phone] Encounter Details Date Type Department Care Team [...] 4:57 PM EDT . RE ALAS [address] [place] [address] Feb 24, 2010 Dear Ms. ALAS: Here are the results from your recent visit: PHYSICAL: Mammogram no abnormality or malignancy. Repeat in 1 year(s) PLAN OF ACTION: Keep regular appointment with our office and/or as needed Sincerely, [facility]. Signature Electronically signed by : Selina Hayes MA; 02/24/2010 4:58 PM EST; Validation. documented in this encounter Plan of Treatment Upcoming Encounters Date Type Department Care Team (Latest Contact Info) Description 03/09/2025 1:00 PM EDT Ancillary Procedure [facility] IMAGING SERVICES - [place] [address] [place] [address] Aristeo Schwartz MD [address] [place] [address] 03/13/2025 12:30 PM EDT Office Visit [facility] Medicine - [place] [address] [facility] [address] [place] [address] Liam Houston MD [address]339 [facility] [address] [place] [address] 03/19/2025 8:00 AM EST Hospital En[facility] [address] [place] [address] Aristeo Schwartz MD [address] [place] [address] 03/19/2025 8:00 AM EST - 03/19/2025 11:11 AM EST Surgery [facility] [address] [place] [address] Aristeo Schwartz MD [address] [place] [address] WATCHMAN INSERTION 03/26/2025 1:00 PM EST Office Visit [facility] [address] [phone] Ellie Alcaraz, KAIT [address] [place] [address] 05/20/2025 3:00 PM EST Office Visit [facility] [address] [place] [phone] 08/05/2025 11:00 AM EDT Office Visit [facility] [address] [address] Col[address]onda, Peter [address] [place] [address] Scheduled Procedures Name Priority Associated Diagnoses Date/Ti [...] documented as of this encounter Care Teams Bench Scientist Relationship Specialty Start Date End Date Liam Houston [place] 59[address] [place] [address] [address] [place] [address] PCP - General Family Medicine 04/26/22 documented as of this encounter
--- OUTSIDE RECORDS SUMMARY | 2025-02-24 17:00 | XMS_ITS | Encounter Summary ---
Author Organization [facility] Address [address] [place] [address] Care Team Providers Care College And Career Counselor Name Role Phone Liam Houston MD Primary Care Provider [phone] Encounter Details Date Type Department Care Team [...] as of this encounter Procedure Notes * See, Allscripts - 12/03/2013 3:01 AM EDTAssociated Order(s): SCANNED LAB REPORT documented in this encounter Plan of Treatment Upcoming Encounters Date Type Department Care Team (Latest Contact Info) Description 03/09/2025 1:00 PM EDT Ancillary Procedure [facility] IMAGING SERVICES - [place] [address] [place] [address] Aristeo Schwartz MD [address] [place] [address] - 5th [place] [address] 03/13/2025 12:30 PM EDT Office Visit [facility] [place] 7[address] [place] [address] [place] [phone] [place] Houston [place] 94[address] [place] [address] [place] [address] 03/19/2025 8:00 AM EST Hospital En[facility] [address] [place] [address] Aristeo Schwartz MD [address] [place] [address] 03/19/2025 8:00 AM EST - 03/19/2025 11:11 AM EST Surgery [facility] [address] [place] [address] Aristeo Schwartz MD [address] [place] [address] WATCHMAN INSERTION 03/26/2025 1:00 PM EST Office Visit [facility] [address] [place] [phone] Ellie Alcaraz, OFFSET LITHOGRAPHIC PRESS OPERATOR [address] [address] 05/20/2025 3:00 PM EST Office Visit [facility] [address] [phone] 08/05/2025 11:00 AM EDT Office Visit [facility] [address] Juvenc[address] Horvath, Peter [address] [place] [address] Scheduled Procedures Name Priority Associated Diagnoses Date/Ti [...] documented as of this encounter Care Teams College And Career Counselor Relationship Specialty Start Date End Date Liam Houston MD 191089 [place] [address] [address] [place] [address] PCP - General Family Medicine 04/26/22 documented as of this encounter
--- OUTSIDE RECORDS SUMMARY | 2025-02-24 17:00 | XMS_ITS | Encounter Summary ---
Author Organization [facility] Address [address] [place] [address] Care Team Providers Care It Integration Architect Name Role Phone Liam Houston MD Primary Care Provider [phone] Encounter Details Date Type Department Care Team (Latest Contact Info) Description 10/29/2015 Prep For Surgery [facility] Neurosurgery - [address], [place] [address], [address]th [place] [address] Velia Britton APRN [address], [place], [address] [place] [address] Other closed fracture of tenth [...] Description 03/09/2025 1:00 PM EDT Ancillary Procedure [facility] [address] [place] [address] Aristeo Schwartz MD [address] [place] [address] 03/13/2025 12:30 PM EDT Office Visit [facility] [place] [address] [facility] [address] [place] [address] Liam Houston MD [address] [place], [place] [phone] 03/19/2025 8:00 AM EST Hospital En[facility] [address] [place] [address] Aristeo Schwartz MD [address] [place] [address] 03/19/2025 8:00 AM EST - 03/19/2025 11:11 AM EST Surgery [facility] [address] [place] [address] Aristeo Schwartz MD [address] [place] [address] WATCHMAN INSERTION 03/26/2025 1:00 PM EST Office Visit [address] [phone] Ellie Alcaraz, CHOPPED STRAND OPERATOR [address] [address] 05/20/2025 3:00 PM EST Office Visit [address] [phone] 08/05/2025 11:00 AM EDT Office Visit [facility] [address], Peter [address] [place] [address] Scheduled Procedures Name Priority Associated Diagnoses Date/Ti me WATCHMAN INSERTION Atrial fibrillation, unspecified type 03/19/2025 8:00 AM EST documented as of this encounter Visit Diagnoses Diagnosis Other closed fracture of tenth thoracic vertebra Weakness of right leg Other musculoskeletal symptoms referable to limbs Atrial fibrillation, unspecified type documented in this encounter Additional Health Concerns Infection Onset Date Last Indicated Resolved Time COVID-19 Rule-Out 11/24/2020 11/24/2020 11/24/2020 10:21 PM EDT COVID-19 (Confirmed) 11/24/2020 12/10/2020 021 3:03 AM EDT COVID-19 Rule-Out 11/24/2020 11/25/2020 11/25/2020 5:14 AM EDT documented as of this encounter Care Teams It Integration Architect Relationship Specialty Start Date End Date Liam Houston MD 57[address]91 [place] [address] [address] [place] [address] PCP - General Family Medicine 04/26/22 documented as of this encounter
--- OUTSIDE RECORDS SUMMARY | 2025-02-24 17:00 | XMS_ITS | Encounter Summary ---
Author Organization [facility] Address [address] [place] [address] Care Team Providers Care Date Pitter Name Role Phone Liam Houston MD Primary Care Provider [phone] Encounter Details Date Type Department Care Team [...] AM EDT Test Conclus. RADIOLOGY/IMAGING [facility] REPORT [address] [place] [address] Patient Name: RE TORRES : [birth year] Age: 75Y Ordering Physician: ASPEN LICONA LED: 10/25/11 Sex: F Attending Physician: ASPEN LICONA Service: RADIOLOGY Check-in #: [id number] Room #/Area: [facility] Unit No.: [id number] Reason: 433.10-OCL CRTD ART WO INFRCT Date Ordered: 10/25/11 1324 Admit Dx: [id number] Date/Time Done: 10/25/11 1324 Priority: +ROUTINE INS: HMO-Medicare Initial Service: PPR Comments: ?->No EXAM 9249 SO-CAROTID VALERIA COMPLETE 60253 Final Ord Dia.10-OCL CRTD ART WO INFRCT [...] the residual internal carotid diameter with [place] symptomatically carotid endarterectomy trial (NASCET) based stenosis [...] Final CONTINUED Page 1 RADIOLOGY/IMAGING [facility] REPORT [address] [place] [address] Patient Name: RE TORRES : [birth year] Age: 75Y Ordering Physician: ASPEN LICONA LED: 10/25/11 Sex: F Attending Physician: ASPEN LICONA Service: RADIOLOGY Check-in #: [id number] Room #/Area: [facility] Unit No.: [id number] Reason: 433.10-OCL CRTD ART WO INFRCT Date Ordered: 10/25/111323 Admit Dx: [id number] Date/Time Done: 10/25/111323 Priority: +ROUTINE INS: HMO-Medicare Initial Service: PPR Comments: ?->No Checkin-Exam Code Summary [id number] Mid ICA Peak Systolic: 67 Mid ICA End Diastolic: 25 Distal ICA Peak Systolic: 62 Distal ICA End Diastolic: 25 ECA Peak Systolic: 85 VERTEBRAL ARTERY LEFT: : ANTEGRADE ICA/CCA (Normal <2.0): 0.9 COMMENTS: Mild plaque bilateral bulb regions IMPRESSION: No significant flow limiting stenosis by velocity criteria is seen. Used Car Make Ready Mechanic- Automated Read By- HERIBERTO HEBERT M.D. Electronically Verified By- HERIBERTO HEBERT M.D. Released Date Time- 10/25/11 8765 Final Page 2. Results Plan Notify patient [...] Description 03/09/2025 1:00 PM EDT Ancillary Procedure [facility] [address] [place] [address] Aristeo Schwartz MD [address] [place] [address] 03/13/2025 12:30 PM EDT Office Visit [facility] [address] [facility] [address] [place] [address] Liam Houston MD 768732 [place] [address] [place] [address] 03/19/2025 8:00 AM EST [facility] [address] [place] [address] Aristeo Schwartz MD [address] [place] [address] 03/19/2025 8:00 AM EST - 03/19/2025 11:11 AM EST Surgery [facility] [address] [place] [address] Aristeo Schwartz MD [address] [place] [address] WATCHMAN INSERTION 03/26/2025 1:00 PM EST Office Visit [address] [address] Ellie Alcaraz, GLORY HOLE TENDER [address] [address] 05/20/2025 3:00 PM EST Office Visit [facility] [address] [place] [phone] 08/05/2025 11:00 AM EDT Office Visit [facility] [address] Juvencio Fernandezy, Peter [address] [place] [address] Scheduled Procedures Name Priority Associated [...] documented as of this encounter Care Teams Date Pitter Relationship Specialty Start Date End Date Liam Houston [place] [address] [place] [address] [address] [place] [address] PCP - General Family Medicine 04/26/22 documented as of this encounter
--- OUTSIDE RECORDS SUMMARY | 2025-02-24 17:00 | XMS_ITS | Encounter Summary ---
Author Organization [facility] Address [address] [place] [address] Care Team Providers Care Artificial Flowers Starcher Name Role Phone Liam Houston MD Primary Care Provider [phone] Encounter Details Date Type Department Care Team [...] 03/09/2025 1:00 PM EDT Ancillary Procedure [facility] [address] [place] [address] Aristeo Schwartz MD [address] [place] [address] 03/13/2025 12:30 PM EDT Office Visit [facility] [address] [facility] [address] [place] [address] Liam Houston MD 440589 [facility] [address] [place], [place] [phone] 03/19/2025 8:00 AM EST Hospital [facility] [address] [place] [address] Aristeo Schwartz MD [address] [place] [address] 03/19/2025 8:00 AM EST - 03/19/2025 11:11 AM EST Surgery [facility] [address] [place] [address] Aristeo Schwartz MD [address] [place] [address] WATCHMAN INSERTION 03/26/2025 1:00 PM EST Office Visit [address] [phone] Ellie Alcaraz, DIRECTOR SHIP [address] [address] 05/20/2025 3:00 PM EST Office Visit [address] [address] 08/05/2025 11:00 AM EDT Office Visit [place] [address], Peter [address] [place] [address] Scheduled Procedures Name Priority Associated Diagnoses Date/Ti [...] as of this encounter Care Teams Artificial Flowers Starcher Relationship Specialty Start Date End Date Liam Houston MD [address] [place] [address] [address] [place] [address] PCP - General Family Medicine 04/26/22 documented as of this encounter
--- OUTSIDE RECORDS SUMMARY | 2025-02-24 17:00 | XMS_ITS | Encounter Summary ---
Author Organization [facility] Address [address] [place] [address] Care Team Providers Care Bicycle Courier Name Role Phone Liam Houston MD Primary Care Provider [phone] Encounter Details Date Type Department Care Team [...] Description 03/09/2025 1:00 PM EDT Ancillary Procedure [facility] [address] [place] [address] Aristeo Schwartz MD [address] [place] [address] 03/13/2025 12:30 PM EDT Office Visit [facility] Family Medicine - [place] [address] [facility] [address] [place] [address] Liam Houston MD 893329 [place] [address] [place], [place] [address] 03/19/2025 8:00 AM EST [facility] [address] [place] [address] Aristeo Schwartz MD [address] [place] [address] 03/19/2025 8:00 AM EST - 03/19/2025 11:11 AM EST Surgery [facility] [address] [place] [address] Aristeo Schwartz MD [address] [place] [address] WATCHMAN INSERTION 03/26/2025 1:00 PM EST Office Visit [address] [address] Ellie Alcaraz, COMMUNITY SERVICE TECHNICIAN [address] [address] 05/20/2025 3:00 PM EST Office Visit [address] [address] 08/05/2025 11:00 AM EDT Office Visit [facility] [address] Juvenc[address] Horvath, Peter [address] [place] [address] Scheduled Procedures Name Priority Associated [...] documented as of this encounter Care Teams Bicycle Courier Relationship Specialty Start Date End Date Liam Houston MD [address] [place] [address] [address] [place] [address] PCP - General Family Medicine 04/26/22 documented as of this encounter
--- OUTSIDE RECORDS SUMMARY | 2025-02-24 17:00 | XMS_ITS | Encounter Summary ---
Author Organization [facility] Address [address] [place] [address] Care Team Providers Care Gravity Prospecting Observer Helper Name Role Phone Liam Houston MD Primary Care Provider [phone] Encounter Details Date Type Department Care Team [...] encounter Procedure Notes * Katy Cuiricarly - 11/06/2013 4:22 PM EDTAssociated Order(s): CARDIOLOGY TESTING documented in this encounter Plan of Treatment Upcoming Encounters Date Type Department Care Team (Latest Contact Info) Description 03/09/2025 1:00 PM EDT Ancillary Procedure [facility] IMAGING SERVICES - [place] [address] [place] [address] Aristeo Schwartz MD [address] - [address]th [place] [address] 03/13/2025 12:30 PM EDT Office Visit [facility] [place] [address] [place] [address] [place] [address] Liam Houston MD 442263 [place] [address] [place] [address] 03/19/2025 8:00 AM EST Hospital [facility] [address] [place] [address] Aristeo Schwartz MD [address] [place] [address] 03/19/2025 8:00 AM EST - 03/19/2025 11:11 AM EST Surgery [facility] [address] [place] [address] Aristeo Schwartz MD [address] [place] [address] WATCHMAN INSERTION 03/26/2025 1:00 PM EST Office Visit [facility] [address] [place] [phone] Ellie Alcaraz, WARP SCOURING VAT TENDER [address] [address] 05/20/2025 3:00 PM EST Office [facility] [address] [place] [phone] 08/05/2025 11:00 AM EDT Office Visit [facility] [address] Juven[address] Horvath, Peter [address] [place] [address] Scheduled Procedures Name Priority Associated Diagnoses Date/Ti [...] 11/24/2020 10:21 PM EDT COVID-19 (Confirmed) 11/24/2020 12/10/202012/16/ 021 3:03 AM EDT COVID-19 Rule-Out 11/24/2020 11/25/2020 11/25/2020 5:14 AM EDT documented as of this encounter Care Teams Gravity Prospecting Observer Helper Relationship Specialty Start Date End Date Liam Houston MD 124527 [address] [place] [address] PCP - General Family Medicine 04/26/22 documented as of this encounter
--- OUTSIDE RECORDS SUMMARY | 2025-02-24 17:00 | XMS_ITS | Encounter Summary ---
[facility] Address [address] [place] [address] Care Team Providers Care Resaw Tailer Name Role Phone Liam Houston MD Primary Care Provider [phone] Encounter Details Date Type Department Care Team [...] Description 03/09/2025 1:00 PM EDT Ancillary Procedure [facility]ING [facility] - [place] [address] [place] [address] Aristeo Schwartz MD [address] [place] [address] 03/13/2025 12:30 PM EDT Office Visit [facility] Medicine - [place] [address] [place] [phone] Liam Houston MD 220631 [place] [address] [place] [address] [phone] 03/19/2025 8:00 AM EST Hospital En[facility] [address] [place] [address] Aristeo Schwartz MD [address] [place] [address] 03/19/2025 8:00 AM EST - 03/19/2025 11:11 AM EST [facility] [address] [place] [address] [place] [address] Aristeo Schwartz MD [address] [place] [address] WATCHMAN INSERTION 03/26/2025 1:00 PM EST Office Visit [facility] - [address] [phone] Ellie Alcaraz, INVESTIGATIONS DIRECTOR [address] [place] [address] 05/20/2025 3:00 PM EST Office Visit [facility] [place] [address] 5th Floor, [place] [address] 08/05/2025 11:00 AM EDT Office Visit [facility] [address] Juven[address] Horvath, Peter [address] [place] [address] Scheduled Procedures Name Priority Associated Diagnoses Date/Ti [...] documented as of this encounter Care Teams Resaw Tailer Relationship Specialty Start Date End Date Liam Houston MD 037434 [place] [address] [address] [address] [place] [address] PCP - General Family Medicine 04/26/22 documented as of this encounter
--- OUTSIDE RECORDS SUMMARY | 2025-02-24 17:00 | XMS_ITS | Encounter Summary ---
Author Organization [facility] Address [address] [place] [address] Care Team Providers Care Well Driller Name Role Phone Liam Houston MD Primary Care Provider [phone] Encounter Details Date Type Department Care Team [...] 02/24/2010 4:11 PM EDT Test Conclus. RADIOLOGY/IMAGING [facility] REPORT [address] [place] [address] Patient Name: RE ALAS : [birth year] Age: 74Y Ordering Physician: ASPEN LICONA LED: [birth year] Sex: F Attending Physician: ASPEN LICONA Service: RADIOLOGY Check-in #: [id number] Room #/Area: [facility] Unit No.: [id number] [id number] Reason: V76.12-SCREEN MAMMOGRAM NEC Date Ordered: 02/24/10 1321 Admit Dx: [id number] Date/Time Done: 02/24/10 1321 Priority: *WOMENS ADRIAN INS: HMO-Medicare Initial Service: CBC Comments: EXAM 9949 BR-MAMMOGRAM SCREEN BILAT [id number] Final Ord Diag: V76.12-SCREEN MAMMOGRAM NEC Bilateral [...] recommendations were Final CONTINUED Page 1 RADIOLOGY/IMAGING [facility] REPORT [address] [place] [address] Patient Name: RE ALAS : [birth year] Age: 74Y Ordering Physician: ASPEN LICONA LED: [birth year]10 Sex: F Attending Physician: ASPEN LICONA Service: RADIOLOGY Check-in #: [id number] Room #/Area: [facility] Unit No.: [id number] [id number] Reason: V76.12-SCREEN MAMMOGRAM NEC Date Ordered: 02/24/10 1321 Admit Dx: [id number] Date/Time Done: 02/24/10 1321 Priority: *WOMENS CENTER INS: HMO-Medicare Initial Service: CBC Comments: Checkin-Exam Code Summary [id number] mailed to the patient. Junior Sales Assistant- Automated Read By- SAVI LAWSON M.D. Released By- SAVI LAWSON M.D. Released Date Time- 02/24/10 1425 Final Page 2. Signature Electronically signed by : Aspen Licona M.D.; 02/24/2010 4:44 PM EST. documented in this encounter Plan of Treatment Upcoming Encounters Date Type Department Care Team (Latest Contact Info) Description 03/09/2025 1:00 PM EDT Ancillary Procedure [facility] - [place] [address] [place] [address] Aristeo Schwartz MD [address] [place] [address] - 5th [place] [address] 03/13/2025 12:30 PM EDT Office Visit [facility] Family Medicine - [place] [address] [place] [address] [address] [place] [address] Liam Houston MD [address] [place] [address] [address] [place] [address] 03/19/2025 8:00 AM EST Hospital [facility] [address] [place] [address] Aristeo Schwartz MD [address] [place] [address] 03/19/2025 8:00 AM EST - 03/19/2025 11:11 AM EST Surgery [facility] [address] [place] [address] Aristeo Schwartz MD [address] [place] [address] WATCHMAN INSERTION 03/26/2025 1:00 PM EST Office Visit [facility] - [address] [phone] Ellie Alcaraz, QC MANAGER [address] [place] [address] 05/20/2025 3:00 PM EST Office Visit [facility] - [address] [phone] 08/05/2025 11:00 AM EDT Office Visit [address], [facility] [address]00 [place] [address] Scheduled Procedures Name Priority Associated Diagnoses Date/Ti il WATCHMAN INSERTION Atrial fibrillation, unspecified type 03/19/2025 [...] documented as of this encounter Care Teams Well Driller Relationship Specialty Start Date End Date Liam Houston MD 415884 [place] [address] [address] [address] [place] [address] PCP - General Family Medicine 04/26/22 documented as of this encounter
--- OUTSIDE RECORDS SUMMARY | 2025-02-24 17:00 | XMS_ITS | Encounter Summary ---
Author Organization [facility] Address [address] [place] [address] Care Team Providers Care Gear Roller Name Role Phone Liam Houston MD Primary Care Provider [phone] Encounter Details Date Type Department Care Team [...] Description 03/09/2025 1:00 PM EDT Ancillary Procedure [facility] [address] [place] [address] Aristeo Schwartz MD [address] [place] [address] 03/13/2025 12:30 PM EDT Office Visit [facility] [address] [address] [address] [address] [place] [address] Liam Houston MD [address] [place] [address] 200 [address] [place] [address] 03/19/2025 8:00 AM EST Hospital En[facility] [address] [place] [address] Aristeo Schwartz MD [address] [place] [address] 03/19/2025 8:00 AM EST - 03/19/2025 11:11 AM EST [facility] [address] [place] [address] Cardiovascular [address] Aristeo Schwartz MD [address] [place] [address] WATCHMAN INSERTION 03/26/2025 1:00 PM EST Office Visit [facility] [address] 5th Floor, [place] [address] Ellie Alcaraz, AIR ROUTE TRAFFIC CONTROLLER [address] [facility] 5th [place] [address] 05/20/2025 3:00 PM EST Office Visit [facility] [address] 5th Floor, [place] [address] 08/05/2025 11:00 AM EDT Office Visit [address] [facility] 3600 [address] Scheduled Procedures Name Priority Associated Diagnoses [...] documented as of this encounter Care Teams Gear Roller Relationship Specialty Start Date End Date Liam Houston MD 830480 [place] [address] [address] [address] [place] [address] PCP - General Family Medicine 04/26/22 documented as of this encounter
--- OUTSIDE RECORDS SUMMARY | 2025-02-24 17:00 | XMS_ITS | Encounter Summary ---
Author Organization [facility] Address [address] [place] [address] Care Team Providers Care Gasket Notcher Name Role Phone Liam Houston MD Primary Care Provider [phone] Encounter Details Date Type Department Care Team [...] Description 03/09/2025 1:00 PM EDT Ancillary Procedure [facility] - [place] [address] [place] [address] Aristeo Schwartz MD [address] - 5th [place] [address] 03/13/2025 12:30 PM EDT Office Visit [facility] Medicine - [place] [address] [place] [address] [place] [address] Liam Houston MD 799804 [place] [address] [place] [address] 03/19/2025 8:00 AM EST Hospital En[facility] [address] [place] [address] Aristeo Schwartz MD [address] [place] [address] 03/19/2025 8:00 AM EST - 03/19/2025 11:11 AM EST Surgery [facility] [address] [place] [address] Aristeo Schwartz MD [address] [place] [address] WATCHMAN INSERTION 03/26/2025 1:00 PM EST Office Visit [facility] [address] [place] [phone] Ellie Alcaraz, WELDER RAILCAR MECHANIC [address] [address] 05/20/2025 3:00 PM EST Office Visit [facility] [address] [place] [address] 08/05/2025 11:00 AM EDT Office Visit [facility] [address] Ju[address] Horvath, Peter [address] [place] [address] Scheduled Procedures Name Priority Associated Diagnoses Date/Ti [...] documented as of this encounter Care Teams Gasket Notcher Relationship Specialty Start Date End Date Liam Houston MD 329804 [address] [place] [address] PCP - General Family Medicine 04/26/22 documented as of this encounter
--- OUTSIDE RECORDS SUMMARY | 2025-02-24 17:00 | XMS_ITS | Encounter Summary ---
Author Organization [facility] Address [address] [place] [address] Care Team Providers Care A And P Technician Name Role Phone Liam Houston MD Primary Care Provider [phone] Encounter Details Date Type Department Care Team [...] RADIOLOGY - OUTSIDE AND OTHER * Conversion, Katyripts - 12/01/2013 1:35 PM EDTAssociated Order(s): SCANNED RADIOLOGY - MAMMOGRAM documented in this encounter Plan of Treatment Upcoming Encounters Date Type Department Care Team (Latest Contact Info) Description 03/09/2025 1:00 PM EDT Ancillary Procedure [facility] [address] [place] [address] Aristeo Schwartz MD [address] [place] [address] 03/13/2025 12:30 PM EDT Office Visit [facility] 4[address] [place] [address] [place] [address] Liam Houston [place] [address] [place] [address] 200 [address] [place], [place] 4333[address] 03/19/2025 8:00 AM EST Hospital En[facility] [address] [place] [address] Aristeo Schwartz MD [address] [place] [address] 03/19/2025 8:00 AM EST - 03/19/2025 11:11 AM EST [facility] [address] [place] [address] [place] [address] Aristeo Schwartz MD [address] [place] [address] WATCHMAN INSERTION 03/26/2025 1:00 PM EST Office Visit [facility] [place] - [address], [place] [address] Ellie Alcaraz, ORTHOTIC/PROSTHETIC CLINICIAN [address] ACC [address] [place] [address] 05/20/2025 3:00 PM EST Office Visit [facility] [address] 5th Floor, [place] [address] 08/05/2025 11:00 AM EDT Office Visit [place] [address], Peter [address] [place] [address] Scheduled Procedures Name Priority Associated [...] documented as of this encounter Care Teams A And P Technician Relationship Specialty Start Date End Date Liam Houston MD 256537 [place] [address] [address] [address] [place] [address] PCP - General Family Medicine 04/26/22 documented as of this encounter
--- OUTSIDE RECORDS SUMMARY | 2025-02-24 17:00 | XMS_ITS | Encounter Summary ---
Author Organization [facility] Address [address] [place] [address] Care Team Providers Care Pcu Rn Name Role Phone Liam Houston MD Primary Care Provider [phone] Encounter Details Date Type Department Care Team [...] Description 03/09/2025 1:00 PM EDT Ancillary Procedure [facility] [place] [address] [address] [facility] [place] [address] Aristeo Schwartz MD [address] [place] [address] 03/13/2025 12:30 PM EDT Office Visit [facility] [place] [address] [facility] [address] [place] [address] [place] Houston [place] 224747 [place] [address] [place] [address] 03/19/2025 8:00 AM EST Hospital En[facility] [address] [place] [address] Aristeo Schwartz MD [address] [place] [address] 03/19/2025 8:00 AM EST - 03/19/2025 11:11 AM EST Surgery [facility] [address] [place] [address] Aristeo Schwartz MD [address] [place] [address] WATCHMAN INSERTION 03/26/2025 1:00 PM EST Office Visit [address] [address] Ellie Alcaraz, CARBURETOR MECHANIC [address] [address] 05/20/2025 3:00 PM EST Office Visit [facility] [address] [place] [address] 08/05/2025 11:00 AM EDT Office Visit [place] [address] [address]vath, [facility] 3600 [place] [address] Scheduled Procedures Name Priority Associated Diagnoses Date/Ti [...] documented as of this encounter Care Teams Pcu Rn Relationship Specialty Start Date End Date Liam Houston MD [address] [place] [address] [address] [place] [address] PCP - General Family Medicine 04/26/22 documented as of this encounter
--- OUTSIDE RECORDS SUMMARY | 2025-02-24 17:00 | XMS_ITS | Encounter Summary ---
Author Organization [facility] Address [address] [place] [address] Care Team Providers Care Pony Worker Name Role Phone Liam Houston MD Primary Care Provider [phone] Encounter Details Date Type Department Care Team [...] AM EDT . RE ALAS [address] [place] [address] Oct 27, 2011 Dear Ms. 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 PLAN OF ACTION: Keep regular appointment with our office and/or as needed. Sincerely, [facility]. Signature Electronically signed by : Elfego Vickers MA; 10/27/2011 9:52 AM EST; Validation. documented in this encounter Plan of Treatment Upcoming Encounters Date Type Department Care Team (Latest Contact Info) Description 03/09/2025 1:00 PM EDT Ancillary Procedure [facility] IMAGING SERVICES - [place] [address] [place] [address] Aristeo Schwartz MD [address] [place] [address] 03/13/2025 12:30 PM EDT Office Visit [facility] Medicine - [place] [address] [facility] [address] [place] [address] Liam Houston MD 444823 [facility] [address] [place] [address] 03/19/2025 8:00 AM EST Hospital En[facility] [address] [place] [address] Aristeo Schwartz MD [address] [place] [address] 03/19/2025 8:00 AM EST - 03/19/2025 11:11 AM EST Surgery [facility] [address] [place] [address] Aristeo Schwartz MD [address] [place] [address] WATCHMAN INSERTION 03/26/2025 1:00 PM EST Office Visit [facility] - [address] [address] Ellie Alcaraz, KAIT [address] [place] [address] 05/20/2025 3:00 PM EST Office Visit [facility] [address] [place] [phone] 08/05/2025 11:00 AM EDT [facility] [address] Juvenc[address] Colbertwvonda, Peter [address] [place] [address] Scheduled Procedures Name Priority Associated [...] documented as of this encounter Care Teams Pony Worker Relationship Specialty Start Date End Date Liam Houston MD 426109 [place] [address] [address] [place] [address] PCP - General Family Medicine 04/26/22 documented as of this encounter
--- OUTSIDE RECORDS SUMMARY | 2025-02-24 17:00 | XMS_ITS | Encounter Summary ---
Author Organization [facility] Address [address] [place] [address] Care Team Providers Care Collections Analyst Name Role Phone Liam Houston MD Primary Care Provider [phone] Encounter Details Date Type Department Care Team [...] 08/30/2010 9:34 AM EDT Test Conclus. RADIOLOGY/IMAGING [facility] [place] [address] Patient Name: RE TORRES : [birth year] Age: 74Y Ordering Physician: ASPEN LICONA LED: 08/[birth year]/10 Sex: F Attending Physician: ASPEN LICONA Service: RADIOLOGY Check-in #: [id number] Room #/Area: EXR Unit No.: 402 [id number] [id number] Reason: 401.9-HYPERTENSION NOS Date Ordered: Admit Dx: HYPERTENSION/UNSPECI Date/Time Done: 08/30/10 1228 Priority: +ROUTINE INS: HMO-Medicare Initial Service: EXR Comments: EXAM 2934 EUL-RETROPERITONEUM COMPLETE 23328 Final Ord Dia.9-HYPERTENSION NOS Procedure: EUL-RETROPERITONEUM COMPLETE [...] appearing cyst. Consider follow-up as clinically indicated. Key Account Executive- Automated Read By- NOLBERTO SALINAS Electronically Verified By- NOLBERTO SALINAS Released Date Time- 08/30/10 9797 Final Page 1. Results Plan Contact patient [...] 08/30/2010 9:31 AM EDT Test Conclus. RADIOLOGY/IMAGING [facility] [place] [address] Patient Name: RE TORRES : [birth year] Age: 74Y Ordering Physician: ASPEN LICONA LED: 08/30/10 Sex: F Attending Physician: ASEPN LICONA Service: RADIOLOGY Check-in #: [id number] Room #/Area: EXR Unit No.: [id number] [id number] Reason: 789.30-ABDMNAL MASS UNSPCF SITE Date Ordered: Admit Dx: HYPERTENSION/UNSPECI Date/Time Done: 08/30/10 1228 Priority: +ROUTINE INS: HMO-Medicare Initial Service: EXR Comments: EXAM 2941 EUL-PELVIC ECHO COMPL (NON OB)[id number] Final Ord Dia.30-ABDMNAL MASS UNSPCF SIT EXAM 2940 EUL-PELVIC ECHO TRANSVAGINAL 13173 Final Ord Dia.30-ABDMNAL MASS UNSPCF SIT Procedure: [...] a simple appearance. Clinical correlation is recommended. Key Account Executive- Automated Read By- NOLBERTO SALINAS Electronically Verified By- NOLBERTO SALINAS Released Date Time- 08/30/10 1422 Final Page 1. Signature Electronically signed by : Aspen Licona M.D.; 08/31/2010 10:39 AM EST. documented in this encounter Plan of Treatment Upcoming Encounters Date Type Department Care Team (Latest Contact Info) Description 03/09/2025 1:00 PM EDT Ancillary Procedure [facility] [address] [place] [address] Aristeo Schwartz MD [address] [place] [address] - 5th [place] [address] 03/13/2025 12:30 PM EDT Office Visit [facility] Family Medicine - [place] [address] [place] [address] [address] [place] [address] Liam Houston MD [address] [place] [address] [address] [place] [address] 03/19/2025 8:00 AM EST Hospital En[facility] [address] [place] [address] Aristeo Schwartz MD [address] [place] [address] 03/19/2025 8:00 AM EST - 03/19/2025 11:11 AM EST [facility] [address] [place] [address] Aristeo Schwartz MD [address] [place] [address] WATCHMAN INSERTION 03/26/2025 1:00 PM EST Office Visit [facility] [address] [place] [address] Ellie Alcaraz, JBOSS DEVELOPER [address] [address] 05/20/2025 3:00 PM EST Office Visit [address] [address] 08/05/2025 11:00 AM EDT Office Visit [place] [address] Juvencio [address]bert[address], [facility] [address] [place] [phone] Scheduled Procedures Name Priority Associated Diagnoses Date/Ti ne WATCHMAN INSERTION Atrial fibrillation, unspecified type 03/19/2025 [...] documented as of this encounter Care Teams Collections Analyst Relationship Specialty Start Date End Date Liam Houston MD 878378 [place] [address] [address] [place] [address] PCP - General Family Medicine 04/26/22 documented as of this encounter
--- OUTSIDE RECORDS SUMMARY | 2025-02-24 17:00 | XMS_ITS | Encounter Summary ---
Author Organization [facility] Address [address] [place] [address] Care Team Providers Care Office Auditor Name Role Phone Liam Houston MD Primary Care Provider [phone] Reason for Referral * Radiology - Closed Specialty Diagnoses / Procedures Referred By Contac t Referred To Contact Radiology Diagnoses Closed fracture of thoracic vertebra, unspecified fracture morphology, initial encounter Closed fracture of lumbar vertebra, unspecified fracture morphology, initial encounter Procedures XR Spine Thoracolumbar 2 Views Lupe Avila PA-C Phone: tel: fax: [facility] [place] [address] [place] [address] Phone: tel: fax: Referral ID Status Reason Start Date Expiration Date Visits Re quested Visits Authorized [id number] Closed 10/30/2015 10/29/2016 1 1 Encounter Details Date Type Department Care Team (Late st Contact Info) Description 10/30/2015 Orders Only [facility] Neurosurgery - [place] [address], [place] [address], [address] [place] [address] Lupe Avila PA-C [address] [address] Closed fracture of thoracic vertebra, unspecified fracture [...] 1:00 PM EDT Ancillary Procedure [facility] [address] [place] [address] Aristeo Schwartz MD [address] [place] [address] 03/13/2025 12:30 PM EDT Office Visit [facility] Family Medicine - [place] 59[address]83 [place] [address] [place] [phone] Liam Houston MD 004695 [address] [address] 03/19/2025 8:00 AM EST Hospital En[facility] [address] [place] [address] [place] [address] Aristeo Schwartz MD [address] [place] [address] 03/19/2025 8:00 AM EST - 03/19/2025 11:11 AM EST Surgery [facility] [address] [place] [address] [place] [address] Aristeo Schwartz MD [address] [place] [address] WATCHMAN INSERTION 03/26/2025 1:00 PM EST Office Visit [facility] [place] [address] 5th Floor, [place] [address] Ellie Alcaraz, CENTER MACHINE OPERATOR [address] [facility] 5th [place] [address] 05/20/2025 3:00 PM EST Office Visit [facility] [place] [address] 5th Floor, [place] [address] 08/05/2025 11:00 AM EDT Office Visit [place] [address] [facility], [facility] 3600 [place] [address] Scheduled Orders Name Type Priority Associated Diagnoses [...] lumbar vertebra, unspecified fracture morphology, initial encounter Atrial fibrillation, unspecified type documented in this encounter Additional Health Concerns Infection Onset Date Last Indicated Resolved Time COVID-19 Rule-Out 11/24/2020 11/24/2020 11/24/2020 10:21 PM EDT COVID-19 (Confirmed) 11/24/2020 12/10/2020 08 021 3:03 AM EDT COVID-19 Rule-Out 11/24/2020 11/25/2020 11/25/2020 5:14 AM EDT documented as of this encounter Care Teams Office Auditor Relationship Specialty Start Date End Date Liam Houston MD 437602 [place] [address] [address] [place] [address] PCP - General Family Medicine 04/26/22 documented as of this encounter
--- OUTSIDE RECORDS SUMMARY | 2025-02-24 17:00 | XMS_ITS | Encounter Summary ---
Author Organization [facility] Address [address] [place] [address] Care Team Providers Care Stem Lead Former Name Role Phone Liam Houston MD Primary Care Provider [phone] Encounter Details Date Type Department Care Team [...] be seen immediately. ASPEN LICONA MD D: [id number] MT: [id number] Dictator: [id number] :[id number] Confirmation Number: [id number] ([id number]) Electronically signed by:Cathy Lciona M.D. Sep 05 2004 6:07PM EST documented in this encounter Plan of Treatment Upcoming Encounters Date Type Department Care Team (Latest Contact Info) Description 03/09/2025 1:00 PM EDT Ancillary Procedure [facility] [address] [place] [address] Aristeo Schwartz MD [address] [place] [address] 03/13/2025 12:30 PM EDT Office Visit [facility] [place] [address] [place] [address] Liam Houston MD [address] [place] [address] 03/19/2025 8:00 AM EST Hospital En[facility] [address] [place] [address] [place] [address] Aristeo Schwartz MD [address] [place] [address] 03/19/2025 8:00 AM EST - 03/19/2025 11:11 AM EST Surgery [facility] [address] [place] [address] Aristeo Schwartz MD [address] 5th [place] [address] WATCHMAN INSERTION 03/26/2025 1:00 PM EST Office Visit [facility] [address], [place] [address] Kieran Ellie Garcia, ASSEMBLING MOTOR BUILDER [address] [address] 05/20/2025 3:00 PM EST Office Visit [facility] [address] [place] [phone] 08/05/2025 11:00 AM EDT Office Visit [address], [facility] [address] [place] [address] Scheduled Procedures Name Priority Associated Diagnoses Date/Ti [...] documented as of this encounter Care Teams Stem Lead Former Relationship Specialty Start Date End Date Liam Houston MD 066204 [place] [address] [address] [place] [id number] PCP - General Family Medicine 04/26/22 documented as of this encounter
--- OUTSIDE RECORDS SUMMARY | 2025-02-24 17:00 | XMS_ITS | Encounter Summary ---
Author Organization [facility] Address [address] [place] [address] Care Team Providers Care Vocational Director Name Role Phone Liam Houston MD Primary Care Provider [phone] Encounter Details Date Type Department Care Team [...] Description 03/09/2025 1:[address] ED[address] [facility] [place] [address] [place] [address] Aristeo Schwartz MD [address] [place] [address] 03/13/2025 12:30 PM EDT Office Visit [facility] 55[address] [place] [address] [place] [address] Liam Houston MD 881326 [address] [place], [place] [address] 03/19/2025 8:00 AM EST Hospital Encounter [facility] [address] [place] [address] Aristeo Schwartz MD [address] [place] [address] 03/19/2025 8:00 AM EST - 03/19/2025 11:11 AM EST Surgery [facility] [address] [place] [address] Aristeo Schwartz MD [address] [place] [address] WATCHMAN INSERTION 03/26/2025 1:00 PM EST Office Visit [facility] - [address] [phone] Ellie Alcaraz, LPN HOME HEALTH [address] [address] 05/20/2025 3:00 PM EST Office Visit [facility] - [address] [address] 08/05/2025 11:00 AM EDT Office Visit [address] Meka [place], [facility] [address] [place] [address] Scheduled Procedures Name Priority Associated Diagnoses Date/Ti [...] documented as of this encounter Care Teams Vocational Director Relationship Specialty Start Date End Date Liam Houston MD 855854 [place] [address] [address] [place] [address] PCP - General Family Medicine 04/26/22 documented as of this encounter
--- OUTSIDE RECORDS SUMMARY | 2025-02-24 17:00 | XMS_ITS | Encounter Summary ---
Author Organization [facility] Address [address] [place] [address] Care Team Providers Care Uniforms Sales Representative Name Role Phone Liam Houston MD Primary Care Provider [phone] Encounter Details Date Type Department Care Team [...] encounter Procedure Notes * See Allscripts - 12/01/2013 5:19 AM EDTAssociated Order(s): SCANNED LAB REPORT documented in this encounter Plan of Treatment Upcoming Encounters Date Type Department Care Team (Latest Contact Info) Description 03/09/2025 1:00 PM EDT Ancillary Procedure [facility] [place] [address] [place] [address] Aristeo Schwartz MD [address] [place] [address] - 5th [place] [address] 03/13/2025 12:30 PM EDT Office Visit [facility] 25[address] [place] [address] [place] [address] Liam Houston MD 445794 [address] [address] [place] [address] 03/19/2025 8:00 AM EST Hospital Encounter [facility] [address] [place] [address] Aristeo Schwartz MD [address] [place] [address] 03/19/2025 8:00 AM EST - 03/19/2025 11:11 AM EST Surgery [facility] [address] [place] [address] Aristeo Schwartz MD [address] [place] [address] WATCHMAN INSERTION 03/26/2025 1:00 PM EST Office Visit [facility] [address] [place] [phone] Ellie Alcaraz, MACHINE LACER [address] [address] 05/20/2025 3:00 PM EST Office Visit [facility] [address] [phone] 08/05/2025 11:00 AM EDT Office Visit [facility] [address] [address] Horvath, Peter [address] [place] [address] Scheduled Procedures Name Priority Associated Diagnoses Date/Ti [...] documented as of this encounter Care Teams Uniforms Sales Representative Relationship Specialty Start Date End Date Liam Houston MD 431580 [place] [address] [address] [place] [address] PCP - General Family Medicine 04/26/22 documented as of this encounter
--- OUTSIDE RECORDS SUMMARY | 2025-02-24 17:00 | XMS_ITS | Encounter Summary ---
Author Organization [facility] Address [address] [place] [address] Care Team Providers Care Pack Operator Name Role Phone Liam Houston MD [...] Description 03/09/2025 1:00 PM EDT Ancillary Procedure [facility] [place] [address] [place] [address] Aristeo Schwartz MD [address] [place] [address] 03/13/2025 12:30 PM EDT Office Visit [facility] [address] [facility] [address] [place] [address] Liam Houston MD 030916 [place] [address] [place], [place] [address]296[address] 03/19/2025 8:00 AM EST Hospital Encounter [facility] [address] [place] [address] Aristeo Schwartz MD [address] [place] [address] 03/19/2025 8:00 AM EST - 03/19/2025 11:11 AM EST Surgery [facility] [address] [place] [address] [place] [address] Aristeo Schwartz MD [address] [place] [address] WATCHMAN INSERTION 03/26/2025 1:00 PM EST Office Visit [facility] - [address] [address] Ellie Alcaraz, KAIT [address] [place] [address] 05/20/2025 3:00 PM EST Office Visit [address] 5th Floor, [place] [address] 08/05/2025 11:00 AM EDT Office Visit [facility] Cardiovascular [facility] [address] Juvencio Horvath, Peter [address] [place] [address] Scheduled Procedures Name Priority Associated Diagnoses Date/Ti [...] documented as of this encounter Care Teams Pack Operator Relationship Specialty Start Date End Date Liam Houston MD 381756 [place] [address] [place] [address] PCP - General Family Medicine 04/26/22 documented as of this encounter
--- OUTSIDE RECORDS SUMMARY | 2025-02-24 17:00 | XMS_ITS | Encounter Summary ---
Author Organization [facility] Address [address] [place] [address] Care Team Providers Care Bus Person Dishwasher Name Role Phone Liam Houston MD Primary Care Provider [phone] Encounter Details Date Type Department Care Team [...] 1:00 PM EDT Ancillary Procedure [facility] [address] [place] [address] Aristeo Schwartz MD [address] [place] [address] 03/13/2025 12:30 PM EDT Office Visit [facility] [address] [facility] [address] [place] [address] Liam Houston MD 154162 [place] [address] [place], [place] [address] 03/19/2025 8:00 AM EST Hospital Encounter [facility] [address] [place] [address] Aristeo Schwartz MD [address] [place] [address] 03/19/2025 8:00 AM EST - 03/19/2025 11:11 AM EST Surgery [facility] [address] [place] [address] Aristeo Schwartz MD [address] [place] [address] WATCHMAN INSERTION 03/26/2025 1:00 PM EST Office Visit [address] [address] Ellie Alcaraz, KAIT [address] [place] [address] 05/20/2025 3:00 PM EST Office Visit [facility] [address] [place] [address] [place] [address] 08/05/2025 11:00 AM EDT Office Visit [place] [address] Juvencio Horvath, Peter [address] [place] [address] Scheduled Procedures Name Priority Associated Diagnoses Date/Ti [...] as of this encounter Care Teams Bus Person Dishwasher Relationship Specialty Start Date End Date Liam Houston [place] [id number] [place] [address] [address] [place] [address] PCP - General Family Medicine 04/26/22 documented as of this encounter
--- OUTSIDE RECORDS SUMMARY | 2025-02-24 17:00 | XMS_ITS | Encounter Summary ---
Author Organization [facility] Address [address] [place] [address] Care Team Providers Care Apple Checker Name Role Phone Liam Houston MD Primary Care Provider [phone] Encounter Details Date Type Department Care Team [...] AM EDT . RE ALAS [address] [place] [address] October 04, 2011 Dear Ms. ALAS: You were recently in our office and Dr Collier referred you to a liquified natural gas specialist and to have an Ultrasound preformed. If you have not heard from either facility below within 7-10 business days, Please contact the specialist for an appointment: Specialist's Name: [facility] Emergency Manager's Phone #: [phone] and Specialist's Name: [facility] Specialist's Phone #: [phone] If you have any further questions please give our office a call at [phone]. [facility]. Signature Electronically signed by : Morena Berg ; 10/04/2011 10:34 AM EST. documented in this encounter Plan of Treatment Upcoming Encounters Date Type Department Care Team (Latest Contact Info) Description 03/09/2025 1:00 PM EDT Ancillary Procedure [facility] [address] [place] [address] Aristeo Schwartz MD [address] [place] [address] 03/13/2025 12:30 PM EDT Office Visit [facility] 80[address] [place] [address] [address] [place] [address] Liam Houston MD [address] [place] [address] [address] [place] [address] 03/19/2025 8:00 AM EST Hospital Encounter [facility] [address] [place] [address] Aristeo Schwartz MD [address] [place] [address] 03/19/2025 8:00 AM EST - 03/19/2025 11:11 AM EST Surgery [facility] [address] [place] [address] [place] [address] Aristeo Schwartz MD [address] [place] [address] WATCHMAN INSERTION 03/26/2025 1:00 PM EST Office Visit [facility] [place] [address] [place] [phone] Ellie Alcaraz, KAIT [address] [place] [address] 05/20/2025 3:00 PM EST Office Visit [facility] [place] [address] 5th Floor, [place] [address] 08/05/2025 11:00 AM EDT Office Visit [facility] [address] [address], Peter [address] [place] [address] Scheduled Procedures Name Priority Associated Diagnoses Date/Ti [...] documented as of this encounter Care Teams Apple Checker Relationship Specialty Start Date End Date Liam Houston MD 649937 [place] [address] [address] [place] [address] PCP - General Family Medicine 04/26/22 documented as of this encounter
--- OUTSIDE RECORDS SUMMARY | 2025-02-24 17:00 | XMS_ITS | Encounter Summary ---
Author Organization [facility] Address [address] [place] [address] Care Team Providers Care Edging Machine Setter Name Role Phone Liam Houston MD [...] Description 03/09/2025 1:00 PM EDT Ancillary Procedure [facility] [address] [place] [address] Aristeo Schwartz MD [address] [place] [address] 03/13/2025 12:30 PM EDT Office Visit [facility] [address] [facility] [address] [place] [address] Liam Houston [place] 334896 [place] [address] [place], [place] [phone] 03/19/2025 8:00 AM EST Hospital Encounter [facility] [address] [place] [address] Aristeo Schwartz MD [address] [place] [address] 03/19/2025 8:00 AM EST - 03/19/2025 11:11 AM EST Surgery [facility] [address] [place] [address] Aristeo Schwartz MD [address] [place] [address] WATCHMAN INSERTION 03/26/2025 1:00 PM EST Office Visit [address] [address] Ellie Alcaraz, KAIT [address] [address] 05/20/2025 3:00 PM EST Office Visit [address] [address] 08/05/2025 11:00 AM EDT Office Visit [place] [address] [address] [place] [address] Scheduled Procedures Name Priority Associated Diagnoses Date/Ti [...] documented as of this encounter Care Teams Edging Machine Setter Relationship Specialty Start Date End Date Liam Houston MD 092983 [place] [address] [address] [place] [address] PCP - General Family Medicine 04/26/22 documented as of this encounter
--- OUTSIDE RECORDS SUMMARY | 2025-02-24 17:00 | XMS_ITS | Encounter Summary ---
Author Organization [facility] Address [address] [place] [address] Care Team Providers Care Shear Setter Name Role Phone Liam Houston MD Primary Care Provider [phone] Encounter Details Date Type Department Care Team [...] Description 03/09/2025 1:00 PM EDT Ancillary Procedure [facility] [address] [place] [address] Aristeo Schwartz MD [address] [place] [address] 03/13/2025 12:30 PM EDT Office Visit [facility] Family Medicine - [address] [phone] Liam Houston MD [address] [place] [address] 03/19/2025 8:00 AM EST Hospital Encounter [facility] [address] [place] [address] [place] [address] Aristeo Schwartz MD [address] [place] [address] 03/19/2025 8:00 AM EST - 03/19/2025 11:11 AM EST Surgery [facility] [address] 5[address] [facility] [place] [address] Aristeo Schwartz MD [address] 5th [place] [address] WATCHMAN INSERTION 03/26/2025 1:00 PM EST Office Visit [facility] [address] [address] Kieran Ellie Garcia, HOTEL RESERVATIONIST [address] [address] 05/20/2025 3:00 PM EST Office Visit [facility] [address] [address] 08/05/2025 11:00 AM EDT Office Visit [address], [facility] 3600 [place] [address] Scheduled Procedures Name Priority Associated Diagnoses Date/Ti [...] documented as of this encounter Care Teams Shear Setter Relationship Specialty Start Date End Date Liam Houston [place] [address] [place] [address] [address] [place] [phone] PCP - General Family Medicine 04/26/22 documented as of this encounter
--- OUTSIDE RECORDS SUMMARY | 2025-02-24 17:00 | XMS_ITS | Encounter Summary ---
Author Organization [facility] Address [address] [place] [address] Care Team Providers Care Substation Operator Conversion Name Role Phone Liam Houston MD Primary Care Provider [phone] Encounter Details Date Type Department Care Team [...] AM EDT . RE ALAS [address] [place] [address] October 11, 2011 Dear Ms. ALAS: You have been scheduled an appointment on Date: 10-25-2011 Time: 1:30 pm with Specialist's Name: Dez Trial Attorney's Phone #: [phone] If you have any questions regarding directions, please contact the specialist's phone number listed. [facility]. Signature Electronically signed by : Morena Berg ; 10/11/2011 7:23 AM EST. documented in this encounter Plan of Treatment Upcoming Encounters Date Type Department Care Team (Latest Contact Info) Description 03/09/2025 1:00 PM EDT Ancillary Procedure [facility] [address] [place] [address] Aristeo Schwartz MD [address] [place] [address] 03/13/2025 12:30 PM EDT Office Visit [facility] [place] [address] [facility] [address] [place] [address] Liam Houston MD 200777 [place] [address] [place], [place] [address] 03/19/2025 8:00 AM EST Hospital Encounter [facility] [address] [place] [address] Aristeo Schwartz MD [address] [place] [address] 03/19/2025 8:00 AM EST - 03/19/2025 11:11 AM EST Surgery [facility] [address] [place] [address] Aristeo Schwartz MD [address] [place] [address] WATCHMAN INSERTION 03/26/2025 1:00 PM EST Office Visit [facility] - [address] [address] Ellie Alcaraz, KAIT [address] [place] [address] 05/20/2025 3:00 PM EST Office Visit [facility] Cardiovascular [address] [address] 08/05/2025 11:00 AM EDT Office Visit [place] [address] Juvencio Horvath, Peter [address] [place] [address] Scheduled Procedures Name Priority Associated Diagnoses Date/Ti [...] documented as of this encounter Care Teams Substation Operator Conversion Relationship Specialty Start Date End Date Liam Houston MD 082811 [place] [address] [address] [place] [address] PCP - General Family Medicine 04/26/22 documented as of this encounter
--- OUTSIDE RECORDS SUMMARY | 2025-02-24 17:00 | XMS_ITS | Encounter Summary ---
Author Organization [facility] Address [address] [place] [address] Care Team Providers Care Engineering Inspector Name Role Phone Liam Houston MD Primary Care Provider [phone] Encounter Details Date Type Department Care Team [...] to return p.r.n. HUSAM LUGO MD D: [id number] MT: [id number] Dictator: [id number] :49 Confirmation Number: [id number] ([id number]) Electronically signed by:Husam Lugo M.D. Dec 16 2009 10:22AM EST documented in this encounter Plan of Treatment Upcoming Encounters Date Type Department Care Team (Latest Contact Info) Description 03/09/2025 1:00 PM EDT Ancillary Procedure [facility] - [place] [address] [place] [address] Aristeo Schwartz MD [address] [place] [address] - [address] [place] [address] 03/13/2025 12:30 PM EDT Office Visit [facility] [address] [place] [address] [place] [address] Liam Houston MD 572759 [place] [address] [place], [place] [phone] 03/19/2025 8:00 AM EST Hospital Encounter [facility] [address] [place] [address] Aristeo Schwartz MD [address] [place] [address] 03/19/2025 8:00 AM EST - 03/19/2025 11:11 AM EST Surgery [facility] [address] [place] [address] Aristeo Schwartz MD [address] [place] [address] WATCHMAN INSERTION 03/26/2025 1:00 PM EST Office Visit [address] [address] Ellie Alcaraz, INDUSTRIAL RELATIONS DIRECTOR [address] [address] 05/20/2025 3:00 PM EST Office Visit [address] [address] 08/05/2025 11:00 AM EDT Office Visit [facility] [address] Juvencio Horvath, [facility] 3600 [place] [address] Scheduled Procedures Name Priority Associated Diagnoses Date/Ti [...] documented as of this encounter Care Teams Engineering Inspector Relationship Specialty Start Date End Date Liam Houston [place] 683831 [address] [place] [address] PCP - General Family Medicine 04/26/22 documented as of this encounter
--- OUTSIDE RECORDS SUMMARY | 2025-02-24 17:00 | XMS_ITS | Encounter Summary ---
Author Organization [facility] Address [address] [place] [address] Care Team Providers Care Brick And Tile Making Machine Operator Name Role Phone Liam Houston MD Primary Care Provider [phone] Reason for Referral * Radiology - Closed Specialty Diagnoses / Procedures Referred By Contac t Referred To Contact Radiology Diagnoses Thoracic compression fracture, closed, initial encounter case#: [id number] Procedures CT T Spine w/o Con 11919 Lupe Saravia APRN [facility] Radiology CT Clinical [place] [id number] Phone: tel: fax: Referral ID Status Reason Start Date Expiration Date Visits Re quested Visits Authorized [id number] Closed 11/02/2015 11/01/2016 1 1 * Radiology - Closed Specialty Diagnoses / Procedures Referred By Contac t Referred To Contact Radiology Diagnoses Compression fracture of lumbar spine, non-traumatic, sequela case#: [id number] Procedures CT L Spine w/o Con 74559 Lupe Saravia APRN [facility] Radiology CT Clinical [address] [address] Phone: tel: fax: Referral ID Status Reason Start Date Expiration Date Visits Re quested Visits Authorized [id number] Closed 11/02/2015 11/01/2016 1 1 Encounter Details Date Type Department Care Team (Late st Contact Info) Description 11/02/2015 Orders Only [facility] Neurosurgery - [place] [address], [place] [address], 8th [place] [address] Lupe Saravia APRN Thoracic compression fracture, closed, [...] Description 03/09/2025 1:00 PM EDT Ancillary Procedure [facility] [address] [place] [address] Aristeo Schwartz MD [address] [place] [address] 03/13/2025 12:30 PM EDT Office Visit [facility] Family Medicine - [place] [id number] [place] [address] [place] [address] Liam Houston MD [address] [place] [address] [address] 03/19/2025 8:00 AM EST Hospital En[facility] [address] 5th [place] [address] Aristeo Schwartz MD [address] [place] [address] 5th [place] [address] 03/19/2025 8:00 AM EST - 03/19/2025 11:11 AM EST Surgery [facility] [address] [place] [address] 5th [place] [address] Aristeo Schwartz MD [address] 5th [place] [address] WATCHMAN INSERTION 03/26/2025 1:00 PM EST Office Visit [facility] [address] [place] [address], [place] [address] Kieran Ellie Garcia, CITY WELLNESS COORDINATOR [address] [address] 05/20/2025 3:00 PM EST Office Visit [facility] [address] [place] [address] 08/05/2025 11:00 AM EDT Office Visit [address] [place] [address] Scheduled Procedures Name Priority Associated Diagnoses Date/Ti me WATCHMAN INSERTION Atrial fibrillation, unspecified type 03/19/2025 8:00 AM EST documented as of this encounter Results * [...] approximately 5.6 mm. Additional compression fracture of [id number] visualized which remain grossly unchanged from previous [...] narrowing. Please seeabove. Diffuse osteopenia. Read By Jas Swift M.D. Electronically Verified By Jas Swift M.D. Released Date Time - 11/30/2015 11:39 AM Resident - us Lupe Saravia CITY WELLNESS COORDINATOR RAD JX CT ORDERABLES Final Result * [...] approximately 5.6 mm. Additional compression fracture of [id number] visualized which remain grossly unchanged from previous [...] narrowing. Please seeabove. Diffuse osteopenia. Read By Jas Swift M.D. Electronically Verified By Jas Swift M.D. Released Date Time - 11/30/2015 11:39 AM Resident - us Lupe Saravia CITY WELLNESS COORDINATOR RAD JX CT ORDERABLES Final Result documented in this encounter Visit Diagnoses Diagnosis Thoracic compression fracture, closed, initial encounter Compression fracture of lumbar spine, non-traumatic, sequela Compression fracture of lumbar spine, non-traumatic, sequela Thoracic compression fracture, closed, initial encounter Atrial fibrillation, unspecified type documented in this encounter Additional Health Concerns Infection Onset Date Last Indicated Resolved Time COVID-19 Rule-Out 11/24/2020 11/24/2020 11/24/2020 10:21 PM EDT COVID-19 (Confirmed) 11/24/2020 12/10/2020 0805 021 3:03 AM EDT COVID-19 Rule-Out 11/24/2020 11/25/2020 11/25/2020 5:14 AM EDT documented as of this encounter Care Teams Brick And Tile Making Machine Operator Relationship Specialty Start Date End Date Liam Houston MD [id number] [place] [address] [address] [place] [address] PCP - General Family Medicine 04/26/22 documented as of this encounter
--- OUTSIDE RECORDS SUMMARY | 2025-02-24 17:02 | XMS_ITS | Encounter Summary ---
Author Organization [facility] Address [address] [place] [address] Care Team Providers Care Supervisor Propellant Charge Loading Name Role Phone Liam Houston MD Primary Care Provider [phone] Encounter Details Date Type Department Care Team [...] Range: 0.60-0.93 Flag: N - eGFR NON-AFR. [facility]: 72 Reference Range: > OR = 60 [...] Description 03/09/2025 1:00 PM EDT Ancillary Procedure [facility] IMAGING SERVICES - [place] [address] [place] [address] Aristeo Schwartz MD [address] [place] [address] 03/13/2025 12:30 PM EDT Office Visit [facility] [address] [facility] [address] [place] [address] [place] Houston [place] 86[address]40 [facility] [address] [place], [place] [address] 03/19/2025 8:00 AM EST Hospital Encounter [facility] [address] [place] [address] [place] [address] Aristeo Schwartz MD [address] [place] [address] 03/19/2025 8:00 AM EST - 03/19/2025 11:11 AM EST [facility] [address] [place] [address] Aristeo Schwartz MD [address] [place] [address] WATCHMAN INSERTION 03/26/2025 1:00 PM EST Office Visit [address] [address] Ellie Alcaraz, RIVET SORTER [address] [address] 05/20/2025 3:00 PM EST Office Visit [facility] [address] [place] [address] 08/05/2025 11:00 AM EDT Office Visit [address], [address] [place] [address] Scheduled Procedures Name Priority Associated Diagnoses Date/Ti [...] as of this encounter Care Teams Supervisor Propellant Charge Loading Relationship Specialty Start Date End Date Liam Houston MD [id number] [place] [address] PCP - General Family Medicine 04/26/22 documented as of this encounter
--- OUTSIDE RECORDS SUMMARY | 2025-02-24 17:02 | XMS_ITS | Encounter Summary ---
Author Organization [facility] Address [address] [place] [address] Care Team Providers Care Counter Supervisor Name Role Phone Liam Houston MD Primary Care Provider [phone] Encounter Details Date Type Department Care Team [...] 1:00 PM EDT Ancillary Procedure [facility] IMAGING SERVICES - [place] [address] [place] [address] Aristeo Schwartz MD [address] [place] [address] 03/13/2025 12:30 PM EDT Office Visit [facility] [address] [place] [address] [place] [address] Liam Houston MD 365595 [place] [address] [place], [place] [address] 03/19/2025 8:00 AM EST Hospital Encounter [facility] [address] [place] [address] Aristeo Schwartz MD [address] [place] [address] 03/19/2025 8:00 AM EST - 03/19/2025 11:11 AM EST Surgery [facility] [address] [place] [address] Aristeo Schwartz MD [address] [place] [address] WATCHMAN INSERTION 03/26/2025 1:00 PM EST Office Visit [facility] [address] [address] Ellie Alcaraz, MILLING SUPERVISOR [address] [address] 05/20/2025 3:00 PM EST Office Visit [facility] - [address] [address] 08/05/2025 11:00 AM EDT Office Visit [address] Meka Colbertca, [facility] [address] [place] [address] Scheduled Procedures Name Priority Associated Diagnoses Date/Ti [...] approximately 13% higher for people identified as -Armenian. Globulin 2.6 2.2 - 3.9 [facility] ALT (SGPT) 13 6 - 40 [facility] POTASSIUM 4.2 3.5 - 5.3 [facility] CHLORIDE 103 98 - 110 [facility] CALCIUM 9.5 8.6 - 10.4 [facility] ALBUMIN/GLOBULIN RATIO 1.7 1.0 - 2.1 [facility] CREATININE 0.81 0.60 - 0.93 [facility] 06/15/2011 us Stephen Collier MD BLOOD ORDERABLES Final Result [facility] * Lipid Panel (06/15/2011 12:00 AM [...] Collier MD BLOOD ORDERABLES Final Result [facility] * (ABNORMAL) TSH (06/15/2011 12:00 AM EST) TSH, 3RD GENERATION 0.10(L) 0.40 - 4.50 [facility] 06/15/2011 Stephen Collier MD BLOOD ORDERABLES Final Result Performing Organization Address [facility] Co de Phone Number [facility] documented in this [...] documented as of this encounter Care Teams Counter Supervisor Relationship Specialty Start Date End Date Liam Houston MD 206248 [place] [address] [address] [place] [address] PCP - General Family Medicine 04/26/22 documented as of this encounter
--- OUTSIDE RECORDS SUMMARY | 2025-02-24 17:02 | XMS_ITS | Encounter Summary ---
Author Organization [facility] Address [address] [place] [address] Care Team Providers Care Solar Sales Name Role Phone Liam Houston MD Primary Care Provider [phone] Encounter Details Date Type Department Care Team [...] EDT . RE ALAS [address] [place] [address] Aug 17, 2011 Dear Ms. ALAS: Here are the results from your recent visit: THYROID: Thyroid level was normal. PLAN OF ACTION: Thyroid levels fine; no change in current medication dosage. Advise recheck in February. Keep regular appointment with our office as needed. Sincerely, [facility]. Signature Electronically signed by : Rosa Isela Fernandez MA; 08/17/2011 2:25 PM EST; Administrative. documented in this encounter Plan of Treatment Upcoming Encounters Date Type Department Care Team (Latest Contact Info) Description 03/09/2025 1:00 PM EDT Ancillary Procedure [facility] IMAGING SERVICES - [place] [address] [place] [address] Aristeo Schwartz MD [address] [place] [address] 03/13/2025 12:30 PM EDT Office Visit [facility] - [place] [address] [place] [address] Liam Houston MD [address] [place] [address] 03/19/2025 8:00 AM EST Hospital [facility] [address] [place] [address] [place] [address] Aristeo Schwartz MD [address] [place] [address] 03/19/2025 8:00 AM EST - 03/19/2025 11:11 AM EST Surgery [facility] [address] [place] [address] Aristeo Schwartz MD [address] 5th [place] [address] WATCHMAN INSERTION 03/26/2025 1:00 PM EST Office Visit [facility] [address] [place] [address], [place] [address] Kieran Ellie Garcia, CRUSHER LOADER EQUIPMENT OPERATOR [address] [address] 05/20/2025 3:00 PM EST Office Visit [facility] [address] [place] [address] 08/05/2025 11:00 AM EDT Office Visit [address], [facility] [address] [place] [address] Scheduled Procedures Name Priority Associated Diagnoses Date/Ti [...] documented as of this encounter Care Teams Solar Sales Relationship Specialty Start Date End Date Liam Houston MD 571353 [place] [address] [address] [place] [phone] PCP - General Family Medicine 04/26/22 documented as of this encounter
--- OUTSIDE RECORDS SUMMARY | 2025-02-24 17:02 | XMS_ITS | Encounter Summary ---
Author Organization [facility] Address [address] [place] [address] Care Team Providers Care Project Assistant Name Role Phone Liam Houston MD Primary Care Provider [phone] Encounter Details Date Type Department Care Team [...] 1:00 PM EDT Ancillary Procedure [facility] [address] [place] [address] Aristeo Schwartz MD [address] [place] [address] 03/13/2025 12:30 PM EDT Office Visit [facility] [place] [address] [facility] [address] [place] [address] Liam Houston MD 853482 [facility] [address] [place], [place] [address] 03/19/2025 8:00 AM EST Hospital Encounter [facility] [address] [place] [address] Aristeo Schwartz MD [address] [place] [address] 03/19/2025 8:00 AM EST - 03/19/2025 11:11 AM EST Surgery [facility] [address] [place] [address] [place] [address] Aristeo Schwartz MD [address] [place] [address] WATCHMAN INSERTION 03/26/2025 1:00 PM EST Office Visit [facility] Cardiovascular [place] - [address] [phone] Ellie Alcaraz, HOGSHEAD LINER [address] [address] 05/20/2025 3:00 PM EST Office Visit [facility] [place] [address] 5th Floor, [place] [address] 08/05/2025 11:00 AM EDT Office Visit [facility] [address] [address], [address] [place] [address] Scheduled Procedures Name Priority Associated Diagnoses Date/Ti me WATCHMAN INSERTION Atrial fibrillation, unspecified type 03/19/2025 8:00 AM EST documented as of this encounter Procedures Procedure Name Priority Date/Time Associated Diagnosis Comments TSH Routine 08/16/2011 12:00 AM EDT documented in this encounter Results * TSH (08/16/2011 12:00 AM EDT) TSH, 3RD GENERATION 0.71 0.40 - 4.50 [facility] 08/16/2011 Stephen Collier MD BLOOD ORDERABLES Final Result [...] documented as of this encounter Care Teams Project Assistant Relationship Specialty Start Date End Date Liam Houston MD 566[address] [place] [address] [place] [address] PCP - General Family Medicine 04/26/22 documented as of this encounter
[2025-02-24 17:03] VITALS: BP 130/68; PULSE 71; RESP 18; O2SAT 96
--- OUTSIDE RECORDS SUMMARY | 2025-02-24 17:03 | XMS_ITS | Encounter Summary ---
Author Organization [facility] Address [address] [place] [address] Care Team Providers Care Polisher Implant Name Role Phone Liam Houston MD Primary Care Provider [phone] Encounter Details Date Type Department Care Team [...] [facility] IMAGING SERVICES - [place] [address] [address] [facility] [place] [address] Aristeo Schwartz MD [address] [place] [address] 03/13/2025 12:30 PM EDT Office Visit [facility] [place] [address] [facility] [address] [place] [address] Liam Houston MD 315642 [facility] [address] [place] [address] 03/19/2025 8:00 AM EST Hospital Encounter [facility] [address] [place] [address] Aristeo Schwartz MD [address] [place] [address] 03/19/2025 8:00 AM EST - 03/19/2025 11:11 AM EST Surgery [facility] [address] [place] [address] Aristeo Schwartz MD [address] [place] [address] WATCHMAN INSERTION 03/26/2025 1:00 PM EST Office Visit [address] [phone] Ellie Alcaraz, ON SITE NURSE [address] [address] 05/20/2025 3:00 PM EST Office Visit [facility] [address] [place] [address] 08/05/2025 11:00 AM EDT Office Visit [place] [address] [address], [address] [place] [address] Scheduled Procedures Name Priority Associated Diagnoses Date/Ti [...] documented as of this encounter Care Teams Polisher Implant Relationship Specialty Start Date End Date Liam Houston MD 622148 [place] [address] [address] [place] [address] PCP - General Family Medicine 04/26/22 documented as of this encounter
--- OUTSIDE RECORDS SUMMARY | 2025-02-24 17:03 | XMS_ITS | Encounter Summary ---
Author Organization [facility] Address [address] [place] [address] Care Team Providers Care Outdoor Adventure Guides Name Role Phone Liam Houston MD Primary Care Provider [phone] Encounter Details Date Type Department Care Team [...] for moderate sedation x cc Dr Stephen Collier. Signature Signed By: Santy Domínguez M.D.; 04/14/2008 9:12 AM EST; Author. documented in this encounter Plan of Treatment Upcoming Encounters Date Type Department Care Team (Latest Contact Info) Description 03/09/2025 1:00 PM EDT Ancillary Procedure [facility] [address] [place] [address] Aristeo Schwartz MD [address] [place] [address] 03/13/2025 12:30 PM EDT Office Visit [facility] 3[address] [place] [address] [place] [address] Liam Houston MD [address] [place] [address] 200 [address] [place] [address] 03/19/2025 8:00 AM EST Hospital En[facility] [address] [place] [address] Aristeo Schwartz MD [address] [place] [address] 03/19/2025 8:00 AM EST - 03/19/2025 11:11 AM EST [facility] [address] [place] [address] [place] [address] Aristeo Schwartz MD [address] [place] [address] WATCHMAN INSERTION 03/26/2025 1:00 PM EST Office Visit [facility] Cardiovascular [place] - [address], [place] [address] Ellie Alcaraz, AUTO CLEANER [address] [place] [address] 05/20/2025 3:00 PM EST Office Visit [facility] [place] [address] 5th Floor, [place] [address] 08/05/2025 11:00 AM EDT Office Visit [place] [address] [place] [address] Scheduled Procedures Name Priority Associated Diagnoses Date/Ti [...] documented as of this encounter Care Teams Outdoor Adventure Guides Relationship Specialty Start Date [place] Date Liam Houston MD 766063 [place] [address] [address] [place] [phone] PCP - General Family Medicine 04/26/22 documented as of this encounter
--- OUTSIDE RECORDS SUMMARY | 2025-02-24 17:03 | XMS_ITS | Encounter Summary ---
Author Organization [facility] Address [address] [place] [address] Care Team Providers Care Negotiations Director Name Role Phone Liam Houston MD Primary Care Provider [phone] Encounter Details Date Type Department Care Team [...] Description 03/09/2025 1:00 PM EDT Ancillary Procedure [facility] [address] [place] [address] Aristeo Schwartz MD [address] [place] [address] 03/13/2025 12:30 PM EDT Office Visit [facility] [place] [address] [place] [address] [place] [address] Liam Houston MD [address] [place] [address] 200 [address] [place] [address] 03/19/2025 8:00 AM EST Hospital [facility] [address] [place] [address] [place] [address] Aristeo Schwartz MD [address] [place] [address] 03/19/2025 8:00 AM EST - 03/19/2025 11:11 AM EST Surgery [facility] [address] [place] [address] [place] [address] Aristeo Schwartz MD [address] [place] [address] WATCHMAN INSERTION 03/26/2025 1:00 PM EST Office Visit [facility] Cardi[facility] [place] [facility] [place] [address] [place] [address], [place] [address] Ellie Alcaraz APRN [address] [place] [address] [place] [address] 05/20/2025 3:00 PM EST Office Visit [facility] [place] [address] 5th Floor, [place] [address] 08/05/2025 11:00 AM EDT Office Visit [facility] [address] [place] [address] Scheduled Procedures Name Priority Associated Diagnoses Date/Ti [...] documented as of this encounter Care Teams Negotiations Director Relationship Specialty Start Date End Date Liam Houston MD 284535 [place] [address] [address] [place] [address] PCP - General Family Medicine 04/26/22 documented as of this encounter
--- OUTSIDE RECORDS SUMMARY | 2025-02-24 17:03 | XMS_ITS | Encounter Summary ---
Author Organization [facility] Address [address] [place] [address] Care Team Providers Care Denitrator Operator Name Role Phone Liam Houston MD Primary Care Provider [phone] Encounter Details Date Type Department Care Team [...] Description 03/09/2025 1:00 PM EDT Ancillary Procedure [facility] IMAGING SERVICES - [facility] [address] [place] [address] Aristeo Schwartz MD [address] [place] [address] 03/13/2025 12:30 PM EDT Office Visit [facility] [place] 5[address] [place] [address] [place] [address] Liam Houston MD [address] [place] [address] [address] 03/19/2025 8:00 AM EST Hospital En[facility] [address] [place] [address] [place] [address] Aristeo Schwartz MD [address] [place] [address] 03/19/2025 8:00 AM EST - 03/19/2025 11:11 AM EST Surgery [facility] [address] [place] [address] [place] [address] Aristeo Schwartz MD [address] [place] [address] WATCHMAN INSERTION 03/26/2025 1:00 PM EST Office Visit [facility] [address] 5th Floor, [place] [address] Ellie Alcaraz, MANAGER IT SECURITY [address] [facility] 5th [place] [address] 05/20/2025 3:00 PM EST Office Visit [facility] [address] 5th Floor, [place] [address] 08/05/2025 11:00 AM EDT Office Visit [address] Meka Colbertia, [facility] 3600 [place] [address] Scheduled Procedures Name Priority Associated Diagnoses Date/Ti [...] documented as of this encounter Care Teams Denitrator Operator Relationship Specialty Start Date End Date Liam Houston MD 584996 [place] [address] [address] [place] [address] PCP - General Family Medicine 04/26/22 documented as of this encounter
--- OUTSIDE RECORDS SUMMARY | 2025-02-24 17:03 | XMS_ITS | Encounter Summary ---
Author Organization [facility] Address [address] [place] [address] Care Team Providers Care Manager Performance Improvement Name Role Phone Liam [place] MD Primary Care Provider [phone] Encounter Details Date Type Department Care Team [...] Description 03/09/2025 1:00 PM EDT Ancillary Procedure [facility] - [facility] [address] [place] [address] Aristeo Schwartz MD [address] [place] [address] 03/13/2025 12:30 PM EDT Office Visit [facility] Family Medicine - [place] 175986 [place] [address] [place] [phone] [place] MD 879447 [place] [address] [place], [place] [phone] 03/19/2025 8:00 AM EST Hospital En[facility] [address] [place] [address] [place] [address] Aristeo Schwartz MD [address] [place] [address] 03/19/2025 8:00 AM EST - 03/19/2025 11:11 AM EST Surgery [facility] [address] [place] [address] [place] [address] Aristeo Schwartz MD [address] [place] [address] WATCHMAN INSERTION 03/26/2025 1:00 PM EST Office Visit [facility] [address], [place] [address] Ellie Alcaraz, TOOL ENGINEER [address] [facility] 5th [place] [address] 05/20/2025 3:00 PM EST Office Visit [facility] [address] [address] 08/05/2025 11:00 AM EDT Office Visit [address] [facility] 3600 [place] [phone] Scheduled Procedures Name Priority Associated Diagnoses Date/Ti [...] documented as of this encounter Care Teams Manager Performance Improvement Relationship Specialty Start Date End Date Liam [place] MD 857353 [place] [address] [address] [address] [place] [address] PCP - General Family Medicine 04/26/22 documented as of this encounter
--- OUTSIDE RECORDS SUMMARY | 2025-02-24 17:03 | XMS_ITS | Encounter Summary ---
Author Organization [facility] Address [address] [place] [address] Care Team Providers Care Print Shop Stenographer Name Role Phone Liam [place] MD Primary Care Provider [phone] Encounter Details Date Type Department Care Team [...] [facility] - [place] [address] [place] [address] Aristeo Schwartz MD [address] [place] [address] 03/13/2025 12:30 PM EDT Office Visit [facility] Medicine - [place] 115064 [facility] [address] [place] [address] Liam [place] MD 737993 [place] [address] [place] [address] 03/19/2025 8:00 AM EST Hospital Encounter [facility] [address] [place] [address] Aristeo Schwartz MD [address] [place] [address] 03/19/2025 8:00 AM EST - 03/19/2025 11:11 AM EST [facility] [address] [place] [address] Aristeo Schwartz MD [address] [place] [address] WATCHMAN INSERTION 03/26/2025 1:00 PM EST Office Visit [facility] - [address] [address] Ellie Alcaraz, TOOL DESIGN DRAFTSPERSON [address] [address] 05/20/2025 3:00 PM EST Office Visit [address] [address] 08/05/2025 11:00 AM EDT Office Visit [address], [address] [place] [address] Scheduled Procedures Name Priority Associated [...] documented as of this encounter Care Teams Print Shop Stenographer Relationship Specialty Start Date End Date Liam [place] MD 368879 [place] [address] [address] [address] [place] [address] PCP - General Family Medicine 04/26/22 documented as of this encounter
--- OUTSIDE RECORDS SUMMARY | 2025-02-24 17:03 | XMS_ITS | Encounter Summary ---
Author Organization [facility] Address [address] [place] [address] Care Team Providers Care Black Top Paver Operator Name Role Phone Liam [place] MD Primary Care Provider [phone] Encounter Details Date Type Department Care Team [...] Result Name Results Units Reference Range Colonoscopy [facility] Patient Name: Gretchen Alas Gender: F Procedure Date: 04/22/2008 08:30:00 AM SSN: [id number] Date of : 1935 Age: 72 Admit [...] GI clinic in 3 weeks. CPT Code(s): 94532, Colonoscopy, flexible, proximal to splenic flexure; diagnostic, with or without collection of specimen(s) by brushing or washing, with or without colon decompression (separate procedure) ICD Code(s): V76.51, Special screening for malignant neoplasms, colon 455.0, Internal hemorrhoids without mention of complication CPT 2006 [employer]. All Rights Reserved. No fee schedules, basic units, relative values or related listings are included in CPT. A does not directly or indirectly practice medicine or dispense medical services. A assumes no liability for data contained or not contained herein. CPT is a registered trademark of the [employer]. The codes documented in this report are preliminary and upon tool drawing checker review may be revised to meet current [...] Description 03/09/2025 1:00 PM EDT Ancillary Procedure [facility] IMAGING SERVICES - [place] [address] [place] [address] Aristeo Schwartz MD [address] [place] [address] - 5th [place] [address] 03/13/2025 12:30 PM EDT Office Visit [facility] - [place] [address] [address] [address] [place] [address] Liam [place] MD 620483 [place] [address] [address] [address] [place], [place] [phone] 03/19/2025 8:00 AM EST Hospital En[facility] [address] [place] [address] Aristeo Schwartz MD [address] [place] [address] 03/19/2025 8:00 AM EST - 03/19/2025 11:11 AM EST Surgery [facility] [address] [place] [address] Aristeo Schwartz MD [address] [place] [address] WATCHMAN INSERTION 03/26/2025 1:00 PM EST Office Visit [address] [address] Ellie Alcaraz, HVAC OPERATIONS TECHNICIAN [address] [place] [address] 05/20/2025 3:00 PM EST Office Visit [address] [address] 08/05/2025 11:00 AM EDT Office Visit [facility] [address], [address] [place] [address] Scheduled Procedures Name Priority Associated Diagnoses Date/Ti [...] documented as of this encounter Care Teams Black Top Paver Operator Relationship Specialty Start Date End Date Liam [place] MD [id number] [place] [address] PCP - General Family Medicine 04/26/22 documented as of this encounter
--- OUTSIDE RECORDS SUMMARY | 2025-02-24 17:04 | XMS_ITS | Encounter Summary ---
Author Organization [facility] Address [address] [place] [address] Care Team Providers Care Pit Operator Name Role Phone Liam [place] MD Primary Care Provider [phone] Encounter Details Date Type Department Care Team [...] 1:00 PM EDT Ancillary Procedure [facility] IMAGING SERVICES - [place] [address] [place] [address] Aristeo Schwartz MD [address] [place] [address] 03/13/2025 12:30 PM EDT Office Visit [facility] 997788 [place] [address] [place] [address] Liam [place] MD 627153 [place] [address] [place], [place] [address] 03/19/2025 8:00 AM EST Hospital En[facility] [address] [place] [address] Aristeo Schwartz MD [address] [place] [address] 03/19/2025 8:00 AM EST - 03/19/2025 11:11 AM EST Surgery [facility] [address] [place] [address] Aristeo Schwartz MD [address] [place] [address] WATCHMAN INSERTION 03/26/2025 1:00 PM EST Office Visit [facility] [address] [place] [address] Ellie Alcaraz, FASHION ILLUSTRATOR [address] [address] 05/20/2025 3:00 PM EST Office Visit [address] [address] 08/05/2025 11:00 AM EDT Office Visit [facility] [address] [address] Fernandez, [facility] 3600 [place] [address] Scheduled Procedures Name Priority Associated Diagnoses Date/Ti [...] documented as of this encounter Care Teams Pit Operator Relationship Specialty Start Date End Date Liam [place] MD 775850 [place] [address] [address] [address] [place] [address] PCP - General Family Medicine 04/26/22 documented as of this encounter
--- OUTSIDE RECORDS SUMMARY | 2025-02-24 17:04 | XMS_ITS | Encounter Summary ---
Author Organization [facility] Address [address] [place] [address] Care Team Providers Care Welt Edge Rounder Name Role Phone Liam [place] MD Primary Care Provider [phone] Encounter Details Date Type Department Care Team [...] N - ABSOLUTE NEUTROPHILS: 4030 Reference Range: 7968-4038 Flag: N - ABSOLUTE LYMPHOCYTES: 1198 Reference [...] Range: 0.60-0.93 Flag: N - eGFR NON-AFR. PUERTO RICAN: 74 Reference Range: > OR = 60 [...] 1:00 PM EDT Ancillary Procedure [facility] [address] [place] [address] Aristeo Schwartz MD [address] [place] [address] 03/13/2025 12:30 PM EDT Office Visit [facility] [place] 959912 [place] [address] [place] [address] Liam [place] MD [id number] [place] [address] 200 [address] [place], [place] 985[address] 03/19/2025 8:00 AM EST Hospital En[facility] [address] [place] [address] Aristeo Schwartz MD [address] [place] [address] 03/19/2025 8:00 AM EST - 03/19/2025 11:11 AM EST [facility] [address] [place] [address] [place] [address] Aristeo Schwartz MD [address] [place] [address] WATCHMAN INSERTION 03/26/2025 1:00 PM EST Office Visit [facility] Cardiovascular [place] - [address], [place] [address] Ellie Alcaraz, RIBBON SWEATBAND OPERATOR [address] [facility] 5th [place] [address] 05/20/2025 3:00 PM EST Office Visit [facility] [place] [address] 5th Floor, [place] [address] 08/05/2025 11:00 AM EDT Office Visit [place] [address], [address] [place] [address] Scheduled Procedures Name Priority Associated [...] documented as of this encounter Care Teams Welt Edge Rounder Relationship Specialty Start Date End Date Liam [place] MD 339687 [place] [address] [address] [address] [place] [address] PCP - General Family Medicine 04/26/22 documented as of this encounter
--- OUTSIDE RECORDS SUMMARY | 2025-02-24 17:04 | XMS_ITS | Encounter Summary ---
Author Organization [facility] Address [address] [place] [address] Care Team Providers Care Fisher Swordfish Name Role Phone Liam [place] MD Primary Care Provider [phone] Encounter Details Date Type Department Care Team [...] AM EDT . RE ALAS [address] [place] [address] September 30, 2008 Dear Ms. ALAS: Here are the results from your recent visit: Your blood work results were ok/ normal Triglyceride level 41. Best if below 200 Total cholesterol 191. Best if below 200 HDL-good cholesterol 60. Best if above 60 LDL- unhealthy cholesterol 123. Best if below 100 Liver test normal Sincerely, [facility]. Signature Signed By: Ellie Flood ; 09/30/2008 9:40 AM EST. documented in this encounter Plan of Treatment Upcoming Encounters Date Type Department Care Team (Latest Contact Info) Description 03/09/2025 1:00 PM EDT Ancillary Procedure [facility] - [facility] [address] [place] [address] Aristeo Schwartz MD [address] [place] [address] 03/13/2025 12:30 PM EDT Office Visit [facility] [place] [address] [facility] [address] [place] [address] [place] 004925 [place] [address] [place], [place] 5959[address] 03/19/2025 8:00 AM EST Hospital [facility] [address] [place] [address] Aristeo Schwartz MD [address] [place] [address] 03/19/2025 8:00 AM EST - 03/19/2025 11:11 AM EST Surgery [facility] [address] [place] [address] Aristeo Schwartz MD [address] [place] [address] WATCHMAN INSERTION 03/26/2025 1:00 PM EST Office Visit [facility] [address] [place] [address] Ellie Alcaarz, KAIT [address] [place] [address] 05/20/2025 3:00 PM EST Office Visit [facility] [address] [place] [address] 08/05/2025 11:00 AM EDT Office Visit [place] [address], [address] [place] [address] Scheduled Procedures Name Priority Associated Diagnoses Date/Ti [...] documented as of this encounter Care Teams Fisher Swordfish Relationship Specialty Start Date End Date Liam [place] MD 475577 [place] [address] [address] [address] [place] [address] PCP - General Family Medicine 04/26/22 documented as of this encounter
--- OUTSIDE RECORDS SUMMARY | 2025-02-24 17:04 | XMS_ITS | Encounter Summary ---
Author Organization [facility] Address [address] [place] [address] Care Team Providers Care Land Appraiser Name Role Phone Liam [place] MD Primary Care Provider [phone] Encounter Details Date Type Department Care Team [...] Non-Q-wave Myocardial Infarction - Subsequent Care Recent KS (8 Wks) (410.72) Normal Examination (V70.0) Osteoporosis [...] Description 03/09/2025 1:00 PM EDT Ancillary Procedure [facility] IMAGING SERVICES - [place] [address] [place] [address] Aristeo Schwartz MD [address] [place] [address] - [address] [place] [address] 03/13/2025 12:30 PM EDT Office Visit [facility] 819892 [facility] [address] [place] [address] [place] MD 405363 [place] [address] [place], [place] [phone] 03/19/2025 8:00 AM EST Hospital Encounter [facility] [address] [place] [address] Aristeo Schwartz MD [address] [place] [address] 03/19/2025 8:00 AM EST - 03/19/2025 11:11 AM EST Surgery [facility] [address] [place] [address] Aristeo Schwartz MD [address] [place] [address] WATCHMAN INSERTION 03/26/2025 1:00 PM EST Office Visit [facility] [address] [address] Ellie Alcaraz, APPLICATION DBA [address] [address] 05/20/2025 3:00 PM EST Office Visit [facility] [address] [phone] 08/05/2025 11:00 AM EDT Office Visit [facility] [address] [address], [facility] 3600 [place] [address] Scheduled Procedures Name Priority Associated Diagnoses Date/Ti [...] documented as of this encounter Care Teams Land Appraiser Relationship Specialty Start Date End Date Liam [place] MD 686986 [place] [address] [address] [address] [place] [address] PCP - General Family Medicine 04/26/22 documented as of this encounter
--- OUTSIDE RECORDS SUMMARY | 2025-02-24 17:04 | XMS_ITS | Encounter Summary ---
Author Organization [facility] Address [address] [place] [address] Care Team Providers Care Liquor Stores And Agencies Supervisor Name Role Phone Liam [place] MD Primary Care Provider [phone] Encounter Details Date Type Department Care Team [...] HCl 2 MG Tablet;1 TABS PO bid; Veu779; R11; Rx. Plan Skin tag on the [...] 1:00 PM EDT Ancillary Procedure [facility] [address] [place] [address] Aristeo Schwartz MD [address] [place] [address] 03/13/2025 12:30 PM EDT Office Visit [facility] [place] 448006 [place] [address] [place] [address] Liam [place] MD [address] [place] [address] [address] [place] [address] 03/19/2025 8:00 AM EST Hospital En[facility] [address] [place] [address] Aristeo Schwartz MD [address] [place] [address] 03/19/2025 8:00 AM EST - 03/19/2025 11:11 AM EST [facility] [address] [place] [address] [place] [address] Aristeo Schwartz MD [address] [place] [address] WATCHMAN INSERTION 03/26/2025 1:00 PM EST Office Visit [facility] Cardiovascular [place] - [address], [place] [address] Ellie Alcaraz, SUBWAY GUARD [address] [facility] [address] [place] [address] 05/20/2025 3:00 PM EST Office Visit [facility] [address] 5th Floor, [place] [address] 08/05/2025 11:00 AM EDT Office Visit [address], [address] [place] [address] Scheduled Procedures Name Priority Associated Diagnoses Date/Ti [...] documented as of this encounter Care Teams Liquor Stores And Agencies Supervisor Relationship Specialty Start Date End Date Liam [place] MD 025759 [place] [address] [address] [address] [place] [phone] PCP - General Family Medicine 04/26/22 documented as of this encounter
--- OUTSIDE RECORDS SUMMARY | 2025-02-24 17:04 | XMS_ITS | Encounter Summary ---
Author Organization [facility] Address [address] [place] [address] Care Team Providers Care Aerial Crop Duster Name Role Phone Liam [place] MD Primary Care Provider [phone] Encounter Details Date Type Department Care Team [...] AM EST Hyperlipidemia (272.4) Amended By: Stephen Colleir ; 01/20/2008 8:22 AM EST Osteoporosis (733.00) [...] Description 03/09/2025 1:00 PM EDT Ancillary Procedure [facility] [address] [place] [address] Aristeo Schwartz MD [address] [place] [address] 03/13/2025 12:30 PM EDT Office Visit [facility] Family Medicine - [address] [address] Liam [place] MD [address] [place] [address] [phone] 03/19/2025 8:00 AM EST Hospital [facility] [address] [place] [address] [place] [address] Aristeo Schwartz MD [address] [place] [address] 21 03/19/2025 8:00 AM EST - 03/19/2025 11:11 AM EST [facility] [address] [place] [address] [place] [address] Aristeo Schwartz MD [address] [place] [address] WATCHMAN INSERTION 03/26/2025 1:00 PM EST Office Visit [facility] [address] [place] [phone] Ellie Alcaraz, KAIT [address] [place] [address] 05/20/2025 3:00 PM EST Office Visit [address] [phone] 08/05/2025 11:00 AM EDT Office Visit [address] [facility] [address] [place] [address] Scheduled Procedures Name Priority Associated Diagnoses [...] documented as of this encounter Care Teams Aerial Crop Duster Relationship Specialty Start Date End Date Liam [place] MD [id number] [address] [place] [phone] PCP - General Family Medicine 04/26/22 documented as of this encounter
--- OUTSIDE RECORDS SUMMARY | 2025-02-24 17:04 | XMS_ITS | Encounter Summary ---
Author Organization [facility] Address [address] [place] [address] Care Team Providers Care Interlacer Name Role Phone Liam [place] MD Primary Care Provider [phone] Encounter Details Date Type Department Care Team (Late st Contact Info) Description 05/22/2017 Orders Only [facility] Endocrinology - [place] [address] [facility], [address] [place] [address] Soren Santamaria MD Social History [...] 03/09/2025 1:00 PM EDT Ancillary Procedure [facility] IMAGING SERVICES - [place] [address] [place] [address] Aristeo Schwartz MD [address] [place] [address] - 5th [place] [address] 03/13/2025 12:30 PM EDT Office Visit [facility] 242944 [place] [address] [place] [address] Liam [place] MD 402512 [place] [address] [place] [address] 03/19/2025 8:00 AM EST Hospital En[facility] [address] [place] [address] Aristeo Schwartz MD [address] [place] [address] 03/19/2025 8:00 AM EST - 03/19/2025 11:11 AM EST [facility] [address] [place] [address] Aristeo Schwartz MD [address] [place] [address] WATCHMAN INSERTION 03/26/2025 1:00 PM EST Office Visit [facility] [address] [place] [address] Ellie Alcaraz, SENIOR SECURITY ARCHITECT [address] [address] 05/20/2025 3:00 PM EST Office Visit [facility] [address] [place] [address] 08/05/2025 11:00 AM EDT Office Visit [place] [address] [address] Fernandez, [facility] 3600 [place] [address] Scheduled Procedures Name Priority Associated Diagnoses Date/Ti [...] documented as of this encounter Care Teams Interlacer Relationship Specialty Start Date End Date Liam [place] MD 050313 [address] [place] [address] PCP - General Family Medicine 04/26/22 documented as of this encounter
--- OUTSIDE RECORDS SUMMARY | 2025-02-24 17:04 | XMS_ITS | Encounter Summary ---
Author Organization [facility] Address [address] [place] [address] Care Team Providers Care Armature Winder Helper Repair Name Role Phone Liam [place] MD Primary Care Provider [phone] Encounter Details Date Type Department Care Team [...] 1:00 PM EDT Ancillary Procedure [facility] IMAGING SERVICES - [place] [address] [place] [address] Aristeo Schwartz MD [address] [place] [address] 03/13/2025 12:30 PM EDT Office Visit [facility] [place] 6[address] [facility] [address] [place] [address] Liam [place] MD [address] [place], [place] [address] 03/19/2025 8:00 AM EST Hospital [facility] [address] [place] [address] Aristeo Schwartz MD [address] [place] [address] 03/19/2025 8:00 AM EST - 03/19/2025 11:11 AM EST [facility] [address] [place] [address] Aristeo Schwartz MD [address] [place] [address] WATCHMAN INSERTION 03/26/2025 1:00 PM EST Office Visit [address] [phone] Ellie Alcaraz, BUILDER'S LABOURER [address] [address] 05/20/2025 3:00 PM EST Office Visit [address] [phone] 08/05/2025 11:00 AM EDT Office Visit [facility] [address], [address] [place] [address] Scheduled Procedures Name Priority Associated Diagnoses Date/Ti [...] documented as of this encounter Care Teams Armature Winder Helper Repair Relationship Specialty Start Date [place] 159106 [place] [address] [address] [address] [place] [address] PCP - General Family Medicine 04/26/22 documented as of this encounter
--- OUTSIDE RECORDS SUMMARY | 2025-02-24 17:04 | XMS_ITS | Encounter Summary ---
Author Organization [facility] Address [address] [place] [address] Care Team Providers Care Base Loader Name Role Phone Liam Houston MD Primary Care Provider [phone] Encounter Details Date Type Department Care Team [...] Procedure [facility] [address] [place] [address] Aristeo Schwartz MD [address] [place] [address] 03/13/2025 12:30 PM EDT Office Visit [facility] [address] [place] [address] [place] MD [address] [place], [place] [phone] 03/19/2025 8:00 AM EST Hospital En[facility] [address] [place] [address] [place] [address] Aristeo Schwartz MD [address] [place] [address] 03/19/2025 8:00 AM EST - 03/19/2025 11:11 AM EST [facility] [address] [place] [address] Aristeo Schwartz MD [address] [place] [address] WATCHMAN INSERTION 03/26/2025 1:00 PM EST Office Visit [address] [address] Ellie Alcaraz, VAULT SERVICE MECHANIC [address] [address] 05/20/2025 3:00 PM EST Office Visit [facility] [address] [place] [address] 08/05/2025 11:00 AM EDT Office Visit [place] [address], [address] [place] [address] Scheduled Procedures Name Priority Associated Diagnoses Date/Ti [...] documented as of this encounter Care Teams Base Loader Relationship Specialty Start Date End Date Liam Houston MD [id number] [place] [address] [place] [address] PCP - General Family Medicine 04/26/22 documented as of this encounter
--- OUTSIDE RECORDS SUMMARY | 2025-02-24 17:04 | XMS_ITS | Encounter Summary ---
Author Organization [facility] Address [address] [place] [address] Care Team Providers Care Etl Lead Name Role Phone Liam Houston MD Primary Care Provider [phone] Encounter Details Date Type Department Care Team [...] Female Recorded by Ellie Flood on September 09:39 AM BP: 126/81 [...] Description 03/09/2025 1:00 PM EDT Ancillary Procedure [facility] [address] [place] [address] Aristeo Schwartz MD [address] [place] [address] 03/13/2025 12:30 PM EDT Office Visit [facility] [address] [place] [address] [place] [address] Liam Houston MD [address] [place] [address] [phone] 03/19/2025 8:00 AM EST Hospital En[facility] [address] [place] [address] Aristeo Schwartz MD [address] [place] [address] 03/19/2025 8:00 AM EST - 03/19/2025 11:11 AM EST Surgery [facility] [address] [place] [address] Aristeo Schwartz MD [address] [place] [address] WATCHMAN INSERTION 03/26/2025 1:00 PM EST Office Visit [facility] [place] [facility] [place] [address] [place] [phone] Ellie Alcaraz, KAIT [address] [place] [address] 05/20/2025 3:00 PM EST Office Visit Counts include 234 beds at the [facility] [address] 5th Floor, [place] [address] 08/05/2025 11:00 AM EDT Office Visit [facility] [address], [address] [place] [address] Scheduled Procedures Name Priority Associated [...] documented as of this encounter Care Teams Etl Lead Relationship Specialty Start Date End Date Liam Houston MD 643164 [place] [address] [address] [place] [address] PCP - General Family Medicine 04/26/22 documented as of this encounter
--- OUTSIDE RECORDS SUMMARY | 2025-02-24 17:04 | XMS_ITS | Encounter Summary ---
Author Organization [facility] Address [address] [place] [address] Care Team Providers Care Home Therapy Clinician Name Role Phone Liam Houston MD Primary Care Provider [phone] Encounter Details Date Type Department Care Team [...] JOHN DANG MD(R) JOHN DANG MD(R) D: [id number] MT: [id number] Dictator: [id number] Confirmation Number: [id number] ([id number]) Electronically signed by:John Dang MD(R) Sep 16 2007 8:03AM EST Electronically signed by:Macho Parisi M.D. Sep 23 2007 9:19AM EST documented in this encounter Plan of Treatment Upcoming Encounters Date Type Department Care Team (Latest Contact Info) Description 03/09/2025 1:00 PM EDT Ancillary Procedure [facility] [place] [address] [place] [address] Aristeo Schwartz MD [address] [place] [address] - 5th [place] [address] 03/13/2025 12:30 PM EDT Office Visit [facility] [place] [address] [address] [place] [address] Liam Houston MD [address] [place] [address] [address] [place] [address] 03/19/2025 8:00 AM EST Hospital En[facility] [address] [place] [address] Aristeo Schwartz MD [address] [place] [address] 03/19/2025 8:00 AM EST - 03/19/2025 11:11 AM EST Surgery [facility] [address] [place] [address] Aristeo Schwartz MD [address] [place] [address] WATCHMAN INSERTION 03/26/2025 1:00 PM EST Office Visit [facility] [address] [address] Ellie Alcaraz, SHODDY MILL WORKER [address] [address] 05/20/2025 3:00 PM EST Office Visit [facility] [address] [phone] 08/05/2025 11:00 AM EDT Office Visit [address] [facility] [address]00 [place] [address] Scheduled Procedures Name Priority Associated Diagnoses Date/Ti [...] documented as of this encounter Care Teams Home Therapy Clinician Relationship Specialty Start Date End Date Liam Houston MD 656365 [place] [address] [address] [place] [address] PCP - General Family Medicine 04/26/22 documented as of this encounter
--- OUTSIDE RECORDS SUMMARY | 2025-02-24 17:04 | XMS_ITS | Encounter Summary ---
Author Organization [facility] Address [address] [place] [address] Care Team Providers Care Skin Care Instructor Name Role Phone Liam Houston MD Primary Care Provider [phone] Encounter Details Date Type Department Care Team [...] 03/09/2025 1:00 PM EDT Ancillary Procedure [facility] [place] [address] [place] [address] Aristeo Schwartz MD [address] [place] [address] 03/13/2025 12:30 PM EDT Office Visit [facility] [address] [place] [address] [place] [address] [place] Houston [place] [address] [facility] [address] [place] [address] 03/19/2025 8:00 AM EST Hospital En[facility] [address] [place] [address] Aristeo Schwartz MD [address] [place] [address] 03/19/2025 8:00 AM EST - 03/19/2025 11:11 AM EST Surgery [facility] [address] [place] [address] Aristeo Schwartz MD [address] [place] [address] WATCHMAN INSERTION 03/26/2025 1:00 PM EST Office Visit [address] [address] Ellie Alcaraz, ASSOCIATE FINANCIAL ADVISOR [address] [address] 05/20/2025 3:00 PM EST Office Visit [facility] [address] [place] [address] 08/05/2025 11:00 AM EDT Office Visit [place] [address] [facility] [facility] [address] [place] [address] Scheduled Procedures Name Priority Associated Diagnoses Date/Ti [...] documented as of this encounter Care Teams Skin Care Instructor Relationship Specialty Start Date End Date Liam Houston MD 163554 [place] [address] [address] [place] [address] PCP - General Family Medicine 04/26/22 documented as of this encounter
--- OUTSIDE RECORDS SUMMARY | 2025-02-24 17:04 | XMS_ITS | Encounter Summary ---
Author Organization [facility] Address [address] [place] [address] Care Team Providers Care Registered Nurse Maternity Name Role Phone Liam Houston MD Primary Care Provider [phone] Encounter Details Date Type Department Care Team [...] Procedure [facility] [address] [place] [address] Aristeo Schwartz MD [address] [place] [address] 03/13/2025 12:30 PM EDT Office Visit [facility] [place] [address] [facility] [address] [place] [address] Liam Houston MD 677844 [facility] [address] [place], [place] [address] 03/19/2025 8:00 AM EST Hospital En[facility] [address] [place] [address] Aristeo Schwartz MD [address] [place] [address] 03/19/2025 8:00 AM EST - 03/19/2025 11:11 AM EST [facility] [address] [place] [address] [place] [address] Aristeo Schwartz MD [address] [place] [address] WATCHMAN INSERTION 03/26/2025 1:00 PM EST Office Visit [facility] [place] [facility] [place] [address] [place] [phone] Ellie Alcaraz, RIB CUTTER [address] [address] 05/20/2025 3:00 PM EST Office Visit [facility] [place] [address] 5th Floor, [place] [address] 08/05/2025 11:00 AM EDT Office Visit [facility] [address], [address] [place] [address] Scheduled Procedures Name Priority Associated [...] in 1 cassette(s). Gross exam(s) performed at: [facility] [address] [facility] [address] Medical Observer: BRIAN VELAZCO MD EXTERNAL LAB A MICRO DESCRIPTION THERE IS MARKED PAPILLOMATOSIS WITH MARKED HYPERKERATOSIS. EXTERNAL LAB 10/24/2012 Stephen Collier MD PATHOLOGY/CYTOLOGY ORD ERABLES Final Result EXTERNAL LAB * SURGICAL PATHOLOGY TISSUE-[place] (10/24/2012 12:00 AM EDT) PATHOLOGIST LISANDRA HINTON M.D., BOARD CERTIFIED DERMATOPATHOLOG IST, (ELECTRONIC SIGNATURE) EXTERNAL LAB CLINICAL INFORMATION No information provided. EXTERNAL LAB 10/24/2012 Stephen Collier MD PATHOLOGY/CYTOLOGY ORD ERABLES Final [...] as of this encounter Care Teams Registered Nurse Maternity Relationship Specialty Start Date [place] Date Liam Houston MD 295[address] [place] [address] [address] [place] [address] PCP - General Family Medicine 04/26/22 documented as of this encounter
--- OUTSIDE RECORDS SUMMARY | 2025-02-24 17:04 | XMS_ITS | Encounter Summary ---
Author Organization [facility] Address [address] [place] [address] Care Team Providers Care Coremaking Machine Setter Name Role Phone Liam Houston MD Primary Care Provider [phone] Encounter Details Date Type Department Care Team [...] Description 03/09/2025 1:00 PM EDT Ancillary Procedure [facility] [address] [place] [address] Aristeo Schwartz MD [address] [place] [address] - 5th [place] [address] 03/13/2025 12:30 PM EDT Office Visit [facility] Family Medicine - [place] [address] [place] [address] [address] [place] [address] Liam Houston MD [address] [place] [address] [address] [place], [place] [phone] 03/19/2025 8:00 AM EST Hospital En[facility] [address] [place] [address] Aristeo Schwartz MD [address] [place] [address] 03/19/2025 8:00 AM EST - 03/19/2025 11:11 AM EST Surgery [facility] [address] [place] [address] Aristeo Schwartz MD [address] [place] [address] WATCHMAN INSERTION 03/26/2025 1:00 PM EST Office Visit [address] [phone] Ellie Alcaraz, SENIOR BUSINESS OBJECTS DEVELOPER [address] [place] [address] 05/20/2025 3:00 PM EST Office Visit [address] [phone] 08/05/2025 11:00 AM EDT Office Visit [address] [facility] [address]00 [place] [address] Scheduled Procedures Name Priority Associated Diagnoses Date/Ti me WATCHMAN INSERTION Atrial fibrillation, unspecified type 03/19/2025 8:00 AM EST documented as of this encounter Visit Diagnoses Not on filedocumented in this encounter Additional Health Concerns Infection Onset Date Last Indicated Resolved Time None 10/20/2011 10/20/2011 07/15/2012 12:4 0 AM EST COVID-19 Rule-Out 11/24/2020 11/24/2020 11/24/2020 10:21 PM EDT COVID-19 (Confirmed) 11/24/2020 12/10/202005 021 3:03 AM EDT COVID-19 Rule-Out 11/24/2020 11/25/2020 11/25/2020 5:14 AM EDT documented as of this encounter Care Teams Coremaking Machine Setter Relationship Specialty Start [place] Liam Houston MD 17[address]82 [place] [address] [address] [place] [address] PCP - General Family Medicine 04/26/22 documented as of this encounter
--- OUTSIDE RECORDS SUMMARY | 2025-02-24 17:04 | XMS_ITS | Encounter Summary ---
Author Organization [facility] Address [address] [place] [address] Care Team Providers Care Software Verification Engineer Name Role Phone Liam Houston MD Primary Care Provider [phone] Encounter Details Date Type Department Care Team [...] AM EDT * Scanned Document - See, Juan Manuelsigridpts - 10/31/2013 10:20 AM EDT documented in this encounter Plan of Treatment Upcoming Encounters Date Type Department Care Team (Latest Contact Info) Description 03/09/2025 1:00 PM EDT Ancillary Procedure [facility] [address] [place] [address] Aristeo Schwartz MD [address] [place] [address] 03/13/2025 12:30 PM EDT Office Visit [facility] [place] [address] [place] [address] Liam Houston MD [address] [place] [address] 03/19/2025 8:00 AM EST Hospital En[facility] [address] [place] [address] Aristeo Schwartz MD [address] [place] [address] 03/19/2025 8:00 AM EST - 03/19/2025 11:11 AM EST Surgery [facility] [address] [place] [address] Aristeo Schwartz MD [address] [place] [address] WATCHMAN INSERTION 03/26/2025 1:00 PM EST Office Visit [facility] Cardiovascular [address], [place] [address] Ellie Alcaraz, INTERNAL CORROSION SPECIALIST [address] [facility] 5th [place] [address] 05/20/2025 3:00 PM EST Office Visit [facility] [address] [address] 08/05/2025 11:00 AM EDT Office Visit [address], [address] [place] [address] Scheduled Procedures Name Priority Associated Diagnoses Date/Ti [...] as of this encounter Care Teams Software Verification Engineer Relationship Specialty Start Date End Date Liam Houston MD 915353 [place] [address] [address] [place] [address] PCP - General Family Medicine 04/26/22 documented as of this encounter
--- OUTSIDE RECORDS SUMMARY | 2025-02-24 17:04 | XMS_ITS | Encounter Summary ---
Author Organization [facility] Address [address] [place] [address] Care Team Providers Care Turf Farm Worker Name Role Phone Liam Houston MD Primary Care Provider [phone] Encounter Details Date Type Department Care Team [...] Description 03/09/2025 1:00 PM EDT Ancillary Procedure [facility] [place] [address] [place] [address] Aristeo Schwartz MD [address] [place] [address] - 5th [place] [address] 03/13/2025 12:30 PM EDT Office Visit [facility] [place] [facility] 031[address] [place] [address] [place] [address] [place] Houston MD 135655 [place] [address] [place], [place] [address] 03/19/2025 8:00 AM EST Hospital Encounter [facility] [address] [place] [address] Aristeo Schwartz MD [address] [place] [address] 03/19/2025 8:00 AM EST - 03/19/2025 11:11 AM EST Surgery [facility] [address] [place] [address] Aristeo Schwartz MD [address] [place] [address] WATCHMAN INSERTION 03/26/2025 1:00 PM EST Office Visit [address] [phone] Ellie Alcaraz, BUTTER MELTER [address] [address] 05/20/2025 3:00 PM EST Office Visit [address] [address] 08/05/2025 11:00 AM EDT Office Visit [facility] [address] [address], [facility] 3600 [place] [address] Scheduled Procedures Name Priority Associated Diagnoses Date/Ti [...] documented as of this encounter Care Teams Turf Farm Worker Relationship Specialty Start Date End Date Liam Houston MD 159202 [address] [place] [address] PCP - General Family Medicine 04/26/22 documented as of this encounter
--- OUTSIDE RECORDS SUMMARY | 2025-02-24 17:04 | XMS_ITS | Encounter Summary ---
Author Organization [facility] Address [address] [place] [address] Care Team Providers Care Bulk Plant Agent Name Role Phone Liam Houston MD Primary Care Provider [phone] Encounter Details Date Type Department Care Team (Late st Contact Info) Description 05/22/2017 Orders Only [facility] - [place] [address] [facility], [address] [place] [address] Soren Santamaria MD Social History [...] Description 03/09/2025 1:00 PM EDT Ancillary Procedure [facility] [place] [address] [place] [address] Aristeo Schwartz MD [address] [place] [address] - 5th [place] [address] 03/13/2025 12:30 PM EDT Office Visit [facility] [address] [place] [address] [place] [address] Liam Houston MD 941362 [place] [address] [place] [address] 03/19/2025 8:00 AM EST Hospital [facility] [address] [place] [address] Aristeo Schwartz MD [address] [place] [address] 03/19/2025 8:00 AM EST - 03/19/2025 11:11 AM EST Surgery [facility] [address] [place] [address] Aristeo Schwartz MD [address] [place] [address] WATCHMAN INSERTION 03/26/2025 1:00 PM EST Office Visit [facility] [address] [place] [address] Ellie Alcaraz, BAGGAGE SCREENER [address] [address] 05/20/2025 3:00 PM EST Office Visit [facility] [address] [place] [phone] 08/05/2025 11:00 AM EDT Office Visit [place] [address] [address] Fernandez, [facility] 3600 [place] [address] Scheduled Procedures Name Priority Associated Diagnoses Date/Ti [...] documented as of this encounter Care Teams Bulk Plant Agent Relationship Specialty Start [place] Liam Houston [place] [address]62 [address] [place] [address] PCP - General Family Medicine 04/26/22 documented as of this encounter
--- OUTSIDE RECORDS SUMMARY | 2025-02-24 17:04 | XMS_ITS | Encounter Summary ---
Author Organization [facility] Address [address] [place] [address] Care Team Providers Care Fishing Game Warden Name Role Phone Liam Houston MD Primary Care Provider [phone] Encounter Details Date Type Department Care Team [...] Description 03/09/2025 1:00 PM EDT Ancillary Procedure [facility] - [place] [address] [place] [address] Aristeo Schwartz MD [address] [place] [address] 03/13/2025 12:30 PM EDT Office Visit [facility] [place] 229482 [facility] [address] [place] [address] Liam Houston MD 609057 [place] [address] [place] [address] 03/19/2025 8:00 AM EST Hospital [facility] [address] [place] [address] Aristeo Schwartz MD [address] [place] [address] 03/19/2025 8:00 AM EST - 03/19/2025 11:11 AM EST Surgery [facility] [address] [place] [address] Aristeo Schwartz MD [address] [place] [address] WATCHMAN INSERTION 03/26/2025 1:00 PM EST Office Visit [address] [address] Ellie Alcaraz, KAIT [address] [place] [address] 05/20/2025 3:00 PM EST Office Visit [facility] [address] [place] [phone] 08/05/2025 11:00 AM EDT Office Visit [facility] [address], [address] [place] [address] Scheduled Procedures Name Priority Associated [...] documented as of this encounter Care Teams Fishing Game Warden Relationship Specialty Start Date End Date Liam Houston MD 647348 [address] [place] [address] PCP - General Family Medicine 04/26/22 documented as of this encounter
--- OUTSIDE RECORDS SUMMARY | 2025-02-24 17:04 | XMS_ITS | Encounter Summary ---
Author Organization [facility] Address [address] [place] [address] Care Team Providers Care Silk Snapper Name Role Phone Liam Houston MD Primary Care Provider [phone] Encounter Details Date Type Department Care Team [...] 1:00 PM EDT Ancillary Procedure [facility] [place] [address] [place] [address] Aristeo Schwartz MD [address] [place] [address] - 5th [place] [address] 03/13/2025 12:30 PM EDT Office Visit [facility] [address] [facility] [address] [place] [address] Liam Houston MD 6[address]17 [facility] [address] [place], [place] [phone] 03/19/2025 8:00 AM EST Hospital En[facility] [address] [place] [address] Aristeo Schwartz MD [address] [place] [address] 03/19/2025 8:00 AM EST - 03/19/2025 11:11 AM EST Surgery [facility] [address] [place] [address] Aristeo Schwartz MD [address] [place] [address] WATCHMAN INSERTION 03/26/2025 1:00 PM EST Office Visit [facility] [address] [place] [phone] Ellie Alcaraz, SCOOP MACHINE OPERATOR [address] [address] 05/20/2025 3:00 PM EST Office Visit [facility] [address] [phone] 08/05/2025 11:00 AM EDT Office Visit [facility] [address] [address], [facility] 3600 [place] [address] Scheduled Procedures Name Priority Associated Diagnoses Date/Ti [...] documented as of this encounter Care Teams Silk Snapper Relationship Specialty Start Date End Date Liam Houston MD 120807 [place] [address] [address] [place] [address] PCP - General Family Medicine 04/26/22 documented as of this encounter
--- OUTSIDE RECORDS SUMMARY | 2025-02-24 17:04 | XMS_ITS | Encounter Summary ---
Author Organization [facility] Address [address] [place] [address] Care Team Providers Care Volleyball Player Name Role Phone Liam Houston MD Primary Care Provider [phone] Encounter Details Date Type Department Care Team [...] Ancillary Procedure [facility]ING [facility] - [place] [address] [place] [address] Aristeo Schwartz MD [address] [place] [address] - 5th [place] [address] 03/13/2025 12:30 PM EDT Office Visit [facility] 926910 [facility] [address] [place] [address] Liam Houston MD 467681 [facility] [address] [place], [place] [phone] 03/19/2025 8:00 AM EST Hospital [facility] [address] [place] [address] Aristeo Schwartz MD [address] [place] [address] 03/19/2025 8:00 AM EST - 03/19/2025 11:11 AM EST [facility] [address] [place] [address] Aristeo Schwartz MD [address] [place] [address] WATCHMAN INSERTION 03/26/2025 1:00 PM EST Office Visit [facility] [address] [place] [phone] Ellie Alcaraz, ASSEMBLING INSPECTOR [address] [address] 05/20/2025 3:00 PM EST Office Visit [facility] [address] [address] 08/05/2025 11:00 AM EDT Office Visit [facility] [address] [address], [facility] [address] [place] [phone] Scheduled Procedures Name Priority Associated Diagnoses Date/Ti [...] documented as of this encounter Care Teams Volleyball Player Relationship Specialty Start Date End Date Liam Houston MD 938906 [place] [address] [address] [place] [address] PCP - General Family Medicine 04/26/22 documented as of this encounter
--- OUTSIDE RECORDS SUMMARY | 2025-02-24 17:04 | XMS_ITS | Encounter Summary ---
Author Organization [facility] Address [address] [place] [address] Care Team Providers Care Production Supply Equipment Tender Name Role Phone Liam Houston MD Primary Care Provider [phone] Encounter Details Date Type Department Care Team [...] 9:15 AM EDT . RE ALAS [address] [place] [address] Feb 04, 2013 Dear Ms. ALAS: Here [...] our office at your earliest convenience. Sincerely, [facility]. Signature Electronically signed by : Graciela Maloney MA; 02/04/2013 10:13 AM EST; Author. documented in this encounter Plan of Treatment Upcoming Encounters Date Type Department Care Team (Latest Contact Info) Description 03/09/2025 1:00 PM EDT Ancillary Procedure [facility] [address] [place] [address] Aristeo Schwartz MD [address] [place] [address] 03/13/2025 12:30 PM EDT Office Visit [facility] [place] [address] [address] [place] [address] Liam Houston MD [address] [place] [address] [place] [address] 03/19/2025 8:00 AM EST Hospital [facility] [address] [place] [address] [place] [address] Aristeo Schwartz MD [address] [place] [address] 03/19/2025 8:00 AM EST - 03/19/2025 11:11 AM EST [facility] [address] [place] [address] [place] [address] Aristeo Schwartz MD [address] [place] [address] WATCHMAN INSERTION 03/26/2025 1:00 PM EST Office Visit [facility] Cardiovascular [place] - [address], [place] [address] Ellie Alcaraz, PRINTED CIRCUIT BOARDS BEVELER [address] ACC [address] [place] [address] 05/20/2025 3:00 PM EST Office Visit [facility] [address] 5th Floor, [place] [address] 08/05/2025 11:00 AM EDT Office Visit [address], [address] [place] [address] Scheduled Procedures Name Priority Associated Diagnoses Date/Ti me WATCHMAN INSERTION Atrial fibrillation, unspecified type 03/19/2025 8:00 AM EST documented as of this encounter Visit Diagnoses Not on filedocumented in this encounter Additional Health Concerns Infection Onset Date Last Indicated Resolved Time COVID-19 Rule-Out 11/24/2020 11/24/2020 11/24/2020 10:21 PM EDT COVID-19 (Confirmed) 11/24/2020 12/10/2020052 021 3:03 AM EDT COVID-19 Rule-Out 11/24/2020 11/25/2020 11/25/2020 5:14 AM EDT documented as of this encounter Care Teams Production Supply Equipment Tender Relationship Specialty Start Date End Date Liam Houston MD 751251 [place] [address] [address] [address] [place] [address] PCP - General Family Medicine 04/26/22 documented as of this encounter
--- OUTSIDE RECORDS SUMMARY | 2025-02-24 17:04 | XMS_ITS | Encounter Summary ---
Author Organization [facility] Address [address] [place] [address] Care Team Providers Care Site Foreman Name Role Phone Liam Houston MD Primary Care Provider [phone] Encounter Details Date Type Department Care Team [...] 03/09/2025 1:00 PM EDT Ancillary Procedure [facility] [address] [place] [address] Aristeo Schwartz MD [address] [place] [address] 03/13/2025 12:30 PM EDT Office Visit [facility] [place] [address] [address] [place] [address] Liam Houston MD [address] [place] [address] 200 [address] [place] [address] 03/19/2025 8:00 AM EST Hospital En[facility] [address] [place] [address] [place] [address] Aristeo Schwartz MD [address] [place] [address] 03/19/2025 8:00 AM EST - 03/19/2025 11:11 AM EST [facility] [address] [place] [address] [place] [address] Aristeo Schwartz MD [address] [place] [address] WATCHMAN INSERTION 03/26/2025 1:00 PM EST Office Visit [facility] Cardiovascular [place] - [address], [place] [address] Ellie Alcaraz, STAIR BUILDER [address] ACC [address] [place] [address] 05/20/2025 3:00 PM EST Office Visit [facility] [place] [address] 5th Floor, [place] [address] 08/05/2025 11:00 AM EDT Office Visit [address], [address] [place] [address] Scheduled Procedures Name Priority Associated Diagnoses Date/Ti [...] documented as of this encounter Care Teams Site Foreman Relationship Specialty Start Date End Date Liam Houston MD 786609 [place] [address] [address] [place] [address] PCP - General Family Medicine 04/26/22 documented as of this encounter
--- OUTSIDE RECORDS SUMMARY | 2025-02-24 17:04 | XMS_ITS | Encounter Summary ---
Author Organization [facility] Address [address] [place] [address] Care Team Providers Care Air Drier Machine Operator Name Role Phone Liam Houston MD Primary Care Provider [phone] Encounter Details Date Type Department Care Team [...] EDT Chief Complaint Referred By Dr Stephen Clolier Patient is here for screening colonoscopy. No [...] Description 03/09/2025 1:00 PM EDT Ancillary Procedure [facility] [address] [place] [address] Aristeo Schwartz MD [address] [place] [address] 03/13/2025 12:30 PM EDT Office Visit [facility] 408787 [facility] [address] [place] [address] Liam Houston MD 962055 [place] [address] [place], [place] [address]88[address] 03/19/2025 8:00 AM EST Hospital En[facility] [address] [place] [address] Aristeo Schwartz MD [address] [place] [address] 03/19/2025 8:00 AM EST - 03/19/2025 11:11 AM EST [facility] [address] [place] [address] Aristeo Schwartz MD [address] [place] [address] WATCHMAN INSERTION 03/26/2025 1:00 PM EST Office Visit [address] [address] Ellie Alcaraz, ANDROID PROGRAMMER [address] [address] 05/20/2025 3:00 PM EST Office Visit [address] [address] 08/05/2025 11:00 AM EDT Office Visit [place] [address], [address] [place] [address] Scheduled Procedures Name Priority Associated Diagnoses Date/Ti [...] documented as of this encounter Care Teams Air Drier Machine Operator Relationship Specialty Start Date End Date Liam Houston MD 392807 [place] [address] [address] [address] [place] [address] PCP - General Family Medicine 04/26/22 documented as of this encounter
--- OUTSIDE RECORDS SUMMARY | 2025-02-24 17:04 | XMS_ITS | Encounter Summary ---
Author Organization [facility] Address [address] [place] [address] Care Team Providers Care Digital Strategy Specialist Name Role Phone Liam Houston MD Primary Care Provider [phone] Encounter Details Date Type Department Care Team [...] in 1 cassette(s). Gross exam(s) performed at: [facility] [place] [address] Sunday [facility] [address] Windows Software Engineer: BRIAN VELAZCO MD - A MICRO DESCRIPTION: [...] Description 03/09/2025 1:00 PM EDT Ancillary Procedure [facility] IMAGING SERVICES - [place] [address] [place] [address] Aristeo Schwartz MD [address] [place] [address] 03/13/2025 12:30 PM EDT Office Visit [facility] 7[address] [place] [address] [place] [address] Liam Houston MD 600043 [place] [address] [place], [place] [address] 03/19/2025 8:00 AM EST Hospital [facility] [address] [place] [address] [place] [address] Aristeo Schwartz MD [address] [place] [address] 03/19/2025 8:00 AM EST - 03/19/2025 11:11 AM EST [facility] [address] [place] [address] [place] [address] Aristeo Schwartz MD [address] [place] [address] WATCHMAN INSERTION 03/26/2025 1:00 PM EST Office Visit [facility] [address] 5th Floor, [place] [address] Ellie Alcaraz, CLINICAL COUNSELOR [address] [facility] 5th [place] [address] 05/20/2025 3:00 PM EST Office Visit [facility] [address] 5th Floor, [place] [address] 08/05/2025 11:00 AM EDT Office Visit [place] [address] Ju[address] Meka [facility] [address] [place] [address] Scheduled Procedures Name Priority Associated Diagnoses Date/Ti [...] as of this encounter Care Teams Digital Strategy Specialist Relationship Specialty Start Date End Date Liam Houston MD 199829 [place] [address] [address] [place] [address] PCP - General Family Medicine 04/26/22 documented as of this encounter
--- OUTSIDE RECORDS SUMMARY | 2025-02-24 17:04 | XMS_ITS | Encounter Summary ---
Author Organization [facility] Address [address] [place] [address] Care Team Providers Care Director Of Home Economics Name Role Phone Liam Houston MD Primary Care Provider [phone] Encounter Details Date Type Department Care Team [...] Ancillary Procedure [facility] [address] [place] [address] Aristeo Schwartz MD [address] [place] [address] 03/13/2025 12:30 PM EDT Office Visit [facility] [address] [facility] [address] [place] [address] Liam Houston MD 746314 [place] [address] [place], [place] [address] 03/19/2025 8:00 AM EST Hospital [facility] [address] [place] [address] Aristeo Schwartz MD [address] [place] [address] 03/19/2025 8:00 AM EST - 03/19/2025 11:11 AM EST [facility] [address] [place] [address] Aristeo Schwartz MD [address] [place] [address] WATCHMAN INSERTION 03/26/2025 1:00 PM EST Office Visit [address] [address] Ellie Alcaraz, RETIREMENT ASSISTANT [address] [address] 05/20/2025 3:00 PM EST Office Visit [address] [address] 08/05/2025 11:00 AM EDT Office Visit [place] [address], [address] [place] [address] Scheduled Procedures Name Priority Associated Diagnoses Date/Ti [...] of this encounter Care Teams Director Of Home Economics Relationship Specialty Start Date End Date Liam Houston MD 720881 [place] [address] [address] [place] [address] PCP - General Family Medicine 04/26/22 documented as of this encounter
--- OUTSIDE RECORDS SUMMARY | 2025-02-24 17:04 | XMS_ITS | Encounter Summary ---
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 Signature Electronically signed by : Bird Galeano M.D.; 02/28/2013 5:18 PM EST. documented in this encounter Plan of Treatment Upcoming Encounters Date Type Department Care Team (Latest Contact Info) Description 03/09/2025 1:[address] ED[address] Anc[address] Procedure [facility] IMAGING SERVICES - [place] [address] [place] [address] Aristeo Schwartz MD [address] [place] [address] 03/13/2025 12:30 PM EDT Office Visit [facility] [address] [facility] [address] [place] [address] Liam Houston MD [address] [place] [address] Road [address] [place], [place] [phone] 03/19/2025 8:00 AM EST Hospital En[facility] [address] [place] [address] Aristeo Schwartz MD [address] [place] [address] 03/19/2025 8:00 AM EST - 03/19/2025 11:11 AM EST Surgery [facility] [address] [place] [address] Aristeo Schwartz MD [address] [place] [address] WATCHMAN INSERTION 03/26/2025 1:00 PM EST Office Visit [address] [address] Ellie Alcaraz, PROCUREMENT COST COORDINATOR [address] [address] 05/20/2025 3:00 PM EST Office Visit [address] [address] 08/05/2025 11:00 AM EDT Office Visit [place] [address] [address], [address] [place] [address] Scheduled Procedures Name Priority Associated Diagnoses Date/Ti [...] as of this encounter Care Teams Director Child Development Center Relationship Specialty Start Date [place] Date Liam Houston MD 941531 [place] [address] [address] [place] [phone] PCP - General Family Medicine 04/26/22 documented as of this encounter
--- OUTSIDE RECORDS SUMMARY | 2025-02-24 17:04 | XMS_ITS | Encounter Summary ---
Author Organization [facility] Address [address] [place] [address] Care Team Providers Care Curriculum Manager Name Role Phone Liam Houston MD Primary Care Provider [phone] Encounter Details Date Type Department Care Team [...] 03/09/2025 1:00 PM EDT Ancillary Procedure [facility] IMAGING SERVICES - [place] [address] [place] [address] Aristeo Schwartz MD [address] [place] [address] 03/13/2025 12:30 PM EDT Office Visit [facility] - [place] [address] [facility] [address] [place] [address] Liam Houston MD 171932 [place] [address] [place] [address] 03/19/2025 8:00 AM EST Hospital En[facility] [address] [place] [address] [place] [address] Aristeo Schwartz MD [address] [place] [address] 03/19/2025 8:00 AM EST - 03/19/2025 11:11 AM EST [facility] [address] [place] [address] Aristeo Schwartz MD [address] [place] [address] WATCHMAN INSERTION 03/26/2025 1:00 PM EST Office Visit [facility] - [address] [address] Ellie Alcaraz, KAIT [address] [place] [address] 05/20/2025 3:00 PM EST Office Visit [facility] [address] [place] [address] 08/05/2025 11:00 AM EDT Office Visit [facility] [address] [address], Peter [address] [place] [address] Scheduled Procedures Name Priority Associated [...] documented as of this encounter Care Teams Curriculum Manager Relationship Specialty Start Date End Date Liam Houston MD 597524 [place] [address] [address] [place] [address] PCP - General Family Medicine 04/26/22 documented as of this encounter
--- OUTSIDE RECORDS SUMMARY | 2025-02-24 17:04 | XMS_ITS | Encounter Summary ---
Author Organization [facility] Address [address] [place] [address] Care Team Providers Care Student Affairs Vice President Name Role Phone Liam Houston MD Primary Care Provider [phone] Encounter Details Date Type Department Care Team [...] Description 03/09/2025 1:00 PM EDT Ancillary Procedure [facility] [address] [place] [address] Aristeo Schwartz MD [address] [place] [address] 03/13/2025 12:30 PM EDT Office Visit [facility] [place] [address] [facility] [address] [place] [phone] Liam Houston [place] [address] [place] [address] [address] [place] [address]27[address] 03/19/2025 8:00 AM EST Hospital [facility] [address] [place] [address] Aristeo Schwartz MD [address] [place] [address] 03/19/2025 8:00 AM EST - 03/19/2025 11:11 AM EST [facility] [address] [place] [address] Aristeo Schwartz MD [address] [place] [address] WATCHMAN INSERTION 03/26/2025 1:00 PM EST Office Visit [facility] Cardiovascular [place] - [address] [phone] Ellie Alcaraz, RIVET HEATER [address] [place] [address] 05/20/2025 3:00 PM EST Office Visit [facility] [address] 5th Floor, [place] [address] 08/05/2025 11:00 AM EDT Office Visit [facility] [address], [address] [place] [address] Scheduled Procedures Name Priority Associated [...] documented as of this encounter Care Teams Student Affairs Vice President Relationship Specialty Start Date End Date Liam Houston MD 961394 [place] [address] [address] [place] [address] PCP - General Family Medicine 04/26/22 documented as of this encounter
--- OUTSIDE RECORDS SUMMARY | 2025-02-24 17:04 | XMS_ITS | Encounter Summary ---
Author Organization [facility] Address [address] [place] [address] Care Team Providers Care Sap Business Objects Consultant Name Role Phone Liam Houston MD Primary Care Provider [phone] Encounter Details Date Type Department Care Team [...] Description 03/09/2025 1:00 PM EDT Ancillary Procedure [facility] [address] [place] [address] Aristeo Schwartz MD [address] [place] [address] 03/13/2025 12:30 PM EDT Office Visit [facility] [address] [facility] [address] [place] [address] Liam Houston MD 970878 [place] [address] [place] [address] 03/19/2025 8:00 AM EST Hospital [facility] [address] [place] [address] Aristeo Schwartz MD [address] [place] [address] 03/19/2025 8:00 AM EST - 03/19/2025 11:11 AM EST [facility] [address] [place] [address] Aristeo Schwartz MD [address] [place] [address] WATCHMAN INSERTION 03/26/2025 1:00 PM EST Office Visit [address] [address] Ellie Alcaraz, FORMING MACHINE UPKEEP MECHANIC HELPER [address] [address] 05/20/2025 3:00 PM EST Office Visit [facility] [address] [place] [address] 08/05/2025 11:00 AM EDT Office Visit [facility] Cardiovascular [facility] [address], [address] [place] [address] Scheduled Procedures Name Priority Associated [...] documented as of this encounter Care Teams Sap Business Objects Consultant Relationship Specialty Start Date [place] Date Liam Houston MD 104150 [place] [address] [address] [place] [address] PCP - General Family Medicine 04/26/22 documented as of this encounter
--- OUTSIDE RECORDS SUMMARY | 2025-02-24 17:04 | XMS_ITS | Encounter Summary ---
Author Organization [facility] Address [address] [place] [address] Care Team Providers Care Community Organization Director Name Role Phone Liam Houston MD Primary Care Provider [phone] Encounter Details Date Type Department Care Team [...] [facility] [place] [address] [place] [address] Aristeo Schwartz MD [address] [place] [address] 03/13/2025 12:30 PM EDT Office Visit [facility] [place] [address] [facility] [address] [place] [address] Liam Houston MD 290848 [address] [place] [phone] 03/19/2025 8:00 AM EST Hospital En[facility] [address] [place] [address] Aristeo Schwartz MD [address] [place] [address] 03/19/2025 8:00 AM EST - 03/19/2025 11:11 AM EST [facility] [address] [place] [address] [place] [address] Aristeo Schwartz MD [address] [place] [address] WATCHMAN INSERTION 03/26/2025 1:00 PM EST Office Visit [facility] access hospital - [address] [address] Ellie Alcaraz, CASE HARDENER [address] [place] [address] 05/20/2025 3:00 PM EST Office Visit [facility] [place] [address] 5th Floor, [place] [address] 08/05/2025 11:00 AM EDT Office Visit [facility] [address] [address], [address] [place] [address] Scheduled Procedures Name Priority Associated Diagnoses Date/Ti [...] an unspecified provider. Transcriptions Conversion, Allscripts - 12/08/2013 9:03 PM EDT Allscripts Conversion [...] documented as of this encounter Care Teams Community Organization Director Relationship Specialty Start Date End Date Liam Houston MD 755122 [place] [address] [address] [place] [phone] PCP - General Family Medicine 04/26/22 documented as of this encounter
--- OUTSIDE RECORDS SUMMARY | 2025-02-24 17:04 | XMS_ITS | Encounter Summary ---
Author Organization [facility] Address [address] [place] [address] Care Team Providers Care Refuse Laborer Name Role Phone Liam Houston MD Primary Care Provider [phone] Encounter Details Date Type Department Care Team [...] 03/09/2025 1:00 PM EDT Ancillary Procedure [facility] IMAGING SERVICES - [facility] [address] [place] [address] Aristeo Schwartz MD [address] [place] [address] 03/13/2025 12:30 PM EDT Office Visit [facility] 918459 [place] [address] [place] [phone] [place] Houston [place] 064717 [place] [address] [place] [address] [id number] 03/19/2025 8:00 AM EST Hospital En[facility] [address] [place] [address] [place] [address] Aristeo Schwartz MD [address] [place] [address] 03/19/2025 8:00 AM EST - 03/19/2025 11:11 AM EST Surgery [facility] [address] [place] [address] [place] [address] Aristeo Schwartz MD [address] [place] [address] WATCHMAN INSERTION 03/26/2025 1:00 PM EST Office Visit [facility] [address] 5th Floor, [place] [address] Ellie Alcaraz, TIN TIE MACHINE OPERATOR AUTOMATIC [address] [facility] 5th [place] [address] 05/20/2025 3:00 PM EST Office Visit [facility] [address] 5th Floor, [place] [address] 08/05/2025 11:00 AM EDT Office Visit [place] [address] Juvencio Colberttn, [facility] 3600 [place] [phone] Scheduled Procedures Name Priority Associated Diagnoses Date/Ti [...] documented as of this encounter Care Teams Refuse Laborer Relationship Specialty Start Date End Date Liam Houston MD 887666 [place] [address] [address] [place] [address] PCP - General Family Medicine 04/26/22 documented as of this encounter
--- OUTSIDE RECORDS SUMMARY | 2025-02-24 17:04 | XMS_ITS | Encounter Summary ---
Author Organization [facility] Address [address] [place] [address] Care Team Providers Care Ambulatory Care Coordinator Name Role Phone Liam Houston MD Primary Care Provider [phone] Encounter Details Date Type Department Care Team [...] Description 03/09/2025 1:00 PM EDT Ancillary Procedure [facility] [address] [place] [address] Aristeo Schwartz MD [address] [place] [address] 03/13/2025 12:30 PM EDT Office Visit [facility] [address] [place] [phone] Liam Houston MD 694044 [place] [address] [place], [place] [phone] 03/19/2025 8:00 AM EST Hospital Encounter [facility] [address] [place] [address] Aristeo Schwartz MD [address] [place] [address] 03/19/2025 8:00 AM EST - 03/19/2025 11:11 AM EST Surgery [facility] [address] [place] [address] Aristeo Schwartz MD [address] [place] [address] 11038 WATCHMAN INSERTION 03/26/2025 1:00 PM EST Office Visit [address] [address] Ellie Alcaraz, KAIT [address] [address] 05/20/2025 3:00 PM EST Office Visit [address] [address] 08/05/2025 11:00 AM EDT Office Visit [place] [address] [address] [place] [address] Scheduled Procedures Name Priority Associated Diagnoses Date/Ti [...] documented as of this encounter Care Teams Ambulatory Care Coordinator Relationship Specialty Start [place] Date Liam Houston MD 106670 [place] [address] [address] [place] [address] PCP - General Family Medicine 04/26/22 documented as of this encounter
--- OUTSIDE RECORDS SUMMARY | 2025-02-24 17:04 | XMS_ITS | Encounter Summary ---
Author Organization [facility] Address [address] [place] [address] Care Team Providers Care Mottler Machine Feeder Name Role Phone Liam Houston MD Primary Care Provider [phone] Encounter Details Date Type Department Care Team [...] Description 03/09/2025 1:00 PM EDT Ancillary Procedure [facility] [place] [address] [place] [address] Aristeo Schwartz MD [address] [place] [address] 03/13/2025 12:30 PM EDT Office Visit [facility] 161579 [place] [address] [place] [address] Liam Houston MD [address] [place] [address] [address] [place], [place] 78927[address] 03/19/2025 8:00 AM EST Hospital Encounter [facility] [address] [place] [address] Aristeo Schwartz MD [address] [place] [address] 03/19/2025 8:00 AM EST - 03/19/2025 11:11 AM EST Surgery [facility] [address] [place] [address] Aristeo Schwartz MD [address] [place] [address] WATCHMAN INSERTION 03/26/2025 1:00 PM EST Office Visit [address] [address] Ellie Alcaraz, PRE PRESS MANAGER [address] [place] [address] 05/20/2025 3:00 PM EST Office Visit [address] [address] 08/05/2025 11:00 AM EDT Office Visit [place] 1669555 Juvencio Horvath, Peter [address] [place] [address] Scheduled Procedures Name Priority Associated Diagnoses Date/Ti [...] documented as of this encounter Care Teams Mottler Machine Feeder Relationship Specialty Start Date End Date Liam Houston MD 346248 [place] [address] [address] [place] [address] PCP - General Family Medicine 04/26/22 documented as of this encounter
--- OUTSIDE RECORDS SUMMARY | 2025-02-24 17:05 | XMS_ITS | Encounter Summary ---
Author Organization [facility] Address [address] [place] [address] Care Team Providers Care Apartment House Manager Name Role Phone Liam Houston MD Primary Care Provider [phone] Encounter Details Date Type Department Care Team [...] Description 03/09/2025 1:00 PM EDT Ancillary Procedure [facility] SERVICES - [place] [address] [place] [address] Aristeo Schwartz MD [address] [place] [address] 03/13/2025 12:30 PM EDT Office Visit [facility] 364763 [facility] [address] [place] [phone] Liam Houston MD 951918 [facility] [address] [place] [address] 92639[address] 03/19/2025 8:00 AM EST Hospital En[facility] [address] [place] [address] Aristeo Schwartz MD [address] [place] [address] 03/19/2025 8:00 AM EST - 03/19/2025 11:11 AM EST [facility] [address] [place] [address] [place] [address] Aristeo Schwartz MD [address] [place] [address] WATCHMAN INSERTION 03/26/2025 1:00 PM EST Office Visit [facility] Cardiovascular [place] - [address] [address] Ellie Alcaraz, KAIT [address] [place] [address] 05/20/2025 3:00 PM EST Office Visit [facility] [address] 5th Floor, [place] [address] 08/05/2025 11:00 AM EDT Office Visit [facility] [address] Juvencio Horvath, Peter [address] [place] [address] Scheduled Procedures Name Priority Associated Diagnoses Date/Ti [...] an unspecified provider. Transcriptions Conversion, Allscripts - 12/07/2013 4:35 PM EDT us Allscripts Conversion Final Resu [...] documented as of this encounter Care Teams Apartment House Manager Relationship Specialty Start Date [place] Date Liam Houston MD 171641 [place] [address] [address] [place] [address] PCP - General Family Medicine 04/26/22 documented as of this encounter
--- OUTSIDE RECORDS SUMMARY | 2025-02-24 17:05 | XMS_ITS | Encounter Summary ---
Author Organization [facility] Address [address] [place] [address] Care Team Providers Care Sales Associate Cashier Name Role Phone Liam Houston MD Primary Care Provider Reason for Referral * Radiology - Closed Specialty Diagnoses / Procedures Referred By Contac t Referred To Contact Radiology Diagnoses Bone disease Procedures DX BONE DENSITY HIP PELVIS SPINE Soren Santamaria MD [facility] - [address] - 1st [place] [address] Phone: tel: fax: Referral ID Status Reason Start Date Expiration Date Visits Re quested Visits Authorized [id number] Closed 04/12/2018 04/12/2019 1 1 Encounter Details Date Type Department Care Team ([facility] st Contact Info) Description 04/12/2018 Orders Only [facility] Endocrinology - [place] [address] [facility], [address] [place] [address] Soren Santamaria MD Bone disease [...] 03/09/2025 1:00 PM EDT Ancillary Procedure [facility] IMAGING SERVICES - [place] [address] [place] [address] Aristeo Schwartz MD [address] [place] [address] 03/13/2025 12:30 PM EDT Office Visit [facility] [place] [address] [facility] [address] [place] [address] Liam Houston MD 902129 [place] [address] [place], [place] [phone] 03/19/2025 8:00 AM EST Hospital En[facility] [address] [place] [address] Aristeo Schwartz MD [address] [place] [address] 11838 03/19/2025 8:00 AM EST - 03/19/2025 11:11 AM EST Surgery [facility] [address] [place] [address] [place] [address] Aristeo Schwartz MD [address] [place] [address]41 WATCHMAN INSERTION 03/26/2025 1:00 PM EST Office Visit [facility] [address] [place] [address] [address] Ellie Alcaraz, LEAF TINNER [address] [place] [address] 05/20/2025 3:00 PM EST Office Visit [facility] [address] 5th Floor, [place] [address] 08/05/2025 11:00 AM EDT Office Visit [facility] [address] Juvencio Horvath, Peter [address] [place] [address] Scheduled Procedures Name Priority Associated Diagnoses Date/Ti [...] menopausal transition. (ISCD 2007) Read By - Suellen Yan M.D. Electronically Verified By - Suellen [...] the menopausaltransition. (ISCD 2007) Read By - Suellen Yan M.D. Electronically Verified By - Suellen Yan M.D. Released Date Time - 04/19/2018 10:44 AM Resident - Soren Santamaria MD RAD JX GERBER ORDERABLES Final R esult documented in this encounter Visit Diagnoses Diagnosis Bone disease Disorder of bone and cartilage, unspecified Atrial fibrillation, unspecified type documented in this encounter Additional Health Concerns Infection Onset Date Last Indicated Resolved Time COVID-19 Rule-Out 11/24/2020 11/24/2020 11/24/2020 10:21 PM EDT COVID-19 (Confirmed) 11/24/2020 12/10/2020 021 3:03 AM EDT COVID-19 Rule-Out 11/24/2020 11/25/2020 11/25/2020 5:14 AM EDT documented as of this encounter Care Teams Sales Associate Cashier Relationship Specialty Start Date End Date Liam Houston MD 457243 [place] [phone] PCP - General Family Medicine 04/26/22 documented as of this encounter
--- OUTSIDE RECORDS SUMMARY | 2025-02-24 17:05 | XMS_ITS | Encounter Summary ---
Author Organization [facility] Address [address] [place] [address] Care Team Providers Care Ointment Mill Tender Name Role Phone Liam Houston MD Primary Care Provider [phone] Encounter Details Date Type Department Care Team [...] Description 03/09/2025 1:00 PM EDT Ancillary Procedure [facility] IMAGING SERVICES - [place] [address] [place] [address] Aristeo Schwartz MD [address] [place] [address] 03/13/2025 12:30 PM EDT Office Visit [facility] Family Medicine - [place] [address] [facility] [address] [place] [address] Liam Houston MD 104362 [place] [address] [place] [address] 03/19/2025 8:00 AM EST Hospital En[facility] [address] [place] [address] [place] [address] Aristeo Schwartz MD [address] [place] [address] 03/19/2025 8:00 AM EST - 03/19/2025 11:11 AM EST Surgery [facility] [address] [place] [address] Aristeo Schwartz MD [address] [place] [address]131 WATCHMAN INSERTION 03/26/2025 1:00 PM EST Office Visit [facility] [address] [address] Ellie Alcaraz, KAIT [address] [place] [address] 05/20/2025 3:00 PM EST Office Visit [facility] [address] [place] [address] 08/05/2025 11:00 AM EDT Office Visit [facility] [address] Juvencio Horvath, Peter [address] [place] [address] Scheduled Procedures Name Priority Associated Diagnoses Date/Ti [...] documented as of this encounter Care Teams Ointment Mill Tender Relationship Specialty Start Date End Date Liam Houston MD [address] [place] [address] 12 [place] [address] PCP - General Family Medicine 04/26/22 documented as of this encounter
--- OUTSIDE RECORDS SUMMARY | 2025-02-24 17:05 | XMS_ITS | Encounter Summary ---
Author Organization [facility] Address [address] [place] [address] Care Team Providers Care Weed Cooking Operator Name Role Phone Liam Houston MD Primary Care Provider [phone] Encounter Details Date Type Department Care Team [...] Procedure [facility] [place] [address] [place] [address] Aristeo Schwartz MD [address] [place] [address] 03/13/2025 12:30 PM EDT Office Visit [facility] [address] [facility] [address] [place] [address] Liam Houston MD 539531 [facility] [address] [place], [place] [phone] 03/19/2025 8:00 AM EST Hospital Encounter [facility] [address] [place] [address] [place] [address] Aristeo Schwartz MD [address] [place] [address] 03/19/2025 8:00 AM EST - 03/19/2025 11:11 AM EST Surgery [facility] [address] [place] [address] Aristeo Schwartz MD [address] [place] [address]15 WATCHMAN INSERTION 03/26/2025 1:00 PM EST Office Visit [address] [address] Ellie Alcaraz, GLASS PRESSER [address] [address] 05/20/2025 3:00 PM EST Office Visit [facility] [address] [place] [address] 08/05/2025 11:00 AM EDT Office Visit [place] [address], Peter [address] [place] [address] Scheduled Procedures Name Priority Associated Diagnoses Date/Ti [...] documented as of this encounter Care Teams Weed Cooking Operator Relationship Specialty Start Date End Date Liam Houston MD [address] [place] [address] [place] [address] PCP - General Family Medicine 04/26/22 documented as of this encounter
--- OUTSIDE RECORDS SUMMARY | 2025-02-24 17:05 | XMS_ITS | Encounter Summary ---
Author Organization [facility] Address [address] [place] [address] Care Team Providers Care Environmental Resource Specialist Name Role Phone Liam Houston MD Primary Care Provider [phone] Encounter Details Date Type Department Care Team [...] 03/09/2025 1:00 PM EDT Ancillary Procedure [facility] IMAGING SERVICES - [facility] [address] [place] [address] Aristeo Schwartz MD [address] [place] [address] 03/13/2025 12:30 PM EDT Office Visit [facility] [place] [address] [place] [address] Liam Houston MD [address] [place] [address] 7918711 03/19/2025 8:00 AM EST Hospital Encounter [facility] [address] [place] [address] Aristeo Schwartz MD [address] [place] [address] 03/19/2025 8:00 AM EST - 03/19/2025 11:11 AM EST Surgery [facility] [address] [place] [address] Aristeo Schwartz MD [address] [place] [address] WATCHMAN INSERTION 03/26/2025 1:00 PM EST Office Visit [facility] Cardiovascular [address] [place] [address] Ellie Alcaraz, PLASTERING CONTRACTOR [address] [facility] 5th [place] [address] 05/20/2025 3:00 PM EST Office Visit [facility] [place] [address], [place] [address] 08/05/2025 11:00 AM EDT Office Visit [address], Peter [address] [place] [address] Scheduled Procedures Name Priority Associated Diagnoses Date/Ti [...] documented as of this encounter Care Teams Environmental Resource Specialist Relationship Specialty Start Date End Date Liam Houston MD [address] [place] [address] [address] [place] [address] PCP - General Family Medicine 04/26/22 documented as of this encounter
--- OUTSIDE RECORDS SUMMARY | 2025-02-24 17:05 | XMS_ITS | Encounter Summary ---
Author Organization [facility] Address [address] [place] [address] Care Team Providers Care Grant Administrator Name Role Phone Liam Houston MD Primary Care Provider [phone] Encounter Details Date Type Department Care Team [...] Description 03/09/2025 1:00 PM EDT Ancillary Procedure [facility] IMAGING SERVICES - [place] [address] [place] [address] Aristeo Schwartz MD [address] [address] 03/13/2025 12:30 PM EDT Office Visit [facility] 353859 [place] [address] [place] [address] [place] Houston [place] 886715 [place] [address] [place], [place] 83[address] 03/19/2025 8:00 AM EST Hospital En[facility] [address] [place] [address] Aristeo Schwartz MD [address] [place] [address] 03/19/2025 8:00 AM EST - 03/19/2025 11:11 AM EST Surgery [facility] [address] [place] [address] Aristeo Schwartz MD [address] [place] [address] WATCHMAN INSERTION 03/26/2025 1:00 PM EST Office Visit [address] [address] Ellie Alcaraz, CAP PARTS CUTTER [address] [place] [address] 05/20/2025 3:00 PM EST Office Visit [address] [address] 08/05/2025 11:00 AM EDT Office Visit [place] [address] Juvencio Colbertnh, [facility] 3600 [place] [address] Scheduled Procedures Name Priority Associated Diagnoses Date/Ti [...] documented as of this encounter Care Teams Grant Administrator Relationship Specialty Start Date End Date Liam Houston MD 398063 [place] [address] PCP - General Family Medicine 04/26/22 documented as of this encounter
--- OUTSIDE RECORDS SUMMARY | 2025-02-24 17:05 | XMS_ITS | Encounter Summary ---
Author Organization [facility] Address [address] [place] [address] Care Team Providers Care Armor Officer Name Role Phone Liam Houston MD Primary Care Provider [phone] Encounter Details Date Type Department Care Team [...] 03/09/2025 1:00 PM EDT Ancillary Procedure [facility] IMAGING SERVICES - [place] [address] [place] [address] Aristeo Schwartz MD [address] [place] [address] - 5th [place] [address] 03/13/2025 12:30 PM EDT Office Visit [facility] 368394 [place] [address] [place] [address] Liam Houston MD 577323 [place] [address] [place] [address] 03/19/2025 8:00 AM EST Hospital Encounter [facility] [address] [place] [address] Aristeo Schwartz MD [address] [place] [address] 03/19/2025 8:00 AM EST - 03/19/2025 11:11 AM EST Surgery [facility] [address] [place] [address] Aristeo Schwartz MD [address] [place] [address] 48869 WATCHMAN INSERTION 03/26/2025 1:00 PM EST Office Visit Critical access hospital - [address] [address] Ellie Alcaraz, KAIT [address] [address] 05/20/2025 3:00 PM EST Office Visit [facility] [address] [place] [address] 08/05/2025 11:00 AM EDT Office Visit [place] [address] Juvencio Horvath, [facility] 7400 [place] [address] Scheduled Procedures Name Priority Associated Diagnoses Date/Ti [...] documented as of this encounter Care Teams Armor Officer Relationship Specialty Start Date End Date Liam Houston MD 313231 [place] [address] [address] [place] [address] PCP - General Family Medicine 04/26/22 documented as of this encounter
--- OUTSIDE RECORDS SUMMARY | 2025-02-24 17:05 | XMS_ITS | Encounter Summary ---
Author Organization [facility] Address [address] [place] [address] Care Team Providers Care Retail Greeter Name Role Phone Liam Houston MD Primary Care Provider [phone] Encounter Details Date Type Department Care Team [...] 03/09/2025 1:00 PM EDT Ancillary Procedure [facility] [address] [place] [address] Aristeo Schwartz MD [address] [place] [address] 03/13/2025 12:30 PM EDT Office Visit [facility] 629819 [facility] [address] [place] [phone] [place] Houston MD 079853 [place] [address] [place], [place] [address] 03/19/2025 8:00 AM EST Hospital En[facility] [address] [place] [address] Aristeo Schwartz MD [address] [place] [address] 03/19/2025 8:00 AM EST - 03/19/2025 11:11 AM EST Surgery [facility] [address] [place] [address] Aristeo Schwartz MD [address] [place] [address] WATCHMAN INSERTION 03/26/2025 1:00 PM EST Office Visit [facility] Cardiovascular [place] - [address] [address] Ellie Alcaraz APRN [address] [place] [address] 05/20/2025 3:00 PM EST Office Visit [facility] [place] [address] 5th Floor, [place] [address] 08/05/2025 11:00 AM EDT Office Visit [facility] [place] [address] Juvencio Horvath, Peter [address] [place] [address] Scheduled Procedures Name Priority Associated Diagnoses Date/Ti [...] unspecified provider. Transcriptions Conversion, Allscripts - 12/08/2013 6:55 PM EDT us Allscripts [...] documented as of this encounter Care Teams Retail Greeter Relationship Specialty Start Date End Date Liam Houston [place] 733931 [place] [address] [address] [place] [address] PCP - General Family Medicine 04/26/22 documented as of this encounter
--- OUTSIDE RECORDS SUMMARY | 2025-02-24 17:05 | XMS_ITS | Encounter Summary ---
Author Organization [facility] Address [address] [place] [address] Care Team Providers Care Accountant Tax Name Role Phone Liam Houston MD Primary Care Provider [phone] Encounter Details Date Type Department Care Team [...] Description 03/09/2025 1:00 PM EDT Ancillary Procedure [facility] [address] [place] [address] Aristeo Schwartz MD [address] [place] [address] 03/13/2025 12:30 PM EDT Office Visit [facility] [address] [facility] [address] [place] [address] [place] MD 096547 [place] [address] [place], [place] [address] 03/19/2025 8:00 AM EST Hospital [facility] [address] [place] [address] Aristeo Schwartz MD [address] [place] [address] 03/19/2025 8:00 AM EST - 03/19/2025 11:11 AM EST [facility] [address] [place] [address] Aristeo Schwartz MD [address] [place] [address] WATCHMAN INSERTION 03/26/2025 1:00 PM EST Office Visit [address] [address] Ellie Alcaraz, KAIT [address] [address] 05/20/2025 3:00 PM EST Office Visit [address] [address] 08/05/2025 11:00 AM EDT Office Visit [place] [address] [address] [place] [address] Scheduled Procedures Name Priority Associated Diagnoses Date/Ti [...] documented as of this encounter Care Teams Accountant Tax Relationship Specialty Start Date End Date Liam Houston MD 411373 [place] [address] [address] [place] [address] PCP - General Family Medicine 04/26/22 documented as of this encounter
--- OUTSIDE RECORDS SUMMARY | 2025-02-24 17:05 | XMS_ITS | Data Portability ---
Author Organization [facility] Address [address] [place] [address] Assessment Encounter Date Assessment Date Assessment LastModified by Organization Details LastModified Time 01/22/2023 01/22/2023 patient reported no c/o back pain or tenderness with direct L/S exam; however, with known osteoporosis and hx of fall, xr were obtained. Xrays appear to be negative for any obvious fracture or dislocation of the L/S spine. Patient was unable to complete all views due to chronic degenerative changes. There is significant degenerative changes noted in the L/S spine, making it difficult to interpret xr findings. We will send the xray over to radiology for over-read. We will call the patient with these results and any changes in care plan as needed. Xr of the knee appear to be consistent with non-displaced proximal tibia fracture, which correlates with area of tenderness on examination. We will send these for radiology review as well. Will place the patient in hinged, ROM brace, which she will be allowed to WBAT in with the assistance of her walker, due to concerns of balance, instability and risk of falls. HOME for brace today. We will refill her current script for APAP with Codeine for pain controll. We will refer to local ortho here in [place] for treatment while here. Copies of xr were given on disc. Daughter will pickling tank operator reports when available. Discussed with patient and daughter the need for close f/u for sx and acute fracture. We will plan for appointment this week with [facility] Ortho - Dr. Malik. F/U PRN with primary care provider or return to walk-in, if symptoms do not improve or worsen. Proceed to ER with any sx of saddle anesthesia or cauda equina symptoms. Keep upcoming appt with specialist. Verbalized understanding. [email or web address] Not available 01/25/2023 13:04:54 Plan of Treatment Reminders Order Date Submit Date Provider Last Modified By Organization Details Last Modified Time Details Appointments None recorded. Lab None recorded. Referral orthopedic surgeon referral [address], [address] [place], [address], 3 16:52:35 Procedures None recorded. Surgeries None recorded. Imaging XR, lumbosacral spine, 2 or 3 view 2022 023 [email or web address] 2 [facility] [address] [place], [address], 3 10:20:23 XR, knee, 3 view 2022 023 [email or web address] [address] [place], [address], 3 10:20:03 Medication Orders acetaminoph en 300 mg-codeine 30 mg tablet 2022 023 [email or web address] Not available 5 08:55:15 Patient TargetsNo targets recorded. Patient InstructionsNo instructions recorded. Reason for Referral Orthopedic Surgeon Referral for Closed fracture of upper end of tibia Referring Physician: Kandy Jose, Family Medicine, Encounter Date: 01/22/2023 Results Created Date Observation Date Name Description Value Unit Range Abnormal Flag Note LastModifiedBy Organization Detail LastModifiedTime 01/25/2001/22/2023 XR, knee, 3 view No observ ation record ed. [address], [place], [address], 01/25/2023 13:07:16 01/25/20 23 01/22/2023 XR, lumbo sacra l spine , 2 or 3 view No observ ation record ed. [address], [place], [address], 01/25/2023 13:07:17 Result Notes None recorded. Procedures Surgical History Date Name Laterality Status Provider Name and Address Organization Details Recorded Time Cerumen Removal-Inst rumentation completed TIP APODACAP [address] [place], [address], [facility] 12/16/2024 15:47:01 Imaging Results None recorded. Procedure Notes None recorded. Medical Equipment None Reported. Allergies No known drug allergies Medications Name Sig Start Date Stop Date Status Note LastModified by Organization Details LastModified Time atorvasta tin 80 mg tablet Take 1 tablet every day by oral route. active Not Available Not Available No t Available metoprolo l succinate ER 50 mg tablet,ex tended release 24 hr Take 1 tablet every day by oral route. active Not Available Not Available No t Available alendrona te 70 mg tablet Take 1 tablet every week by oral route. active Not Available Not Available No t Available acetamino phen 300 mg-codein e 30 mg tablet Take 1 tablet 3 times a day by oral route as needed for 7 days. 07/23 completed Called into pharmacy by Isauro Zavala MA. VIVIANA Jose [facility]/Yordy Law DO. Not Available Not Available Not Available meclizine 25 mg tablet Take 1 tablet 3 times a day by oral route as needed. active Not Available Not Available No t Available levothyro xine 125 mcg tablet Take 1 tablet every day by oral route. active Not Available Not Available No t Available acetamino phen 300 mg-codein e 60 mg tablet Take 1 tablet 3 times a day by oral route as needed. active Not Available Not Available No t Available Eliquis 2.5 mg tablet Take 1 tablet twice a day by oral route. active Not Available Not Available No t Available Vitals Date Recorded Body weight Body mass index (BMI) Body height Respiratory rate Oxygen saturation Oxygen saturation in Arterial blood by Pulse oximetry Heart rate Body temperature Systolic And Diastolic Provider Name and Address Organization Details Last Updated DateTime 5 09694.7 1 g 22.7 kg/m2 152.4 cm 18 /min 94 % 94 % 80 /min 98 [degF] 142/82 mm[Hg] SOCORRO COLLINS [facility] 5 08:54:48 Date Recorded Body height Body mass index (BMI) Body weight Body temperature Oxygen saturation Oxygen saturation in Arterial blood by Pulse oximetry Heart rate Respiratory rate Systolic And Diastolic Provider Name and Address Organization Details Last Updated DateTime 5 152.4 cm 21.9 kg/m2 24098.3 5 g 98 [degF] 97 % 97 % 84 /min 16 /min 134/66 mm[Hg] Angeles Montemayor [facility] 5 14:52:09 Date Recorded Oxygen saturation Oxygen saturation in Arterial blood by Pulse oximetry Heart rate Body temperature Provider Name and Address Organization Details Last Updated DateTime 01/22/2023 99 % 99 % 84 /min 98.4 [degF] STEPHEN ZAVALA [facility] 3 15:34:59 Social History Question Answer Notes LastModified by Organizat ion Details LastModified Time Tobacco Smoking Status Never Smoker Angeles Montemayor [facility] 12/16/2024 14:48:42 What Was The Date Of Your Most Recent Tobacco Screening? 12/16/2024 [email or web address] Information not available 12/16/2024 Sex: Unknown Functional Status None recorded. Mental Status None recorded. Family History Nothing Reported. Medical History No medical history recorded. Gynecological HistoryNo gynecological history recorded. Obstetrics History GPAL:G 0 P 0 0 0 0 Past Encounters Encounter ID Performer Location Encounter Start Date Encounter Closed Date Diagnosis/Indication Diagnosis SNOMED-CT Code Diagnosis ICD10 Code Diagnosis IMO Codes Diagnosis Note [id number] SABRINA CARRILLO [facility] ([facility] [address] [place] [address] 01/22/2023 15:22:10 01/22/2023 18:27:48 Pain of left knee joint 6762378482 50754 M25.562 Acute low back pain 2788 99026 M54.59 significan t degenerati ve changes on xr noted in office. Radiology to over-read. Fall in home 01826642 Y9 2.009 Closed fra cture of upper end of tibia 93015239 S82.102A [id number] SABRINA APODACA [facility] ([facility]) [address] [place] [address] 07/23/2024 08:46:02 07/23/2024 12:38:36 Evidence of recent epistaxis 779421954 R04.0 Afrin used in the left nostril. No active bleeding noted on assessment . Discussed with patient to continue monitoring BP and follow up with PCP as scheduled next week. May use Resaca gel for moisture. Also discussed with patient and daughter to use humidifier in the home. RTC as needed . [id number] SABRINA APODACA [facility] ([facility]) [address] [place] [phone] 12/16/2024 14:37:22 12/17/2024 16:43:21 Excessive cerumen in ear canal 460874142 H61.23 34308817 Cerumen removed with irrigation /curette today.Ginny ent may continue using otc Debrox to keep ear wax soft and prevent further build up.If you develop ear pain, hearing loss or concerns return for re-eval. Health Concerns Section Related Observation LastModified by Organization Detai ls LastModified Time None Recorded Concern Status LastModified by Organization Details LastModified Time None Recorded Advance Directives Directive None Recorded Payers Insurance Date Sequence Insurance Name Policy Number Policy Stevens Covered Member ID Stevens Member ID Guarantor Name 07/23/2024 2 [employer] (MEDICARE REPLACEMENT/ ADVANTAGE - HMO) Gretchen Alas [id number] Gretchen Cowan Bishop 07/23/2024 1 MEDICARE B-[place]: [place] Gretchen Alas [id number] Gretchen Camryn Bishop 07/23/2024 [place] - RHC-FQHC (MEDICARE) Gretchen Alas [id number] Gretchen Cowan Bishop 07/24/2024 1 [employer]ET[employer] (HMO) [id number] Gretchen Alas [id number] Gertchen Camryn Bishop 08/06/2024 1 [employer] - PRIME (MEDICARE REPLACEMENT/ ADVANTAGE - HMO) [id number] Gretchen Alas [id number] Gretchen Alas 12/16/2024 1 *SELF PAY* Fabio Cowan Bishop 12/16/2024 1 [employer] (MEDICARE SUPPLEMENT) Gretchen Alas [id number] Gretchen Alas Notes Date Note Type Note Provider Name and Address Organization Details Recorded Time 01/23/20 23 text/htm l Musculoskeletal PainReported by PatientHPIFor quality, patient reportssharp. For severity, patient reportsworseningandinterferes with sleep. For associated symptoms, patient reportsweak limbsbut reportsno fever,no tingling, andno numbness of the legs/feet. For location, patient reportspain is not radiating,left knee, andleft foot. For duration, patient reportspresent <1 month (1 week). For timing, patient reportsconstant. For context, patient reportstrauma. For alleviating factors, patient reportsrest. For aggravating factors, patient reportsmovement/positioning. For adls affected, patient reportswalking.Here visiting her daughter and family from [place]. Plans to go back to [place] early Feb. DOI: patient fell in her daughters home approximately 1 week ago (last Sunday01/14/2023). No bruising or severe pain at time of fall. Pain in the LT buttock and the LT knee have gradually increased since injury. LT foot is now swollen, but not painful. Hx of sciatica. No current sciatic sx. Known DDD, osteoporosis and spinal stenosis, per her report.ROS as noted in the HPI This is a new, 87 y/o F here for acute visit and evaluation of LLE pain. KANDY JOSE, [facility] [address] [place], [address], [facility], [facility]itosLC[facility]itos[facility]itos 01/25/2023 13:05:50 07/24/19 25 text/htm l ROS as noted in the HPI Patient states she's had a nose bleed since 7:30pm last night. Nosebleeds are not uncommon, but they usually stop within an hour. She has been extremely short of breath. She c/o headache for the past week which is unusual. Her blood pressure has been elevated for the past few days, she brought the readings with her. She's on Eliquis for the past year but she is unsure why. She has history of bypass surgery in 2006. Patient is accompanied by daughter. TIP APODACAP [address] [place], [address], [facility], [place]. 07/24/2024 08:19:56 12/17/19 25 text/htm l Ear Pain Brief HPIReported by PatientROS as noted in the HPI walk in patientpatient is here today for a ear flush. Patient has made appts to have hearing aid molds done but has had too much wax present for this. Patient has been using Debrox daily x 5 days. SABRINA APODACA [address] [place], [address], [facility], [place]. 12/16/2024 15:47:27 OBGyn Episode No OBEpisode recorded.
--- OUTSIDE RECORDS SUMMARY | 2025-02-24 17:05 | XMS_ITS | Encounter Summary ---
Author Organization [facility] Address [address] [place] [address] Care Team Providers Care Wire Saw Operator Name Role Phone Liam Houston MD Primary Care Provider [phone] Encounter Details Date Type Department Care Team (Late st Contact Info) Description 08/26/2012 Documentation Encounter SANJEEV V ALLSCRIPTS CONV Stephen [...] Procedure [facility] [address] [place] [address] Aristeo Schwartz MD [address] [place] [address] 03/13/2025 12:30 PM EDT Office Visit [facility] - [place] [address] [place] [phone] Liam Houston MD [id number] [place] [address] [place] [phone] 03/19/2025 8:00 AM EST Hospital [facility] [address] [place] [address] [place] [address] Aristeo Schwartz MD [address] [place] [address] 03/19/2025 8:00 AM EST - 03/19/2025 11:11 AM EST Surgery [facility] [address] [place] [address] [place] [address] Aristeo Schwartz MD [address] [place] [address] [place] [address] WATCHMAN INSERTION 03/26/2025 1:00 PM EST Office Visit [facility] [address], [place] [address] Ellie Alcaraz, ELECTRONIC TEST TECHNICIAN [address] [facility] [address] [place] [address] 05/20/2025 3:00 PM EST Office Visit [facility] [address] [place] [address] 08/05/2025 11:00 AM EDT Office Visit [address] [facility] [address] [place] [address] Scheduled Procedures Name Priority Associated [...] documented as of this encounter Care Teams Wire Saw Operator Relationship Specialty Start Date End Date Liam Houston [place] [address] [place] [address] [address] [place] [phone] PCP - General Family Medicine 04/26/22 documented as of this encounter
--- OUTSIDE RECORDS SUMMARY | 2025-02-24 17:05 | XMS_ITS | Encounter Summary ---
Author Organization [facility] Address [address] [place] [address] Care Team Providers Care Interior Design Professor Name Role Phone Liam Houston MD Primary Care Provider [phone] Encounter Details Date Type Department Care Team [...] 03/09/2025 1:00 PM EDT Ancillary Procedure [facility] [address] [place] [address] Aristeo Schwartz MD [address] [place] [address] 5th [place] [address] 03/13/2025 12:30 PM EDT Office Visit [facility] - [place] [address] [place] [phone] Liam Houston MD [address] [place] [address] [address] [place] [address] 03/19/2025 8:00 AM EST Hospital En[facility] [address] [place] [address] 5th [place] [address] Aristeo Schwartz MD [address] [place] [address] 03/19/2025 8:00 AM EST - 03/19/2025 11:11 AM EST [facility] [address] [place] [address] Aristeo Schwartz MD [address] [place] [address] WATCHMAN INSERTION 03/26/2025 1:00 PM EST Office Visit [address] [phone] Ellie Alcaraz, PODODERMATOLOGIST [address] [place] [address] 05/20/2025 3:00 PM EST Office Visit [address] [address] 08/05/2025 11:00 AM EDT Office Visit [address], [facility] [address] [place] [address] Scheduled Procedures Name Priority Associated Diagnoses Date/Ti [...] documented as of this encounter Care Teams Interior Design Professor Relationship Specialty Start Date End Date Liam Houston [place] [address] [place] [address] [address] [place] [address] PCP - General Family Medicine 04/26/22 documented as of this encounter
--- OUTSIDE RECORDS SUMMARY | 2025-02-24 17:05 | XMS_ITS | Encounter Summary ---
Author Organization [facility] Address [address] [place] [address] Care Team Providers Care Buyer Liaison Name Role Phone Liam Houston MD Primary Care Provider [phone] Encounter Details Date Type Department Care Team (Late st Contact Info) Description 10/22/2008 Documentation Encounter SANJEEV V ALLSCRIPTS CONV Nicanor Oliva MD [address]nd [place] [address] Social History Tobacco Use Types [...] the arm. She was evaluated at a [facility] and was then returned to [...] +2. Sensation is intact to light touch. Alley Tender strength is 5/5. X-rays taken at [facility] within the last week show an avulsion [...] recontact our office. NICANOR OLIVA MD D: [id number] [place]: [id number] Dictator: [id number] Confirmation Number: [id number] ([id number]) Electronically signed by:Nicanor Oliva M.D. Oct 27 2008 9:35AM EST documented in this encounter Plan of Treatment Upcoming Encounters Date Type Department Care Team (Latest Contact Info) Description 03/09/2025 1:00 PM EDT Ancillary Procedure [facility] [address] [place] [address] Aristeo Schwartz MD [address] [place] [address] - 5th [place] [address] 03/13/2025 12:30 PM EDT Office Visit [place] [address] [address] [place] [address] Liam Houston MD 8[address]182 [place] [address] [place] [address] 03/19/2025 8:00 AM EST Hospital [facility] [address] [place] [address] Aristeo Schwartz MD [address] [place] [address] 03/19/2025 8:00 AM EST - 03/19/2025 11:11 AM EST [facility] [address] [place] [address] Aristeo Schwartz MD [address] [place] [address] WATCHMAN INSERTION 03/26/2025 1:00 PM EST Office Visit [facility] [address] [place] [phone] Ellie Alcaraz, KAIT [address] [address] 05/20/2025 3:00 PM EST Office Visit [address] [phone] 08/05/2025 11:00 AM EDT Office Visit [facility] [address] [place] [address] Scheduled Procedures Name Priority Associated Diagnoses Date/Ti [...] documented as of this encounter Care Teams Buyer Liaison Relationship Specialty Start Date End Date Liam Houston MD 220[address] [place] [address] [address] [place] [address] PCP - General Family Medicine 04/26/22 documented as of this encounter
--- OUTSIDE RECORDS SUMMARY | 2025-02-24 17:05 | XMS_ITS | Encounter Summary ---
Author Organization [facility] Address [address] [place] [address] Care Team Providers Care Public Service Representative Name Role Phone Liam Houston MD Primary Care Provider [phone] Encounter Details Date Type Department Care Team [...] a nonsmoker. Also recheck lesion on right methodist that we had treated with liquid nitrogen and she is noticed a new one on the left methodist. Dermatology had performed a Mohs surgery at [...] VSS. 1 mm rough area on right methodist the left methodist shows a one half centimeter reddish lesion [...] 1:00 PM EDT Ancillary Procedure [facility] [place] [address] [place] [address] Aristeo Schwartz MD [address] [place] [address] 03/13/2025 12:30 PM EDT Office Visit [facility] [place] [address] [facility] [address] [place] [address] Liam Houston MD 023320 [place] [address] [place], [place] [phone] 03/19/2025 8:00 AM EST Hospital [facility] [address] [place] [address] Aristeo Schwartz MD [address] [place] [address] 03/19/2025 8:00 AM EST - 03/19/2025 11:11 AM EST [facility] [address] [place] [address] Aristeo Schwartz MD [address] [place] [address] WATCHMAN INSERTION 03/26/2025 1:00 PM EST Office Visit [facility] - [address] [phone] Ellie Alcaraz, KAIT [address] [place] [address] 05/20/2025 3:00 PM EST Office Visit [facility] - [address], [place] [address] 08/05/2025 11:00 AM EDT Office Visit [place] [address] [address] [place] [address] Scheduled Procedures Name Priority Associated Diagnoses Date/Ti [...] documented as of this encounter Care Teams Public Service Representative Relationship Specialty Start Date End Date Liam Houston [place] 608674 [place] [address] [address] [place] [address] PCP - General Family Medicine 04/26/22 documented as of this encounter
--- OUTSIDE RECORDS SUMMARY | 2025-02-24 17:05 | XMS_ITS | Encounter Summary ---
Author Organization [facility] Address [address] [place] [address] Care Team Providers Care Acid Correction Hand Name Role Phone Liam Houston MD Primary Care Provider [phone] Encounter Details Date Type Department Care Team [...] 2:55 PM EDT * Letter - Conversion, Allscripts - 02/16/2012 1:40 PM EDT . RE ALAS [address] [place] [address] Feb 16, 2012 Dear Ms. REDMANWELL: You were recently in our office and Dr Collier referred you to have a Bone Density performed. If you have not heard from the office below within 7-10 business days Please contact the specialist for an appointment: Specialists Name: [facility] Specialists Address: [place] [address], 4th [facility] Specialists Phone #: [phone] If you have any further questions please give our office a call at [phone]. [facility]. Signature Electronically signed by : Morena Berg ; 02/16/2012 1:41 PM EST. documented in this encounter Plan of Treatment Upcoming Encounters Date Type Department Care Team (Latest Contact Info) Description 03/09/2025 1:00 PM EDT Ancillary Procedure [facility] [place] [address] [place] [address] Aristeo Schwartz MD [address] [place] [address] - 5th [place] [address] 03/13/2025 12:30 PM EDT Office Visit [facility] [place] [address] [place] [address] [place] [phone] Liam Houston MD [address] [place] [address] [address] [place] [address] 03/19/2025 8:00 AM EST Hospital [facility] [address] [place] [address] 5th [place] [address] Aristeo Schwartz MD [address] [place] [address] 03/19/2025 8:00 AM EST - 03/19/2025 11:11 AM EST Surgery [facility] [address] [place] [address] Aristeo Schwartz MD [address] [place] [address] WATCHMAN INSERTION 03/26/2025 1:00 PM EST Office Visit [address] [phone] Ellie Alcaraz, BRANCH SPECIALIST [address] [place] [address] 05/20/2025 3:00 PM EST Office Visit [address] [address] 08/05/2025 11:00 AM EDT Office Visit [address], [facility] [address] [place] [address] Scheduled Procedures Name Priority Associated Diagnoses Date/Ti [...] documented as of this encounter Care Teams Acid Correction Hand Relationship Specialty Start [place] [address] [place] [address] [address] [place] [address] PCP - General Family Medicine 04/26/22 documented as of this encounter
--- OUTSIDE RECORDS SUMMARY | 2025-02-24 17:05 | XMS_ITS | Encounter Summary ---
Author Organization [facility] Address [address] [place] [address] Care Team Providers Care Greenhouse Transplanter Name Role Phone Liam Houston MD Primary Care Provider [phone] Encounter Details Date Type Department Care Team [...] [facility] [address] [place] [address] Aristeo Schwartz MD [address] [place] [address] 03/13/2025 12:30 PM EDT Office Visit [facility] [place] [address] [place] [phone] [place] Houston [place] [address] [place], [place] [phone] 03/19/2025 8:00 AM EST Hospital En[facility] [address] [place] [address] Aristeo Schwartz MD [address] [place] [address] 03/19/2025 8:00 AM EST - 03/19/2025 11:11 AM EST Surgery [facility] [address] [place] [address] Aristeo Schwartz MD [address] [place] [address] WATCHMAN INSERTION 03/26/2025 1:00 PM EST Office Visit [address] [phone] Ellie Alcaraz, AD TERMINAL MAKEUP OPERATOR [address] [address] 05/20/2025 3:00 PM EST Office Visit [address] [phone] 08/05/2025 11:00 AM EDT Office Visit [facility] [address], [address] [place] [phone] Scheduled Procedures Name Priority Associated Diagnoses Date/Ti [...] documented as of this encounter Care Teams Greenhouse Transplanter Relationship Specialty Start Date End Date Liam Houston MD 9[address] [place] [address] [address] [place] [address] PCP - General Family Medicine 04/26/22 documented as of this encounter
--- OUTSIDE RECORDS SUMMARY | 2025-02-24 17:05 | XMS_ITS | Encounter Summary ---
Author Organization [facility] Address [address] [place] [address] Care Team Providers Care Nurse First Assist Name Role Phone Liam Houston MD Primary Care Provider [phone] Encounter Details Date Type Department Care Team [...] , white water rafting and ziplining in [place]. RANKIN to LAD, SVG to D1 and [...] 03/09/2025 1:00 PM EDT Ancillary Procedure [facility] - [facility] [address] [place] [address] Aristeo Schwartz MD [address] [place] [address] 03/13/2025 12:30 PM EDT Office Visit [facility] Family Medicine - [place] [address] [place] [phone] Liam Houston MD [address] [place] [address] 03/19/2025 8:00 AM EST Hospital Encounter [facility] [address] [place] [address] 5th [facility] [place] [address] Aristeo Schwartz MD [address] [place] [address] - 5th [place] [address] 03/19/2025 8:00 AM EST - 03/19/2025 11:11 AM EST Surgery [facility] [address] 5th [facility] [place] [address] Aristeo Schwartz MD [address] 5th [place] [address] WATCHMAN INSERTION 03/26/2025 1:00 PM EST Office Visit [facility] [address] [address] Ellie Alcaraz, BEAMER OPERATOR [address] [address] 05/20/2025 3:00 PM EST Office Visit [facility] [address] [address] 08/05/2025 11:00 AM EDT Office Visit [address], [facility] [address] [place] [address] Scheduled Procedures Name Priority Associated Diagnoses Date/Ti [...] as of this encounter Care Teams Nurse First Assist Relationship Specialty Start Date End Date Liam Houston MD [address] [place] [address] [address] [place] [address] PCP - General Family Medicine 04/26/22 documented as of this encounter
--- OUTSIDE RECORDS SUMMARY | 2025-02-24 17:05 | XMS_ITS | Encounter Summary ---
Author Organization [facility] Address [address] [place] [address] Care Team Providers Care Elevator Starter Name Role Phone Liam Houston MD Primary Care Provider [phone] Encounter Details Date Type Department Care Team [...] if symptoms persist. HUSAM LUGO MD D: [id number] MT: [id number] Dictator: 1104 :32 Confirmation Number: [id number] ([id number]) Electronically signed by:Husam Lugo M.D. Oct 28 2009 10:06AM EST documented in this encounter Plan of Treatment Upcoming Encounters Date Type Department Care Team (Latest Contact Info) Description 03/09/2025 1:00 PM EDT Ancillary Procedure [facility] - [place] [address] [place] [address] Aristeo Schwartz MD [address] [place] [address] - 5th [place] [address] 03/13/2025 12:30 PM EDT Office Visit [facility] - [place] [address] [place] [address] [address] [place] [address] Liam Houston MD [address] [place] [address] [address] [place] [address] 03/19/2025 8:00 AM EST Hospital En[facility] [address] [place] [address] Aristeo Schwartz MD [address] [place] [address] 03/19/2025 8:00 AM EST - 03/19/2025 11:11 AM EST Surgery [facility] [address] [place] [address] Aristeo Schwartz MD [address] [place] [address] WATCHMAN INSERTION 03/26/2025 1:00 PM EST Office Visit [address] [address] Ellie Alcaraz, BILLING REP [address] [place] [address] 05/20/2025 3:00 PM EST Office Visit [facility] - [address] [phone] 08/05/2025 11:00 AM EDT Office Visit [address] [facility] [address] [place] [address] Scheduled Procedures Name Priority Associated Diagnoses Date/Ti [...] documented as of this encounter Care Teams Elevator Starter Relationship Specialty Start Date End Date Liam Houston MD [address] [place] [address] [address] [place] [address] PCP - General Family Medicine 04/26/22 documented as of this encounter
--- OUTSIDE RECORDS SUMMARY | 2025-02-24 17:05 | XMS_ITS | Encounter Summary ---
Author Organization [facility] Address [address] [place] [address] Care Team Providers Care Power Driven Brush Maker Name Role Phone Liam Houston MD Primary Care Provider [phone] Encounter Details Date Type Department Care Team [...] and hyperlipidemia recheck skin lesion on left baptist All other ROS otherwise neg. Allergies No [...] a subcentimeter mildly erythematosus area on left baptist there is no scale there is no vascularity no ulceration is close but not on a previous surgical scar. Assessment Benign essential hypertension (401.1) Hyperlipidemia (272.4) Health Mgmt Plan Pap smear, breast exam and Hemoccult done 02/2005 Colonoscopy 12.08 Mammogram done 12/2004 Colon exam done 2003 Advance directive given Flu shot done 04/13/06. Plan Single actinic keratosis on left baptist treated with liquid nitrogen. She is to report any nonresolution or change and I will see her in three months fasting for her cholesterol and blood work. Signature Electronically signed by : Stephen Collier M.D.; 06/11/2009 4:23 PM EST. documented in this encounter Plan of Treatment Upcoming Encounters Date Type Department Care Team (Latest Contact Info) Description 03/09/2025 1:00 PM EDT Ancillary Procedure [facility] - [place] [address] [place] [address] Aristeo Schwartz MD [address] [place] [address] 03/13/2025 12:30 PM EDT Office Visit [facility] [address] [place] [address] [place] Houston [place] [address] [place], [place] [phone] 03/19/2025 8:00 AM EST Hospital En[facility] [address] [place] [address] Aristeo Schwartz MD [address] [place] [address] 03/19/2025 8:00 AM EST - 03/19/2025 11:11 AM EST Surgery [facility] [address] [place] [address] Aristeo Schwartz MD [address] [place] [address] WATCHMAN INSERTION 03/26/2025 1:00 PM EST Office Visit [address] [address] Ellie Alcaraz, TOOL CRIB LEAD [address] [place] [address] 05/20/2025 3:00 PM EST Office Visit [facility] - [address] [phone] 08/05/2025 11:00 AM EDT Office Visit [facility] [address] [address], [facility] [address] [place] [address] Scheduled Procedures Name Priority Associated [...] as of this encounter Care Teams Power Driven Brush Maker Relationship Specialty Start Date End Date Liam Houston MD [address] [place] [address] [address] [place] [address] PCP - General Family Medicine 04/26/22 documented as of this encounter
--- OUTSIDE RECORDS SUMMARY | 2025-02-24 17:05 | XMS_ITS | Encounter Summary ---
Author Organization [facility] Address [address] [place] [address] Care Team Providers Care Dry Sand Molder Name Role Phone Liam Houston MD Primary Care Provider [phone] Encounter Details Date Type Department Care Team [...] 03/09/2025 1:00 PM EDT Ancillary Procedure [facility] [place] [address] [place] [address] Aristeo Schwartz MD [address] [place] [address] - 5th [place] [address] 03/13/2025 12:30 PM EDT Office Visit [facility] [address] [facility] [address] [place] [address] [place] Houston MD [address]01 [place] [address] [place], [place] [phone] 03/19/2025 8:00 AM EST Hospital En[facility] [address] [place] [address] Aristeo Schwartz MD [address] [place] [address] 03/19/2025 8:00 AM EST - 03/19/2025 11:11 AM EST Surgery [facility] [address] [place] [address] Aristeo Schwartz MD [address] [place] [address] WATCHMAN INSERTION 03/26/2025 1:00 PM EST Office Visit [facility] [address] [place] [phone] Ellie Alcaraz, DIRECTOR OF PEDIATRIC REHABILITATION [address] [address] 05/20/2025 3:00 PM EST Office Visit [facility] [address] [address] 08/05/2025 11:00 AM EDT Office Visit [facility] [address] [address], [facility] [address] [place] [address] Scheduled Procedures Name Priority Associated Diagnoses Date/Ti [...] documented as of this encounter Care Teams Dry Sand Molder Relationship Specialty Start Date End Date Liam Houston MD [address] [place] [address] [address] [place] [address] PCP - General Family Medicine 04/26/22 documented as of this encounter
--- OUTSIDE RECORDS SUMMARY | 2025-02-24 17:05 | XMS_ITS | Encounter Summary ---
Author Organization [facility] Address [address] [place] [address] Care Team Providers Care Policy Advisor Name Role Phone Liam Houston MD Primary [...] * Scanned Document - Conversion, Allscripts - 11/19/2013 11:39 PM EDT documented in this encounter Plan of Treatment Upcoming Encounters Date Type Department Care Team (Latest Contact Info) Description 03/09/2025 1:00 PM EDT Ancillary Procedure [facility] - [place] [address] [place] [address] Aristeo Schwartz MD [address] [place] [address] - 5th [place] [address] 03/13/2025 12:30 PM EDT Office Visit [facility] [place] [address] [facility] [address] [place] [address] Liam Houston [place] [address] [facility] [address] [place], [place] [address] 03/19/2025 8:00 AM EST Hospital En[facility] [address] [place] [address] Aristeo Schwartz MD [address] [place] [address] 03/19/2025 8:00 AM EST - 03/19/2025 11:11 AM EST Surgery [facility] [address] [place] [address] Aristeo Schwartz MD [address] [place] [address] WATCHMAN INSERTION 03/26/2025 1:00 PM EST Office Visit [facility] [address] [place] [phone] Ellie Alcaraz, HOSPICE HOME CARE COORDINATOR [address] [address] 05/20/2025 3:00 PM EST Office Visit [facility] [address] [address] 08/05/2025 11:00 AM EDT Office Visit [facility] [address] Juven[address]vath, [facility] 3600 [place] [address] Scheduled Procedures Name Priority Associated Diagnoses Date/Ti [...] documented as of this encounter Care Teams Policy Advisor Relationship Specialty Start Date End Date Liam Houston MD 508373 [address] [place] [address] PCP - General Family Medicine 04/26/22 documented as of this encounter
--- OUTSIDE RECORDS SUMMARY | 2025-02-24 17:05 | XMS_ITS | Encounter Summary ---
Author Organization [facility] Address [address] [place] [address] Care Team Providers Care Checker Cashier Name Role Phone Liam Houston MD [...] Ancillary Procedure [facility] [place] [address] [place] [address] Aristeo Schwartz MD [address] [place] [address] 03/13/2025 12:30 PM EDT Office Visit [facility] [address] [facility] [address] [place] [address] Liam Houston MD [address] [place] [address] Road [address] [place], [place] [phone] 03/19/2025 8:00 AM EST Hospital En[facility] [address] [place] [address] Aristeo Schwartz MD [address] [place] [address] 03/19/2025 8:00 AM EST - 03/19/2025 11:11 AM EST Surgery [facility] [address] [place] [address] Aristeo Schwartz MD [address] [place] [address] WATCHMAN INSERTION 03/26/2025 1:00 PM EST Office Visit [address] [address] Ellie Alcaraz, ASSEMBLY LINE WORKER [address] [address] 05/20/2025 3:00 PM EST Office Visit [address] [address] 08/05/2025 11:00 AM EDT Office Visit [place] [address] [address]vath, [address] [place] [address] Scheduled Procedures Name Priority Associated Diagnoses Date/Ti [...] documented as of this encounter Care Teams Checker Cashier Relationship Specialty Start Date End Date Liam Houston MD 4[address]68 [place] [address] [address] [place] [address] PCP - General Family Medicine 04/26/22 documented as of this encounter
--- OUTSIDE RECORDS SUMMARY | 2025-02-24 17:05 | XMS_ITS | Encounter Summary ---
Author Organization [facility] Address [address] [place] [address] Care Team Providers Care Supervisor Uranium Processing Name Role Phone Liam Houston MD Primary Care Provider [phone] Encounter Details Date Type Department Care Team [...] Description 03/09/2025 1:00 PM EDT Ancillary Procedure [facility] [place] [address] [facility] [place] [address] Aristeo Schwartz MD [address] [place] [address] 03/13/2025 12:30 PM EDT Office Visit [facility] [address] [facility] [address] [place] [address] Liam Houston MD 522634 [place] [address] [place] [address] 03/19/2025 8:00 AM EST Hospital En[facility] [address] [place] [address] Aristeo Schwartz MD [address] [place] [address] 03/19/2025 8:00 AM EST - 03/19/2025 11:11 AM EST Surgery [facility] [address] [place] [address] Aristeo Schwartz MD [address] [place] [address] WATCHMAN INSERTION 03/26/2025 1:00 PM EST Office Visit [address] [phone] Ellie Alcaraz, GAS UTILITY WORKER [address] [address] 05/20/2025 3:00 PM EST Office Visit [facility] [address] [place] [address] 08/05/2025 11:00 AM EDT Office Visit [place] [address] Ju[address], [facility] 3600 [place] [address] Scheduled Procedures Name Priority Associated Diagnoses Date/Ti [...] as of this encounter Care Teams Supervisor Uranium Processing Relationship Specialty Start Date End Date Liam Houston [place] [id number] [place] [address] [address] [place] [address] PCP - General Family Medicine 04/26/22 documented as of this encounter
--- OUTSIDE RECORDS SUMMARY | 2025-02-24 17:05 | XMS_ITS | Encounter Summary ---
Author Organization [facility] Address [address] [place] [address] Care Team Providers Care Senior Staff Specialized Employment Name Role Phone Liam Houston MD Primary Care Provider [phone] Encounter Details Date Type Department Care Team [...] will be performed. HUSAM LUGO MD D: [id number] MT: [id number] Dictator: 1104 :30 Confirmation Number: [id number] ([id number]) Electronically signed by:Husam Lugo M.D. Nov 09 2009 11:24AM EST documented in this encounter Plan of Treatment Upcoming Encounters Date Type Department Care Team (Latest Contact Info) Description 03/09/2025 1:00 PM EDT Ancillary Procedure [facility] [address] [place] [address] Aristeo Schwartz MD [address] [place] [address] 03/13/2025 12:30 PM EDT Office Visit [facility] [place] [address] [place] [phone] Liam Houston MD [address] [place] [address] 03/19/2025 8:00 AM EST Hospital Encounter [facility] [address] [place] [address] Aristeo Schwartz MD [address] [place] [address] 03/19/2025 8:00 AM EST - 03/19/2025 11:11 AM EST Surgery [facility] [address] [place] [address] [place] [address] Aristeo Schwartz MD [address] [place] [address] WATCHMAN INSERTION 03/26/2025 1:00 PM EST Office Visit [facility] Cardiovascular [place] - [address], [place] [address] Ellie Alcaraz, ARC FURNACE OPERATOR [address] [facility] 5th [place] [address] 05/20/2025 3:00 PM EST Office Visit [facility] [place] [address] 5th Floor, [place] [address] 08/05/2025 11:00 AM EDT Office Visit [address], [address] [place] [address] Scheduled Procedures Name Priority Associated Diagnoses Date/Ti [...] as of this encounter Care Teams Senior Staff Specialized Employment Relationship Specialty Start Date End Date Liam Houston [place] [id number] [place] [address] [place] [address] PCP - General Family Medicine 04/26/22 documented as of this encounter
--- OUTSIDE RECORDS SUMMARY | 2025-02-24 17:05 | XMS_ITS | Encounter Summary ---
Author Organization [facility] Address [address] [place] [address] Care Team Providers Care Material Requisitioner Name Role Phone Liam Houston MD Primary Care Provider [phone] Encounter Details Date Type Department Care Team [...] Description 03/09/2025 1:00 PM EDT Ancillary Procedure [facility] [place] [address] [place] [address] Aristeo Schwartz MD [address] [place] [address] 03/13/2025 12:30 PM EDT Office Visit [facility] [place] [address] [place] [address] [place] [address] Liam Houston MD 462830 [place] [address] [place], [place] [address] 03/19/2025 8:00 AM EST Hospital En[facility] [address] [place] [address] Aristeo Schwartz MD [address] [place] [address] 03/19/2025 8:00 AM EST - 03/19/2025 11:11 AM EST Surgery [facility] [address] [place] [address] Aristeo Schwartz MD [address] [place] [address] WATCHMAN INSERTION 03/26/2025 1:00 PM EST Office Visit [facility] [address] [place] [phone] Ellie Alcaraz, MANAGER ENDOSCOPY [address] [address] 05/20/2025 3:00 PM EST Office Visit [address] [phone] 08/05/2025 11:00 AM EDT [facility] [address] Juvenc[address] Fernandez, [facility] 3600 [place] [address] Scheduled Procedures Name Priority Associated Diagnoses Date/Ti [...] as of this encounter Care Teams Material Requisitioner Relationship Specialty Start Date End Date Liam Houston MD 982988 [place] [address] [address] [place] [address] PCP - General Family Medicine 04/26/22 documented as of this encounter
--- OUTSIDE RECORDS SUMMARY | 2025-02-24 17:05 | XMS_ITS | Encounter Summary ---
Author Organization [facility] Address [address] [place] [address] Care Team Providers Care Library Acquisitions Technician Name Role Phone Liam [place] MD Primary Care Provider [phone] Encounter Details Date Type Department Care Team [...] Procedure [facility] [place] [address] [place] [address] Aristeo Schwartz MD [address] [place] [address] 03/13/2025 12:30 PM EDT Office Visit [facility] [place] 456791 [facility] [address] [place] [address] [place] 558960 [facility] [address] [place], [place] 9745[address] 03/19/2025 8:00 AM EST Hospital [facility] [address] [place] [address] [place] [address] Aristeo Schwartz MD [address] [place] [address] 03/19/2025 8:00 AM EST - 03/19/2025 11:11 AM EST Surgery [facility] [address] [place] [address] Aristeo Schwartz MD [address] [place] [address] WATCHMAN INSERTION 03/26/2025 1:00 PM EST Office Visit [address] [address] Ellie Alcaraz, VALVE ASSEMBLER [address] [address] 05/20/2025 3:00 PM EST Office Visit [facility] [address] [place] [address] 08/05/2025 11:00 AM EDT Office Visit [place] [address], Peter [address] [place] [address] Scheduled Procedures Name Priority Associated Diagnoses Date/Ti [...] documented as of this encounter Care Teams Library Acquisitions Technician Relationship Specialty Start Date End Date Liam [place] MD [id number] [place] [address] [place] [address] PCP - General Family Medicine 04/26/22 documented as of this encounter
--- OUTSIDE RECORDS SUMMARY | 2025-02-24 17:05 | XMS_ITS | Encounter Summary ---
Author Organization [facility] Address [address] [place] [address] Care Team Providers Care Videotape Sales Representative Name Role Phone Liam [place] MD Primary Care Provider [phone] Encounter Details Date Type Department Care Team [...] Procedure [facility] [place] [address] [place] [address] Aristeo Schwartz MD [address] [place] [address] 03/13/2025 12:30 PM EDT Office Visit [facility] [place] 983479 [place] [address] [place] [address] [place] MD [address] [place] [address] [id number] 03/19/2025 8:00 AM EST Hospital Encounter [facility] [address] [place] [address] Aristeo Schwartz MD [address] [place] [address] 03/19/2025 8:00 AM EST - 03/19/2025 11:11 AM EST Surgery [facility] [address] [place] [address] Aristeo Schwartz MD [address] [place] [address] WATCHMAN INSERTION 03/26/2025 1:00 PM EST Office Visit [facility] [place] [address] [place] [address], [place] [address] Ellie Alcaraz, KAIT [address] [place] [address] 05/20/2025 3:00 PM EST Office Visit [facility] [place] [address] 5th Floor, [place] [address] 08/05/2025 11:00 AM EDT Office Visit [facility] [address], Peter [address] [place] [address] Scheduled Procedures Name Priority Associated [...] documented as of this encounter Care Teams Videotape Sales Representative Relationship Specialty Start Date End Date Liam [place] MD 502812 [place] [address] [address] [place] [id number] PCP - General Family Medicine 04/26/22 documented as of this encounter
--- OUTSIDE RECORDS SUMMARY | 2025-02-24 17:05 | XMS_ITS | Encounter Summary ---
Author Organization [facility] Address [address] [place] [address] Care Team Providers Care Back Tender Paper Machine Name Role Phone Liam [place] MD Primary Care Provider [phone] Encounter Details Date Type Department Care Team [...] Non-Q-wave Myocardial Infarction - Subsequent Care Recent IN (8 Wks) (410.72) Normal Examination (V70.0) Osteoporosis [...] 03/09/2025 1:00 PM EDT Ancillary Procedure [facility] [place] [address] [place] [address] Aristeo Schwartz MD [address] [place] [address] 03/13/2025 12:30 PM EDT Office Visit [facility] 903683 [place] [address] [place] [address] Liam [place] MD 541165 [place] [address] [place], [place] [address] 03/19/2025 8:00 AM EST Hospital En[facility] [address] [place] [address] Aristeo Schwartz MD [address] [place] [address] 03/19/2025 8:00 AM EST - 03/19/2025 11:11 AM EST Surgery [facility] [address] [place] [address] Aristeo Schwartz MD [address] [place] [address] WATCHMAN INSERTION 03/26/2025 1:00 PM EST Office Visit [facility] [address] [place] [address] Ellie Alcaraz, FLAKE CUTTER OPERATOR [address] [address] 05/20/2025 3:00 PM EST Office Visit [address] [address] 08/05/2025 11:00 AM EDT Office Visit [facility] [address] [address] Fern[address], [facility] 3600 [place] [address] Scheduled Procedures Name Priority Associated Diagnoses Date/Ti [...] approximately 13% higher for people identified as -Dominican. BUN/Creatinine Ratio NOT APPLICABLE 6 - 22 [...] RATIO 1.5 1.0 - 2.1 [facility] 01/11/2012 us Radha Mohan PA-C BLOOD ORDERABLES Final Result [facility] * (ABNORMAL) Lipid Panel with total [...] BLOOD ORDERABLES Final Result Performing Organization Address [facility] de Phone Number [facility] * (ABNORMAL) TSH (01/11/2012 12:00 AM EDT) TSH, 3RD GENERATION 4.57(H) 0.40 - 4.50 [facility] 01/11/2012 Radha Mohan PA-C BLOOD ORDERABLES Final Result Performing Organization Address [facility] de Phone Number [facility] * (ABNORMAL) CBC [...] 12 0 - 200 [facility] 01/11/2012 us Radhauzair Mohan PA-C BLOOD ORDERABLES Final Result [facility] [...] documented as of this encounter Care Teams Back Tender Paper Machine Relationship Specialty Start Date End Date Liam [place] MD 736172 [place] [address] [place] [address] PCP - General Family Medicine 04/26/22 documented as of this encounter
--- OUTSIDE RECORDS SUMMARY | 2025-02-24 17:05 | XMS_ITS | Encounter Summary ---
Author Organization [facility] Address [address] [place] [address] Care Team Providers Care Nurses' Registry Director Name Role Phone Liam [place] MD Primary Care Provider [phone] Encounter Details Date Type Department Care Team [...] wishes evaluated. The lesion on the right jain which we treated with liquid nitrogen as [...] 1:00 PM EDT Ancillary Procedure [facility] [address] [place] [address] Aristeo Schwartz MD [address] - 5th [place] [address] 03/13/2025 12:30 PM EDT Office Visit [facility] Family Medicine - [place] [address] [place] [address] [address] [place] [phone] Liam [place] MD [address] [place] [address] 200 [address] [place] [address] 03/19/2025 8:00 AM EST Hospital En[facility] [address] [place] [address] Aristeo Schwartz MD [address] [place] [address] 03/19/2025 8:00 AM EST - 03/19/2025 11:11 AM EST Surgery [facility] [address] [place] [address] Aristeo Schwartz MD [address] [place] [address] WATCHMAN INSERTION 03/26/2025 1:00 PM EST Office Visit [address] [phone] Ellie Alcaraz, LOW RAW SUGAR CUTTER [address] [place] [address] 05/20/2025 3:00 PM EST Office Visit [address] [address] 08/05/2025 11:00 AM EDT Office Visit [address] Meka Colbertma, [facility] 3600 [place] [address] Scheduled Procedures Name Priority Associated Diagnoses Date/Ti [...] documented as of this encounter Care Teams Nurses' Registry Director Relationship Specialty Start Date End Date Liam [place] MD 492949 [place] [address] [address] [place] [address] PCP - General Family Medicine 04/26/22 documented as of this encounter
--- OUTSIDE RECORDS SUMMARY | 2025-02-24 17:05 | XMS_ITS | Encounter Summary ---
Author Organization [facility] Address [address] [place] [address] Care Team Providers Care Candy Waffle Assembler Name Role Phone Liam [place] MD Primary Care Provider [phone] Encounter Details Date Type Department Care Team (Late st Contact Info) Description 12/20/2011 Documentation Encounter SANJEEV [...] 03/09/2025 1:00 PM EDT Ancillary Procedure [facility] [address] [place] [address] Aristeo Schwartz MD [address] [place] [address] 03/13/2025 12:30 PM EDT Office Visit On license of [facility] [place] 123073 [facility] [address] [place] [address] [place] 384008 [place] [address] [place] [address] 03/19/2025 8:00 AM EST Hospital Encounter [facility] [address] [place] [address] [place] [address] Aristeo Schwartz MD [address] [place] [address] 03/19/2025 8:00 AM EST - 03/19/2025 11:11 AM EST Surgery [facility] [address] [place] [address] Aristeo Schwartz MD [address] [place] [address] 288[address] WATCHMAN INSERTION 03/26/2025 1:00 PM EST Office Visit [facility] [address] [place] [phone] Ellie Alcaraz, ENDBAND SIZER [address] [address] 05/20/2025 3:00 PM EST Office Visit [facility] [address] [place] [address] 08/05/2025 11:00 AM EDT Office Visit [facility] Cardiovascular [facility] [address], Peter [address] [place] [address] Scheduled Procedures Name Priority Associated [...] documented as of this encounter Care Teams Candy Waffle Assembler Relationship Specialty Start Date End Date Liam [place] MD 620860 [place] [address] [address] [place] [address] PCP - General Family Medicine 04/26/22 documented as of this encounter
--- OUTSIDE RECORDS SUMMARY | 2025-02-24 17:05 | XMS_ITS | Encounter Summary ---
Author Organization [facility] Address [address] [place] [address] Care Team Providers Care Director Social Service Name Role Phone Liam [place] MD Primary Care Provider [phone] Encounter Details Date Type Department Care Team [...] N - ABSOLUTE NEUTROPHILS: 4124 Reference Range: 6984-4605 Flag: N - ABSOLUTE LYMPHOCYTES: 1049 Reference [...] satellitism is noted. REVIEWED BY: MELINA SHORT MD. TSH 11 Jan 2012 12:00 [...] Range: 0.60-0.93 Flag: N - eGFR NON-AFR. TANZANIAN: 77 Reference Range: > OR = 60 [...] 1:00 PM EDT Ancillary Procedure [facility] [place] [address] [place] [address] Aristeo Schwartz MD [address] [place] [address] - 5th [place] [address] 03/13/2025 12:30 PM EDT Office Visit [facility] 176030 [place] [address] [place] [address] [place] 192764 [place] [address] [place] [address] 03/19/2025 8:00 AM EST Hospital En[facility] [address] [place] [address] Aristeo Schwartz MD [address] [place] [address] 03/19/2025 8:00 AM EST - 03/19/2025 11:11 AM EST Surgery [facility] [address] [place] [address] Aristeo Schwartz MD [address] [place] [address] WATCHMAN INSERTION 03/26/2025 1:00 PM EST Office Visit [facility] [address] [place] [phone] Ellie Alcaraz, VACCINES SOLUTIONS SPECIALIST [address] [address] 05/20/2025 3:00 PM EST Office Visit [address] [address] 08/05/2025 11:00 AM EDT Office Visit [place] [address] Juvencio Horvaht, [facility] 3600 [place] [address] Scheduled Procedures Name Priority Associated Diagnoses Date/Ti [...] as of this encounter Care Teams Director Social Service Relationship Specialty Start [place] 10[address] [place] [address] [address] [place] [address] PCP - General Family Medicine 04/26/22 documented as of this encounter
--- OUTSIDE RECORDS SUMMARY | 2025-02-24 17:05 | XMS_ITS | Encounter Summary ---
Author Organization [facility] Address [address] [place] [address] Care Team Providers Care Popcorn Machine Operator Name Role Phone Liam [place] MD Primary Care Provider [phone] Encounter Details Date Type Department Care Team [...] Also recheck of a lesion on right protestant All other ROS otherwise neg. Allergies No [...] RRR without M/R/G. small seborrheic keratosis right protestant also seborrheic keratosis mid back under her bra strap. Assessment Benign essential hypertension (401.1) Osteoporosis (733.00) Plan Lesions treated with liquid nitrogen one right protestant one middle back refills flu vaccine. Orders [...] 1:00 PM EDT Ancillary Procedure [facility] [place] [address] [place] [address] Aristeo Schwartz MD [address] [place] [address] - [address] [place] [address] 03/13/2025 12:30 PM EDT Office Visit [facility] 093085 [place] [address] [place] [address] [place] MD 121337 [place] [address] [place], [place] 7695711 03/19/2025 8:00 AM EST Hospital Encounter [facility] [address] [place] [address] Aristeo Schwartz MD [address] [place] [address] 03/19/2025 8:00 AM EST - 03/19/2025 11:11 AM EST Surgery [facility] [address] [place] [address] Aristeo Schwartz MD [address] [place] [address] WATCHMAN INSERTION 03/26/2025 1:00 PM EST Office Visit [address] [address] Ellie Alcaraz, BUTTON INSPECTOR [address] [address] 05/20/2025 3:00 PM EST Office Visit [address] [address] 08/05/2025 11:00 AM EDT Office Visit [facility] [address] Juvencio Horvath, [facility] 3600 [place] [address] Scheduled Procedures Name Priority Associated Diagnoses Date/Ti [...] documented as of this encounter Care Teams Popcorn Machine Operator Relationship Specialty Start Date End Date Liam [place] MD 270280 [address] [place] [address] PCP - General Family Medicine 04/26/22 documented as of this encounter
--- OUTSIDE RECORDS SUMMARY | 2025-02-24 17:05 | XMS_ITS | Encounter Summary ---
Author Organization [facility] Address [address] [place] [address] Care Team Providers Care Dog Boarder Name Role Phone Liam [place] MD Primary Care Provider [phone] Encounter Details Date Type Department Care Team [...] Description 03/09/2025 1:00 PM EDT Ancillary Procedure [facility] [place] [address] [place] [address] Aristeo Schwartz MD [address] [place] [address] 03/13/2025 12:30 PM EDT Office Visit [facility] [place] [address] [facility] [address] [place] [address] [place] [address] [facility] [address] [place], [place] 06[address] 03/19/2025 8:00 AM EST Hospital En[facility] [address] [place] [address] Aristeo Schwartz MD [address] [place] [address] 03/19/2025 8:00 AM EST - 03/19/2025 11:11 AM EST Surgery [facility] [address] [place] [address] Aristeo Schwartz MD [address] [place] [address] WATCHMAN INSERTION 03/26/2025 1:00 PM EST Office Visit [address] [address] Ellie Alcaraz, INDUSTRIAL ENGINEERING PROFESSOR [address] [address] 05/20/2025 3:00 PM EST Office Visit [address] [address] 08/05/2025 11:00 AM EDT Office Visit [place] [address] Juvencio Horvath, [place] [address] [place] [address] Scheduled Procedures Name Priority Associated Diagnoses Date/Ti [...] documented as of this encounter Care Teams Dog Boarder Relationship Specialty Start Date End Date Liam [place] MD 523921 [place] [address] [address] [place] [address] PCP - General Family Medicine 04/26/22 documented as of this encounter
--- OUTSIDE RECORDS SUMMARY | 2025-02-24 17:05 | XMS_ITS | Encounter Summary ---
Author Organization [facility] Address [address] [place] [address] Care Team Providers Care Assistant Analyst Name Role Phone Liam [place] MD Primary Care Provider [phone] Encounter Details Date Type Department Care Team [...] wants some lesions checked one on right latter day and also one on for it. The one on right latter day had been treated previously no known history [...] mm seborrheic keratosis type lesion on right latter day and a seborrheic keratosis on forhead. Assessment [...] [facility] - [place] [address] [place] [address] Aristeo Schwartz MD [address] [place] [address] - 5th [place] [address] 03/13/2025 12:30 PM EDT Office Visit [facility] [place] 306949 [facility] [address] [place] [address] [place] MD 033689 [place] [address] [place], [place] [address] 03/19/2025 8:00 AM EST Hospital En[facility] [address] [place] [address] Aristeo Schwartz MD [address] [place] [address] 03/19/2025 8:00 AM EST - 03/19/2025 11:11 AM EST Surgery [facility] [address] [place] [address] Aristeo Schwartz MD [address] [place] [address] WATCHMAN INSERTION 03/26/2025 1:00 PM EST Office Visit [facility] [address] [place] [phone] Ellie Alcaraz, SPORTS PHYSIOLOGIST [address] [address] 05/20/2025 3:00 PM EST Office Visit [facility] [address] [address] 08/05/2025 11:00 AM EDT Office Visit [facility] [address] Juvencio Colberty, [facility] 3600 [place] [address] Scheduled Procedures Name Priority Associated Diagnoses Date/Ti [...] documented as of this encounter Care Teams Assistant Analyst Relationship Specialty Start Date [place] Date Liam [place] MD 851745 [place] [address] [address] [place] [address] PCP - General Family Medicine 04/26/22 documented as of this encounter
--- OUTSIDE RECORDS SUMMARY | 2025-02-24 17:07 | XMS_ITS | Encounter Summary ---
Author Organization [facility] Address [address] [place] [address] Care Team Providers Care Ballistic Expert Name Role Phone Liam [place] MD Primary Care Provider [phone] Encounter Details Date Type Department Care Team [...] Procedure [facility] [address] [place] [address] Aristeo Schwartz MD [address] [place] [address] 03/13/2025 12:30 PM EDT Office Visit [facility] Family Medicine - [place] [address] [place] [address] [place] [phone] Liam [place] MD [address] [place] [address] 8213711 03/19/2025 8:00 AM EST Hospital Encounter [facility] [address] [place] [address] Aristeo Schwartz MD [address] [place] [address] 03/19/2025 8:00 AM EST - 03/19/2025 11:11 AM EST Surgery [facility] [address] [place] [address] Aristeo Schwartz MD [address] [place] [address] WATCHMAN INSERTION 03/26/2025 1:00 PM EST Office Visit [facility] [address] 5th Floor, [place] [address] Ellie Alcaraz, PATTERN MAKER PROGRAMER [address] [facility] 5th [place] [address] 05/20/2025 3:00 PM EST Office Visit [facility] [address] 5th Floor, [place] [address] 08/05/2025 11:00 AM EDT Office Visit [address] [place] [address], [facility] 3600 [place] [address] Scheduled Procedures Name Priority Associated Diagnoses Date/Ti [...] documented as of this encounter Care Teams Ballistic Expert Relationship Specialty Start Date End Date Liam [place] MD 538363 [place] [address] [address] [place] [phone] PCP - General Family Medicine 04/26/22 documented as of this encounter
--- OUTSIDE RECORDS SUMMARY | 2025-02-24 17:07 | XMS_ITS | Encounter Summary ---
Author Organization [facility] Address [address] [place] [address] Care Team Providers Care Appraiser Art Name Role Phone Liam [place] MD Primary Care Provider [phone] Encounter Details Date Type Department Care Team [...] a mole or spot on her right samaritan. Last year she had a significant cancer [...] in diameter and round on the right samaritan. Extremities examination of the sole of the [...] back in one month. She may try tylm-tev-suuxfsv corn remover but if unsuccessful will tear of the corn on a visit and would like to re-examine the lesion on the right samaritan. Lesion is treated with liquid nitrogen. Signature Signed By: Stephen Collier M.D.; 07/24/2006 12:21 PM EST. documented in this encounter Plan of Treatment Upcoming Encounters Date Type Department Care Team (Latest Contact Info) Description 03/09/2025 1:00 PM EDT Ancillary Procedure [facility] - [place] [address] [place] [address] Aristeo Schwartz MD [address] [place] [address] - 5th [place] [address] 03/13/2025 12:30 PM EDT Office Visit [facility] [place] 688346 [place] [address] [place] [address] [place] MD 196046 [place] [address] [place], [place] [phone] 03/19/2025 8:00 AM EST Hospital En[facility] [address] [place] [address] Aristoe Schwartz MD [address] [place] [address] 03/19/2025 8:00 AM EST - 03/19/2025 11:11 AM EST Surgery [facility] [address] [place] [address] Aristeo Schwartz MD [address] [place] [address] WATCHMAN INSERTION 03/26/2025 1:00 PM EST Office Visit [address] [phone] Ellie Alcaraz, CUSTOMS BROKERAGE AGENT [address] [address] 05/20/2025 3:00 PM EST Office Visit [address] [address] 08/05/2025 11:00 AM EDT Office Visit [facility] [address] Juvencio Fernandezy, [facility] 3600 [place] [address] Scheduled Procedures Name Priority Associated Diagnoses Date/Ti [...] documented as of this encounter Care Teams Appraiser Art Relationship Specialty Start Date End Date [place] MD 420985 [place] [address] [address] [place] [address] PCP - General Family Medicine 04/26/22 documented as of this encounter
--- OUTSIDE RECORDS SUMMARY | 2025-02-24 17:07 | XMS_ITS | Encounter Summary ---
Author Organization [facility] Address [address] [place] [address] Care Team Providers Care Solderer Assembly Repair Name Role Phone Liam Houston MD Primary Care Provider [phone] Encounter Details Date Type Department Care Team [...] 03/09/2025 1:00 PM EDT Ancillary Procedure [facility] [address] [place] [address] Aristeo Schwartz MD [address] [place] [address] 03/13/2025 12:30 PM EDT Office Visit [facility] Medicine - [place] [address] [place] [address] [place] MD [address] [place], [place] [address] 03/19/2025 8:00 AM EST Hospital Encounter [facility] [address] [place] [address] Aristeo Schwartz MD [address] [place] [address] 03/19/2025 8:00 AM EST - 03/19/2025 11:11 AM EST [facility] [address] [place] [address] [place] [address] Aristeo Schwartz MD [address] [place] [address] WATCHMAN INSERTION 03/26/2025 1:00 PM EST Office Visit [facility] [place] [facility] [place] [address] [place] [phone] Ellie Alcaraz, AUTO BODY STRAIGHTENER [address] [address] 05/20/2025 3:00 PM EST Office Visit [facility] [place] [address] 5th Floor, [place] [address] 08/05/2025 11:00 AM EDT Office Visit [facility] [address], [address] [place] [address] Scheduled Procedures Name Priority Associated [...] documented as of this encounter Care Teams Solderer Assembly Repair Relationship Specialty Start Date End Date Liam Houston MD [address] [place] [address] [address] [place] [address] PCP - General Family Medicine 04/26/22 documented as of this encounter
--- OUTSIDE RECORDS SUMMARY | 2025-02-24 17:07 | XMS_ITS | Encounter Summary ---
Author Organization [facility] Address [address] [place] [address] Care Team Providers Care Medical Recruiter Name Role Phone Liam Houston MD Primary Care Provider [phone] Encounter Details Date Type Department Care Team [...] was seen in the [facility]ology [facility] of [facility]. As you recall, this 69-year-old lady [...] type A bilaterally. It appears that Ms. Alas may have otosclerosis, and if she desires would benefit from a hearing aid in her right ear. She also if she desired would be a candidate for exploratory tympanotomy possible stapedectomy. Thank you for allowing [facility] Otolaryngology Service to see your patient in consultation. Sincerely, HUSAM LUGO MD. HUSAM LUGO MD D: [id number] MT: [id number] Dictator: [id number] Confirmation Number: [id number] ([id number]) Electronically signed by:Husam Lugo M.D. May 01 2006 3:13PM EST documented in this encounter Plan of Treatment Upcoming Encounters Date Type Department Care Team (Latest Contact Info) Description 03/09/2025 1:00 PM EDT Ancillary Procedure [facility] [address] [place] [address] Aristeo Schwartz MD [address] [place] [address] - 5th [place] [address] 03/13/2025 12:30 PM EDT Office Visit [facility] - [place] [address] [place] [phone] Liam Houston MD [id number] [place] [address] [place] [phone] 03/19/2025 8:00 AM EST Hospital En[facility] [address] [place] [address] Aristeo Schwartz MD [address] [place] [address] 03/19/2025 8:00 AM EST - 03/19/2025 11:11 AM EST Surgery [facility] [address] [place] [address] Aristeo Schwartz MD [address] [place] [address] WATCHMAN INSERTION 03/26/2025 1:00 PM EST Office Visit [address] [phone] Ellie Alcaraz, HARVESTER OPERATOR [address] [place] [address] 05/20/2025 3:00 PM EST Office Visit [address] [address] 08/05/2025 11:00 AM EDT Office Visit [address] [facility] [address] [place] [address] Scheduled Procedures Name Priority Associated Diagnoses Date/Ti [...] as of this encounter Care Teams Medical Recruiter Relationship Specialty Start Date End Date Liam Houston MD [address] [place] [address] [address] [address] [place] [address] PCP - General Family Medicine 04/26/22 documented as of this encounter
--- OUTSIDE RECORDS SUMMARY | 2025-02-24 17:07 | XMS_ITS | Encounter Summary ---
Author Organization [facility] Address [address] [place] [address] Care Team Providers Care Rail Grinder Name Role Phone Liam Houston MD Primary Care Provider [phone] Reason for Referral * Evaluate and Treat - Closed Specialty Diagnoses / Procedures Referred By Contac t Referred To Contact Neurosurgery Diagnoses Vertebral fracture, osteoporotic, initial encounter (CMS-HCC: 401) Procedures Eval & Treat Bailey Cook MD Phone: tel: fax: [facility] - [place] [address] [place] [address]th [place] [address] Phone: tel: fax: Referral ID Status Reason Start Date Expiration Date Visits Re quested Visits Authorized [id number] Closed 11/05/2015 11/04/2016 6 6 * Evaluate and Treat - Closed Specialty Diagnoses / Procedures Referred By Contact Referred To Contact Endocrinology Diabetes & Metabolism / Endocrinology Diagnoses Hypothyroidism, unspecified type Hypothyroidism, unspecified type Procedures Eval and treat Bailey Cook MD Phone: tel:[phone] fax:[phone] [facility] Endocrinology - [address], [address] [place] [address] Phone: tel: fax: Referral ID Status Reason Start Date Expiration Date Visits Re quested Visits Authorized [id number] Closed 11/05/2015 11/04/2016 6 6 * Evaluate and Treat - Closed Specialty Diagnoses / Procedures Referred By Contac t Referred To Contact Cardiology Diagnoses Coronary artery disease involving [place] coronary artery of [place] heart without angina pectoris Coronary artery disease involving [place] coronary artery of [place] heart without angina pectoris Procedures Eval and treat Bailey Cook MD Phone: tel: fax: [address], [facility] [address] [place] [address] Phone: tel: fax: Referral ID Status Reason Start Date Expiration Date Visits Re quested Visits Authorized [id number] Closed 11/05/2015 11/04/2016 6 6 Encounter Details Date Type Department Care Team ([facility] st Contact Info) Description 11/04/2015 Orders Only [address] [address] Bailey Cook MD [address] [place] [address] Coronary artery disease involving [place] coronary artery of [place] heart without angina pectoris; Hypothyroidism, unspecified type; [...] 03/09/2025 1:00 PM EDT Ancillary Procedure [facility] - [place] [address] [place] [address] Aristeo Schwartz MD [address] [place] [address] 03/13/2025 12:30 PM EDT Office Visit [facility] - [place] [address] [place] [address] Liam Houston MD 936682 [place] [address] [place] [address] 03/19/2025 8:00 AM EST Hospital Encounter [facility] [address] [place] [address] Aristeo Schwartz MD [address] [place] [address] 03/19/2025 8:00 AM EST - 03/19/2025 11:11 AM EST Surgery [facility] [address] [place] [address] Aristeo Schwartz MD [address] [place] [address] WATCHMAN INSERTION 03/26/2025 1:00 PM EST Office Visit [facility] [address] [place] [address] Ellie Alcaraz, KAIT [address] [place] [address] 05/20/2025 3:00 PM EST Office [facility] [address] [place] [address] 08/05/2025 11:00 AM EDT Office Visit [facility] [address], [address] [place] [address] Scheduled Procedures Name Priority Associated Diagnoses Date/Ti me WATCHMAN INSERTION Atrial fibrillation, unspecified type 03/19/2025 8:00 AM EST Scheduled Referrals Name Type Priority Associated Diagnoses Order Schedule Refer to Cardiology Outpatient Referral Routine Coronary artery disease involving [place] coronary artery of [place] heart without angina pectoris Expected: 11/05/2015, Expires: 11/03/2016 Refer to Endocrinology Outpatient Referral Routine Hypothyroidism, unspecified type Expected: 11/05/2015, Expires: 11/03/2016 Refer to Neurosurgery Outpatient Referral Routine Vertebral fracture, osteoporotic, initial encounter Expected: 11/05/2015, Expires: 11/03/2016 documented as of this encounter Visit Diagnoses Diagnosis Coronary artery disease involving [place] coronary artery of [place] heart without angina pectoris Hypothyroidism, unspecified type Vertebral fracture, osteoporotic, initial encounter (CMS-HCC: 401) Atrial fibrillation, unspecified type documented in this encounter Additional Health Concerns Infection Onset Date Last Indicated Resolved Time COVID-19 Rule-Out 11/24/2020 11/24/2020 11/24/2020 10:21 PM EDT COVID-19 (Confirmed) 11/24/2020 12/10/2020 0805/ 021 3:03 AM EDT COVID-19 Rule-Out 11/24/2020 11/25/2020 11/25/2020 5:14 AM EDT documented as of this encounter Care Teams Rail Grinder Relationship Specialty Start Date End Date Liam Houston MD [address] [place] [address] PCP - General Family Medicine 04/26/22 documented as of this encounter
--- OUTSIDE RECORDS SUMMARY | 2025-02-24 17:07 | XMS_ITS | Encounter Summary ---
Author Organization [facility] Address [address] [place] [address] Care Team Providers Care Patch Worker Name Role Phone Liam Houston MD Primary Care Provider [phone] Encounter Details Date Type Department Care Team (Late st Contact Info) Description 03/20/2012 Documentation Encounter SANJEEV [...] Ancillary Procedure [facility] [address] [place] [address] Aristeo Schwartz MD [address] [place] [address] 03/13/2025 12:30 PM EDT Office Visit [facility] Medicine - [place] [address] [place] [phone] Liam Houston MD 866854 [place] [address] [place], [place] [phone] 03/19/2025 8:00 AM EST Hospital Encounter [facility] [address] [place] [address] Aristeo Schwartz MD [address] [place] [address] 03/19/2025 8:00 AM EST - 03/19/2025 11:11 AM EST Surgery [facility] [address] [place] [address] Aristeo Schwartz MD [address] [place] [address] WATCHMAN INSERTION 03/26/2025 1:00 PM EST Office Visit [address] [address] Ellie Alcaraz, COUNSELING CENTER DIRECTOR [address] [place] [address] 05/20/2025 3:00 PM EST Office Visit [address] [address] 08/05/2025 11:00 AM EDT Office Visit [facility] Cardiovascular [facility] [address] [address], Peter [address] [place] [address] Scheduled Procedures Name Priority Associated [...] documented as of this encounter Care Teams Patch Worker Relationship Specialty Start Date [place] Date Liam Houston MD [address] [place] [address] [address] [address] [place] [address] PCP - General Family Medicine 04/26/22 documented as of this encounter
--- OUTSIDE RECORDS SUMMARY | 2025-02-24 17:07 | XMS_ITS | Encounter Summary ---
Author Organization [facility] Address [address] [place] [address] Care Team Providers Care Metal Can Inspector Name Role Phone Liam Houston MD [...] Chief Complaint Discuss paperwork pt received from [employer]; poss. cryo on spots on face Allergies [...] Non-Q-wave Myocardial Infarction - Subsequent Care Recent AL (8 Wks) (410.72) Normal Examination (V70.0) Osteoporosis [...] 1:00 PM EDT Ancillary Procedure [facility] [address] [facility] [place] [address] Aristeo Schwartz MD [address] [place] [address] 03/13/2025 12:30 PM EDT Office Visit [facility] [place] [address] [facility] [address] [place] [address] Liam Houston MD 46[address]08 [place] [address] [place], [place] [phone] 03/19/2025 8:00 AM EST Hospital Encounter [facility] [address] [place] [place] [address] Aristeo Schwartz MD [address] [place] [address] 03/19/2025 8:00 AM EST - 03/19/2025 11:11 AM EST Surgery [facility] [address] [place] [place] [address] Aristeo Schwartz MD [address] [place] [address] WATCHMAN INSERTION 03/26/2025 1:00 PM EST Office Visit [facility] [address] [place] [phone] Ellie Alcaraz, KAIT [address] [place] [address] 05/20/2025 3:00 PM EST Office [facility] [address] [place] [address] 08/05/2025 11:00 AM EDT Office Visit [place] [address] [address], Peter [address] [place] [address] Scheduled Procedures Name Priority Associated Diagnoses Date/Ti [...] as of this encounter Care Teams Metal Can Inspector Relationship Specialty Start Date End Date Liam Houston MD [address] [place] [address] [address] [address] [place] [address] PCP - General Family Medicine 04/26/22 documented as of this encounter
--- OUTSIDE RECORDS SUMMARY | 2025-02-24 17:07 | XMS_ITS | Encounter Summary ---
Author Organization [facility] Address [address] [place] [address] Care Team Providers Care Commissary Worker Name Role Phone Liam Houston MD Primary Care Provider [phone] Encounter Details Date Type Department Care Team [...] 03/09/2025 1:00 PM EDT Ancillary Procedure [facility] [address] [place] [address] Aristeo Schwartz MD [address] [place] [address] 03/13/2025 12:30 PM EDT Office Visit [facility] - [place] [address] [address] [place] [address] Liam Houston MD [address] [place] [address] 200 [address] [place] [address] 03/19/2025 8:00 AM EST Hospital Encounter [facility] [address] [place] [address] [place] [address] Aristeo Schwartz MD [address] [place] [address] 03/19/2025 8:00 AM EST - 03/19/2025 11:11 AM EST Surgery [facility] [address] [place] [address] [place] [address] Aristeo Schwartz MD [address] [place] [address] WATCHMAN INSERTION 03/26/2025 1:00 PM EST Office Visit [facility] Cardiovascular [place] - [address], [place] [address] Ellie Alcaraz, PRODUCT TEST ENGINEER [address] [place] [address] 05/20/2025 3:00 PM EST [facility] Visit [facility] [place] [address] 5th Floor, [place] [address] 08/05/2025 11:00 AM EDT Office Visit [address] [place] [address] Scheduled Procedures Name Priority Associated Diagnoses Date/Ti [...] documented as of this encounter Care Teams Commissary Worker Relationship Specialty Start Date End Date Liam Houston MD [address] [place] [address] [address] [address] [place] [address] PCP - General Family Medicine 04/26/22 documented as of this encounter
--- OUTSIDE RECORDS SUMMARY | 2025-02-24 17:07 | XMS_ITS | Encounter Summary ---
Author Organization [facility] Address [address] [place] [address] Care Team Providers Care Proposal Lead Writer Name Role Phone Liam Houston MD Primary Care Provider [phone] Encounter Details Date Type Department Care Team [...] Range: 0.60-0.93 Flag: N - eGFR NON-AFR. KOSOVAN: 66 Reference Range: > OR = 60 [...] 40 MG Oral Tablet;TAKE 2 TABLET BEDTIME; Tca666; R1; Rx Amended By: Mirian Francis 05/24/2012 [...] Non-Q-wave Myocardial Infarction - Subsequent Care Recent CA (8 Wks) (410.72) Normal Examination (V70.0) Osteoporosis [...] 40 MG Oral Tablet;TAKE 2 TABLET BEDTIME; Ktq150; R1; Rx. Signature Electronically signed by : Stephen Collier M.D.; 05/24/2012 1:09 PM EST. documented in this encounter Plan of Treatment Upcoming Encounters Date Type Department Care Team (Latest Contact Info) Description 03/09/2025 1:00 PM EDT Ancillary Procedure [facility] IMAGING SERVICES - [place] [address] [place] [address] Aristeo Schwartz MD [address] [place] [address] 03/13/2025 12:30 PM EDT Office Visit [facility] [place] [address] [facility] [address] [place] [address] [place] Houston MD 778100 [place] [address] [place], [place] [address] 03/19/2025 8:00 AM EST Hospital Encounter [facility] [address] [place] [address] Aristeo Schwartz MD [address] [place] [address] 03/19/2025 8:00 AM EST - 03/19/2025 11:11 AM EST Surgery [facility] [address] [place] [address] Aristeo Schwartz MD [address] [place] [address] WATCHMAN INSERTION 03/26/2025 1:00 PM EST Office Visit [address] [phone] Ellie Alcaraz, KAIT [address] [place] [address] 05/20/2025 3:00 PM EST Office Visit [facility] [address] 5th Floor, [place] [address] 08/05/2025 11:00 AM EDT Office Visit [facility] [address] [address], Peter [address] [place] [address] Scheduled Procedures Name Priority Associated Diagnoses Date/Ti [...] documented as of this encounter Care Teams Proposal Lead Writer Relationship Specialty Start Date End Date Liam Houston MD [address] [address] [address] [place] [address] PCP - General Family Medicine 04/26/22 documented as of this encounter
--- OUTSIDE RECORDS SUMMARY | 2025-02-24 17:07 | XMS_ITS | Encounter Summary ---
Author Organization [facility] Address [address] [place] [address] Care Team Providers Care Transit Police Officer Name Role Phone Liam Houston MD Primary Care Provider [phone] Reason for Referral * Evaluate and Treat [...] Expiration Date Visits Re quested Visits Authorized [id number] Closed 11/30/2016 11/30/2017 6 6 Encounter Details Date Type Department Care Team (Late st Contact Info) Description 11/29/2016 Orders Only [facility] Family Medicine - [address] [address] Bird Galeano MD [address] [place] [address] Osteoporosis, senile; Osteoporosis, unspecified osteoporosis type, [...] 1:00 PM EDT Ancillary Procedure [facility] [address] [place] [address] Aristeo Schwartz MD [address] [place] [address] 03/13/2025 12:30 PM EDT Office Visit [facility] [place] [address] [place] [address] [place] [address] Liam Houston MD [address] [place] [address] 200 [address] [place] [address] 03/19/2025 8:00 AM EST Hospital En[facility] [address] [place] [address] Aristeo Schwartz MD [address] [place] [address] 03/19/2025 8:00 AM EST - 03/19/2025 11:11 AM EST Surgery [facility] [address] [place] [address] [place] [address] Aristeo Schwartz MD [address] [place] [address] WATCHMAN INSERTION 03/26/2025 1:00 PM EST Office Visit [facility] Cardiovascular [place] - [address], [place] [address] Ellie Alcaraz, LINE OPERATOR [address] [place] [address] 05/20/2025 3:00 PM EST Office Visit [facility] [place] [place] [address] 5th Floor, [place] [address] 08/05/2025 11:00 AM EDT Office Visit [address], [address] [place] [address] Scheduled Procedures Name Priority Associated Diagnoses Date/Ti [...] unspecified osteoporosis type, unspecified pathological fracture presence Atrial fibrillation, unspecified type documented in this encounter Additional Health Concerns Infection Onset Date Last Indicated Resolved Time COVID-19 Rule-Out 11/24/2020 11/24/2020 11/24/2020 10:21 PM EDT COVID-19 (Confirmed) 11/24/2020 12/10/2020 0805/2 021 3:03 AM EDT COVID-19 Rule-Out 11/24/2020 11/25/2020 11/25/2020 5:14 AM EDT documented as of this encounter Care Teams Transit Police Officer Relationship Specialty Start Date End Date Liam Houston MD 580352 [place] [address] [address] [address] [place] [address] PCP - General Family Medicine 04/26/22 documented as of this encounter
--- OUTSIDE RECORDS SUMMARY | 2025-02-24 17:07 | XMS_ITS | Encounter Summary ---
Author Organization [facility] Address [address] [place] [address] Care Team Providers Care Uncrater Name Role Phone Liam Houston MD Primary Care Provider [phone] Encounter Details Date Type Department Care Team [...] Description 03/09/2025 1:00 PM EDT Ancillary Procedure [facility] IM[facility]ING SERVICES - [place] [address] [place] [address] Aristeo Schwartz MD [address] [place] [address] 03/13/2025 12:30 PM EDT Office Visit [facility] [place] [address] [place] [address] [place] [address] Liam Houston MD 564578 [facility] [address] [place], [place] [phone] 03/19/2025 8:00 AM EST Hospital [facility] [address] [place] [address] Aristeo Schwartz MD [address] [place] [address] 03/19/2025 8:00 AM EST - 03/19/2025 11:11 AM EST Surgery [facility] [address] [place] [address] Aristeo Schwartz MD [address] [place] [address] WATCHMAN INSERTION 03/26/2025 1:00 PM EST Office Visit [address] [phone] Ellie Alcaraz, SENIOR JAVA J2EE DEVELOPER [address] [place] [address] 05/20/2025 3:00 PM EST Office Visit [address] [phone] 08/05/2025 11:00 AM EDT Office Visit [facility] [address] [place] [address], Peter [address] [place] [address] Scheduled Procedures Name Priority Associated Diagnoses Date/Ti [...] documented as of this encounter Care Teams Uncrater Relationship Specialty Start Date End Date Liam Houston MD 535[address] [place] [address] [address] [address] [place] [address] PCP - General Family Medicine 04/26/22 documented as of this encounter
--- OUTSIDE RECORDS SUMMARY | 2025-02-24 17:07 | XMS_ITS | Encounter Summary ---
Author Organization [facility] Address [address] [place] [address] Care Team Providers Care Museum Attendant Name Role Phone Liam Houston MD Primary Care Provider [phone] Encounter Details Date Type Department Care Team [...] encounter Procedure Notes * See Allscripts - 11/19/2013 5:14 PM EDTAssociated Order(s): SCANNED RADIOLOGY - OUTSIDE AND OTHER documented in this encounter Plan of Treatment Upcoming Encounters Date Type Department Care Team (Latest Contact Info) Description 03/09/2025 1:00 PM EDT Ancillary Procedure [facility] [place] [address] [place] [address] Aristeo Schwartz MD [address] [place] [address] - [address] [place] [address] 03/13/2025 12:30 PM EDT Office Visit [facility] 077278 [place] [address] [place] [address] Liam Houston MD 399789 [place] [address] [place], [place] [phone] 03/19/2025 8:00 AM EST Hospital [facility] [address] [place] [address] Aristeo Schwartz MD [address] [place] [address] 03/19/2025 8:00 AM EST - 03/19/2025 11:11 AM EST Surgery [facility] [address] [place] [address] Aristeo Schwartz MD [address] [place] [address] 71367 WATCHMAN INSERTION 03/26/2025 1:00 PM EST Office Visit [address] [address] Ellie Alcaraz, MAINTENANCE TECH [address] [address] 05/20/2025 3:00 PM EST Office Visit [address] [address] 08/05/2025 11:00 AM EDT Office Visit [facility] [address] Juvencio Horvath, [facility] 3600 [place] [address] Scheduled Procedures Name Priority Associated Diagnoses Date/Ti [...] documented as of this encounter Care Teams Museum Attendant Relationship Specialty Start Date End Date Liam Houston MD 847645 [place] [address] [address] [place] [address] PCP - General Family Medicine 04/26/22 documented as of this encounter
--- OUTSIDE RECORDS SUMMARY | 2025-02-24 17:07 | XMS_ITS | Encounter Summary ---
Author Organization [facility] Address [address] [place] [address] Care Team Providers Care Log Data Technician Name Role Phone Liam Houston MD Primary Care Provider [phone] Encounter Details Date Type Department Care Team [...] Non-Q-wave Myocardial Infarction - Subsequent Care Recent [place] (8 Wks) (410.72) Normal Examination (V70.0) Osteoporosis [...] Procedure [facility] [place] [address] [place] [address] Aristeo Schwartz MD [address] [place] [address] - 5th [place] [address] 03/13/2025 12:30 PM EDT Office Visit [facility] 441881 [place] [address] [place] [address] Liam Houston MD 382993 [place] [address] [place] [address] 03/19/2025 8:00 AM EST Hospital [facility] [address] [place] [address] Aristeo Schwartz MD [address] [place] [address] 03/19/2025 8:00 AM EST - 03/19/2025 11:11 AM EST Surgery [facility] [address] [place] [address] Aristeo Schwartz MD [address] [place] [address] WATCHMAN INSERTION 03/26/2025 1:00 PM EST Office Visit [facility] [address] [phone] Ellie Alcaraz, ASSISTANT SALES CENTER MANAGER [address] [address] 05/20/2025 3:00 PM EST Office Visit [facility] [address] [place] [address] 08/05/2025 11:00 AM EDT Office Visit [facility] [address] Juvencio Horvath, [facility] [address]00 [place] [address] Scheduled Procedures Name Priority Associated Diagnoses Date/Ti [...] [facility] LDL Cholesterol 112 <130 [facility] 08/23/2012 us Stephen Collier MD BLOOD ORDERABLES Final Result [facility] documented in this encounter Visit Diagnoses Not on filedocumented in this encounter Additional Health Concerns Infection Onset Date Last Indicated Resolved Time COVID-19 Rule-Out 11/24/2020 11/24/2020 11/24/2020 10:21 PM EDT COVID-19 (Confirmed) 11/24/2020 12/10/2020 0805/ 021 3:03 AM EDT COVID-19 Rule-Out 11/24/2020 11/25/2020 11/25/2020 5:14 AM EDT documented as of this encounter Care Teams Log Data Technician Relationship Specialty Start Date End Date Liam Houston MD 224187 [place] [address] [place] [address] PCP - General Family Medicine 04/26/22 documented as of this encounter
--- OUTSIDE RECORDS SUMMARY | 2025-02-24 17:07 | XMS_ITS | Encounter Summary ---
Author Organization [facility] Address [address] [place] [address] Care Team Providers Care Franchise Sales Manager Name Role Phone Liam Houston MD Primary Care Provider [phone] Encounter Details Date Type Department Care Team [...] Procedure [facility] [place] [address] [place] [address] Aristeo Schwartz MD [address] [place] [address] 03/13/2025 12:30 PM EDT Office Visit [facility] 66[address] [facility] [address] [place] [address] [place] Houston [place] 978516 [facility] [address] [place], [place] [address] 03/19/2025 8:00 AM EST Hospital En[facility] [address] [place] [address] [place] [address] Aristeo Schwartz MD [address] [place] [address] 03/19/2025 8:00 AM EST - 03/19/2025 11:11 AM EST Surgery [facility] [address] [place] [address] Aristeo Schwartz MD [address] [place] [address] WATCHMAN INSERTION 03/26/2025 1:00 PM EST Office Visit [address] [address] Ellie Alcaraz, FIRMWARE ENGINEER [address] [address] 05/20/2025 3:00 PM EST Office Visit [facility] [address] [place] [address] 08/05/2025 11:00 AM EDT Office Visit [place] [address], Peter [address] [place] [address] Scheduled Procedures Name Priority Associated Diagnoses Date/Ti [...] documented as of this encounter Care Teams Franchise Sales Manager Relationship Specialty Start Date End Date Liam Houston MD [id number] [place] [address] [place] [address] PCP - General Family Medicine 04/26/22 documented as of this encounter
--- OUTSIDE RECORDS SUMMARY | 2025-02-24 17:07 | XMS_ITS | Encounter Summary ---
Author Organization [facility] Address [address] [place] [address] Care Team Providers Care Diesel Engine Mechanic Name Role Phone Liam Houston MD Primary Care Provider [phone] Encounter Details Date Type Department Care Team [...] Description 03/09/2025 1:00 PM EDT Ancillary Procedure [facility] [place] [address] [place] [address] Aristeo Schwartz MD [address] [place] [address] 03/13/2025 12:30 PM EDT Office Visit [facility] [place] [address] [facility] [address] [place] [address] Liam Houston MD 417891 [place] [address] [place] [address] 03/19/2025 8:00 AM EST Hospital En[facility] [address] [place] [address] [place] [address] Aristeo Schwartz MD [address] [place] [address] 03/19/2025 8:00 AM EST - 03/19/2025 11:11 AM EST Surgery [facility] [address] [place] [address] Aristeo Schwartz MD [address] [place] [address] WATCHMAN INSERTION 03/26/2025 1:00 PM EST Office Visit [address] [address] Ellie Alcaraz, KAIT [address] [place] [address] 05/20/2025 3:00 PM EST Office Visit [facility] [address] [place] [address] 08/05/2025 11:00 AM EDT Office Visit [facility] Cardiovascular [facility] [address] Juvencio Horvath, Peter [address] [place] [address] Scheduled Procedures Name Priority Associated [...] documented as of this encounter Care Teams Diesel Engine Mechanic Relationship Specialty Start Date End Date Liam Houston MD [id number] [place] [address] PCP - General Family Medicine 04/26/22 documented as of this encounter
--- OUTSIDE RECORDS SUMMARY | 2025-02-24 17:07 | XMS_ITS | Encounter Summary ---
Author Organization [facility] Address [address] [place] [address] Care Team Providers Care Layboy Operator Name Role Phone Liam Houston MD [...] Procedure [facility] [address] [place] [address] Aristeo Schwartz MD [address] [place] [address] 03/13/2025 12:30 PM EDT Office Visit [facility] 972207 [facility] [address] [place] [address] Liam Houston MD 136192 [facility] [address] [place], [place] [phone] 03/19/2025 8:00 AM EST Hospital En[facility] [address] [place] [address] [place] [address] Aristeo Schwartz MD [address] [place] [address] 03/19/2025 8:00 AM EST - 03/19/2025 11:11 AM EST [facility] [address] [place] [address] Aristeo Schwartz MD [address] [place] [address] WATCHMAN INSERTION 03/26/2025 1:00 PM EST Office Visit [address] [address] Ellie Alcaraz, TOOL OPERATOR [address] [address] 05/20/2025 3:00 PM EST Office Visit [facility] [address] [place] [address] 08/05/2025 11:00 AM EDT Office Visit [place] [address], Peter [address] [place] [address] Scheduled Procedures Name Priority Associated Diagnoses Date/Ti [...] documented as of this encounter Care Teams Layboy Operator Relationship Specialty Start Date End Date Liam Houston MD [address] [place] [address] [place] [address] PCP - General Family Medicine 04/26/22 documented as of this encounter
--- OUTSIDE RECORDS SUMMARY | 2025-02-24 17:07 | XMS_ITS | Encounter Summary ---
Author Organization [facility] Address [address] [place] [address] Care Team Providers Care Sheet Rock Finisher Name Role Phone Liam Houston MD Primary Care Provider [phone] Encounter Details Date Type Department Care Team [...] PM EDT Ancillary Procedure [facility] [place] [address] [address] Ruiz [facility] [address] Aristeo Schwatrz MD [address] [place] [address] 03/13/2025 12:30 PM EDT Office Visit [facility] [address] [facility] [address] [place] [address] Liam Houston MD 652567 [place] [address] [place] [address] 03/19/2025 8:00 AM EST Hospital En[facility] [address] [place] [address] Aristeo Schwartz MD [address] [place] [address] 03/19/2025 8:00 AM EST - 03/19/2025 11:11 AM EST [facility] [address] [place] [address] Aristeo Schwartz MD [address] [place] [address] WATCHMAN INSERTION 03/26/2025 1:00 PM EST Office Visit [address] [address] Ellie Alcaraz, OPERATIONS EXPERT [address] [address] 05/20/2025 3:00 PM EST Office Visit [facility] [address] [place] [address] 08/05/2025 11:00 AM EDT Office Visit [place] [address] Juvencio Colbertar, [facility] 3600 [place] [address] Scheduled Procedures Name Priority Associated Diagnoses Date/Ti [...] documented as of this encounter Care Teams Sheet Rock Finisher Relationship Specialty Start Date End Date Liam Houston MD [phone] [place] [address] [address] [place] [address] PCP - General Family Medicine 04/26/22 documented as of this encounter
--- OUTSIDE RECORDS SUMMARY | 2025-02-24 17:07 | XMS_ITS | Encounter Summary ---
Author Organization [facility] Address [address] [place] [address] Care Team Providers Care Roofing Supervisor Name Role Phone Liam Houston MD Primary Care Provider [phone] Encounter Details Date Type Department Care Team [...] Ancillary Procedure [facility] [address] [place] [address] Aristeo Schwartz MD [address] [place] [address] 03/13/2025 12:30 PM EDT Office Visit [facility] [address] [facility] [address] [place] [address] Liam Houston MD 5[address]99 [facility] [address] [place], [place] [address] 03/19/2025 8:00 AM EST Hospital En[facility] [address] [place] [address] Aristeo Schwartz MD [address] [place] [address] 03/19/2025 8:00 AM EST - 03/19/2025 11:11 AM EST [facility] [address] [place] [address] Aristeo Schwartz MD [address] [place] [address] WATCHMAN INSERTION 03/26/2025 1:00 PM EST Office Visit [address] [address] Ellie Alcaraz, SOAKERS SUPERVISOR [address] [address] 05/20/2025 3:00 PM EST Office Visit [address] [address] 08/05/2025 11:00 AM EDT Office Visit [address] Meka Fernandez, Peter [address] [place] [address] Scheduled Procedures Name Priority Associated Diagnoses Date/Ti [...] as of this encounter Care Teams Roofing Supervisor Relationship Specialty Start Date End Date Liam Houston MD 568587 [place] [address] [address] [address] [place] [address] PCP - General Family Medicine 04/26/22 documented as of this encounter
--- OUTSIDE RECORDS SUMMARY | 2025-02-24 17:07 | XMS_ITS | Encounter Summary ---
Author Organization [facility] Address [address] [place] [address] Care Team Providers Care Technical Photographer Name Role Phone Liam Houston MD Primary Care Provider [phone] Encounter Details Date Type Department Care Team [...] Procedure [facility] [address] [place] [address] Aristeo Schwartz MD [address] [place] [address] 03/13/2025 12:30 PM EDT Office Visit [facility] [address] [facility] [address] [place] [address] Liam Houston MD 186666 [place] [address] [place], [place] [address] 03/19/2025 8:00 AM EST Hospital En[facility] [address] [place] [address] Aristeo Schwartz MD [address] [place] [address] 03/19/2025 8:00 AM EST - 03/19/2025 11:11 AM EST [facility] [address] [place] [address] Aristeo Schwartz MD [address] [place] [address] WATCHMAN INSERTION 03/26/2025 1:00 PM EST Office Visit [address] [address] Ellie Alcaraz, KAIT [address] [address] 05/20/2025 3:00 PM EST Office Visit [address] [address] 08/05/2025 11:00 AM EDT Office Visit [place] [address] [address] [place] [address] Scheduled Procedures Name Priority Associated Diagnoses Date/Ti [...] documented as of this encounter Care Teams Technical Photographer Relationship Specialty Start Date End Date Liam Houston MD 220104 [place] [address] [address] [address] [place] [address] PCP - General Family Medicine 04/26/22 documented as of this encounter
--- OUTSIDE RECORDS SUMMARY | 2025-02-24 17:07 | XMS_ITS | Encounter Summary ---
Author Organization [facility] Address [address] [place] [address] Care Team Providers Care Truck Service Manager Name Role Phone Liam Houston MD Primary Care Provider [phone] Encounter Details Date Type Department Care Team [...] Description 03/09/2025 1:00 PM EDT Ancillary Procedure [facility] [address] [place] [address] Aristeo Schwartz MD [address] [place] [address] 03/13/2025 12:30 PM EDT Office Visit [facility] [address] [facility] [address] [place] [phone] Liam Houston MD [address] [place] [address] [address] [place] [address]1887[address] 03/19/2025 8:00 AM EST Hospital En[facility] [address] [place] [address] Aristeo Schwartz MD [address] [place] [address] 03/19/2025 8:00 AM EST - 03/19/2025 11:11 AM EST Surgery [facility] [address] [place] [address] Aristeo Schwartz MD [address] [place] [address] WATCHMAN INSERTION 03/26/2025 1:00 PM EST Office Visit [facility] [place] - [address] [phone] Ellie Alcaraz, PHARMACOLOGY ASSOCIATE [address] [place] [address] 05/20/2025 3:00 PM EST Office Visit [facility] [address] 5th Floor, [place] [address] 08/05/2025 11:00 AM EDT Office Visit [facility] [address] [address], Peter [address] [place] [address] Scheduled Procedures Name Priority Associated [...] documented as of this encounter Care Teams Truck Service Manager Relationship Specialty Start Date End Date Liam Houston MD 985386 [place] [address] [address] [place] [address] PCP - General Family Medicine 04/26/22 documented as of this encounter
--- OUTSIDE RECORDS SUMMARY | 2025-02-24 17:07 | XMS_ITS | Encounter Summary ---
Author Organization [facility] Address [address] [place] [address] Care Team Providers Care Camp Cook Name Role Phone Liam Houston MD Primary Care Provider [phone] Encounter Details Date Type Department Care Team [...] has new complaint of spot om right jew,fasting for lipid check otherwise all other ROS [...] 04/13/06. Plan Single SK Tx on right jew labs Pt has never had HTN, does have + FH, she will check at [facility] and if >140/90 return sooner O/W FY3 months. Signature Signed By: Stephen Collier M.D.; 05/29/2007 12:56 PM EST. documented in this encounter Plan of Treatment Upcoming Encounters Date Type Department Care Team (Latest Contact Info) Description 03/09/2025 1:00 PM EDT Ancillary Procedure [facility] - [facility] [address] [place] [address] Aristeo Schwartz MD [address] [place] [address] - 5th [place] [address] 03/13/2025 12:30 PM EDT Office Visit [facility] - [place] [address] [place] [address] [place] [address] Liam Houston MD [address] [place] [address] 200 [address] [place] [address] 03/19/2025 8:00 AM EST Hospital [facility] [address] [place] [address] Aristeo Schwartz MD [address] [place] [address] 03/19/2025 8:00 AM EST - 03/19/2025 11:11 AM EST Surgery [facility] [address] [place] [address] Aristeo Schwartz MD [address] [place] [address] WATCHMAN INSERTION 03/26/2025 1:00 PM EST Office Visit [address] [phone] Ellie Alcaraz, BUSINESS OFFICE REPRESENTATIVE [address] [address] 05/20/2025 3:00 PM EST Office Visit [address] [address] 08/05/2025 11:00 AM EDT Office Visit [place] [address] Juvencio Horvath, [facility] 3600 [place] [address] Scheduled Procedures Name Priority Associated Diagnoses Date/Ti [...] documented as of this encounter Care Teams Camp Cook Relationship Specialty Start Date End Date Liam Houston MD 415319 [place] [address] [address] [place] [address] PCP - General Family Medicine 04/26/22 documented as of this encounter
--- OUTSIDE RECORDS SUMMARY | 2025-02-24 17:07 | XMS_ITS | Encounter Summary ---
Author Organization [facility] Address [address] [place] [address] Care Team Providers Care Head Charger Name Role Phone Liam Houston MD Primary Care Provider [phone] Encounter Details Date Type Department Care Team (Late st Contact Info) Description 06/04/2006 Documentation Encounter [facility] CONV Stephen [...] Procedure [facility] [place] [address] [place] [address] Aristeo Schwartz MD [address] [place] [address] - 5th [place], [place] 88[address] 03/13/2025 12:30 PM EDT Office Visit [facility] [id number] [facility] [place] [address] Liam Houston MD 782438 [place] [address] [place] [address] 03/19/2025 8:00 AM EST [facility] [address] [place] [address] Aristeo Schwartz MD [address] [place] [address] 03/19/2025 8:00 AM EST - 03/19/2025 11:11 AM EST [facility] [address] [place] [address] Aristeo Schwartz MD [address] [place] [address] WATCHMAN INSERTION 03/26/2025 1:00 PM EST Office Visit [facility] [address] [place] [phone] Ellie Alcaraz, WOUND CARE CENTER CONSULTANT [address] [address] 05/20/2025 3:00 PM EST Office Visit [facility] [address] [address] 08/05/2025 11:00 AM EDT Office Visit [facility] [address] Juvencio Colberty, [facility] 3600 [place] [address] Scheduled Procedures Name Priority Associated Diagnoses Date/Ti [...] documented as of this encounter Care Teams Head Charger Relationship Specialty Start Date End Date Liam Houston MD 486018 [place] [address] [address] [place] [address] PCP - General Family Medicine 04/26/22 documented as of this encounter
--- OUTSIDE RECORDS SUMMARY | 2025-02-24 17:07 | XMS_ITS | Encounter Summary ---
Author Organization [facility] Address [address] [place] [address] Care Team Providers Care Ux Research Associate Name Role Phone Liam Houston MD Primary Care Provider [phone] Encounter Details Date Type Department Care Team [...] Ancillary Procedure [facility] [place] [address] [place] [address] Aristeo Schwartz MD [address] [place] [address] 03/13/2025 12:30 PM EDT Office Visit [facility] 258038 [place] [address] [place] [address] Liam Houston MD 967403 [place] [address] [place], [place] [phone] 03/19/2025 8:00 AM EST Hospital En[facility] [address] [place] [address] [place] [address] Aristeo Schwartz MD [address] [place] [address] 03/19/2025 8:00 AM EST - 03/19/2025 11:11 AM EST [facility] [address] [place] [address] [place] [address] Aristeo Schwartz MD [address] [place] [address] WATCHMAN INSERTION 03/26/2025 1:00 PM EST Office Visit [facility] [address] 5th Floor, [place] [address] Ellie Alcaraz, BI MANAGER [address] [facility] 5th [place] [address] 05/20/2025 3:00 PM EST Office Visit [facility] [address] 5th Floor, [place] [address] 08/05/2025 11:00 AM EDT Office Visit [place] [address] Juvencio Estradat [facility] 3600 [place] [address] Scheduled Procedures Name Priority Associated Diagnoses Date/Ti [...] documented as of this encounter Care Teams Ux Research Associate Relationship Specialty Start Date End Date Liam Houston MD 078209 [place] [address] [address] [place] [address] PCP - General Family Medicine 04/26/22 documented as of this encounter
--- OUTSIDE RECORDS SUMMARY | 2025-02-24 17:07 | XMS_ITS | Encounter Summary ---
Author Organization [facility] Address [address] [place] [address] Care Team Providers Care Glazing Superintendent Name Role Phone Liam Houston MD Primary Care Provider [phone] Encounter Details Date Type Department Care Team [...] for follow coin lesion on the right yazidism which was treated with liquid nitrogen again on her corn which he is treating with qodo-psd-zdjdtfq salicylate medication. She states that the lesion on the right yazidism which was of some concern eventually resolved. [...] area treated with liquid nitrogen in right yazidism shows good resolution no plan at this [...] Procedure [facility] [address] [place] [address] Aristeo Schwartz MD [address] - 5th [place] [address] 03/13/2025 12:30 PM EDT Office Visit [facility] - [place] [address] [place] [address] Liam Houston MD [address] [place] [address] 03/19/2025 8:00 AM EST Hospital Encounter [facility] [address] [place] [address] Aristeo Schwartz MD [address] [place] [address] 03/19/2025 8:00 AM EST - 03/19/2025 11:11 AM EST Surgery [facility] [address] [place] [address] Aristeo Schwartz MD [address] [place] [address] WATCHMAN INSERTION 03/26/2025 1:00 PM EST Office Visit [address] [phone] Ellie Alcaraz, LOG BUYER [address] [place] [address] 05/20/2025 3:00 PM EST Office Visit [address] [address] 08/05/2025 11:00 AM EDT Office Visit [address] [facility] [address] [place] [address] Scheduled Procedures Name Priority Associated Diagnoses Date/Ti [...] documented as of this encounter Care Teams Glazing Superintendent Relationship Specialty Start Date End Date Liam Houston MD 723596 [place] [address] [address] [place] [phone] PCP - General Family Medicine 04/26/22 documented as of this encounter
--- OUTSIDE RECORDS SUMMARY | 2025-02-24 17:07 | XMS_ITS | Encounter Summary ---
Author Organization [facility] Address [address] [place] [address] Care Team Providers Care Glass Technician/Installer Name Role Phone Liam Houston MD Primary Care Provider [phone] Encounter Details Date Type Department Care Team (Late st Contact Info) Description 04/19/2012 Documentation Encounter SANJEEV [...] PM EDT Ancillary Procedure [facility] [address] [place] [address] Aristeo Schwartz MD [address] [place] [address] 03/13/2025 12:30 PM EDT Office Visit [facility] - [place] [address] [place] [address] Liam Houston MD 788288 [address] [place], [place] [phone] 03/19/2025 8:00 AM EST Hospital Encounter [facility] [address] [place] [address] Aristeo Schwartz MD [address] [place] [address] 03/19/2025 8:00 AM EST - 03/19/2025 11:11 AM EST Surgery [facility] [address] [place] [address] Aristeo Schwartz MD [address] [place] [address] WATCHMAN INSERTION 03/26/2025 1:00 PM EST Office Visit [address] [address] Ellie Alcaraz, BROOCH MAKER NOVELTY [address] [place] [address] 05/20/2025 3:00 PM EST Office Visit [address] [address] 08/05/2025 11:00 AM EDT Office Visit [facility] [address] Juvencio Horvath, Peter [address] [place] [address] Scheduled Procedures Name Priority Associated [...] documented as of this encounter Care Teams Glass Technician/Installer Relationship Specialty Start Date End Date Liam Houston MD 446763 [place] [address] [address] [place] [address] PCP - General Family Medicine 04/26/22 documented as of this encounter
--- OUTSIDE RECORDS SUMMARY | 2025-02-24 17:08 | XMS_ITS | Encounter Summary ---
Author Organization [facility] Address [address] [place] [address] Care Team Providers Care Armhole Feller Handstitching Machine Name Role Phone Liam Houston MD Primary Care Provider [phone] Encounter Details Date Type Department Care Team [...] Description 03/09/2025 1:00 PM EDT Ancillary Procedure [facility] [place] [address] [place] [address] Aristeo Schwartz MD [address] [place] [address] 03/13/2025 12:30 PM EDT Office Visit [facility] [address] [place] [address] Liam Houston MD [address] [place] [address] Road [address] [place], [place] [phone] 03/19/2025 8:00 AM EST Hospital Encounter [facility] [address] [place] [address] Aristeo Schwartz MD [address] [place] [address] 03/19/2025 8:00 AM EST - 03/19/2025 11:11 AM EST Surgery [facility] [address] [place] [address] Aristeo Schwartz MD [address] [place] [address] WATCHMAN INSERTION 03/26/2025 1:00 PM EST Office Visit [address] [phone] Ellie Alcaraz, COMPUTER SUPPORT SPECIALIST [address] [place] [address] 05/20/2025 3:00 PM EST Office Visit [address] [address] 08/05/2025 11:00 AM EDT Office Visit [place] 6844455 Juvencio Horvath, Peter [address] [place] [address] Scheduled Procedures Name Priority Associated Diagnoses Date/Ti [...] documented as of this encounter Care Teams Armhole Feller Handstitching Machine Relationship Specialty Start Date End Date Liam Houston MD 677376 [place] [address] [address] [place] [address] PCP - General Family Medicine 04/26/22 documented as of this encounter
--- OUTSIDE RECORDS SUMMARY | 2025-02-24 17:08 | XMS_ITS | Encounter Summary ---
Author Organization [facility] Address [address] [place] [address] Care Team Providers Care Window And Siding Craftsman Name Role Phone Liam Houston MD Primary Care Provider [phone] Encounter Details Date Type Department Care Team [...] Description 03/09/2025 1:00 PM EDT Ancillary Procedure [facility] [place] [address] [place] [address] Aristoe Schwartz MD [address] - 5th [place] [address] 03/13/2025 12:30 PM EDT Office Visit [facility] [address] [place] [address] Liam Houston MD 572362 [address] [place], [place] [phone] 03/19/2025 8:00 AM EST Hospital Encounter [facility] [address] [place] [address] Aristeo Schwartz MD [address] [place] [address] 03/19/2025 8:00 AM EST - 03/19/2025 11:11 AM EST Surgery [facility] [address] [place] [address] Aristeo Schwartz MD [address] [place] [address] WATCHMAN INSERTION 03/26/2025 1:00 PM EST Office Visit [facility] - [address] [phone] Ellie Alcaraz, OIL SPOT WASHER [address] [address] 05/20/2025 3:00 PM EST Office Visit [address] [address] 08/05/2025 11:00 AM EDT Office Visit [place] [address] Juvencio Horvath, [facility] 4850 [place] [address] Scheduled Procedures Name Priority Associated Diagnoses Date/Ti [...] documented as of this encounter Care Teams Window And Siding Craftsman Relationship Specialty Start Date End Date Liam Houston MD 218994 [place] [address] [address] [place] [address] PCP - General Family Medicine 04/26/22 documented as of this encounter
--- OUTSIDE RECORDS SUMMARY | 2025-02-24 17:08 | XMS_ITS | Encounter Summary ---
Author Organization [facility] Address [address] [place] [address] Care Team Providers Care Certification Engineer Name Role Phone Liam Houston MD Primary Care Provider [phone] Reason for Visit * Reason Onset Date Comments Labs Only 01/29/2025 Encounter Details Date Type Department Care Team (Late st Contact Info) Description 01/29/[address] [place] [address] Aristeo Schwartz MD [address] - 5th [place] [address] Labs Only Social History Tobacco Use Types Packs/Day Years Used Date Smoking Tobacco: Never Smokeless Tobacco: Never Alcohol Use Standard Drinks/Week Comments Never 1 (1 standard drink = 0.6 oz pur e alcohol) once a year [facility] Utilities Answer Date Recorded In the past 12 months has [employer] electric, gas, oil, or water company threatened to shut off services in your [...] often do you attend chur ch or roman catholic services? Never 04/26/2022 Do you belong to any clubs o r organizations such as buddhist groups, unions, fraternal or athletic groups, or [...] and heating? Not hard at all 04/26/2022 [facility] - Occupational [...] place to sleep or slept in a detention (including now)? No 04/26/2022 PHQ-2 Risk Classification [...] as of this encounter Miscellaneous Notes * Telephone Encounter - Juan Carlos Thomas - 01/29/2025 4:29 PM EDT Pt of Schwartz Medicare [employer] Pt daughter is calling to see if lab work can be put in for the pt before she comes to her appt on 02/18/2025 and those results be discussed during the appt. Please call back to reach out via Telebit. documented in this encounter Plan of Treatment Upcoming Encounters Date Type Department Care Team (Latest Contact Info) Description 03/09/2025 1:00 PM EDT Ancillary Procedure [facility] [address] [place] [address] Aristeo Schwartz MD [address] - [address]th [place] [address] 03/13/2025 12:30 PM EDT Office Visit [facility] Family Medicine - [place] [address] [facility] [address] [place] [address] Liam Houston MD [address] [facility] [address] [place] [address] 03/19/2025 8:00 AM EST Hospital En[facility] [address] [place] [address] Aristeo Schwartz MD [address] [place] [address] 03/19/2025 8:00 AM EST - 03/19/2025 11:11 AM EST Surgery [facility] [address] [place] [address] Aristeo Schwartz MD [address] [place] [address]314 WATCHMAN INSERTION 03/26/2025 1:00 PM EST Office Visit [address] [address] Ellie Alcaraz, PRODUCTION ARTIST [address] [address] 05/20/2025 3:00 PM EST Office Visit [address] [phone] 08/05/2025 11:00 AM EDT Office Visit [place] [address] Juvencio Colbertdc, [facility] [address] [place] [address] Scheduled Procedures Name Priority Associated Diagnoses Date/Ti me WATCHMAN INSERTION Atrial fibrillation, unspecified type 03/19/2025 8:00 AM EST documented as of this encounter Goals Goal Patient Goal Type Associated Problems Recent Progress Patient-Stated? Author Eat more fruits and vegetables Diet On track( 1:27 PM EDT) No Dorothea Gibson MA Increase water intake Diet On track( 1:27 PM EDT) No Dorothea Gibson MA Exercise 150 minutes per week (moderate activity) Exercise On track(05/01/2 025 1:27 PM EDT) No Dorothea Gibson MA documented as of this encounter Visit Diagnoses Not on filedocumented in this encounter Care Teams Certification Engineer Relationship Specialty Start Date End Date Liam Houston MD 237513 [place] [address] [address] [place] [address] PCP - General Family Medicine 04/26/22 documented as of this encounter
--- OUTSIDE RECORDS SUMMARY | 2025-02-24 17:08 | XMS_ITS | Encounter Summary ---
Author Organization [facility] Address [address] [place] [address] Care Team Providers Care Assistant To The Dean Name Role Phone Liam Houston MD Primary Care Provider [phone] Encounter Details Date Type Department Care Team [...] Tablet;TAKE 1 TABLET DAILY.; RPT Polymyxin B-Trimethoprim 76184-5.1 UNIT/ML-% Solution;APPLY TO AFFECTED EYE(S) EVERY 3-4 [...] Description 03/09/2025 1:00 PM EDT Ancillary Procedure [facility] [address] [place] [address] Aristeo Schwartz MD [address] [place] [address] 03/13/2025 12:30 PM EDT Office Visit [facility] Family Medicine - [place] [address] [facility] [address] [place] [address] Liam Houston MD 009153 [place] [address] [place] [address] 03/19/2025 8:00 AM EST Hospital Encounter [facility] [address] [place] [address] Aristeo Schwartz MD [address] [place] [address] 03/19/2025 8:00 AM EST - 03/19/2025 11:11 AM EST Surgery [facility] [address] [place] [address] Aristeo Schwartz MD [address] [place] [address] WATCHMAN INSERTION 03/26/2025 1:00 PM EST Office Visit [address] [address] Ellie Alcaraz, KAIT [address] [place] [address] 05/20/2025 3:00 PM EST Office Visit [facility] [address] [place] [address] 08/05/2025 11:00 AM EDT Office Visit [facility] Cardiovascular [facility] [address], Peter [address] [place] [address] Scheduled Procedures Name Priority Associated [...] as of this encounter Care Teams Assistant To The Dean Relationship Specialty Start Date End Date Liam Houston MD 323477 [place] [address] [address] [place] [address] PCP - General Family Medicine 04/26/22 documented as of this encounter
--- OUTSIDE RECORDS SUMMARY | 2025-02-24 17:08 | XMS_ITS | Encounter Summary ---
Author Organization [facility] Address [address] [place] [address] Care Team Providers Care Deep Submergence Vehicle Operator Name Role Phone Liam Houston MD Primary Care Provider [phone] Encounter Details Date Type Department Care Team [...] for audiology/ENT evaluation. ASPEN LICONA MD D: [id number] MT: [id number] Dictator: [id number] Confirmation Number: [id number] ([id number]) Electronically signed by:Cathy Licona M.D. Jan 05 2005 6:03PM EST documented in this encounter Plan of Treatment Upcoming Encounters Date Type Department Care Team (Latest Contact Info) Description 03/09/2025 1:00 PM EDT Ancillary Procedure [facility] [address] [place] [address] Ariseto Schwartz MD [address] [place] [address] 03/13/2025 12:30 PM EDT Office Visit [facility] Family Medicine - [place] [address] [place] [phone] Liam Houston MD [address] [place] [address] 03/19/2025 8:00 AM EST Hospital Encounter [facility] [address] [place] [address] [place] [address] Aristeo Schwartz MD [address] [place] [address] 03/19/2025 8:00 AM EST - 03/19/2025 11:11 AM EST [facility] [address] [place] [address] Aristeo Schwartz MD [address] [place] [address] WATCHMAN INSERTION 03/26/2025 1:00 PM EST Office Visit [facility] [address] [place] [phone] Kieran Ellie Garcia, DERMATOLOGY PROCEDURAL PHYSICIAN [address] [address] 05/20/2025 3:00 PM EST Office Visit [facility] [address] [phone] 08/05/2025 11:00 AM EDT Office Visit [address], [facility] [address] [place] [address] Scheduled Procedures Name Priority Associated Diagnoses Date/Ti [...] as of this encounter Care Teams Deep Submergence Vehicle Operator Relationship Specialty Start Date [place] Date Liam Houston [place] 24[address] [place] [address] [address] [place] [address] PCP - General Family Medicine 04/26/22 documented as of this encounter
--- OUTSIDE RECORDS SUMMARY | 2025-02-24 17:08 | XMS_ITS | Encounter Summary ---
Author Organization [facility] Address [address] [place] [address] Care Team Providers Care Earthmoving Plant Operator Name Role Phone Liam Houston MD Primary Care Provider [phone] Encounter Details Date Type Department Care Team [...] 03/09/2025 1:00 PM EDT Ancillary Procedure [facility] [place] [address] [place] [address] Ariseto Schwartz MD [address] [place] [address] - 5th [place] [address] 03/13/2025 12:30 PM EDT Office Visit [facility] 17[address]64 [place] [address] [place] [address] Liam Houston MD 432754 [place] [address] [place] [address] 03/19/2025 8:00 AM EST Hospital En[facility] [address] [place] [address] Aristeo Schwartz MD [address] [place] [address] 03/19/2025 8:00 AM EST - 03/19/2025 11:11 AM EST Surgery [facility] [address] [place] [address] Aristeo Schwartz MD [address] [place] [address] WATCHMAN INSERTION 03/26/2025 1:00 PM EST Office Visit [facility] - [address] [address] Ellie Alcaraz, KAIT [address] [address] 05/20/2025 3:00 PM EST Office Visit [facility] [address] [place] [address] 08/05/2025 11:00 AM EDT Office Visit [place] [address] Juvencio Horvath, [facility] 4280 [place] [address] Scheduled Procedures Name Priority Associated Diagnoses Date/Ti [...] documented as of this encounter Care Teams Earthmoving Plant Operator Relationship Specialty Start Date End Date Liam Houston MD 695346 [place] [address] [address] [place] [address] PCP - General Family Medicine 04/26/22 documented as of this encounter
--- OUTSIDE RECORDS SUMMARY | 2025-02-24 17:08 | XMS_ITS | Encounter Summary ---
Author Organization [facility] Address [address] [place] [address] Care Team Providers Care Fitter Welder Name Role Phone Liam Houston MD Primary Care Provider [phone] Encounter Details Date Type Department Care Team [...] eachfall one over a curb while visiting [place] storms or great and one off of [...] 1:00 PM EDT Ancillary Procedure [facility] [place] [address] [place] [address] Aristeo Schwartz MD [address] [place] [address] - 5th [place] [address] 03/13/2025 12:30 PM EDT Office Visit [facility] Family Medicine - [place] [address] [address] [place] [address] Liam Houston MD [address] [place] [address] 200 [address] [place] [address] 03/19/2025 8:00 AM EST Hospital [facility] [address] [place] [address] Aristeo Schwartz MD [address] [place] [address] 03/19/2025 8:00 AM EST - 03/19/2025 11:11 AM EST Surgery [facility] [address] [place] [address] Aristeo Schwartz MD [address] [place] [address] WATCHMAN INSERTION 03/26/2025 1:00 PM EST Office Visit [facility] [address] [phone] Ellie Alcaraz, CANNERY WORKER [address] [address] 05/20/2025 3:00 PM EST Office Visit [facility] [address] [place] [phone] 08/05/2025 11:00 AM EDT Office Visit [place] [address] Juvencio Ackerman [facility], [facility] [address] [place] [phone] Scheduled Procedures Name Priority Associated Diagnoses Date/Ti [...] documented as of this encounter Care Teams Fitter Welder Relationship Specialty Start Date End Date Liam Houston MD 927068 [place] [address] [address] [place] [address] PCP - General Family Medicine 04/26/22 documented as of this encounter
--- OUTSIDE RECORDS SUMMARY | 2025-02-24 17:08 | XMS_ITS | Encounter Summary ---
Author Organization [facility] Address [address] [place] [address] Care Team Providers Care Contractor Broomcorn Threshing Name Role Phone Liam Houston MD Primary Care Provider [phone] Encounter Details Date Type Department Care Team [...] Description 03/09/2025 1:00 PM EDT Ancillary Procedure [facility] [place] [address] [place] [address] Aristeo Schwartz MD [address] [place] [address] 03/13/2025 12:30 PM EDT Office Visit [facility] [address] [place] [address] [place] [address] [place] Houston MD 54[address]25 [facility] [address] [place], [place] [address] 03/19/2025 8:00 AM EST Hospital En[facility] [address] [place] [address] Aristeo Schwartz MD [address] [place] [address] 03/19/2025 8:00 AM EST - 03/19/2025 11:11 AM EST Surgery [facility] [address] [place] [address] Aristeo Schwartz MD [address] [place] [address] WATCHMAN INSERTION 03/26/2025 1:00 PM EST Office Visit [address] [phone] Ellie Alcaraz, LIVESTOCK YARD ATTENDANT [address] [place] [address] 05/20/2025 3:00 PM EST Office Visit [address] [phone] 08/05/2025 11:00 AM EDT Office Visit [facility] [address] [place] Meka Colberty, Peter [address] [place] [address] Scheduled Procedures Name Priority Associated Diagnoses Date/Ti [...] documented as of this encounter Care Teams Contractor Broomcorn Threshing Relationship Specialty Start Date End Date Liam Houston MD 987354 [place] [address] [address] [place] [address] PCP - General Family Medicine 04/26/22 documented as of this encounter
--- OUTSIDE RECORDS SUMMARY | 2025-02-24 17:08 | XMS_ITS | Encounter Summary ---
Author Organization [facility] Address [address] [place] [address] Care Team Providers Care Teletype Or Varitype Keyboard Operator Name Role Phone Liam Houston MD Primary Care Provider [phone] Encounter Details Date Type Department Care Team [...] PM EST Chief Complaint check spot on jain Subjective 69 year female here for sore on left jain, 2 months, scabs then clears and rescabs. Distant hx onlesion removal from nose with unknown path. All other ROS otherwise neg. . Allergies No Known Drug Allergy. Current Meds Zocor 40 MG Tablet;TAKE 1 TABLET DAILY.; RPT Premarin 0.625 MG Tablet;TAKE 1 TABLET DAILY.; RPT Polymyxin B-Trimethoprim 34022-2.1 UNIT/ML-% Solution;APPLY TO AFFECTED EYE(S) EVERY 3-4 HOURS.; Rx Fosamax 10 MG Tablet;TAKE 1 TABLET DAILY.; Rx. Active Problems Conjunctivitis (892.30) Hyperlipidemia (272.4) Normal Examination (V70.0) Osteoporosis (733.00). [...] 97.6 F, Weight: 140 lb. Objective Left jain 1 cm oval red lesion, firm w/ [...] PM EDT Ancillary Procedure [facility] [address] [place] [address] Aristeo Schwartz MD [address] [place] [address] 03/13/2025 12:30 PM EDT Office Visit [facility] Family Medicine - [place] [address] [place] [address] [place] [phone] Liam Houston MD [address] [place] [address] [phone] 03/19/2025 8:00 AM EST Hospital [facility] [address] [place] [address] [place] [address] Aristeo Schwartz MD [address] [place] [address] 03/19/2025 8:00 AM EST - 03/19/2025 11:11 AM EST Surgery [facility] [address] [place] [address] Aristeo Schwartz MD [address] [place] [address] WATCHMAN INSERTION 03/26/2025 1:00 PM EST Office Visit [facility] [place] [address] [place] [phone] Ellie Alcaraz, KAIT [address] [place] [address] 05/20/2025 3:00 PM EST Office Visit [address] [phone] 08/05/2025 11:00 AM EDT [facility] [address] [facility] [address] [place] [phone] Scheduled Procedures Name Priority Associated Diagnoses Date/Ti [...] documented as of this encounter Care Teams Teletype Or Varitype Keyboard Operator Relationship Specialty Start Date End Date Liam Houston MD [address] [address] [address] [place] [address] PCP - General Family Medicine 04/26/22 documented as of this encounter
--- OUTSIDE RECORDS SUMMARY | 2025-02-24 17:08 | XMS_ITS | Encounter Summary ---
Author Organization [facility] Address [address] [place] [address] Care Team Providers Care Mold Repairer Name Role Phone Liam Houston MD Primary Care Provider [phone] Encounter Details Date Type Department Care Team [...] Ancillary Procedure [facility] [place] [address] [place] [address] Aristeo Schwartz MD [address] [place] [address] 03/13/2025 12:30 PM EDT Office Visit [facility] [address] [facility] [address] [place] [phone] [place] Huoston MD 85[address]57 [facility] [address] [place], [place] [phone] 03/19/2025 8:00 AM EST Hospital En[facility] [address] [place] [address] Aristeo Schwartz MD [address] [place] [address] 03/19/2025 8:00 AM EST - 03/19/2025 11:11 AM EST Surgery [facility] [address] [place] [address] Aristeo Schwartz MD [address] [place] [address] WATCHMAN INSERTION 03/26/2025 1:00 PM EST Office Visit [address] [phone] Ellie Alcaraz, BOOSTER PUMP OILER [address] [address] 05/20/2025 3:00 PM EST Office Visit [address] [phone] 08/05/2025 11:00 AM EDT Office Visit [address] Meka Fernandez, Peter [address] [place] [phone] Scheduled Procedures Name Priority Associated Diagnoses Date/Ti [...] documented as of this encounter Care Teams Mold Repairer Relationship Specialty Start Date End Date Liam Houston MD [id number] [address] [address] [place] [address] PCP - General Family Medicine 04/26/22 documented as of this encounter
--- OUTSIDE RECORDS SUMMARY | 2025-02-24 17:08 | XMS_ITS | Encounter Summary ---
Author Organization [facility] Address [address] [place] [address] Care Team Providers Care Professor Of History Name Role Phone Liam Houston MD Primary Care Provider [phone] Encounter Details Date Type Department Care Team [...] Tablet;TAKE 1 TABLET DAILY.; RPT Polymyxin B-Trimethoprim 94820-1.1 UNIT/ML-% Solution;APPLY TO AFFECTED EYE(S) EVERY 3-4 [...] Description 03/09/2025 1:00 PM EDT Ancillary Procedure [facility] [address] [place] [address] Aristeo Schwartz MD [address] [place] [address] - 5th [place] [address] 03/13/2025 12:30 PM EDT Office Visit [facility] Family Medicine - [place] [address] [place] [address] [place] [address] Liam Houston MD [id number] [place] [address] [address] [place], [place] [phone] 03/19/2025 8:00 AM EST Hospital Encounter [facility] [address] [place] [address] Aristeo Schwartz MD [address] [place] [address] 03/19/2025 8:00 AM EST - 03/19/2025 11:11 AM EST Surgery [facility] [address] [place] [address] Aristeo Schwartz MD [address] [place] [address] WATCHMAN INSERTION 03/26/2025 1:00 PM EST Office Visit [facility] - [address] [phone] Ellie Alcaraz, DENTISTRY PROFESSOR [address] [place] [address] 05/20/2025 3:00 PM EST Office Visit [facility] - [address] [phone] 08/05/2025 11:00 AM EDT Office Visit [address], [facility] [address] [place] [address] Scheduled Procedures Name Priority Associated Diagnoses Date/Ti ga WATCHMAN INSERTION Atrial fibrillation, unspecified type 03/19/2025 [...] documented as of this encounter Care Teams Professor Of History Relationship Specialty Start Date End Date Liam Houston MD [address] [address] [address] [place] [address] PCP - General Family Medicine 04/26/22 documented as of this encounter
--- OUTSIDE RECORDS SUMMARY | 2025-02-24 17:08 | XMS_ITS | Encounter Summary ---
Author Organization [facility] Address [address] [place] [address] Care Team Providers Care Electrician Ship Name Role Phone Liam Houston MD Primary [...] Influenza Site: left arm Manufacture: [employer] Lot #[id number] Exp: 11/10/06. Health Mgmt Plan Pap smear, [...] Procedure [facility] [place] [address] [place] [address] Aristeo Schwartz MD [address] [place] [address] 03/13/2025 12:30 PM EDT Office Visit [facility] Family Medicine - [place] [address] [place] [address] [place] [phone] Liam Houston MD [address] [place] [address] [place] [address] [phone] 03/19/2025 8:00 AM EST Hospital En[facility] [address] [place] [address] [place] [address] Aristeo Schwartz MD [address] [place] [address] 03/19/2025 8:00 AM EST - 03/19/2025 11:11 AM EST Surgery [facility] [address] [place] [address] [place] [address] Aristeo Schwartz MD [address] [place] [address] WATCHMAN INSERTION 03/26/2025 1:00 PM EST Office Visit [facility] [address] 5th Floor, [place] [address] Ellie Alcaraz, PHYSICAL TESTING SUPERVISOR [address] [facility] 5[address] [place] [address] 05/20/2025 3:00 PM EST Office Visit [facility] [address] 5th Floor, [place] [address] 08/05/2025 11:00 AM EDT Office Visit [address] [facility] [address] [place] [phone] Scheduled Procedures Name Priority Associated Diagnoses Date/Ti [...] documented as of this encounter Care Teams Electrician Ship Relationship Specialty Start Date End Date Liam Houston MD [address] [address] [address] [place] [address] PCP - General Family Medicine 04/26/22 documented as of this encounter
--- OUTSIDE RECORDS SUMMARY | 2025-02-24 17:08 | XMS_ITS | Encounter Summary ---
Author Organization [facility] Address [address] [place] [address] Care Team Providers Care Loss Prevention Lead Name Role Phone Liam Houston MD Primary Care Provider [phone] Encounter Details Date Type Department Care Team [...] Tablet;TAKE 1 TABLET DAILY.; RPT Polymyxin B-Trimethoprim 80830-1.1 UNIT/ML-% Solution;APPLY TO AFFECTED EYE(S) EVERY 3-4 [...] Description 03/09/2025 1:00 PM EDT Ancillary Procedure [facility] [place] [address] [place] [address] Aristeo Schwartz MD [address] [place] [address] 03/13/2025 12:30 PM EDT Office Visit [facility] [place] [address] [place] [phone] [place] Houston [place] 7[address]364 [place] [address] [place], [place] [phone] 03/19/2025 8:00 AM EST Hospital Encounter [facility] [address] [place] [address] Aristeo Schwartz MD [address] [place] [address] 03/19/2025 8:00 AM EST - 03/19/2025 11:11 AM EST [facility] [address] [place] [address] [place] [address] Aristeo Schwartz MD [address] [place] [address] WATCHMAN INSERTION 03/26/2025 1:00 PM EST Office Visit [facility] - [address] [phone] Ellie Alcaraz, KAIT [address] [place] [address] 05/20/2025 3:00 PM EST Office Visit [facility] - [address] 5th Floor, [place] [address] 08/05/2025 11:00 AM EDT Office Visit [facility] Cardiovascular [facility] [address] [address]venc[address] Horvath, Peter [address] [place] [address] Scheduled Procedures Name Priority Associated Diagnoses Date/Ti [...] documented as of this encounter Care Teams Loss Prevention Lead Relationship Specialty Start Date End Date Liam Houston MD 6[address]23 [place] [address] [place] [address] PCP - General Family Medicine 04/26/22 documented as of this encounter
--- OUTSIDE RECORDS SUMMARY | 2025-02-24 17:08 | XMS_ITS | Clinical Summary ---
Author Organization [facility] Address [address] [place] [address] Care Team Providers Care Sow Farm Barn Technician Name Role Phone Liam Houston MD Primary Care Provider [phone] Allergies Active Allergy Reactions Criticality Noted Date Comments Fluorouracil Rash Low 10/15/2024 Medications calcium carbonate-vitamin D 600-400 MG-UNIT PO TabletIndications :Localized osteoporosis, unspecified pathological fracture presence Take 1 tablet by mouth daily. 30 tablet 12 07/06/19 18 Active latanoprost (XALATAN) 0.005 % Ophthalmic Solution INSTILL 1 DROP AT BEDTIME INTO EACH EYE 02/09/20 22 Active Zinc 50 MG Oral Tablet by mouth. Pt takes 50 in am and 50 in pm Active meclizine (ANTIVERT) 25 MG Oral TabletIndications :Dizziness TAKE 1 TABLET BY MOUTH THREE TIMES DAILY NEEDED FOR DIZZINESS 90 tablet 2 01/02/20 24 Active metoprolol succinate (TOPROL-XL) 100 MG Oral Tablet Extended Release 24 HourIndications:E ssential hypertension with goal blood pressure less than 140/90 Take 1 (one) tablet by mouth daily. 90 tablet 1 08/13/19 25 Active levothyroxine 125 MCG Oral TabletIndications :Hypothyroidism due to acquired atrophy of thyroid Take 1 (one) tablet by mouth daily. 90 tablet 1 09/12/19 25 Active fluorouracil (EFUDEX) 5 % External Cream Apply 5 % topically. 09/03/19 25 Active amitriptyline (ELAVIL) 25 MG Oral TabletIndications :Frequent headaches Take 1 (one) tablet by mouth nightly at bedtime. 90 tablet 1 09/12/19 25 Active atorvastatin (LIPITOR) 80 MG Oral TabletIndications :Hyperlipidemia LDL goal <130 TAKE 1 TABLET BY MOUTH NIGHTLY AT BEDTIME 90 tablet 11/27/19 25 Active Eliquis 2.5 MG Oral TabletIndications :Paroxysmal atrial fibrillation Take 1 tablet by mouth twice daily 180 tablet 11/27/19 25 Active alendronate (FOSAMAX) 70 MG Oral TabletIndications :Osteoporosis, unspecified osteoporosis type, unspecified pathological fracture presence Take 1 (one) tablet by mouth every 7 days. Take in AM with a full glass of water on empty stomach. Do not eat, drink or lie down for next 30 min. 12 tablet 3 12/06/19 25 Active acetaminophen-cod eine (TYLENOL #4) 300-60 MG Oral TabletIndications :Primary osteoarthritis involving multiple joints Take 1 (one) tablet by mouth 3 times daily as needed for pain. FOR PAIN 75 tablet 02/11/20 25 Active acetaminophen-cod eine (TYLENOL #4) 300-60 MG Oral TabletIndications :Primary osteoarthritis involving multiple joints Take 1 (one) tablet by mouth 3 times daily as needed for pain. FOR PAIN 75 tablet 11/27/19 25 025 Discontinued Active Problems Problem Noted Date Diagnosed Date Atrial fibrillation, unspecified type 10/15/2024 Primary osteoarthritis involving multiple joints 11/01/2020 Controlled substance agreement signed 12/03/2017 S/P CABG (coronary artery bypass graft) 12/19/19 17 CAD in [place] artery 12/18/2016 Closed compression fracture of lumbar vertebra ([facility]: 401) 06/21/2016 Closed fracture of tenth thoracic vertebra ([facility]: 401) 11/08/2015 Aortic valve disease 11/08/2015 Left bundle branch block (LBBB) 11/08/2015 Actinic keratosis 05/21/2012 Overview (11/09/2013): Allscripts Description: Actinic Keratosis (Created by Conversion) Coronary atherosclerosis of [place] coronary morelia ry 12/20/2011 Overview (11/09/2013): Allscripts [...] Allscripts Description: Abnormal Glucose (Created by Conversion) Acute myocardial infarction, subendocardial infarction, subsequent episode of care 12/27/2011 1 Overview (11/09/2013): Allscripts Description: Non-Q-wave Myocardial Infarction - Subsequent Care Recent MD (8 Wks) (Created by Conversion) Follow-up examination, follo wing [...] Routine general medical exam ination at a [facility] facility 04/29/2015 Overview (11/09/2013): Allscripts Description: Normal Routine History And Physical Senior Citizen (65- 80) (Created by Conversion) Encounters Date Type Department Care Team Description 02/10/2025 Refill [facility] [address] [place] [phone] Trent Thornton MD Medications Refill 02/02/2025 Telephone [facility] [address] 5th Floor, [place] [address] Aristeo Schwartz MD Procedure Scheduling 01/29/[address], Peter [address] [place] [address] Aristeo Schwartz MD Labs Only 12/04/2024 Refill [facility] [address] [place] [address] Liam Houston MD Medications Refill 12/03/2024 Telephone [facility] [address] [place] [address] Liam Houston MD Medical Question/Inquiry; Urgent 11/25/2024 Refill [facility] [address] [place] [phone] Trent Thornton MD Medications Refill 11/25/2024 Refill [facility] [address] [place] [address] Liam Houston MD Medications Refill from Last 3 Months Immunizations Immunization Administration Dates Next Due ADACEL, BOOSTRIX, Tdap Vacci ne, (7 yo and older), IM (FJR=373) 12/12/2023 FLUZONE HIGH-DOSE (65Y & OLD ER) 0.5 ML IM SYR 04/03/2024 FLUZONE HIGH-DOSE (65Y & OLD ER) 0.7 ML IM SYR 02/14/2023,02/06/2022,02/14/2021,01/12 Flu Vaccine, 65 and older, F LUZONE High Dose, TRIV, Pre-filled syr, IM (CMO=731) 02/25/2019,02/04/2018,01/31/2017,01/13 Flu vaccine (6mo and older) TRIVALENT,LATEX-FREE,w/preserv, Split IM, MDV 01/28/2015,02/13/2014 MODERNA (12Y&OLDER) 0.5 ML IM 04/12/2023 PCV13 / PREVNAR 13 (6W & OLD ER) 0.5 ML IM SYR 04/29/2015 PFIZER SARSCOV2 (COMIRNATY) Vaccine (30 mcg/0.3 mL) MDV IM (PBM=766) 09/21/2021,03/21/2021,02/14/2021 PPSV23 (Pneumococcal Polysac charide 23) (CVX=33) 05/17/2016 SHINGRIX, Zoster Vaccine, IM (HSJ=587) 04/01/2018,11/28/2017 04/30/2018 ZOSTAVAX, Varicella-Zoster V accine, Subcutaneous (GXD=225) 02/20/2011,09/11/2009 Family History Medical History Relation Comments Hypertension Mother Hypertension Sister Breast Cancer Neg Hx Relation Status Comments Father Mother Sister Social History Tobacco Use Types Packs/Day Years Used Date Smoking Tobacco: Never Smokeless Tobacco: Never Tobacco Cessation:Counseling Given: No Alcohol Use Standard Drinks/Week Comments Never 1 (1 standard drink = 0.6 oz pur e alcohol) once a year [facility] Utilities Answer Date Recorded In the past 12 months has th e electric, gas, oil, or water company threatened [...] 04/26/2022 How often do you attend chur or hoahaoism services? Never 04/26/2022 Do you belong to any clubs o r organizations such as uatsdin groups, unions, fraternal or athletic groups, or [...] and heating? Not hard at all 04/26/2022 [facility] - Occupational [...] place to sleep or slept in a group home (including now)? No 04/26/2022 PHQ-2 Risk Classification [...] Description 03/09/2025 1:00 PM EDT Ancillary Procedure [facility] [place] [address] [place] [address] Aristeo Schwartz MD [address] [place] [address] 03/13/2025 12:30 PM EDT Office Visit [facility] [place] [address] [facility] [address] [place] [address] Liam Houston MD 929201 [place] [address] [place], [place] [phone] 03/19/2025 8:00 AM EST [facility] [address] [place] [address] Aristeo Schwartz MD [address] [place] [address] 03/19/2025 8:00 AM EST - 03/19/2025 11:11 AM EST Surgery [facility] [address] [place] [address] Aristeo Schwartz MD [address] [place] [address] WATCHMAN INSERTION 03/26/2025 1:00 PM EST Office Visit [address] [phone] Ellie Alcaraz, KAIT [address] [place] [address] 05/20/2025 3:00 PM EST Office Visit [place] [address] 5th Floor, [place] [address] 08/05/2025 11:00 AM EDT Office Visit [facility] [address] [address]vath, Peter [address] [place] [address] Scheduled Procedures Name Priority Associated Diagnoses Date/Ti me WATCHMAN INSERTION Atrial fibrillation, unspecified type 03/19/2025 8:00 AM EST Health Maintenance Due Date Last Done Comments [...] MA Increase water intake Diet On track( 025 1:27 PM EDT) No Dorothea Gibson [...] COMPREHENSIVE METABOLIC PANEL (08/12/2024 11:17 AM EDT) Glucose 101(H) 65 - 99 mg/dL [facility] [...] factors. LDL-C is now calculated using the Ortiz calculation, which is a validated novel method providing better accuracy than the Friedewald equation in the estimation of LDL-C. Ralph PRETTY et al. JENI. 2013;310(19): 3828-5274 (http://education.[employer].Compendium/faq/RKH381) LDl/HDL Ratio 2.7 <5.0 (calc) [facility] NON-HDL [...] Read By Jas Bartlett Electronically Verified By Jas Bartlett Released Date Time - 11/08/2020 3:23 [...] the menopausaltransition. (ISCD 2007) Read By Jas Bartlett Electronically Verified By - Luna Bartlett Released Date Time - 11/08/2020 3:23 PM [facility] ORDERABLES Final Res [...] findings and agree withthe above. Read By Jas Swift M.D. Electronically Verified By Jas Swift M.D. Released Date Time - 01/30/2014 8:47 AM Resident - Eunice Roblero Stephen Collier MD RAD JX GERBER ORDERABLES Final Result from Last 3 Months or Most Recently Relevant to Health Maintenance Insurance Advance Directives For more information, please contact: [phone] Documents on File Type Date Recorded Patient Subject Scientific Research Expl anation Advance Directives/Living Will 05/19/2014 1:43 PM * Full Code (Latest Code Status on File) Date Activated Date Inactivated Comments 10/27/2015 9:45 PM 11/03/2015 7:07 PM Care Teams Sow Farm Barn Technician Relationship Specialty Start Date End Date Liam Houston MD [id number] [address] [address] [place] [address] PCP - General Family Medicine 04/26/22
--- OUTSIDE RECORDS SUMMARY | 2025-02-24 17:08 | XMS_ITS | Encounter Summary ---
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 Running stitch removed from 4 cm well healing wound. Allergies No Known Drug Allergy. Current Meds Zocor 40 MG Tablet;TAKE 1 TABLET DAILY.; RPT Premarin 0.625 MG Tablet;TAKE 1 TABLET DAILY.; RPT Polymyxin B-Trimethoprim 78698-7.1 UNIT/ML-% Solution;APPLY TO AFFECTED EYE(S) EVERY 3-4 [...] [facility] [address] [place] [address] Aristeo Schwartz MD [address] [place] [address] 03/13/2025 12:30 PM EDT Office Visit [facility] Family Medicine - [address] [address] Liam Houston MD [address] [place] [address] 03/19/2025 8:00 AM EST [facility] [address] [place] [address] [place] [address] Aristeo Schwartz MD [address] [place] [address] 03/19/2025 8:00 AM EST - 03/19/2025 11:11 AM EST Surgery [facility] [address] [place] [address] [place] [address] Aristeo Schwartz MD [address] [place] [address] WATCHMAN INSERTION 03/26/2025 1:00 PM EST Office Visit [facility] [address] [place] [phone] Kieran Ellie Garcia, VISITOR SERVICES REPRESENTATIVE [address] [place] [address] 05/20/2025 3:00 PM EST Office Visit [facility] [address] [place] [phone] 08/05/2025 11:00 AM EDT Office Visit [address] [facility] [address] [place] [address] Scheduled Procedures Name Priority Associated Diagnoses Date/Ti [...] documented as of this encounter Care Teams Organ Teacher Relationship Specialty Start Date End Date Liam Houston MD [id number] [address] [address] [place] [address] PCP - General Family Medicine 04/26/22 documented as of this encounter
--- OUTSIDE RECORDS SUMMARY | 2025-02-24 17:08 | XMS_ITS | Encounter Summary ---
Author Organization [facility] Address [address] [place] [address] Care Team Providers Care Horser Up Name Role Phone Liam Houston MD Primary Care Provider [phone] Encounter Details Date Type Department Care Team [...] Description 03/09/2025 1:00 PM EDT Ancillary Procedure [facility] [place] [address] [place] [address] Aristeo Schwartz MD [address] [place] [address] 03/13/2025 12:30 PM EDT Office Visit [facility] [place] [address] [place] [phone] Liam Houston MD [address] [place], [place] [phone] 03/19/2025 8:00 AM EST Hospital Encounter [facility] [address] [place] [address] Aristeo Schwartz MD [address] [place] [address] 03/19/2025 8:00 AM EST - 03/19/2025 11:11 AM EST Surgery [facility] [address] [place] [address] Aristeo Schwartz MD [address] [place] [address] WATCHMAN INSERTION 03/26/2025 1:00 PM EST Office Visit [address] [phone] Ellie Alcaraz, SENIOR MATERIALS SCIENTIST [address] [place] [address] 05/20/2025 3:00 PM EST Office Visit [address] [phone] 08/05/2025 11:00 AM EDT Office Visit [facility] [address], Peter [address] [place] [phone] Scheduled Procedures Name Priority Associated Diagnoses Date/Ti [...] documented as of this encounter Care Teams Horser Up Relationship Specialty Start [place] Liam [place] [address] [address] [address] [place] [address] PCP - General Family Medicine 04/26/22 documented as of this encounter
--- OUTSIDE RECORDS SUMMARY | 2025-02-24 17:08 | XMS_ITS | Encounter Summary ---
Author Organization [facility] Address [address] [place] [address] Care Team Providers Care Journal Box Inspector Name Role Phone Liam Houston MD Primary Care Provider [phone] Encounter Details Date Type Department Care Team [...] eventually came back. She has seen an spike machine heater who has checked her for glaucoma and [...] is to call. ASPEN LICONA MD D: [id number] MT: [id number] Dictator: [id number] Confirmation Number: [id number] (#[id number]) Electronically signed by:Cathy Licona M.D. Sep 28 2004 3:00PM EST documented in this encounter Plan of Treatment Upcoming Encounters Date Type Department Care Team (Latest Contact Info) Description 03/09/2025 1:00 PM EDT Ancillary Procedure [facility] [address] [place] [address] Aristeo Schwartz MD [address] [place] [address] 03/13/2025 12:30 PM EDT Office Visit [facility] [address] [phone] Liam Houston MD [address] [place] [id number] 03/19/2025 8:00 AM EST Hospital Encounter [facility] [address] [place] [address] [place] [address] Aristeo Schwartz MD [address] [place] [address] 984 03/19/2025 8:00 AM EST - 03/19/2025 11:11 AM EST Surgery [facility] [address] [place] [address] [place] [address] Aristeo Schwartz MD [address] [place] [address] WATCHMAN INSERTION 03/26/2025 1:00 PM EST Office Visit [facility] [address] [place] [phone] Ellie Alcaraz, KAIT [address] [place] [address] 05/20/2025 3:00 PM EST Office Visit [address] [phone] 08/05/2025 11:00 AM EDT Office Visit [address] [facility] [address] [place] [phone] Scheduled Procedures Name Priority Associated Diagnoses Date/Ti [...] documented as of this encounter Care Teams Journal Box Inspector Relationship Specialty Start Date End Date Liam Houston MD [address] [address] [address] [place], [place] [phone] PCP - General Family Medicine 04/26/22 documented as of this encounter
--- OUTSIDE RECORDS SUMMARY | 2025-02-24 17:08 | XMS_ITS | Encounter Summary ---
Author Organization [facility] Address [address] [place] [address] Care Team Providers Care Auctioneer Automobile Name Role Phone Liam Houston MD Primary Care Provider [phone] Encounter Details Date Type Department Care Team [...] here for tx of SK on left anglican and suspicious on right. Discussed shaving right lesion for path. All other ROS otherwise neg. . Allergies No Known Drug Allergy. Current Meds Zocor 40 MG Tablet;TAKE 1 TABLET DAILY.; RPT Premarin 0.625 MG Tablet;TAKE 1 TABLET DAILY.; RPT Polymyxin B-Trimethoprim 47667-9.1 UNIT/ML-% Solution;APPLY TO AFFECTED EYE(S) EVERY 3-4 [...] Moh's if Ca. 1 SK on right anglican Tx w/ LN. Signature Signed By: Stephen Collier M.D.; 10/19/2005 2:23 PM EST. documented in this encounter Plan of Treatment Upcoming Encounters Date Type Department Care Team (Latest Contact Info) Description 03/09/2025 1:00 PM EDT Ancillary Procedure [facility] [place] [address] [place] [address] Aristeo Schwartz MD [address] - [address] [place] [address] 03/13/2025 12:30 PM EDT Office Visit [facility] - [place] [phone] [place] [phone] Liam Houston MD [address] [place] [address] 03/19/2025 8:00 AM EST Hospital Encounter [facility] [address] [place] [address] Aristeo Schwartz MD [address] [place] [address] 03/19/2025 8:00 AM EST - 03/19/2025 11:11 AM EST Surgery [facility] [address] [place] [address] Aristeo Schwartz MD [address] [place] [address] WATCHMAN INSERTION 03/26/2025 1:00 PM EST Office Visit [address] [phone] Ellie Alcaraz, CONTROL ROOM AGENT [address] [place] [address] 05/20/2025 3:00 PM EST Office Visit [address] [phone] 08/05/2025 11:00 AM EDT Office Visit [place] [address] [address] [address], [facility] [address] [place] [phone] Scheduled Procedures Name Priority Associated Diagnoses Date/Ti [...] documented as of this encounter Care Teams Auctioneer Automobile Relationship Specialty Start Date End Date Liam Houston MD [address] [address] [address] [place] [phone] PCP - General Family Medicine 04/26/22 documented as of this encounter
--- OUTSIDE RECORDS SUMMARY | 2025-02-24 17:08 | XMS_ITS | Encounter Summary ---
Author Organization [facility] Address [address] [place] [address] Care Team Providers Care Foreclosure Field Inspector Name Role Phone Liam Houston MD Primary Care Provider [phone] Encounter Details Date Type Department Care Team [...] Ancillary Procedure [facility] [place] [address] [place] [address] Aristeo Schwartz MD [address] [place] [address] 03/13/2025 12:30 PM EDT Office Visit [facility] [address] [facility] [address] [place] [phone] Liam Houston MD 266412 [facility] [address] [place], [place] [phone] 03/19/2025 8:00 AM EST Hospital Encounter [facility] [address] [place] [address] Aristeo Schwartz MD [address] [place] [address] 03/19/2025 8:00 AM EST - 03/19/2025 11:11 AM EST Surgery [facility] [address] [place] [address] Aristeo Schwartz MD [address] [place] [address] WATCHMAN INSERTION 03/26/2025 1:00 PM EST Office Visit [address] [phone] Ellie Alcaraz, LABORATORY ANIMAL CARETAKER [address] [address] 05/20/2025 3:00 PM EST Office Visit [address] [phone] 08/05/2025 11:00 AM EDT Office Visit [address] Meka Fernandez, Peter [address] [place] [address] Scheduled Procedures Name Priority Associated Diagnoses Date/Ti [...] as of this encounter Care Teams Foreclosure Field Inspector Relationship Specialty Start Date End Date Liam Houston MD [id number] [address] [address] [place] [address] PCP - General Family Medicine 04/26/22 documented as of this encounter
--- OUTSIDE RECORDS SUMMARY | 2025-02-24 17:08 | XMS_ITS | Encounter Summary ---
Author Organization [facility] Address [address] [place] [address] Care Team Providers Care Colorer Name Role Phone Liam Houston MD Primary Care Provider [phone] Encounter Details Date Type Department Care Team [...] Ancillary Procedure [facility] [place] [address] [place] [address] Aristeo Schwartz MD [address] [place] [address] - [address] [place] [address] 03/13/2025 12:30 PM EDT Office Visit [facility] [address] [place] [address] [place] [phone] Liam Houston MD 640336 [place] [address] [place] [address] 03/19/2025 8:00 AM EST Hospital Encounter [facility] [address] [place] [address] Aristeo Schwartz MD [address] [place] [address] 03/19/2025 8:00 AM EST - 03/19/2025 11:11 AM EST Surgery [facility] [address] [place] [address] Aristeo Schwartz MD [address] [place] [address] WATCHMAN INSERTION 03/26/2025 1:00 PM EST Office Visit [facility] - [address] [address] Ellie Alcaraz, KAIT [address] [address] 05/20/2025 3:00 PM EST Office Visit [facility] [address] [place] [phone] 08/05/2025 11:00 AM EDT Office Visit [place] [address] [address] [address] Horvath, [facility] [address] [place] [phone] Scheduled Procedures Name Priority Associated Diagnoses Date/Ti [...] documented as of this encounter Care Teams Colorer Relationship Specialty Start Date End Date Liam Houston MD [id number] [address] [address] [place] [address] PCP - General Family Medicine 04/26/22 documented as of this encounter
--- OUTSIDE RECORDS SUMMARY | 2025-02-24 17:08 | XMS_ITS | Encounter Summary ---
Author Organization [facility] Address [address] [place] [address] Care Team Providers Care Autocad Electrical Designer Name Role Phone Liam Houston MD Primary Care Provider [phone] Encounter Details Date Type Department Care Team [...] left. She has been seen by an production control manager, who has checked her for glaucoma. Ms. [...] only if necessary. ASPEN LICONA MD D: [id number] MT: [id number] Dictator: [id number] Confirmation Number: [id number] (#[id number]) Electronically signed by:Cathy Licona M.D. Oct 18 2004 8:58AM EST documented in this encounter Plan of Treatment Upcoming Encounters Date Type Department Care Team (Latest Contact Info) Description 03/09/2025 1:00 PM EDT Ancillary Procedure [facility] [address] [place] [address] Aristeo Schwartz MD [address] [place] [address] 03/13/2025 12:30 PM EDT Office Visit [facility] [address] [facility] [address] [place] [phone] Liam Houston [place] [address] [place], [place] [phone] 03/19/2025 8:00 AM EST Hospital En[facility] [address] [place] [address] Aristeo Schwartz MD [address] [place] [address] 03/19/2025 8:00 AM EST - 03/19/2025 11:11 AM EST Surgery [facility] [address] [place] [address] Aristeo Schwartz MD [address] [place] [address] WATCHMAN INSERTION 03/26/2025 1:00 PM EST Office Visit [address] [phone] Ellie Alcaraz, EXPLOSIVES HANDLER [address] [address] 05/20/2025 3:00 PM EST Office Visit [address] [phone] 08/05/2025 11:00 AM EDT Office Visit [facility] [address] [facility], Peter [address] [place] [phone] Scheduled Procedures Name Priority Associated Diagnoses Date/Ti [...] documented as of this encounter Care Teams Autocad Electrical Designer Relationship Specialty Start Date End Date Liam Houston MD [address] [address] [address] [place] [address] PCP - General Family Medicine 04/26/22 documented as of this encounter
--- NOTE | 2025-02-24 19:04 | W.ED.EXTPRO ---
HPI - Extremity Problem General: Chief complaint: Extremity Injury, Lower Stated complaint: fall, bilat hip pain Time Seen by Provider: 02/24/25 19:04 History of Present Illness: 89-year-old female with a history of chronic pain syndrome on Tylenol for at all times who presents emergency room after a fall with hip pain. She says both of her hips hurt and they hurt worse now than they did initially. She is ambulatory with a walker which is not different than her normal. No other injuries. No chest pain. No altered mental status. No head injury. Related Data Home Medications ?Medication ?Instructions ?Recorded ?Confirmed acetaminophen 300 mg-codeine 60 mg tab PO 01/25/25 01/25/25 tablet alendronate 70 mg tablet mg PO 01/25/25 01/25/25 amitriptyline 25 mg tablet mg PO 01/25/25 01/25/25 apixaban 2.5 mg tablet (Eliquis) mg PO 01/25/25 01/25/25 atorvastatin 80 mg tablet mg PO 01/25/25 01/25/25 levothyroxine 125 mcg tablet mcg PO 01/25/25 01/25/25 meclizine 25 mg tablet mg PO 01/25/25 01/25/25 metoprolol succinate 100 mg mg PO 01/25/25 01/25/25 tablet,extended release 24 hr potassium citrate 99 mg capsule mg PO 01/25/25 01/25/25 zinc acetate 50 mg (zinc) capsule 50 mg PO DAILY 01/25/25 01/25/25 Previous Rx's ?Medication ?Instructions ?Recorded hydrocodone 5 mg-acetaminophen 325 1 tab PO Q6H PRN pain #20 tabs 02/24/25 mg tablet Allergies Allergy/AdvReac Type Severity Reaction Status Date / Time cold temp Allergy ALGY-Bliste Uncoded 01/25/25 13:55 r Review of Systems Narrative: Constitutional symptoms: Negative except as documented in HPI. Skin symptoms: Negative except as documented in HPI. Eye symptoms: Negative except as documented in HPI. ENMT symptoms: Negative except as documented in HPI. Respiratory symptoms: Negative except as documented in HPI. Cardiovascular symptoms: Negative except as documented in HPI. Gastrointestinal symptoms: Negative except as documented in HPI. Genitourinary symptoms: Negative except as documented in HPI. Musculoskeletal symptoms: Negative except as documented in HPI. Neurologic symptoms: Negative except as documented in HPI. Psychiatric symptoms: Negative except as documented in HPI. Endocrine symptoms: Negative except as documented in HPI. [facility] ED PFSH: Social History Smoking and tobacco/nicotine status: never used tobacco/nicotine Physical Exam Narrative: EXAM NARRATIVE: General: Alert, no acute distress. Skin: Warm, dry. Head: Normocephalic, atraumatic. Neck: Supple, trachea midline. Eye: Extraocular movements are intact. Ears, nose, mouth and throat: mucosa moist. Cardiovascular: Regular, Normal peripheral perfusion. Respiratory: Lungs are clear to auscultation, respirations are non-labored, breath sounds are equal, Symmetrical chest wall expansion. Gastrointestinal: Soft, Nontender, Non distended Musculoskeletal: Normal ROM, no deformity. Neurological: Alert and oriented, No focal neurological deficit observed. Psychiatric: Cooperative, appropriate mood & affect. Course Vital Signs: Vital signs: Vital Signs Pulse Rate 71 02/24/25 17:03 Respiratory Rate 18 02/24/25 17:03 Blood Pressure 130/68 02/24/25 17:03 Pulse Oximetry 96 02/24/25 17:03 Oxygen Delivery Me thod Room Air 02/24/25 17:03 MDM - Extremity (Nontraumatic) Medical Decision Making Medical decision making: Differential diagnosis including but not limited to and based on the above HPI, review of systems and physical exam: In this patient with a musculoskeletal extremity traumatic injury and x-ray is being ordered to rule out fractures and dislocations. Orders placed to evaluate differential diagnosis based on the above differential, HPI and physical exam X-ray of the hips and pelvis bilateral: No obvious acute process. No fractures. No dislocations. Films were interpreted by myself the emergency room provider and pending final radiology review. I reviewed the patient's medical record. No previous records here. Other than a couple previous visits to urgent care last month with dizziness. Reexamination: Patient remained stable. No increased work of breathing. No altered mental status. No focal motor deficits. Assessment and plan: Fall, hip pain, chronic pain syndrome ?[place] in the emergency room - Discharged home - Discussed plan with patient. Answered any questions. - Evaluation and treatment of this problem were appropriate in the emergency setting. XR interpretation done by ED provider, pending radiology final review Discharge Plan Discharge Patient Disposition: Home Clinical Impression: Acute hip pain, bilateral, Fall, Chronic pain syndrome Condition: Stable Prescriptions: New hydrocodone-acetaminophen 5-325 mg tablet 1 tab PO Q6H PRN (Reason: pain) Qty: 20 0RF No Action atorvastatin 80 mg tablet PO zinc acetate 50 mg (zinc) capsule 50 mg PO DAILY alendronate 70 mg tablet PO metoprolol succinate 100 mg tablet extended release 24 hr PO amitriptyline 25 mg tablet PO meclizine 25 mg tablet PO levothyroxine 125 mcg tablet PO acetaminophen-codeine 300-60 mg tablet PO Eliquis 2.5 mg tablet PO potassium citrate 99 mg capsule PO Discharge Orders: Discharge ED (Routine); Ordered 02/24/25 Ordered By: An Mckay Discharge Diet: Usual diet Discharge Activity: Increase activity as tolerated Patient Instructions: Opioid Safety, Pain Management, Patient Portal & [place] Instructions Activity Restrictions/Additional Instructions: Thank you for choosing [facility] for your healthcare needs today. You have been screened and evaluated and felt safe for discharge. Health conditions do change or evolve sometimes and as such it is important that you follow up with your Primary Doctor to be re checked, 3-5 days is a general good time frame for follow up. 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
[2025-02-24] MEDS: HYDROcodone-acetaminophen 10-325 mg Tablet 1 TAB PO (19:16)
== END 2025-02-24 19:43 | disposition home or self-care (01) ==
PROVIDERS: Emergency Provider Emergency Medicine
DX: M25.552 Pain in left hip (principal); M25.551 Pain in right hip; G89.4 Chronic pain syndrome
CPT/HCPCS: 73523; 99283; J9999